=== PATIENT | male | born 1970 | race Caucasian/White ===

== ENCOUNTER 2025-04-09 16:24 | Inpatient (IN) | payer SELFPAY ==
[2025-04-09 16:28] VITALS: BP 149/83; PULSE 63; RESP 18; TEMP 36.7; O2SAT 95; BMI 29.4
[2025-04-09 17:47] VITALS: BP 149/83; PULSE 63; RESP 18; TEMP 36.7; O2SAT 95
[2025-04-09 19:50] VITALS: PULSE 63; RESP 18; O2SAT 95; BMI 29.4
[2025-04-09] MEDS: Jevity 1.5 1,000 ML 25 ML GT (20:19)
[2025-04-09] MEDS: Polyethylene Glycol 3350 17 GM PACKET PO (21:52)
--- NOTE | 2025-04-10 00:34 | NURSING ---
jevity started at 2020 this hs and at 25ml/hr with a 200cc flush Q6 hours . procedure explained to pt and his . scant amt of yellow liquid is noted in his peg tube, abd is soft and nontender with bowel sounds present x's 4 quads. insertion site is noted to have a lg amt of red drainage on the gauze sponges, site was cleansed and new gauze sponges applied. 2200 hs medication given and pt reports some nausea but it was noted that the hob was down lower than 30 degrees, staff educated pt on keeping the hob at the prescribed 30 degrees to prevent reflux and aspiration. hob is currently locked out for pt safety. dressing to peg insertion site was changed again for a moderate of red drainage 0020 staff to check on pt and awoke easily, denied and discomfort, nausea, or bloating. there was a 5cc residual noted at this time, jevity increased to 30cc/hr. rn aware of the above charting
[2025-04-10 05:00] VITALS: BP 145/80; PULSE 61; RESP 17; TEMP 36.5; O2SAT 94
--- NOTE | 2025-04-10 05:07 | NURSING ---
jevity increased to 35cc/hr. pt denied bloating, nausea, and reports that he is passing gas. pt stated that he feels a coolness in his RLQ. there was no residual of the jevity. dressing was changed to the peg insertion site for a moderate amt of red drainage, small clots were noted on the dressing.
[2025-04-10 10:00] VITALS: PULSE 60; RESP 16; O2SAT 96
--- NOTE | 2025-04-10 12:12 | EX.PCM.HP.RE ---
HPI - General General Date of Admission: 04/09/25 Date of Service: 04/10/25 Chief Complaint: Post stroke debility HPI Narrative CHARLES RUSSELL, is a 54 YO M with no significant PMH, on no medications and not following with the PCP who had waxing and waning nausea and dizziness for a few days and then went on to develop trouble swallowing and difficulty walking. He also complained of numbness on the right side of his face. He finally went to [facility] emergency department to be evaluated. At presentation to the ED he had slurred speech, facial droop and drift with the R leg. NC CT brain was unremarkable with no acute abnormalities. A PN states CTA of the H&N were unremarkable......the actual radiology report of the test was not included in the documentation we received. He was admitted to the hospitalist service to be evaluated for CVA. Carotid duplex revealed less than 50% per documentation in the progress note. A transthoracic echocardiogram showed normal left ventricular function but once again we did not receive the report. A noncontrast MRI of the brain showed multiple foci of restricted diffusion throughout the right cerebellum and right medulla concerning for embolic infarcts. RBS was increased in the emergency department at 145 and the lab was otherwise unremarkable in the ED. Subsequent labs showed hemoglobin A1c was 5.7. LDL was 111 with a low HDL of 34. TSH was normal. He was given a loading dose of 300 mg of ASA. He failed a swallowing eval in the ED. He was seen by ST and had a bedside exam but, no MBS or FEES was done. They recommended NPO and PEG tube insertion. A PEG was inserted by surgery on 04/08/25. The surgeon reported he had severe erosive esophagitis. He was seen by PT/OT and ST while at [facility] and acute rehab was recommended. He was transferred to the acute inpatient rehab unit at [facility] on 04/09/25 for 3 hours of therapy daily. A 30 day event monitor was ordered by the previous hospital. We will have family bring the device in for us to apply when it arrives in the mail. The med list was reviewed. He is on only ASA, no Plavix. He is not anticoagulated. No AF was reported in any of the documentation we received. He is on enoxaparin 40 mg subcu daily for DVT prophylaxis. He will take lansoprazole 30 mg daily for treatment of erosive esophagitis. He was placed on Lipitor 40 mg daily at the previous hospital. He was getting continuous TF and most recent residual is 300...........he is to start Bolus feedings today at 6 PM. Why does he have erosive esophagitis? Did not see GI at the previous hospital. Afebrile Blood pressure has ranged from 145/88 to 149/83 since arrival in rehab. Heart rate is ranged from 60-63. His tells me that he Snores very loudly and she also tells me that he stops breathing when sleeping. No RLS. He falls asleep reading all the time and can fall asleep when he is talking with someone. He has had episodic dizziness for some time but, he denies palpitations/racing heart. He sometimes can feel food sitting in his chest when eating and like it 'won't go down. Has heartburn at times. Sometimes food will come up after eating that looks like what it did when he ate it. Has been having this dizziness for months. [facility] Medical History (Updated 04/10/25 @ 18:[address] Sheri De León DO) Loud snoring Tobacco dependence in remission Overweight (BMI 25.0-29.9) Erosive esophagitis CVA (cerebral vascular accident) Hypertension Home Medications ?Medication ?Instructions ?Recorded ?Last Taken ?Type aspirin 81 mg chewable tablet 1 tab feeding tube DAILY heart 04/09/25 04/09/25 History (Aspirin [facility] health atorvastatin 40 mg tablet (Lipitor) 40 mg feeding tube QHS cholesterol 04/09/25 Unknown History enoxaparin 40 mg/0.4 mL 40 mg subcut DAILY DVT prophylaxis 04/09/25 04/09/25 History subcutaneous syringe (Lovenox) Allergy/AdvReac Type Severity Reaction Status Date / Time No Known Allergies Allergy Verified 04/09/25 17:05 Family History unable to obtain Surgical History no surgical history Social History (Updated 04/10/25 @ 15:[address] Sheri De León DO) household members: spouse and family housing: house Smoking Status: Former smoker ROS ROS Narrative Getting a straight answer out of this gentleman is very difficult. Constitutional Constitutional: Reports fatigue, snoring and stops breathing during sleep; Denies anorexia, change in weight, chills, fever(s), night sweats or weakness Eyes Eyes: Denies blurry vision, burning, change in vision or double vision ENT HEENT: Reports dysphagia; Denies abnormal hearing, headache(s), hearing loss, nasal congestion or sore throat Cardiovascular Cardiovascular: Reports dizziness and lightheadedness; Denies chest pain, dyspnea on exertion, edema, flutter in chest, orthopnea, palpitations, paroxysmal nocturnal dyspnea, pounding heartbeat, racing heartbeat or syncope Respiratory/Chest Respiratory/Chest: Denies cough, dyspnea, shortness of breath at rest, shortness of breath with exertion or wheezing Gastrointestinal Gastrointestinal: Reports chewing difficulty and other Details: Feels like his food is not going all the way to the stomach at times and he gets a fullness in his chest. Sometimes vomits food that looks undigested. Sometimes has heartburn. ; Denies abdominal pain, constipation, diarrhea, dyspepsia, hematemesis, hematochezia, nausea or vomiting Genitourinary Genitourinary: Denies dysuria, hematuria, nocturia, urinary frequency, urinary hesitancy, urinary incontinence or urinary urgency Musculoskeletal Musculoskeletal: Denies back pain, joint pain, joint swelling or neck pain Integumentary Integumentary: Denies alopecia or jaundice Neurologic Neurologic: Reports abnormal speech, dizziness and paresthesias; Denies confusion, disequilibrium, focal weakness, headache(s), seizures, tremor(s) or vertigo Psychiatric Psychiatric: Denies anxiety, depression, homicidal ideation or suicidal ideation Endocrine Endocrinology: Denies change in body appearance, polydipsia or polyuria Hematologic/Lymphatic Hematologic/Lymphatic: Denies easy bleeding, easy bruising or lymphadenopathy Allergic/Immunologic Allergic/Immunologic: Denies rhinitis, eczemia or asthma Vital Signs Vital Signs Vital Signs: 04/09/25 16:28 04/09/25 16:48 04/09/25 17:47 Temperature 98.1 F 98.1 F Temperature Source Temporal Temporal Pulse Rate 63 63 Pulse Strength Respiratory Rate 18 18 Respiratory Effort Normal Non-Labored Respiratory Depth Normal Respiratory Pattern Normal Blood Pressure 149/83 H 149/83 H Blood Pressure Mean 105 105 Blood Pressure Source Monitor Monitor Blood Pressure Position Semi-Fowlers Blood Pressure Location Right Arm Pulse Ox 95 95 Oxygen Delivery Method Room Air Room Air Room Air 04/09/25 19:50 04/09/25 19:50 04/10/25 05:00 Temperature 97.7 F L Temperature Source Temporal Pulse Rate 63 61 Pulse Strength Normal (2+) Respiratory Rate 18 17 Respiratory Effort Normal Non-Labored Respiratory Depth Normal Respiratory Pattern Normal Blood Pressure 145/80 H Blood Pressure Mean 101 Blood Pressure Source Monitor Blood Pressure Position Semi-Fowlers Blood Pressure Location Left Arm Pulse Ox 95 94 Oxygen Delivery Method Room Air Room Air 04/10/25 10:00 04/10/25 10:00 Temperature Temperature Source Pulse Rate 60 Pulse Strength Normal (2+) Respiratory Rate 16 Respiratory Effort Normal Non-Labored Respiratory Depth Normal Respiratory Pattern Normal Blood Pressure Blood Pressure Mean Blood Pressure Source Blood Pressure Position Blood Pressure Location Pulse Ox 96 Oxygen Delivery Method Room Air Weight Weight: 205 lb 3.194 oz Body Mass Index (BMI) 29.4 Indicators for Scoring Admitted with or Primary Diagnosis of CVA/Stroke: Yes Hx of CVA/Stroke: Yes Modified Bastrop Score MRS Score at time of Evaluation: 3-Moderate disability NIHSS NIHSS 1a. Level of Consciousness: 0 - Alert; keenly responsive 1b. LOC Questions: 0 - Answers BOTH questions correctly 1c. LOC Commands: 0 - Performs BOTH tasks correctly 2. Best Gaze: 0 - Normal 3. Visual: 0 - No visual loss 4. Facial Palsy: 1 - Minor paralysis (flattened nasolabial fold, asymmetry on smiling) (Flattened nasolabial fold on the right with mild asymmetry of the smile. ) 5a. Left Arm: 0 - No drift; arm holds 90 (or 45) degrees for full 10 seconds 5b. Right Arm: 0 - No drift; arm holds 90 (or 45) degrees for full 10 seconds 6a. Left Le - No drift; leg holds 30-degree position for full 5 seconds 6b. Right Le - No drift; leg holds 30-degree position for full 5 seconds 7. Limb Ataxia: 0 - Absent 8. Sensory: 1 - [id number]-[id number] sensory loss; (R face feels different with pinprick that the left. ) 9. Best Language: 0 - No aphasia; normal 10. Dysarthria: 1 = [id number] dysarthria; 11. Extinction and Inattention: 0 - No abnormality Total: 3 Stroke Questions Stroke Team Activated: No Physical Exam Const alert and no apparent distress General Appearance: cooperative, comfortable and well kempt HEENT normocephalic and head/scalp atraumatic HEENT Narrative: Dry MM, no thrush. + halitosis. He has a pronounced overbite and a narrow mouth. Mouth: dry mucous membranes Teeth and Gingiva: teeth discoloration Eyes PERRL, EOMs intact bilaterally, conjunctivae normal and no scleral icterus Eyes Narrative: No discharge from the eyes. No visual field cuts. Neck supple, No nodes and no carotid bruits General: trachea midline Chest Chest: symmetrical chest wall rise Resp normal respiratory effort, no use of accessory muscles and clear to auscultation bilaterally Resp Narrative: Not coughing with deep breaths. Breath sounds are mildly diminished but I think this is due to decreased effort rather than any significant lung disease Effort and Inspection: able to speak in complete sentences Cardio regular rate, regular rhythm, S1 normal heart sound, S2 normal heart sound, no murmurs, no rub, no gallops and peripheral pulses 2+ throughout Cardio Narrative: No ectopy GI normal to inspection, nondistended, normoactive bowel sounds, soft to palpation and non-tender GI Narrative: No erythema around the PEG site and no discharge noted. He had no pain with palpation around the PEG. Extremity no calf tenderness and no pedal edema Skin no jaundice General Skin Exam: no breakdown Rashes: no rashes Neuro Neuro Narrative: Speech is somewhat slurred. He has a mild R facial droop and decreased sensation in the right face when compared to the left. Pupils are equal round and reactive to light. Smooth pursuit. No nystagmus. Extraocular muscles are intact. No visual field cuts. Tongue protruded on the midline. No drift with any of the extremities. Excellent plantar flexion and dorsiflexion bilaterally. I did not observe him ambulating. No aphasia. No ataxia. No extinction. Psych cooperative, affect normal, denies hallucinations, denies homicidal ideation and denies suicidal ideation Appearance: appropriate and well kempt Attitude: calm Activity / Motor Behavior: appropriate eye contact Assessment & Plan Assessment/Plan (1) Debility: (2) CVA (cerebral vascular accident): QUALIFIERS: CVA mechanism: embolism Precerebral and cerebral artery: unspecified cerebral artery Qualified Code(s): I63.40 - Cerebral infarction due to embolism of unspecified cerebral artery (3) Dysphagia due to recent cerebral infarction: (4) Dysarthria: (5) Erosive esophagitis: (6) Overweight (BMI 25.0-29.9): (7) Dyslipidemia: (8) Tobacco dependence in remission: (9) Loud snoring: PLAN: Plan PLAN PT for gait stability OT for ADL's ST for evaluation Analgesics as needed Bowel protocol Fall precautions Assess for Anxiety/Depression GI prophylaxis -lansoprazole 30 mg daily DVT prophylaxis with Lovenox Follow up with neurology, PCP following DC from [facility]. I suspect he may have an esophageal problem......would like him to see GI at some point. Await the results of the MBS to be done on Monday. If there is esophageal retention with reflux will have GI see him sooner rather than later. AM lab including CMP, CBC, Mag and Phos Overnight trending pulse ox tonight. The strokes are consistent with emboli. Echocardiogram shows normal left ventricular systolic and diastolic function with no wall motion abnormalities. There were no thrombi in the heart and the atria are normal size. No PFO. Carotids have less than 50% stenosis bilaterally. The notes say the CTA was unremarkable but we requested CTA results and they were not sent to us so I question whether 1 was actually done. He snores loudly and stops breathing at night. He falls asleep easily during the day, when reading and even talking to people. He has a marked overbite with a narrow mouth and I suspect he has sleep apnea. Definitely needs an event monitor at discharge. Will do an overnight trending pulse ox and if it is abnormal start him on oxygen supplementation at night. Will try and get a sleep study on the night of DC if the overnight trending pulse ox is abnormal Transition him to bolus feedings. Yen water protocol initiated. MBS planned for Monday. Scored 43/50 on BCAT. Charges/Coding Visit Charges Inpatient E&M: 02875 Init Hosp L3
--- NOTE | 2025-04-10 15:20 | EKG12_ITS ---
Test Reason : EM Blood Pressure : */* mmHG Vent. Rate : 61 BPM Atrial Rate : 61 BPM P-R Int : 130 ms QRS Dur : 92 ms QT Int : 394 ms P-R-T Axes : 21 3 68 degrees QTcB Int : 396 ms Normal sinus rhythm Nonspecific T wave abnormality Abnormal ECG No previous ECGs available Confirmed by DOREEN REIS, DOREEN ([id number]), senior technical editor DILIP ZUÑIGA ([id number]) on 04/14/2025 1:19:55 PM Referred By: Sheri De León Confirmed By: DOREEN LOGAN MD
[2025-04-10 16:03] VITALS: BMI 29.4
[2025-04-10] MEDS: Jevity 1.5. 1,000 ML Bottle 240 ML GT ×2 (17:47→21:47)
[2025-04-10 17:52] VITALS: BP 150/84; PULSE 66; RESP 16; TEMP 36.7; O2SAT 95
[2025-04-10 19:25] VITALS: O2SAT 95
--- NOTE | 2025-04-10 20:04 | CPS ---
Pt brought own IS
[2025-04-10 20:22] VITALS: PULSE 65; RESP 16; O2SAT 97
[2025-04-10] MEDS: Polyethylene Glycol 3350 17 GM PACKET PO (21:46)
[2025-04-10 21:53] VITALS: PULSE 62; O2SAT 96
[2025-04-10 22:32] VITALS: BMI 29.4
[2025-04-11] MEDS: Jevity 1.5. 1,000 ML Bottle 240 ML GT (05:37)
[2025-04-11 05:55] VITALS: BMI 29.4
[2025-04-11 06:00] VITALS: BP 130/70; BP 139/93; BP 156/88; PULSE 66; PULSE 76; PULSE 81
[2025-04-11 06:09] LABS: Hematocrit 45.5 % (40-54); Hemoglobin 16.0 g/dL (13.0-16.5); Immature Granulocytes Count 0.010 X10^3/uL (0.0-0.0); Mean Corp Hgb Conc 35.2 g/dL (32-36); Mean Corpuscular Volume 85.5 fL (80-94); Mean Platelet Vol. 8.3 fl (6.2-12.0); NRBC Flagged by Analyzer 0 % (0-5); Platelet Count 274 K/mm3 (150-450); RBC Distribution Width CV 12.1 % (11.6-14.6); RBC Distribution Width SD 38.1 fl (35.1-43.9); Red Blood Count 5.32 M/mm3 (4.6-6.2); White Blood Count 7.1 K/mm3 (4.4-11.0)
[2025-04-11 06:40] LABS: AST(SGOT) 27 U/L (<=37); Alanine Aminotransfer ALT/SGPT 8 U/L (<=46); Albumin, Serum 4.0 g/dL (3.5-5.0); Alkaline Phosphatase 46 U/L (40-129); Anion Gap 9 (5-15); BUN 15 mg/dL (4-19); BUN/Creat Ratio 19.1 RATIO (10-20); Calcium,Total 9.4 mg/dL (7.6-11.0); Carbon Dioxide 25.9 mmol/L (21.0-32.0); Chloride 104 mmol/L (98-108); Estimated Creatinine Clearance 121.10 ml/min (50-250); Globulin 3.0 g/dL (2.2-4.2); Glucose 133 mg/dL (70-99); Magnesium 2.3 mg/dL (1.5-2.2); Potassium 4.3 mmol/L (3.3-5.1)
--- NOTE | 2025-04-11 08:53 | CT_ITS ---
PROCEDURE: CTA ABD/PELVIS W/WO CONTRAST 04/11/2025 REASON FOR EXAM: ABD PAIN AND VOMITING. TECHNIQUE: CTA ABD/PELVIS W/WO CONTRAST Multiplanar Sagittal and Coronal images were obtained. CONTRAST: 100 mL of Isovue 370 One or more dose reduction techniques were used (e.g., Automated exposure control, adjustment of the mA and/or kV according to patient size, use of iterative reconstruction technique). RADIATION DOSE SUMMARY: DLP: 3441 mGycm FINDINGS: Lung bases: Right lung base scattered densities with calcifications may reflect chronic aspiration. The liver, spleen, pancreas, and both adrenal glands demonstrate no acute findings. Hepatic steatosis. The gallbladder is unremarkable. Small hiatal hernia. Peg tube is noted; otherwise stomach is unremarkable.. The small bowel loops are not dilated. The appendix is not clearly identified, although there are no secondary signs of appendicitis. No colonic obstruction. Extensive colonic diverticulosis without acute diverticulitis. There is no free air or significant free fluid. The kidneys are unremarkable. The urinary bladder is partially distended. The pelvic structures are intact. There is no solid pelvic mass. Enlarged prostate to 5.2 cm in transverse dimension. No significant lymphadenopathy. Visualized osseous structures demonstrate no acute abnormality. Left posterior ribs at T10-T12 healing subacute fractures. Vascular: The aorta and IVC demonstrate no acute findings. Mild atherosclerosis of the abdominal vasculature without high-grade stenosis. Aorta: Minimal atherosclerosis without stenosis. No aneurysm or focal dissection. Iliac Arteries: Minimal atherosclerosis without stenosis. No aneurysm or focal dissection. Celiac: Patent SMA: Patent GABRIELLE : Patent Right Renal: Patent Left Renal: Patent CT/CTA Abd/Pelvis W/WO Contrast IMPRESSION: Right lung base scattered densities with calcifications may reflect chronic asp iration. No acute intra-abdominal process. Peg tube in appropriate position. No intra- abdominal acute aortic pathology. Reading Location: [id number]
--- NOTE | 2025-04-11 09:20 | CT_ITS ---
PROCEDURE: CTA HEAD AND NECK W/ CONTRAST 04/11/2025 REASON FOR EXAM: CVA TECHNIQUE: CTA HEAD AND NECK W/ CONTRAST Multiplanar Sagittal and Coronal images were obtained. CONTRAST: 100 mL of Isovue 370 One or more dose reduction techniques were used (e.g., Automated exposure control, adjustment of the mA and/or kV according to patient size, use of iterative reconstruction technique). RADIATION DOSE SUMMARY: DLP: 3414 mGycm COMPARISON: None FINDINGS: There is no acute infarct, intracranial hemorrhage, or mass effect. There is no hydrocephalus or significant midline shift. No acute, depressed calvarial fractures. No large scalp hematomas. The aortic arch demonstrates a type I configuration. The ostia of the great vessels are patent. There is conventional branching. The right CCA is patent. There is no significant stenosis of the right carotid bifurcation by NASCET criteria. The cervical right ICA is patent. The right MCA and right MARK appear patent. There is no large vessel occlusion. The left CCA is patent. There is no significant stenoses at the left carotid bifurcation by NASCET criteria. The cervical left ICA is patent. The left MCA and left MARK appear patent. There is no large vessel occlusion. The right vertebral artery arises from the right subclavian artery. The left vertebral artery arises from the left subclavian artery. Both vertebral arteries are patent. Both vertebral arteries join to form the patent basilar artery. Both posterior cerebral arteries arise from the tip of the basilar. Both proximal GUIDE CRUISE segments are patent. There is no large vessel occlusion. There is no enhancing intracranial mass. Shotty cervical lymph nodes are identified. The thyroid gland is heterogeneous. The lung apices demonstrate no pneumothorax. No destructive osseous abnormalities identified. CT/CTA Head AND Neck W/ Contrast IMPRESSION: No acute, large territorial infarction. No large vessel occlusion or high-grade stenosis. Reading Location: [id number]
[2025-04-11] MEDS: 0.9% Normal Saline (1000mL) 1,000 ML 100 ML IV ×2 (09:26→19:57)
--- NOTE | 2025-04-11 10:43 | PCM.RU.PYE ---
Admission Information Primary Diagnosis:: Debility due to ischemic CVA/embolic Status Changes from Prescreening?: No changes Identified Actual Problem List:: Skin Intergrity, Pain, ALteration in Cmfrt, Alteration in Nutrition, Mobility Impaired, Self Care Deficit, Fluid Change-Dehydration and Alteration-Leisure Activ. Potential Problem List:: DVT, Bleeding, Infection, UTI, Aspiration, Falls, Skin Integrity and Depression Risk of Complications DVT: LMWH and AJITH Hose Bleeding: Monitor Lab Values, Nursing to Teach Precautions for anti-coagulation therapy., Wound, if applicable, to be assessed every shift. and Stroke patients assessed for lethargy or change in status. Infection: Clinical Staff to Monitor for S/S of infection: and S/S of infection include fever, redness, warmth, etc. Urinary Tract Infection: Monitor for frequency, burning, discomfort, or incontinence. and Nursing will obtain urine sample for urinalysis and C&S when ordered. Aspiration: Clinical staff will monitor for coughing, drooling, congestion., Speech will evaluate swallowing and dsyphasia. and Nursing will monitor patient swallowing during meals. Falls: Patient will be evaluated for Fall Precautions and Patient will be placed on Fall Precautions as indicated per protocol. Skin Breakdown: Nursing will assess skin daily using assessment tool. and Nursing will place on Skin Breakdown Precautions as indicated. Pain: Clinical staff will assess patient's pain level per protocol., Medications will be given, if needed, and the pain level reassessed. and Other methods: Massage, distraction, decrease stimulus, etc. used PRN. Plan of Care Patient requires physician specializing in physical medicine and rehab oversight to provide close medical supervision of rehab issues including: Pain Management, Sleep Problems, Bowel and Bladder, Medical and co-morbidity Management, DVT prophylaxis, Rehabilitation Leadership and Coordination of treatment team Patient needs Physical Therapy: For a minimum of 1 hour and At least 5 out of 7 days Patient needs Physical Therapy to improve:: Mobility, Strengthening, Transfers, Stretching, ROM, Endurance, Stairs, Gait and Balance Patient needs Occupational Therapy: For a minimum of 1 hour and At least 5 out of 7 days Patient needs Occupational Therapy to improve ADL's incl.: Eating, Grooming, Bathing, Dressing, Toileting, Toilet transfers, Community Reintegration, Higher functioning activities, Household tasks, Adaptive Equipment, Splinting and Other activities as determined Patient requires speech therapy: For a minimum of 1 hour and At least 5 out of 7 days Patient requires speech therapy for: Swallowing, Cognition, Language Skills and Compensatory Strategies Patient requires 24/ Rehabilitation Nursing for: Pain Issues, Identifying and preventing risk factors, Monitoring and reporting current medical conditions, Assisting with ambulation, transfer, and all ADL's, Teaching patients about disease process and medications, Family teaching, Providing safe environment, Bowel and Bladder Issues, Skin integrity and Medication Management Patient needs [employer] Instructor/ Case Management for: Discharge Planning, Arranging Home Equipment or Services and Family Interventions Patient needs Dietary and Nutrition Services for: Adequate Nutrition, Nutritional Supplements and Nutritional Education Goals Goals Patient will remain: free from falls Patient will perform eating at: MOD I level of assist. Patient will perform bed mobility at: MOD I level of assist. Patient will complete transfers from bed to chair at: MOD I level of assist. Patient will ambulate: - (500 feet without an assistive device independently on various surfaces) Patient will complete upper body dressing at: MOD I level of assist. Patient will complete lower body dressing at: MOD I level of assist. (Using adaptive equipment as needed for increased independence with self-care) Patient will complete toilet transfer at: MOD I level of assist. Patient will complete toileting at: MOD I level of assist. Patient will perform bathing at: MOD I level of assist. Patient will perform Tub/Shower transfer at: - (Supervision) Patient will complete grooming at: MOD I level of assist. (While standing at the sink) Patient will achieve: - (12 steps with 1 handrail and standby assist) Patient will have pain level of: of 3 or less Patient's skin will: remain intact Patient will receive: adequate nutrition. Discharge Planning Pt Prognosis for Sig. Practical Improv. w/in Reasonable Time: Good Estimated Length of stay (days): 21 Anticipated D/C Destination: Home w/ family or friends Was Preadmission Assessment Accurate?: Yes
--- NOTE | 2025-04-11 10:54 | PN_ITS ---
Subjective Subjective Afebrile The blood pressure has ranged from 130/78 to 150/84 since admission to rehab. Heart rate is within normal limits. Orthostatics were negative yesterday. Maintaining appropriate oxygen saturation on room air. Fluid balance yesterday was -975 cc and overnight he was -400. NOT tolerating tube feed. He is complaining of feeling bloated and nauseated and has only been agreeing to 100 cc bolus at at a time. This morning he had an emesis and then stated he felt better. He denies CP, cough, SOB, dysuria, calf pain, cephalgia. He complains of dizziness turning his head. It passes when he keeps his head still. These episodic dizzy episodes predated the recent CVA. BPPV? All lab drawn this morning was personally reviewed. The white blood cell count is normal with an unremarkable differential. Hemoglobin is 16 and the MCV and MCH are normal. RDW is normal. Platelets are normal. Sodium is 139 and the potassium is 4.3. The BUN is 15 with a creatinine of 0.79 and a BUN/creatinine ratio of 19.1. Fasting blood sugar was 133. Hemoglobin A1c was recently 5.7. Calcium, phosphorus and magnesium are normal and LFTs are normal. I reviewed the overnight trending pulse ox and he does not desaturate. Objective Data Objective Data Vital Signs: Vital Signs Temp Pulse Resp BP Pulse Ox O2 Del Method FiO2 98.1 F 76 16 130/70 H 96 Room Air 21 04/10/25 17:52 04/11/25 06:00 04/10/25 20:22 04/11/25 06:00 04/10/25 21:53 04/10/25 20:22 04/10/25 21:53 Oxygen Delivery Method Room Air Weight: 205 lb 4.006 oz Body Mass Index (BMI) 29.4 Intake & Output: Intake and Output for Last 24 Hours 04/09/25 04/10/25 04/11/25 23:59 23:59 23:59 Intake Total 200 / 200 1242.67 / 1242.67 Output Total 400 / 400 2200 / 2200 400 / 400 Balance -200 / -200 -957.33 / -957.33 -400 / -400 Lab / Micro Data 04/11/25 05:58 04/11/25 05:58 Labs: Laboratory Results - last 24 hr 04/11/25 05:58: WBC 7.1, RBC 5.32, Hgb 16.0, Hct 45.5, MCV 85.5, MCH 30.1, MCHC 35.2, RDW Std Deviation 38.1, RDW Coeff of Merry 12.1, Plt Count 274, MPV 8.3, Immature Gran % (Auto) 0.100, Neut % (Auto) 70.6 H, Lymph % (Auto) 16.4 L, [place] % (Auto) 10.2 H, Eos % (Auto) 2.3, Baso % (Auto) 0.4, Absolute Neuts (auto) 5.0, Absolute Lymphs (auto) 1.16, Nucleated RBC % 0, Sodium 139, Potassium 4.3, Chloride 104, Carbon Dioxide 25.9, Anion Gap 9, BUN 15, Creatinine 0.79, Estim Creat Clear Calc 121.10, Est GFR (MDRD) Non-Af 105, BUN/Creatinine Ratio 19.1, G lucose 133 H, Calcium 9.4, Phosphorus 3.6, Magnesium 2.3 H, Total Bilirubin 0.56, AST 27, ALT 8, Alkaline Phosphatase 46, Total Protein 7.0, Albumin 4.0, Globulin 3.0, Albumin/Globulin Ratio 1.3 Radiography Diagnostic Testing: Radiology Impression Head/Neck CTA 04/11/25 09:20 IMPRESSION: No acute, large territorial infarction. No large vessel occlusion or high-grade stenosis. Reading Location: [facility] Physical Exam Const alert and oriented x3 Constitutional Narrative: NAD after he vomited. General Appearance: cooperative Orientation / Consciousness: Negative for confused HEENT Mouth: dry mucous membranes Resp clear to auscultation bilaterally Cardio regular rate, regular rhythm and no gallops GI GI Narrative: ND, BS's present in all quadrants, no guarding with palpation, no masses appreciated. Denies abd pain/bloating after the emesis. Extremity no calf tenderness Extremity Narrative: Pedal pulses are +2 bilaterally General Extremity: Negative for edema Skin Rashes: no rashes Psych cooperative and affect normal Assessment & Plan Assessment/Plan (1) Debility: (2) CVA (cerebral vascular accident): QUALIFIERS: CVA mechanism: embolism Precerebral and cerebral artery: unspecified cerebral artery Qualified Code(s): I63.40 - Cerebral infarction due to embolism of unspecified cerebral artery (3) Dysphagia due to recent cerebral infarction: (4) Dysarthria: (5) Erosive esophagitis: (6) Overweight (BMI 25.0-29.9): (7) Dyslipidemia: (8) Tobacco dependence in remission: (9) Loud snoring: (10) Nausea & vomiting: PLAN: Plan 1. Continue therapy 2. Discontinue tube feed for now. Okay to continue Yen water 3. Start IV fluids to hydrate. 4. CTA of the abd and pelvis. 5. CTA of the head......we were unable to get results from [facility].......they sent all the other documentation/imaging I requested so I do not think he had a CTA of the head. 6. Check a hypercoagulable panel. Why did he have embolic strokes? Why is he not tolerating the TF? Why does he have erosive gastritis? Charges/Coding Visit Charges Inpatient E&M: 62784 Subs Hosp L2
[2025-04-11 10:57] VITALS: BMI 29.4
[2025-04-11 12:01] LABS: Lipase 69 U/L (13-75)
[2025-04-11] MEDS: 0.9% Normal Saline (500mL Bag) 500 ML 999 ML IV (15:03)
[2025-04-11] MEDS: Senna/Docusate Sodium 1 Tablet 2 TABLET PO (17:35)
[2025-04-11 18:00] VITALS: BP 148/82; PULSE 63; RESP 17; TEMP 36.2; O2SAT 94
[2025-04-11 20:01] VITALS: O2SAT 95
[2025-04-11 20:30] VITALS: O2SAT 97
[2025-04-11] MEDS: Polyethylene Glycol 3350 17 GM PACKET PO (22:32)
[2025-04-12 05:34] VITALS: BP 174/92; PULSE 61; RESP 16; TEMP 36.6; O2SAT 96
[2025-04-12] MEDS: 0.9% Normal Saline (1000mL) 1,000 ML 100 ML IV (06:01)
[2025-04-12] MEDS: 0.9% Saline Lock 10 ML Syringe IV ×2 (07:12→08:51)
[2025-04-12 07:22] VITALS: O2SAT 95
[2025-04-12] MEDS: 0.9% Normal Saline (1000mL) 1,000 ML 75 ML IV ×2 (08:51→20:42)
[2025-04-12] MEDS: Jevity 1.5 1,000 ML 20 ML GT (09:01)
[2025-04-12 10:18] LABS: PSA,Total - Annual Screen 0.70 ng/mL (0.02-4.00)
[2025-04-12 14:53] VITALS: BMI 29.4
[2025-04-12 17:18] VITALS: BP 142/84; PULSE 61; RESP 17; TEMP 36.4; O2SAT 95
[2025-04-12] MEDS: Polyethylene Glycol 3350 17 GM PACKET PO (21:01)
[2025-04-12 22:00] VITALS: RESP 16; O2SAT 96
[2025-04-13 00:47] VITALS: BMI 29.4
[2025-04-13 06:00] VITALS: BP 168/95; PULSE 62; RESP 16; TEMP 36.8; O2SAT 94
[2025-04-13] MEDS: 0.9% Normal Saline (1000mL) 1,000 ML 75 ML IV ×2 (09:39→23:59)
[2025-04-13 09:51] VITALS: O2SAT 96
[2025-04-13] MEDS: 0.9% Saline Lock 10 ML Syringe IV ×2 (12:31→17:36)
[2025-04-13 18:00] VITALS: BP 159/87; PULSE 65; RESP 17; TEMP 37.2; O2SAT 96
[2025-04-13] MEDS: Polyethylene Glycol 3350 17 GM PACKET PO (21:18)
[2025-04-13 21:46] VITALS: BMI 29.4
[2025-04-13 22:00] VITALS: PULSE 68; RESP 16; O2SAT 96
[2025-04-14 06:00] VITALS: BP 166/93; PULSE 65; RESP 17; TEMP 36.9; O2SAT 95
--- NOTE | 2025-04-14 09:26 | PN_ITS ---
Subjective Subjective was seen on team rounds today. His Mary was present in the room. All questions were answered to their satisfaction. Afebrile VSS -blood pressures have been pretty consistently elevated. Over the past 48 hours the blood pressure is ranged from 142/84 to 168/95. Heart rate is within normal limits. Maintaining appropriate oxygen saturation on RA Oral intake - FOOD n.p.o. except Yen water FLUIDS he had 1110 cc of Yen water yesterday. Discussed with nursing - no problems that need addressed Reviewed the THERAPY notes Medication list reviewed. D/W ST the results of the MBS today and he has been approved for a diet with regular textures and thin liquids. Hypercoagulable workup was sent out today. PSA is normal at 0.7. has had no dizziness since he was doing [facility] on Monday with PT. [facility] and had no vertigo at all over the weekend or with therapy today. He denies chest pain, palpitations, shortness of breath, vertigo, lightheadedness, nausea, vomiting, abdominal pain, heartburn, dysuria and calf pain. His only complaints are R facial numbness and some R side weakness........good strength but, not what it used to beand he is still jsing a WW. Objective Data Objective Data Vital Signs: Vital Signs Temp Pulse Resp BP Pulse Ox O2 Del Method FiO2 98.4 F 65 17 166/93 H 95 Room Air 21 04/14/25 06:00 04/14/25 06:00 04/14/25 06:00 04/14/25 06:00 04/14/25 06:00 04/14/25 06:00 04/10/25 21:53 Oxygen Delivery Method Room Air Weight: 205 lb 4.006 oz Body Mass Index (BMI) 29.4 Intake & Output: Intake and Output for Last 24 Hours 04/12/25 04/13/25 04/14/25 23:59 23:59 23:59 Intake Total 2473.75 / 2473.75 3141.25 / 3141.25 675 / 675 Output Total 1999 / 1999 2500 / 2500 320 / 320 Balance 473.75 / 473.75 641.25 / 641.25 355 / 355 Lab / Micro Data 04/11/25 05:58 04/11/25 05:58 Physical Exam Const alert and oriented x3 General Appearance: cooperative Resp clear to auscultation bilaterally Cardio regular rate, regular rhythm and no gallops GI normal to inspection, nondistended, normoactive bowel sounds and soft to palpation GI Narrative: Denies nausea and has been tolerating the continuous TF. Extremity no calf tenderness General Extremity: Negative for edema Skin Rashes: no rashes Psych cooperative and affect normal Psych Narrative: good eye contact with me when we are talking. Appearance: appropriate Assessment & Plan Assessment/Plan (1) Debility: (2) CVA (cerebral vascular accident): QUALIFIERS: CVA mechanism: embolism Precerebral and cerebral artery: unspecified cerebral artery Qualified Code(s): I63.40 - Cerebral infarction due to embolism of unspecified cerebral artery (3) Dysphagia due to recent cerebral infarction: (4) Dysarthria: (5) Erosive esophagitis: (6) Overweight (BMI 25.0-29.9): (7) Dyslipidemia: (8) Nausea & vomiting: QUALIFIERS: Vomiting type: unspecified Qualified Code(s): R11.2 - Nausea with vomiting, unspecified (9) Sleep-disordered breathing: PLAN: STOP BANG score is 7. PLAN: Plan 1. Continue therapy 2. MBS today 3. If he still needs a PEG tube will increase to 50 cc/h continuous tube feed and if he tolerates that will transition to bolus feedings. 4. Hypercoagulable workup is pending. We have no source for the emboli leading to the multiple small strokes. 5. Will need and evaluation by GI for severe erosive esophagitis. He only has a small HH on CT abdomen. 6. Start Lisinopril 5 mg daily per PEG for now. 7. Started on a heart healthy diet with regular textures and thin liquids. Okay to give medications by mouth per speech therapist. 8. Prior to DC repeat a overnight trending pulse ox.......when he is lying flat on his back and sleeping. 9. Gait is still slow and he needs to really concentrate on not losing balance. We recommend another week on rehab and he is agreeable to this. 1. Do you snore loudly? Y 2. Do you often feel tired, fatigued or sleepy during the day? Y 3. Has anyone ever observed you stop breathing during sleep? Y 4. Do you have (or are you being treated for) HTN? Y BMI 29.5 AGE 54 Neck circumference 46.5 cm Gender male Total 7 Given the high STOP BANG score and the fact that his tells me he snores loudly and stops breathing at night I feel strongly that he needs a sleep study. He did not desaturate on the overnight trending pulse ox BUT, the HOB was up because he was getting PEG feedings continuously. At home he sleeps flat on his back. He falls asleep reading and he feels fatigued during the day. He has embolic strokes with no source of clot on W/U. I suspect he may be having PAF. Event monitor was ordered at [facility]. Charges/Coding Visit Charges Inpatient E&M: 22639 Subs Hosp L2
--- NOTE | 2025-04-14 09:43 | ST.MBS ---
Modified Barium Swallow Patient Information Study Date: 04/14/25 Study Time: 09:00 Direct Billable Minutes: 60 Total Minutes procedure & reportin Diagnosis: CVA Referring Physician: Sheri De León Reason for Referral: Objective assessment of swallow function under fluoroscopy recommended following CBSE 04/10/25 and prior to diet advancement Medical History: Amarjit Rico is a previously healthy male with no prior medical history or medications, not followed by PCP, presented with several days of nausea, dizziness, progressing to dysphagia, gait disturbance, right facial numbness, slurred speech, and right-sided weakness. Initial evaluation at [facility] showed unremarkable CT and CTA of the head/neck. MRI revealed multiple acute infarcts in the right cerebellum and medulla, consistent with embolic stroke. Carotid duplex showed <50% stenosis; TTE was reportedly normal (report not received). Hemoglobin A1c was 5.7, LDL 111, HDL 34. TSH normal. No atrial fibrillation was documented. Started on aspirin 300 mg and Lipitor 40 mg. Enoxaparin 40 mg SC daily was initiated for DVT prophylaxis. PEG placed on 04/08/25 after failed bedside swallow evaluation; no instrumental swllow evaluations were completed prior to PEG placement; erosive esophagitis noted on placement. No GI consultation done. Transferred to acute inpatient rehab at [facility] on 04/09/25 for intensive therapy. Dentition: WNL Respiratory Status: Oxygenating on Room Air Penetration-Aspiration Scale Penetration-Aspiration Scale: OBJECTIVE ASSESSMENT OF SWALLOW FUNCTION (QUANTITATIVE ? PER TRIAL): PENETRATION / ASPIRATION SCALE (MONROE): 1 = does not enter airway 2 = enters airway/above vocal folds/ejected 3 = enters airway/above vocal folds/not ejected 4 = enters airway/contacts vocal folds/ejected 5 = enters airway/contacts vocal folds/not ejected 6 = enters airway/below vocal folds/ejected 7 = enters airway/below vocal folds/not ejected despite effort 8 = enters airway/below vocal folds/no effort VIDEOFLOROSCOPIC SCALE SCORE (MONROE): Grade I = aspiration of material that has penetrated into the laryngeal vestibule, intact cough reflex Grade II = aspiration < 10 % of the bolus, intact cough reflex Grade III = aspiration of < 10 % of the bolus, reduced cough reflex or aspiration of > 10 % of the bolus, intact cough reflex Grade IV = aspiration of > 10 % of the bolus, reduced cough reflex Penetration-Aspiration Scale Score Thin Liquid via teaspoon: Result: 1= does not enter airway Thin Liquid via teaspoon Trial 2: Result: 1= does not enter airway Thin Liquid via small single sip: cup: Result: 2= enter airway/above vocal folds/ejected Thin Liquid via small single sip: cup Effortful swallow: Result: 2= enter airway/above vocal folds/ejected Thin Liquid via sequential sips: cup: Result: 2= enter airway/above vocal folds/ejected Pudding: Result: 1= does not enter airway Cookie: Result: 1= does not enter airway Pudding Trial 2: Result: 1= does not enter airway Thin Liquid via sequential sips:straw: Result: 6= enters airway/below vocal folds/ejected Oral Phase Labial Seal: Escape beyond interlabial space; no extension beyond kaelyn border Tongue Control During Bolus Hold: Cohesive bolus between tongue to palatal seal Bolus Preparation/Mastication: Slow prolonged chewing/mashing with complete recollection Bolus Transport/Lingual Motion: Slowed tongue motion Oral Residue: Trace residue lining oral structures Pharyngeal Phase Initiation of Pharyngeal Swallow: Bolus head at posterior laryngeal surgace of epiglottis Soft Palate Elevation: No bolus between soft palate and pharyngeal wall Laryngeal Elevation: Partial superior movement thyroid cart/partial apprx aryt-epig petiole Anterior Hyoid Excursion: Partial anterior movement Epiglottic Movement: Partial inversion Laryngeal Vestibule Closure at Height of Swallow: Complete; no air/contrast in laryngeal vestibule Pharyngeal Stripping Wave: Present - complete Pharyngoesophageal Segment Opening: Complete distension and complete duration; no obstruction of flow Tongue Base Retraction: Narrow column of contrast between tongue base & post. pharyngeal wall Pharyngeal Residue: Trace residue within or on pharyngeal structures Esophageal Phase Esophageal Clearance: Complete clearance Diagnosis/Impression Diagnosis: mild oropharyngeal dysphagia Impression: The oral phase is characterized by... slowed lingual motion for AP bolus transportation trace residue accumulation on tongue base The pharyngeal phase is characterized by... bolus spillage to the posterior laryngeal surface of the epiglottic prior to swallow onset incomplete hyolaryngeal excursion/anterior hyoid movement resulting in incomplete epiglottic inversion w/ transient laryngeal vestibule penetration penetration contacted and dropped below the folds 1x (very trace amount) w/ sequential swallows of thin liquid via straw The esophageal phase was unremarkable. Recommendations Diet: Regular Textures and Thin Liquids Comment: limit straws/avoid sequential swallows via straw Compensatory Strategies: Sitting upright Supervision: Distant Supervision Recommend Repeat Modified Barium Swallow: No Need for Skilled Speech Therapy Services: Yes Comment: Skilled ST intervention is recommended to initiate oropharyngeal strengthening exercises to improve airway closure and reduce penetration/aspiration risk. Education Completed: 1. Described result of evaluation. and 2. Pt understands evaluation & agrees with goals and treatment plan. Status Active ST Patient: Active Contact Information [facility] Speech Therapy:: Josee Dugan M.A. [employer]ECTOR [employer] SPECIALIST Speech-Language Pathologist [facility] [address] [place] [address] [email or web address] [phone]
[2025-04-14 10:00] VITALS: PULSE 68; RESP 16; O2SAT 95
[2025-04-14 10:23] VITALS: BP 153/95; PULSE 68; RESP 16; TEMP 36.3; O2SAT 95
--- NOTE | 2025-04-14 12:55 | CASEMGMT ---
Social Work IDT met with patient and for care plan meeting. Discussed patient's progress in PT/OT/ST/SN/MD. [employer] Liaison present. Pt has paid 7 days, through 04/15, NRD 04/16. Pt is progressing well, though, still requiring some physical assistance and cues for safety. TUBE MOUNTER reported pt passed MBS this date and is now on regular diet. Peg tube will remain until f/uu with GI. to learn how to flush peg for homegoing. SW offered assistance with ongoing therapy, nursing care and DME at [place]. Pt and have access to community DME warehouse but do own cane and FWW at home. Pt's goal is to DC home with assistance. Will ReTeam weekly. Carolin Pierson LDR NURSE ARCHITECTURAL SALES CONSULTANT
[2025-04-14 13:11] VITALS: BMI 29.4
[2025-04-14] MEDS: 0.9% Saline Lock 10 ML Syringe IV ×2 (17:36→22:06)
[2025-04-14 18:00] VITALS: BP 150/82; PULSE 65; RESP 16; TEMP 36.8; O2SAT 96
[2025-04-14] MEDS: Polyethylene Glycol 3350 17 GM PACKET PO (21:56)
[2025-04-14 22:00] VITALS: BP 126/84; PULSE 95; RESP 15; TEMP 36.3; O2SAT 95
[2025-04-14 23:02] VITALS: BMI 29.4
[2025-04-15 06:00] VITALS: BP 136/84; PULSE 59; RESP 16; TEMP 36.4; O2SAT 98
[2025-04-15 09:55] VITALS: BP 127/94; PULSE 64
[2025-04-15 14:00] VITALS: BP 118/69; PULSE 69
[2025-04-15] MEDS: Senna/Docusate Sodium 1 Tablet 2 TABLET PO (15:19)
[2025-04-15] MEDS: 0.9% Saline Lock 10 ML Syringe IV (15:27)
[2025-04-15 15:41] VITALS: BMI 29.4
[2025-04-15 18:00] VITALS: BP 122/81; PULSE 67; RESP 14; TEMP 36.9; O2SAT 95
--- NOTE | 2025-04-15 18:40 | NURSING ---
1400 patient's PEG tube flushed with 50mL of water. Patient tolerated procedure well. Denies additional needs at this time.
[2025-04-15 21:23] VITALS: BP 134/78; PULSE 67; RESP 17; TEMP 36.6; O2SAT 97
[2025-04-15 22:52] VITALS: BMI 29.4
[2025-04-16] VITALS (7 sets, daily range): BP systolic 121–143; BP diastolic 68–81; PULSE 61–68; RESP 13–17; TEMP 35.5–36.7; O2SAT 93–98; BMI 29.4
[2025-04-16] MEDS: 0.9% Saline Lock 10 ML Syringe IV ×2 (00:23→22:02)
--- NOTE | 2025-04-16 09:34 | PCM.PROGNOTE ---
Subjective Subjective Afebrile VSS -blood pressure is well-controlled. Maintaining appropriate oxygen saturation on RA Oral intake - FOOD good FLUIDS Discussed with nursing - no problems that need addressed Reviewed the THERAPY notes Medication list reviewed. Refused the meclizine last night at bedtime. This morning he had recurrent dizziness with movement/turning his head. We agreed to decrease the scheduled meclizine to twice daily rather than 3 times daily. He now realizes that he needs this medication. He is complaining of some soreness in his upper lip. There is a cold sore there. He has had cold sores in the past and he has started using Carmax. We discussed using acyclovir cream and he is agreeable to this. Denies headache, palpitations, chest pain, shortness of breath, nausea/vomiting/epigastric pain/heartburn, constipation, calf pain and dysuria. Feels he is really benefitting from ST. He is more aware of swallowing difficulty now and is taking steps to prevent aspiration. NO coughing with eating/drinking. Objective Data Objective Data Vital Signs: Vital Signs Temp Pulse Resp BP Pulse Ox O2 Del Method FiO2 98 F 64 13 143/72 H 93 Room Air 21 04/16/25 05:09 04/16/25 08:08 04/16/25 05:09 04/16/25 08:08 04/16/25 05:09 04/16/25 08:58 04/10/25 21:53 Oxygen Delivery Method Room Air Weight: 205 lb 4.006 oz Body Mass Index (BMI) 29.4 Intake & Output: Intake and Output for Last 24 Hours 04/14/25 04/15/25 04/16/25 23:59 23:59 23:59 Intake Total 2728.67 / 2728.67 2090 / 2090 590 / 590 Output Total 1270 / 1270 950 / 950 200 / 200 Balance 1458.67 / 1458.67 1140 / 1140 390 / 390 Lab / Micro Data 04/11/25 05:58 04/11/25 05:58 Physical Exam Const alert and oriented x3 General Appearance: cooperative HEENT HEENT Narrative: cold sore on the upper lip which is painful. Resp clear to auscultation bilaterally Cardio regular rate, regular rhythm and no gallops GI normal to inspection, nondistended, normoactive bowel sounds and soft to palpation GI Narrative: Denies nausea and has been tolerating the continuous TF. Extremity no calf tenderness General Extremity: Negative for edema Skin Rashes: no rashes Neuro Neuro Narrative: Still with mild R facial droop. speech is more crisp and not slurred. He is much easier to understand. He is more focused when I am speaking with him and less rambling and flight of ideas. Better able to concentrate. Walking with a FWW with good reciprocal stepping, better pace and no loss of balance. He is ambulating in the halls with his at contact-guard assist. Psych cooperative and affect normal Psych Narrative: good eye contact with me when we are talking. Appearance: appropriate Assessment & Plan Assessment/Plan (1) Debility: (2) CVA (cerebral vascular accident): QUALIFIERS: CVA mechanism: embolism Precerebral and cerebral artery: unspecified cerebral artery Qualified Code(s): I63.40 - Cerebral infarction due to embolism of unspecified cerebral artery (3) Dysphagia due to recent cerebral infarction: (4) Dysarthria: (5) Erosive esophagitis: (6) Overweight (BMI 25.0-29.9): (7) Dyslipidemia: (8) Nausea & vomiting: QUALIFIERS: Vomiting type: unspecified Qualified Code(s): R11.2 - Nausea with vomiting, unspecified (9) Sleep-disordered breathing: PLAN: Schedule sleep study following DC from rehab. PLAN: Plan 1. Continue therapy 2. Change meclizine to 12.5 mg twice daily. 3. Zovirax cream 5 times daily to the cold sore on the upper lip 4. Reinforced with him again today that when he is discharged from rehab he is not to be on a scissor lift and not to climb ladders. He is to use a front wheeled walker to help with balance. Charges/Coding Visit Charges Inpatient E&M: 76746 Subs Hosp L1
[2025-04-16] MEDS: Acyclovir 5% Tube 1 APPLIC TOPICAL (15:19)
[2025-04-17 06:00] VITALS: BP 121/70; PULSE 59; RESP 15; TEMP 36.6; O2SAT 93
[2025-04-17] MEDS: Acyclovir 5% Tube 1 APPLIC TOPICAL ×3 (06:25→21:29)
[2025-04-17 10:00] VITALS: BP 133/88; PULSE 65
--- NOTE | 2025-04-17 10:25 | PCM.PROGNOTE ---
Subjective Subjective was seen on team rounds today. Afebrile VSS -blood pressure over the past 24 hours has ranged from 121/70 to 143/72. Maintaining appropriate oxygen saturation on RA Oral intake - FOOD good FLUIDS good Discussed with nursing - Only had Acyclovir twice since ordered....has been refusing. Reviewed the THERAPY notes Medication list reviewed. No dizziness today now that the Meclizine was restarted. Would like to go home Monday. Wants to have OP therapy. Would like to go to [place] for PCP. Denies heartburn, epigastric pain, nausea, bloating, CP, SOB, cephalgia, lightheadedness. No problem handling his secretions. Objective Data Objective Data Vital Signs: Vital Signs Temp Pulse Resp BP Pulse Ox O2 Del Method FiO2 97.8 F 59 L 15 121/70 H 93 Room Air 21 04/17/25 06:00 04/17/25 06:00 04/17/25 06:00 04/17/25 06:00 04/17/25 06:00 04/17/25 06:00 04/10/25 21:53 Oxygen Delivery Method Room Air Weight: 205 lb 4.006 oz Body Mass Index (BMI) 29.4 Intake & Output: Intake and Output for Last 24 Hours 04/15/25 04/16/25 04/17/25 23:59 23:59 23:59 Intake Total 2090 / 2090 2230 / 2230 640 / 640 Output Total 950 / 950 1050 / 1050 950 / 950 Balance 1140 / 1140 1180 / 1180 -310 / -310 Lab / Micro Data 04/11/25 05:58 04/11/25 05:58 Physical Exam Const alert and oriented x3 General Appearance: cooperative HEENT HEENT Narrative: cold sore on the upper lip which is painful. Resp clear to auscultation bilaterally Cardio regular rate, regular rhythm and no gallops GI normal to inspection, nondistended, normoactive bowel sounds and soft to palpation GI Narrative: Denies nausea and has been tolerating the continuous TF. Extremity no calf tenderness General Extremity: Negative for edema Skin Rashes: no rashes Neuro Neuro Narrative: R facial droop is better today. Smile is much more symmetrical. Head is SB R somewhat. Denies pain. No SCM spasm. Likely due to some weakness of the muscles rather than torticollis. Psych cooperative and affect normal Psych Narrative: good eye contact with me when we are talking. Appearance: appropriate Assessment & Plan Assessment/Plan (1) Debility: (2) CVA (cerebral vascular accident): QUALIFIERS: CVA mechanism: embolism Precerebral and cerebral artery: unspecified cerebral artery Qualified Code(s): I63.40 - Cerebral infarction due to embolism of unspecified cerebral artery (3) Dysphagia due to recent cerebral infarction: (4) Dysarthria: (5) Erosive esophagitis: (6) Overweight (BMI 25.0-29.9): (7) Dyslipidemia: (8) Nausea & vomiting: QUALIFIERS: Vomiting type: unspecified Qualified Code(s): R11.2 - Nausea with vomiting, unspecified (9) Sleep-disordered breathing: PLAN: Schedule sleep study following DC from rehab. PLAN: Plan 1. Continue therapy 2. Is agreeable to staying until Monday and we will do discharge Monday. 3. Outpatient therapy at [facility] 4. Will follow-up with [facility] 5. Agreeable to follow up with Dr. Jiang. 6. also agreeable to following up with Dr. Saleem for erosive esophagitis and to remove the PEG. 7. Sleep lab will get him scheduled for a sleep study following discharge from rehab. Charges/Coding Visit Charges Inpatient E&M: 27320 Subs Hosp L1
[2025-04-17 14:00] VITALS: BP 145/74; PULSE 65
[2025-04-17 17:08] LABS: Anti-Cardiolipin Ab, IgG, Qn < 9 GPL U/mL (0-14); Anti-Cardiolipin Ab, IgM, Qn < 9 MPL U/mL (0-12); Antithrombin 3 Function 117 % (75-135); Protein C, Functional 120 % (73-180)
[2025-04-17 18:00] VITALS: BP 139/79; PULSE 64; RESP 17; TEMP 36.6; O2SAT 97
[2025-04-17 21:20] VITALS: BMI 29.4
[2025-04-17 21:55] VITALS: BP 132/78; PULSE 62; RESP 16; TEMP 36.6; O2SAT 96
[2025-04-17 22:00] VITALS: PULSE 62; RESP 16; O2SAT 96
[2025-04-18] MEDS: Acyclovir 5% Tube 1 APPLIC TOPICAL (05:21)
[2025-04-18 05:33] VITALS: BP 115/78; PULSE 64; RESP 16; TEMP 36.4; O2SAT 96
[2025-04-18 06:00] VITALS: BMI 29.5
[2025-04-18 10:12] VITALS: BP 129/83; PULSE 67; RESP 17; TEMP 36.4; O2SAT 95
--- NOTE | 2025-04-18 10:50 | DCINST_ITS ---
Discharge Instructions Diet Discharge Diet: - (low fat, low salt. Do not lie down for 30-60 minutes after eating. Avoid caffeine and chocolate.......they can cause reflux/heartburn. ) DC O2, CPAP, BIPAP needs Home O2 Discharge instructions: No Dressing / Incision Discharge Activity: May Not Drive, May Shower and Use Walker Weight Bearing Status: Full weight bearing Dressing / Incision Call your doctor if your incision/area has: Continuous Slow Oozing, Sudden Increased Bleeding, Increased Pain/ Swelling, Increased Redness, Foul Smelling Discharge, Swelling at the incision site and - (check around the PEG tube site daily to look for redness and discharge. ) Call your doctor if you observe: Fever of 101 or Higher, Inability to urinate, Inability to have a bowel movement, Shortness of breath, Dizziness, Fainting spells, Swelling in the ankles, Chest pain, Increased palpitations (irregular heartbeat), Calf discomfort, Uncontrolled pain and - (STROKE symptoms: facial droop, slurred speech, inability to get words out, weakness on 1 side of the body and not the other, numbness on 1 side of the body and not the other, inability to maintain your balance sitting or standing, vertigo. ) Cleanse incision/area with: Soap & Water Follow Up Care When: Appointments have been listed later in this document. Test Results: Test results from this visit will be discussed in further detail at your follow- up appointment, if applicable. Pending Tests Upon Discharge: none Discharge Plan Admission Admit Date/Time: 04/09/25 16:24 Primary Reason for Your Visit: POST STROKE DEBILITY Attending Provider: Sheri De León Primary Care Provider: Care Physician,Alicia Primary Instructions Patient Instructions: What Is GERD?, Tips to Control Acid Reflux, What Is Flores Esophagus?, What Are Snoring and Sleep Apnea?, Evaluating Erectile Dysfunction, Discharge Instructions for Stroke, BPPV, AFib, ED Sleep Apnea, Obstructive Additional Instructions / Restrictions: 1. I do not know why you had a stroke. Actually you had multiple little st rokes on the right side of the brain. when there are multiple little strokes this is very suspicious for embolic strokes. This means you may have had multiple small blood clots go to the brain. One of the causes of embolic strokes is atrial fibrillation which is a problem with the rhythm of the heart. I have given you some literature to read on atrial fibrillation(also called AFIB). We are going to put in an order for an event monitor to monitor your heart rate continuously for a month. You will get it in the mail and it will have directions on how to apply it. If you have any problems getting it to work bring it to rehab and we will put it on. 2. I think you have sleep apnea. Sleep apnea can cause AFIB. You are going to have a sleep study to test you for this and then you will follow up with the pulmonary department to be treated IF you have sleep apnea. 3. Risk factors for strokes and heart attacks include, being a man, having high blood pressure, having high cholesterol, being diabetic, smoking. When you have had a stroke or a heart attack there are goals we set so that we can help prevent more strokes or heart attacks. The blood pressure should be less than 130/80. The LDL (bad cholesterol) should be less than or equal to 70. Your LDL was 111 when you had the stroke. The HGBA1C (this is for diabetics ) should be 7 or less. Your HGBA1C was 5.7.........just a tad higher than normal. You are at risk for developing diabetes. Watch you carbohydrate intake and don't gain any weight. You are taking a medication for cholesterol now. the medication is called Atorvastatin. You are taking 40 mg at bedtime. Your PCP will want to check your cholesterol and a lover panel in 4-6 weeks to make sure the LDL is 70 or less. Get a BP cuff and start taking your BP a couple times a day at different times and keep a record. Take the record to your doctor appts. You are taking Lisinopril 5 mg a day for BP. Your BP is looking pretty good right now. 4. We checked your prostate test (called a PSA) and it is normal. 5. I talked with the sleep lab. They have you scheduled for 05/05 for a sleep study but, they may be able to get you in sooner. They will call you. 6. 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 This needs to be further investigated. I have spoken with Dr. Baires (he is the as400 developer at the hospital) and he would like to see you next week. He will also be the one to remove the PEG tube. 7. WE talked some about ED while you were on rehab. there are many medications now that are used to treat this. Before trying these medications you should have some additional lab done......such as a testosterone level. Your PCP can order this. 8. The dizziness if currently under control with Meclizine twice a day. In 2 weeks or so if you have had no dizziness you could try stopping the Meclizine........if the dizziness comes back you should restart the meclizine Twice a day. I think the dizzy episodes you were having off and on prior to the stroke were due to BPPV (benign paroxysmal positional vertigo). This is due to a problem with the inner ear which helps to control balance. 9. We have put in an order for a heart monitor. They should be mailing it to you........IF you do not get it by next please call me and I will look into it. 10. If you or Mary have any questions after you leave rehab please do not hesitate to call me. OFFICE: [phone] CELL: [phone] NURSES STATION ON REHAB: [phone] Discharge Orders/Prescriptions Prescriptions: New atorvastatin 40 mg Tablet 40 mg PO QHS Qty: 30 0RF meclizine 12.5 mg Tablet 12.5 mg PO BID Qty: 60 0RF pantoprazole 40 mg Tablet,Delayed Release (Dr/Ec) 40 mg PO BID Qty: 60 0RF acyclovir 5 % Ointment 1 applic topical 5X/DAY Qty: 1 0RF Protocol: *Topical Application Instructions APPLICATION INSTRUCTIONS: apply to the cold sore on the upper lip aspirin 81 mg Tablet,Chewable 81 mg PO BREAKFAST Qty: 1 0RF lisinopril 5 mg Tablet 5 mg PO DAILY Qty: 30 0RF Discontinued aspirin [Aspirin Childrens] 81 mg tablet,chewable 1 tab feeding tube DAILY atorvastatin [Lipitor] 40 mg tablet 40 mg feeding tube QHS enoxaparin [Lovenox] 40 mg/0.4 mL syringe 40 mg subcut DAILY Other Ambulatory Orders: 30 Day Event Recorder Preventi (Urgent) Timeframe: 3 Days Facility: [facility] - Location: [facility] Ordered By: Dr. Sheri De León Referrals / Follow Up: Sleep study [Other] - 05/05/25 8:00 pm Jim Jiang MD [Non-Staff -Ordering Privileges] - Santana Baires DO [Med Staff - Active Staff] - 05/01/25 9:00 am Lakeshia Joseph HEAD BUCKER, HEAD BUCKER-C [Non-Staff] - 04/24/25 2:30 pm Disposition Disposition (needs filled in before D/C Order can be placed): Home Health Service
--- NOTE | 2025-04-18 11:39 | CASEMGMT ---
Social Work SW received call from stating she spoke with pt and on DC plans and all in agreement to DC 04/19. - SW phoned to discuss DC. confirmed DC home 04/19. SW inquired about DME needs - denied. Inquired about skilled HHC vs OP therapy and educated to the difference. prefers HHC for transportation purposes. SW offered to provide a list of HHC agencies via [employer], but declined and requested this worker send referrals to those agencies that can accept private pay/[facility]. SW agreed and will update with outcome. - SW confirmed with IDT on DC date and pt only needing HHC PT. - SW sent referral to [facility] via [facility]. Plan: DC home with 04/19, [facility] PT Carolin MUÑOZW
[2025-04-18 18:00] VITALS: BP 123/74; PULSE 61; RESP 16; TEMP 36.6; O2SAT 97
--- NOTE | 2025-04-18 18:29 | EX.DISCHREH ---
Providers Date of Admission: 04/09/25 Date of Discharge: 04/19/25 Primary Care Physician: No Primary Care Phys Reason For Visit: CVA Diagnosis Discharge Diagnosis (1) Debility: Status: Acute Code(s): R53.81 - Other malaise (2) CVA (cerebral vascular accident): Status: Acute Code(s): I63.9 - Cerebral infarction, unspecified Qualifiers: CVA mechanism: embolism Precerebral and cerebral artery: unspecified cerebral artery Qualified Code(s): I63.40 - Cerebral infarction due to embolism of unspecified cerebral artery Plan: 04/09/2025. MRI showed multiple foci of restricted diffusion throughout the right cerebellum and the right medulla concerning for embolic infarcts. CTA of the head and neck were unremarkable and showed no large vessel occlusion or high-grade stenosis. Carotid duplex showed less than 50% stenosis bilaterally. Transthoracic echocardiogram showed normal left ventricular systolic and diastolic function with no wall motion abnormalities. There were no thrombi in the heart and the atria were of normal size. Bubble contrast study was negative for PFO. I suspect he has sleep apnea and may be having PAF. (3) Dysphagia due to recent cerebral infarction: Status: Acute Code(s): I69.391 - Dysphagia following cerebral infarction Plan: PEG was inserted at [facility] but, he did not tolerate TF due to retention. He passed a MBS at [facility] so we have not been using the PEG. He is on regular textures and thin liquids at the time of discharge from [facility]. He is going to follow up with Dr. Baires to remove the PEG and address the severe erosive esophagitis mentioned by the general surgeon who inserted the PEG tube. (4) Dysarthria: Status: Acute Code(s): R47.1 - Dysarthria and anarthria Plan: Much improved since admission to rehab. (5) Erosive esophagitis: Status: Acute Code(s): K22.10 - Ulcer of esophagus without bleeding Plan: Has a small hiatal hernia on CT of the abd and diverticulosis. Will follow up with Dr. Baires for removal of the PEG when appropriate and evaluation for etiology of erosive esophagitis. Protonix 40 mg twice daily continued at discharge. (6) Overweight (BMI 25.0-29.9): Status: Chronic Code(s): E66.3 - Overweight Plan: I recommended he try and lose a little weight. Advised against any weight gain because his hemoglobin A1c is just a tad elevated and he is at risk for developing DM. (7) Dyslipidemia: Status: Chronic Code(s): E78.5 - Hyperlipidemia, unspecified Plan: LDL was 111 and he was started on Lipitor 40 mg Q HS. He will need a lipid panel and a liver profile in 4-6 weeks. (8) Nausea & vomiting: Status: Resolved Code(s): R11.2 - Nausea with vomiting, unspecified Qualifiers: Vomiting type: unspecified Qualified Code(s): R11.2 - Nausea with vomiting, unspecified Plan: Associated with PEG feedings. Could not tolerate more than 20 cc/hr via the PEG without feeling bloated and refluxing. (9) Sleep-disordered breathing: Status: Chronic Code(s): G47.30 - Sleep apnea, unspecified Plan: Overnight trending pulse ox had no desaturations and he does not need to go home with oxygen. His STOP BANG score is 7 and his has observed him to stop breathing at night. Sleep lab will call him with the date of the sleep study. (10) Hypertension: Status: Chronic Code(s): I10 - Essential (primary) hypertension Qualifiers: Hypertension type: primary hypertension Qualified Code(s): I10 - Essential (primary) hypertension Plan: Controlled on 5 mg of lisinopril at the time of discharge from acute rehab. Plan 1. Discharge home on 04/19/2025 2. 30-day event monitor at discharge and then follow-up with [facility] 3. Sleep lab has called him and they are able to do his sleep study on the night of 04/24/2025. He will follow-up with pulmonary medicine following the sleep study for treatment if indicated. 4. He will follow-up with Dr. Jiang 5. He has an appointment scheduled for follow-up with Lakeshia Joseph NP for PCP. 6. Will need a lipid panel and a liver profile in 4-6 weeks. 7. Will have [facility] at [place]. 8. He will follow up with Dr. Baires for removal of the PEG and evaluation for etiology of erosive esophagitis. 9. Continue high intensity statin at discharge and aspirin 81 mg daily. 10. BP is controlled with Lisinopril 5 mg daily 11. HGBA1C is 5.7. Advised him to try and lose a little weight and watch his carb intake. 12. Goals were discussed with him......LDL 70 or less, BP < 130/80 Medications at Discharge Home Medications acyclovir 5 % topical ointment 1 applic topical 5X/DAY #1 g 04/18/25 aspirin 81 mg chewable tablet 81 mg PO BREAKFAST #1 TAB 04/18/25 atorvastatin 40 mg tablet 40 mg PO QHS #30 tabs 04/18/25 lisinopril 5 mg tablet 5 mg PO DAILY #30 tabs 04/18/25 meclizine 12.5 mg tablet 12.5 mg PO BID #60 tabs 04/18/25 pantoprazole 40 mg tablet,delayed release 40 mg PO BID #60 tabs 04/18/25 Hospital Course Operations None Procedures Peg tube placement (Placed at [facility] by general surgery) and Transthoracic echo (Done at [facility]. Normal left ventricular function with no wall motion abnormalities. Atria were of normal size. PFO study was negative.) Summary of Care Provided Minutes Spent on Discharge: 48 Hospital Course: CHARLES RUSSELL, is a 54 YO M with no significant PMH, on no medications and not following with a PCP who had waxing and waning nausea and dizziness for a few days and then went on to develop trouble swallowing and difficulty walking. He also complained of numbness on the right side of his face. He finally went to [facility] emergency department to be evaluated. At presentation to the ED he had slurred speech, facial droop and drift with the R leg. NC CT brain was unremarkable with no acute abnormalities. He was admitted to the hospitalist service to be evaluated for CVA. Carotid duplex revealed less than 50% stenosis in the bilateral carotids. A transthoracic echocardiogram showed normal left ventricular systolic and diastolic function with no wall motion abnormalities. Bubble contrast study was negative for PFO and both atria were of normal size. There were no thrombi observed in the heart. A noncontrast MRI of the brain showed multiple foci of restricted diffusion throughout the right cerebellum and right medulla concerning for embolic infarcts. RBS was increased in the emergency department at 145 and the lab was otherwise unremarkable in the ED. Subsequent labs showed hemoglobin A1c was 5.7. LDL was 111 with a low HDL of 34. TSH was normal. He was given a loading dose of 300 mg of ASA. He failed a bedside swallowing eval in the ED. He was seen by ST and had a bedside exam but, no MBS or FEES was done. They recommended NPO and PEG tube insertion. A PEG was inserted by general surgery on 04/08/25. The surgeon reported he had severe erosive esophagitis. He was seen by PT/OT and ST while at [facility] and acute rehab was recommended. He was transferred to the acute inpatient rehab unit at [facility] on 04/09/25 for 3 hours of therapy daily. A 30 day event monitor was supposedly ordered by the previous hospital but, the monitor was never sent and we have ordered a 30 day event monitor at [place] from rehab. Charles did not tolerate TF's and had repeated episodes of bloating, chest fullness, nausea and emesis. An MBS was done on 04/14/2025 and showed only mild oropharyngeal dysphagia. He was started on a diet with regular textures and thin liquids. We discontinued use of the PEG at that time. Charles had episodic dizziness/vertigo precipitated by movement, especially head turning. He had had some episodes of this even prior to the stroke and I suspect he has benign paroxysmal positional vertigo. He was started on meclizine 12.5 mg 3 times daily and the vertigo/dizziness resolved. He requested we make the meclizine as needed and he refused 2 doses and vertigo recurred. At the time of discharge he is taking meclizine 12.5 mg twice daily with good symptom control. An overnight trending pulse ox was done while he was on rehab and he had no significant hypoxemia/desaturations. That being said his says he snores loudly and she has seen him stop breathing. His STOP-BANG score is 7 out of a possible 8 putting him at high risk for obstructive sleep apnea. Etiology of the multiple foci of restricted diffusion throughout the right cerebellum and right medulla is still not known. I suspect he may be having paroxysmal atrial fibrillation with emboli. Charles did very well with therapy. At the time of discharge he was ambulating with a single-point cane up to 110 feet at close standby assist. He has ambulated up to 150 feet with a front wheeled walker and standby assist. He exhibited good technique. He developed some unsteadiness with fatigue. He can ascend/descend three 4 inch steps and two 6 inch steps with 2 handrails at contact-guard assist........ he was able to do this 2 times in a row to complete a total of 10 steps. He is standby assist for grooming and requires only minimal assistance with bathing. He is supervision/set up for upper body dressing and standby assist for lower body dressing. He is contact-guard assist for toilet transfer but is moderate assistance for toileting. He is contact-guard assist for tub/shower transfer. He was discharged home on 04/19/2025. He has a sleep study scheduled. He has follow up appts scheduled with Lakeshia YOUNG, and Dr. Biares. He will also follow up with Dr. Jiang from neurology. Nursing left a VM for Dr. Jiang's office but, we received no response. IF the office does not call the patient or his in a few days I instructed them to call rehab or Dr. Ken office to request an appt to follow up for ischemic strokes. He was discharged on ASA and a high intensity statin. He will need a Lipid panel and a liver profile in 6 weeks. An event monitor was ordered at [place] from rehab. Hisn family had not received a monitor in the mail from [facility]. He has some concerns about ED. PSA was normal at 0.7. W/U and tx deferred to PCP. Physical Exam Const alert, oriented x3 and no apparent distress General Appearance: cooperative, comfortable, well kempt and well developed HEENT normocephalic and head/scalp atraumatic HEENT Narrative: No thrush. He has a pronounced overbite and a narrow mouth. Mucous membranes are moist. Teeth and Gingiva: teeth discoloration Eyes PERRL, EOMs intact bilaterally, conjunctivae normal and no scleral icterus Eyes Narrative: No discharge from the eyes. No visual field cuts. Neck supple, No nodes and no carotid bruits General: trachea midline Chest Chest: symmetrical chest wall rise Resp normal respiratory effort, no use of accessory muscles and clear to auscultation bilaterally Resp Narrative: Not coughing with deep breaths. Breath sounds are mildly diminished but I think this is due to decreased effort rather than any significant lung disease Effort and Inspection: able to speak in complete sentences Cardio regular rate, regular rhythm, S1 normal heart sound, S2 normal heart sound, no murmurs, no rub, no gallops and peripheral pulses 2+ throughout Cardio Narrative: No ectopy GI normal to inspection, nondistended, normoactive bowel sounds, soft to palpation and non-tender GI Narrative: No erythema around the PEG site and no discharge noted. He had no pain with palpation around the PEG. no CVA tenderness Narrative: Not retaining urine and he has no urinary incontinence. Extremity no calf tenderness and no pedal edema Extremity Narrative: No clubbing and no cyanosis. Peripheral Pulses: Yes pulses 2+ throughout Skin no jaundice General Skin Exam: no breakdown Rashes: no rashes Neuro Neuro Narrative: The right facial droop is very mild. Dysarthria has improved significantly and his speech is clearly intelligible now. He has better projection of his voice and he is much easier to understand. No visual field cuts. Ambulating with a SPC now at close CGA/SBA. No ataxia and no extinction. No drift with any of the extremities. Still with some sensory loss in the right face but better than it was at admission. No aphasia. Denies vertigo on meclizine 12.5 mg twice daily Psych cooperative, affect normal, denies hallucinations, denies homicidal ideation and denies suicidal ideation Appearance: appropriate and well kempt Attitude: calm Activity / Motor Behavior: appropriate eye contact Weight / BMI Weight Weight: 206 lb 9.17 oz Body Mass Index (BMI) 29.5 ABG / Lab / Microbiology Data 04/11/25 05:58 04/11/25 05:58 Indicators for Scoring Admitted with or Primary Diagnosis of CVA/Stroke: Yes Hx of CVA/Stroke: Yes Modified [place] Score MRS Score at time of Evaluation: 2-Slight disability (Down from a 3 at admission to acute rehab.) NIHSS NIHSS 1a. Level of Consciousness: 0 - Alert; keenly responsive 1b. LOC Questions: 0 - Answers BOTH questions correctly 1c. LOC Commands: 0 - Performs BOTH tasks correctly 2. Best Gaze: 0 - Normal 3. Visual: 0 - No visual loss 4. Facial Palsy: 1 - Minor paralysis (flattened nasolabial fold, asymmetry on smiling) 5a. Left Arm: 0 - No drift; arm holds 90 (or 45) degrees for full 10 seconds 5b. Right Arm: 0 - No drift; arm holds 90 (or 45) degrees for full 10 seconds 6a. Left Le - No drift; leg holds 30-degree position for full 5 seconds 6b. Right Le - No drift; leg holds 30-degree position for full 5 seconds 7. Limb Ataxia: 0 - Absent 8. Sensory: 1 - [id number] sensory loss; (Only in the right face.) 9. Best Language: 0 - No aphasia; normal 10. Dysarthria: 0 - Normal 11. Extinction and Inattention: 0 - No abnormality Total: 2 Stroke Questions Stroke Team Activated: No D/C Instructions Discharge Diet: - (low fat, low salt. Do not lie down for 30-60 minutes after eating. Avoid caffeine and chocolate.......they can cause reflux/heartburn. ) Weight Bearing Status: Full weight bearing Call your doctor if your incision/area has: Continuous Slow Oozing, Sudden Increased Bleeding, Increased Pain/ Swelling, Increased Redness, Foul Smelling Discharge, Swelling at the incision site and - (check around the PEG tube site daily to look for redness and discharge. ) Call your doctor if you observe: Fever of 101 or Higher, Inability to urinate, Inability to have a bowel movement, Shortness of breath, Dizziness, Fainting spells, Swelling in the ankles, Chest pain, Increased palpitations (irregular heartbeat), Calf discomfort, Uncontrolled pain and - (STROKE symptoms: facial droop, slurred speech, inability to get words out, weakness on 1 side of the body and not the other, numbness on 1 side of the body and not the other, inability to maintain your balance sitting or standing, vertigo. ) Cleanse incision/area with: Soap & Water DC O2, CPAP, BIPAP Needs RN Home O2 qualification: No Data to Display PSN CPAP & BiPAP: BiPAP & CPAP Settings per PSN Fraction of Inspired Oxygen ( 04/10/25 21:53 FIO2) Home O2 Discharge instructions: No Pending Tests Upon Discharge: none When: Appointments have been listed later in this document. Meaningful Use Info Meaningful Use Meaningful Use Diagnoses (Choose all that apply): Ischemic CVA CVA Therapy Assessed for PT,OT and/or ST?: Yes Ischemic Stroke Antithrombotic order at d/c?: Yes Dx of Atrial fib/flutter?: No Anticoagulant at discharge?: No Reason anticoagulant not ordered: Treatment not Indicated (discharged with RX for an event monitor) Statin Dosing Therapy Reference: STATIN DOSE THERAPY REFERENCE: * Patients > 75 years receive moderate or high dose statin therapy. * Patients 75 years or YOUNGER should receive HIGH intensity statin dose unless contraindicated. You will be required to document reason for non-treatment if statin daily dose does not meet guidelines. HIGH DOSE STATIN THERAPY DAILY Atorvastatin > than or = to 40 mg Rosuvastatin > than or = to 20 mg Amlodipine + Atorvastatin > than or = to 2.5/40 mg Ezetimibe + Simvastatin 10/80 mg Simvastatin 80mg Statins at discharge?: Yes If patient is 75 or younger, pt will be discharged on HIGH intensity statin.: Yes Primary Dx Acute Ischemic CVA?: Yes IV thrombolytic ordered during stay?: No Reason IV thrombolytic not ordered: Procedure not Indicated Discharge Plan Admission Admit Date/Time: 04/09/25 16:24 Primary Reason for Your Visit: POST STROKE DEBILITY Attending Provider: Sheri De León Primary Care Provider: Care Physician,No Primary Instructions Patient Instructions: What Is GERD?, Tips to Control Acid Reflux, What Is Flores Esophagus?, What Are Snoring and Sleep Apnea?, Evaluating Erectile Dysfunction, Discharge Instructions for Stroke, BPPV, AFib, ED Sleep Apnea, Obstructive Additional Instructions / Restrictions: 1. I do not know why you had a stroke. Actually you had multiple little strokes on the right side of the brain. when there are multiple little strokes this is very suspicious for embolic strokes. This means you may have had multiple small blood clots go to the brain. One of the causes of embolic strokes is atrial fibrillation which is a problem with the rhythm of the heart. I have given you some literature to read on atrial fibrillation(also called AFIB). We are going to put in an order for an event monitor to monitor your heart rate continuously for a month. You will get it in the mail and it will have directions on how to apply it. If you have any problems getting it to work bring it to rehab and we will put it on. 2. I think you have sleep apnea. Sleep apnea can cause AFIB. You are going to have a sleep study to test you for this and then you will follow up with the pulmonary department to be treated IF you have sleep apnea. 3. Risk factors for strokes and heart attacks include, being a man, having high blood pressure, having high cholesterol, being diabetic, smoking. When you have had a stroke or a heart attack there are goals we set so that we can help prevent more strokes or heart attacks. The blood pressure should be less than 130/80. The LDL (bad cholesterol) should be less than or equal to 70. Your LDL was 111 when you had the stroke. The HGBA1C (this is for diabetics ) should be 7 or less. Your HGBA1C was 5.7.........just a tad higher than normal. You are at risk for developing diabetes. Watch you carbohydrate intake and don't gain any weight. You are taking a medication for cholesterol now. the medication is called Atorvastatin. You are taking 40 mg at bedtime. Your PCP will want to check your cholesterol and a lover panel in 4-6 weeks to make sure the LDL is 70 or less. Get a BP cuff and start taking your BP a couple times a day at different times and keep a record. Take the record to your doctor appts. You are taking Lisinopril 5 mg a day for BP. Your BP is looking pretty good right now. 4. We checked your prostate test (called a PSA) and it is normal. 5. I talked with the sleep lab. They have you scheduled for 05/05 for a sleep study but, they may be able to get you in sooner. They will call you. 6. 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 This needs to be further investigated. I have spoken with Dr. Baires (he is the printed circuit board layout designer at the hospital) and he would like to see you next week. He will also be the one to remove the PEG tube. 7. WE talked some about ED while you were on rehab. there are many medications now that are used to treat this. Before trying these medications you should have some additional lab done......such as a testosterone level. Your PCP can order this. 8. The dizziness if currently under control with Meclizine twice a day. In 2 weeks or so if you have had no dizziness you could try stopping the Meclizine........if the dizziness comes back you should restart the meclizine Twice a day. I think the dizzy episodes you were having off and on prior to the stroke were due to BPPV (benign paroxysmal positional vertigo). This is due to a problem with the inner ear which helps to control balance. 9. We have put in an order for a heart monitor. They should be mailing it to you........IF you do not get it by next please call me and I will look into it. 10. If you or Mary have any questions after you leave rehab please do not hesitate to call me. OFFICE: [phone] CELL: [phone] NURSES STATION ON REHAB: [phone] Discharge Orders/Prescriptions Prescriptions: New atorvastatin 40 mg Tablet 40 mg PO QHS Qty: 30 0RF meclizine 12.5 mg Tablet 12.5 mg PO BID Qty: 60 0RF pantoprazole 40 mg Tablet,Delayed Release (Dr/Ec) 40 mg PO BID Qty: 60 0RF acyclovir 5 % Ointment 1 applic topical 5X/DAY Qty: 1 0RF Protocol: *Topical Application Instructions APPLICATION INSTRUCTIONS: apply to the cold sore on the upper lip aspirin 81 mg Tablet,Chewable 81 mg PO BREAKFAST Qty: 1 0RF lisinopril 5 mg Tablet 5 mg PO DAILY Qty: 30 0RF Discontinued aspirin [Aspirin Childrens] 81 mg tablet,chewable 1 tab feeding tube DAILY atorvastatin [Lipitor] 40 mg tablet 40 mg feeding tube QHS enoxaparin [Lovenox] 40 mg/0.4 mL syringe 40 mg subcut DAILY Other Ambulatory Orders: 30 Day Event Recorder Preventi (Urgent) Timeframe: 3 Days Facility: [facility] - Location: [facility] Ordered By: Dr. Sheri De León Referrals / Follow Up: Sleep study [Other] - 05/05/25 8:00 pm Jim Jiang MD [Non-Staff -Ordering Privileges] - Santana Baires DO [Med Staff - Active Staff] - 05/01/25 9:00 am Lakeshia Joseph NP, [place] ATTENDANT-C [Non-Staff] - 04/24/25 2:30 pm Disposition Disposition (needs filled in before D/C Order can be placed): Home Health Service Charges/Coding Visit Charges Inpatient E&M: 20604 Disch Hosp >30min
[2025-04-19 06:00] VITALS: BP 122/86; PULSE 56; RESP 17; TEMP 36.2; O2SAT 98
== END 2025-04-19 13:13 | disposition home health service (06) | DRG 57 ==
PROVIDERS: Admitting Provider Internal Medicine; Referring Provider Internal Medicine; Visit Provider Internal Medicine
DX: I69.351 Hemiplegia and hemiparesis following cerebral infarction affecting right dominant side (principal); K22.10 Ulcer of esophagus without bleeding; I69.322 Dysarthria following cerebral infarction; I10 Essential (primary) hypertension; I48.0 Paroxysmal atrial fibrillation; I69.398 Other sequelae of cerebral infarction; I69.391 Dysphagia following cerebral infarction; K44.9 Diaphragmatic hernia without obstruction or gangrene; K21.00 Gastro-esophageal reflux disease with esophagitis, without bleeding; G47.30 Sleep apnea, unspecified; H81.10 Benign paroxysmal vertigo, unspecified ear; E78.5 Hyperlipidemia, unspecified; I69.392 Facial weakness following cerebral infarction; K57.90 Diverticulosis of intestine, part unspecified, without perforation or abscess without bleeding; Z87.891 Personal history of nicotine dependence; E66.3 Overweight; Z68.29 Body mass index [BMI] 29.0-29.9, adult; R13.10 Dysphagia, unspecified; Z79.82 Long term (current) use of aspirin; Z79.899 Other long term (current) drug therapy
CPT/HCPCS: 36415; 70496; 70498; 74174; 74230; 80053; 81240; 81241; 83690; 83735; 84100; 84153; 85025; 85300; 85302; 85303; 86147; 92523; 92526; 92610; 92611; 93005; 94668; 94762; 97110; 97112; 97116; 97162; 97166; 97530; 97535; 97802; 97803; Q9967; A4216; G0103

== ENCOUNTER → 2025-04-24 | Outpatient (CLI) | payer SELFPAY | END | disposition home or self-care (01) | LOC: SL 20:21 | PROVIDERS: Referring Provider Internal Medicine; Visit Provider Internal Medicine | DX: G47.30 Sleep apnea, unspecified (principal) | CPT/HCPCS: 95811 ==

== ENCOUNTER 2025-05-19 11:00 | Outpatient (RCR) | payer SELFPAY ==
--- NOTE | 2025-05-05 12:33 | HP.PTEVAL ---
Patient's Visit Information Visit Information Visit Information: CHARLES RUSSELL is a 54 year old M referred to Physical Therapy by Dr. Sheri De León DO with a diagnosis of CVA with R sided weakness. Date of Evaluation: 05/05/25 Physical Therapist: Richard Pinon DPT Visit Plan Frequency: 1x/Week Duration: 4 Weeks Plan: Start with R quad strengthening, SL balance Subjective Subjective: Pt. is here today for his initial evaluation with CVA, cerebral artery on 04/09/25. Pt. was in inpatient rehab for 21 days. Pt. has been home for a about two weeks. He arrives today with use of SPC. Pt. reports no double vision, no LOUIS, no blurred vision. Pt. reports no calf pain. Pt. reports has been trying to walk more and more without much issues. He uses the SPC for a little bit of stability. Pt. reports that he does have some issues with a lot of stimulus. Pt. reports doing well on stairs. Pt. has 1 HR with good tolerance. 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 Pt. is hopeful to get back to all recreational and work activities without limitations. Objective Objective: POSTURE: Normal PALPATION: No issues NEURO: Pt. has normal sensation and normal DTR ROM: WNL no issues. MMT: RLE: ankle: DF 47.7#; knee: ext 21.3#, flex 36.9#; hip: flex 56.1#, abd 56.8# LLE: ankle DF: 50.9#; knee: ext 60.6#, flex 42.8#; hip: flex 66.1#, abd 57.1# GAIT: Pt. ambulates decent without AD, he has a little lean to R side during R stance phase. No foot clearance issue. STAIRS: Pt. is able to complete without issues with HR Balance/Special Test Scores Functional Gait Assessment Score: 24 % Disability: 20.0000 CATSIB Score (Max score 120 seconds): 99 Lower Extremity Functional Score: 59 TUG Test Time Seconds: 11.9 30 Second Chair Rise Test Seconds: 10 Goals Goal 1:: LTG: Pt. to be I with HEP. Goal Time Frame: 4-6 Weeks Goal 2:: LTG: Pt. to have symmetrical B quad strength. Goal Time Frame: 4-6 Weeks Goal 3:: LTG: Pt. to complete TUG with time less than 10seconds. Goal Time Frame: 4-6 Weeks Goal 4:: LTG: Pt. to complete 30sec sit to stand test with 17 reps. Goal Time Frame: 4-6 Weeks Rehabilitation Potential Physical Therapy Diagnosis: Pt. has signs and symptoms consistent with CVA with RLE weakness. Pt. has marked R quad weakness, but rest of his LE strength is pretty symmetrical. Pt. would benefit from PT to address the above weakness. Rehabilitation Potential: Excellent Anticipated Interventions Patient/Client Instruction: Educate patient on: Condition, Plan of Care, Risk Factors and Benefits of Fitness Program For the Purpose of:: To improve decision making, To facilitate caregiver knowledge, To improve self management, To prevent re-injury, To improve ability to perform tasks related to life management and To improve tolerance to ADL's Therapeutic Exercise to Include: Strength training, Power training, Gait and locomotor training and Neuromotor development For the Purpose of:: To improve gait and locomotor functions, To improve health of tissue, To decrease soft tissue restriction, To increase flexibility/ROM and To improve balance Text: Thank you for the opportunity to evaluate your patient. For Medicare and Medicare HMO plans, please review the plan of care and approve it. It will need to be FAXED BACK to us at [phone] for Medicare purposes. For Medicare only, by signing this I certify the plan of care. Please let me know if there are questions or concerns regarding this plan of care. Physician Signature: Date:
--- NOTE | 2025-05-05 12:42 | ST ---
[facility] Speech Pathology [address] [place] [address] Modified Barium Swallow Study MR#: [id number] Acct: [id number] Name: CHARLES RICO Rep #: [id number] : 1970 54 From: Josee Dugan M.A., [employer]ICAL ASSEMBLER Modified Barium Swallow Patient Information Study Date: 04/14/25 Study Time: 09:00 Direct Billable Minutes: 60 Total Minutes procedure & reportin Diagnosis: CVA Referring Physician: Sheri De León Reason for Referral: Objective assessment of swallow function under fluoroscopy recommended following CBSE 04/10/25 and prior to diet advancement Medical History: Amarjit Rico is a previously healthy male with no prior medical history or medications, not followed by PCP, presented with several days of nausea, dizziness, progressing to dysphagia, gait disturbance, right facial numbness, slurred speech, and right-sided weakness. Initial evaluation at [facility] showed unremarkable CT and CTA of the head/neck. MRI revealed multiple acute infarcts in the right cerebellum and medulla, consistent with embolic stroke. Carotid duplex showed <50% stenosis; TTE was reportedly normal (report not received). Hemoglobin A1c was 5.7, LDL 111, HDL 34. TSH normal. No atrial fibrillation was documented. Started on aspirin 300 mg and Lipitor 40 mg. Enoxaparin 40 mg SC daily was initiated for DVT prophylaxis. PEG placed on 04/08/25 after failed bedside swallow evaluation; no instrumental swllow evaluations were completed prior to PEG placement; erosive esophagitis noted on placement. No GI consultation done. Transferred to acute inpatient rehab at [facility] on 04/09/25 for intensive therapy. Dentition: WNL Respiratory Status: Oxygenating on Room Air Penetration-Aspiration Scale Penetration-Aspiration Scale: OBJECTIVE ASSESSMENT OF SWALLOW FUNCTION (QUANTITATIVE ? PER TRIAL): PENETRATION / ASPIRATION SCALE (MONROE): 1 = does not enter airway 2 = enters airway/above vocal folds/ejected 3 = enters airway/above vocal folds/not ejected 4 = enters airway/contacts vocal folds/ejected 5 = enters airway/contacts vocal folds/not ejected 6 = enters airway/below vocal folds/ejected 7 = enters airway/below vocal folds/not ejected despite effort 8 = enters airway/below vocal folds/no effort VIDEOFLOROSCOPIC SCALE SCORE (MONROE): Grade I = aspiration of material that has penetrated into the laryngeal vestibule, intact cough reflex Grade II = aspiration < 10 % of the bolus, intact cough reflex Grade III = aspiration of < 10 % of the bolus, reduced cough reflex or aspiration of > 10 % of the bolus, intact cough reflex Grade IV = aspiration of > 10 % of the bolus, reduced cough reflexPenetration-Aspiration Scale Score Thin Liquid via teaspoon: Result: 1= does not enter airway Thin Liquid via teaspoon Trial 2: Result: 1= does not enter airway Thin Liquid via small single sip: cup: Result: 2= enter airway/above vocal folds/ejected Thin Liquid via small single sip: cup Effortful swallow: Result: 2= enter airway/above vocal folds/ejected Thin Liquid via sequential sips: cup: Result: 2= enter airway/above vocal folds/ejected Pudding: Result: 1= does not enter airway Cookie: Result: 1= does not enter airway Pudding Trial 2: Result: 1= does not enter airway Thin Liquid via sequential sips:straw: Result: 6= enters airway/below vocal folds/ejected Oral Phase Labial Seal: Escape beyond interlabial space; no extension beyond kaelyn border Tongue Control During Bolus Hold: Cohesive bolus between tongue to palatal seal Bolus Preparation/Mastication: Slow prolonged chewing/mashing with complete recollection Bolus Transport/Lingual Motion: Slowed tongue motion Oral Residue: Trace residue lining oral structures Pharyngeal Phase Initiation of Pharyngeal Swallow: Bolus head at posterior laryngeal surgace of epiglottis Soft Palate Elevation: No bolus between soft palate and pharyngeal wall Laryngeal Elevation: Partial superior movement thyroid cart/partial apprx aryt-epig petiole Anterior Hyoid Excursion: Partial anterior movement Epiglottic Movement: Partial inversion Laryngeal Vestibule Closure at Height of Swallow: Complete; no air/contrast in laryngeal vestibule Pharyngeal Stripping Wave: Present - complete Pharyngoesophageal Segment Opening: Complete distension and complete duration; no obstruction of flow Tongue Base Retraction: Narrow column of contrast between tongue base & post. pharyngeal wall Pharyngeal Residue: Trace residue within or on pharyngeal structures Esophageal Phase Esophageal Clearance: Complete clearance Diagnosis/Impression Diagnosis: mild oropharyngeal dysphagia Impression: The oral phase is characterized by... slowed lingual motion for AP bolus transportation trace residue accumulation on tongue baseThe pharyngeal phase is characterized by... bolus spillage to the posterior laryngeal surface of the epiglottic prior to swallow onset incomplete hyolaryngeal excursion/anterior hyoid movement resulting in incomplete epiglottic inversion w/ transient laryngeal vestibule penetration penetration contacted and dropped below the folds 1x (very trace amount) w/ sequential swallows of thin liquid via strawThe esophageal phase was unremarkable. Recommendations Diet: Regular Textures and Thin Liquids Comment: limit straws/avoid sequential swallows via straw Compensatory Strategies: Sitting upright Supervision: Distant Supervision Recommend Repeat Modified Barium Swallow: No Need for Skilled Speech Therapy Services: Yes Comment: Skilled ST intervention is recommended to initiate oropharyngeal strengthening exercises to improve airway closure and reduce penetration/aspiration risk. Education Completed: 1. Described result of evaluation. and 2. Pt understands evaluation & agrees with goals and treatment plan. Status Active ST Patient: Active Contact Information [facility] Speech Therapy:: Josee Dugan M.A. MECHANICAL ASSEMBLER Speech-Language Pathologist [place] [address] [place] [address] [email or web address] [phone] 04/14/25 0959 <Electronically signed by Josee Dugan M.A. CCC-MECHANICAL ASSEMBLER> Date/Time Josee Dugan M.A. CCC-MECHANICAL ASSEMBLER
--- NOTE | 2025-05-05 13:26 | HP.SP.EVAL ---
Visit History Visit Info Date of Eval: 05/05/25 Today is Visit #: 1 [employer] Supervisor: DAVI History Attending Doctor: Referring Doctor: Reason for Referral: CVA. RX HERE Medical Diagnosis: CVA Previous speech therapy: Yes Results: Patient progressed from PEG tube use to all oral diet with regular foods/ thin liquids recommended. Other Relevant Medical History/Diagnoses/Surgery: 04/09/2025. MRI showed multiple foci of restricted diffusion throughout the right cerebellum and the right medulla concerning for embolic infarcts. CTA of the head and neck were unremarkable and showed no large vessel occlusion or high-grade stenosis. Carotid duplex showed less than 50% stenosis bilaterally. Transthoracic echocardiogram showed normal left ventricular systolic and diastolic function with no wall motion abnormalities. There were no thrombi in the heart and the atria were of normal size. CHARLES RICO, is a 54 YO M with no significant PMH, on no medications and not following with a PCP who had waxing and waning nausea and dizziness for a few days and then went on to develop trouble swallowing and difficulty walking. He also complained of numbness on the right side of his face. He finally went to [facility] emergency department to be evaluated. At presentation to the ED he had slurred speech, facial droop and drift with the R leg. NC CT brain was unremarkable with no acute abnormalities. He was admitted to the hospitalist service to be evaluated for CVA. Carotid duplex revealed less than 50% stenosis in the bilateral carotids. A transthoracic echocardiogram showed normal left ventricular systolic and diastolic function with no wall motion abnormalities. Bubble contrast study was negative for PFO and both atria were of normal size. There were no thrombi observed in the heart. A noncontrast MRI of the brain showed multiple foci of restricted diffusion throughout the right cerebellum and right medulla concerning for embolic infarcts. RBS was increased in the emergency department at 145 and the lab was otherwise unremarkable in the ED. Subsequent labs showed hemoglobin A1c was 5.7. LDL was 111 with a low HDL of 34. TSH was normal. He was given a loading dose of 300 mg of ASA. He failed a bedside swallowing eval in the ED. He was seen by ST and had a bedside exam but, no MBS or FEES was done. They recommended NPO and PEG tube insertion. A PEG was inserted by general surgery on 04/08/25. The surgeon reported he had severe erosive esophagitis. He was seen by PT/OT and ST while at [facility] and acute rehab was recommended. He was transferred to the acute inpatient rehab unit at [facility] on 04/09/25 for 3 hours of therapy daily. Medications related to this diagnosis: acyclovir 5 % topical ointment 1 applic topical 5X/DAY #1 g 04/18/25 aspirin 81 mg chewable tablet 81 mg PO BREAKFAST #1 TAB 04/18/25 atorvastatin 40 mg tablet 40 mg PO QHS #30 tabs 04/18/25 lisinopril 5 mg tablet 5 mg PO DAILY #30 tabs 04/18/25 meclizine 12.5 mg tablet 12.5 mg PO BID #60 tabs 04/18/25 pantoprazole 40 mg tablet,delayed release 40 mg PO BID #60 tabs 04/18/25 Smoking Status: Former smoker Diagnosis Diagnosis: Mild Dysphagia Pain Is pain an issue with your current prescribed condition?: No Personal Preferred language: Zambian Patient Allergies Allergies Allergies: Allergies No Known Allergies Allergy (Verified 04/09/25 17:05) Subjective Dysphagia Current Diet Solids Current Diet: Regular Current Diet Liquids Current Liquids: Thin NPO Date Tube Placed: Patient has PEG tube but does not use it. Objective Dysphagia Administered by Administered by: Self Thin Liquids Administred via: Cup Oral Transit: WNL Bolus clearance: fully cleared Gagging: No Cough: throat clear Patient Report: Patient reported that he only clears his throat sometimes while drinking. He is very aware of limit straws and single drinks. During the evaluation he demonstrated one throat clear. Comments: Noted throat clear occasionally on thin liquid. See MBS results. Regular Oral Preparation: WNL Oral Transit: WNL Bolus clearance: fully cleared Gagging: No Cough: none observed/unable to assess Impact Impact on Safety & Functioning: No Limitations Recommendations Modified Barium Swallow/Cookie Swallow Recommended: No Swallowing Treatment: No Diet Texture Recommendations Solids: Regular (Level 7) Liquids: Thin (Level 0) Safety Saftey Precautions/Swallowing Recommendations (Check all that Apply): Small Sips & Bites when Eating and No Straw Results Swallowing Within Normal Limits: No Swallowing Diagnosis: Oropharyngeal Phase Dysphagia (R13.12) Severity: Mild Objective Oral Motor Labial Impairment: WNL Closure: WNL Pucker: WNL Retraction: WNL Alternating Pucker/Retraction: WNL Involuntary Movement noted: No Lingual Impairment: WNL Protrusion: WNL Retraction: WNL Lateralization: WNL Involuntary Movement: No Jaw Impairment: WNL Opening: WNL Closing: WNL Respiratory Status Respiratory Status: Room Air Modified Barium Results Hx If Applicable Enter into a NOTE MBS Report Entered: Yes MBS Results (from prior exam): 05/05/25 12:42 Speech Therapy by Willie Grajeda [facility] Speech Pathology [address] [place] [address] Modified Barium Swallow Study MR#: [id number] Acct: [id number] Name: CHARLES RICO Rep #: [id number] : 1970 54 From: Josee Dugan M.A., CCC-MEDIA BUYER Modified Barium Swallow Patient Information Study Date: 04/14/25 Study Time: 09:00 Direct Billable Minutes: 60 Total Minutes procedure & reportin Diagnosis: CVA Referring Physician: Sheri De León Reason for Referral: Objective assessment of swallow function under fluoroscopy recommended following CBSE 04/10/25 and prior to diet advancement Medical History: Amarjit Rico is a previously healthy male with no prior medical history or medications, not followed by PCP, presented with several days of nausea, dizziness, progressing to dysphagia, gait disturbance, right facial numbness, slurred speech, and right-sided weakness. Initial evaluation at [facility] showed unremarkable CT and CTA of the head/neck. MRI revealed multiple acute infarcts in the right cerebellum and medulla, consistent with embolic stroke. Carotid duplex showed <50% stenosis; TTE was reportedly normal (report not received). Hemoglobin A1c was 5.7, LDL 111, HDL 34. TSH normal. No atrial fibrillation was documented. Started on aspirin 300 mg and Lipitor 40 mg. Enoxaparin 40 mg SC daily was initiated for DVT prophylaxis. PEG placed on 04/08/25 after failed bedside swallow evaluation; no instrumental swllow evaluations were completed prior to PEG placement; erosive esophagitis noted on placement. No GI consultation done. Transferred to acute inpatient rehab at [facility] on 04/09/25 for intensive therapy. Dentition: WNL Respiratory Status: Oxygenating on Room Air Penetration-Aspiration Scale Penetration-Aspiration Scale: OBJECTIVE ASSESSMENT OF SWALLOW FUNCTION (QUANTITATIVE ? PER TRIAL): PENETRATION / ASPIRATION SCALE (MONROE): 1 = does not enter airway 2 = enters airway/above vocal folds/ejected 3 = enters airway/above vocal folds/not ejected 4 = enters airway/contacts vocal folds/ejected 5 = enters airway/contacts vocal folds/not ejected 6 = enters airway/below vocal folds/ejected 7 = enters airway/below vocal folds/not ejected despite effort 8 = enters airway/below vocal folds/no effort VIDEOFLOROSCOPIC SCALE SCORE (MONROE): Grade I = aspiration of material that has penetrated into the laryngeal vestibule, intact cough reflex Grade II = aspiration < 10 % of the bolus, intact cough reflex Grade III = aspiration of < 10 % of the bolus, reduced cough reflex or aspiration of > 10 % of the bolus, intact cough reflex Grade IV = aspiration of > 10 % of the bolus, reduced cough reflexPenetration-Aspiration Scale Score Thin Liquid via teaspoon: Result: 1= does not enter airway Thin Liquid via teaspoon Trial 2: Result: 1= does not enter airway Thin Liquid via small single sip: cup: Result: 2= enter airway/above vocal folds/ejected Thin Liquid via small single sip: cup Effortful swallow: Result: 2= enter airway/above vocal folds/ejected Thin Liquid via sequential sips: cup: Result: 2= enter airway/above vocal folds/ejected Pudding: Result: 1= does not enter airway Cookie: Result: 1= does not enter airway Pudding Trial 2: Result: 1= does not enter airway Thin Liquid via sequential sips:straw: Result: 6= enters airway/below vocal folds/ejected Oral Phase Labial Seal: Escape beyond interlabial space; no extension beyond kaelyn border Tongue Control During Bolus Hold: Cohesive bolus between tongue to palatal seal Bolus Preparation/Mastication: Slow prolonged chewing/mashing with complete recollection Bolus Transport/Lingual Motion: Slowed tongue motion Oral Residue: Trace residue lining oral structures Pharyngeal Phase Initiation of Pharyngeal Swallow: Bolus head at posterior laryngeal surgace of epiglottis Soft Palate Elevation: No bolus between soft palate and pharyngeal wall Laryngeal Elevation: Partial superior movement thyroid cart/partial apprx aryt-epig petiole Anterior Hyoid Excursion: Partial anterior movement Epiglottic Movement: Partial inversion Laryngeal Vestibule Closure at Height of Swallow: Complete; no air/contrast in laryngeal vestibule Pharyngeal Stripping Wave: Present - complete Pharyngoesophageal Segment Opening: Complete distension and complete duration; no obstruction of flow Tongue Base Retraction: Narrow column of contrast between tongue base & post. pharyngeal wall Pharyngeal Residue: Trace residue within or on pharyngeal structures Esophageal Phase Esophageal Clearance: Complete clearance Diagnosis/Impression Diagnosis: mild oropharyngeal dysphagia Impression: The oral phase is characterized by... slowed lingual motion for AP bolus transportation trace residue accumulation on tongue baseThe pharyngeal phase is characterized by... bolus spillage to the posterior laryngeal surface of the epiglottic prior to swallow onset incomplete hyolaryngeal excursion/anterior hyoid movement resulting in incomplete epiglottic inversion w/ transient laryngeal vestibule penetration penetration contacted and dropped below the folds 1x (very trace amount) w/ sequential swallows of thin liquid via strawThe esophageal phase was unremarkable. Recommendations Diet: Regular Textures and Thin Liquids Comment: limit straws/avoid sequential swallows via straw Compensatory Strategies: Sitting upright Supervision: Distant Supervision Recommend Repeat Modified Barium Swallow: No Need for Skilled Speech Therapy Services: Yes Comment: Skilled ST intervention is recommended to initiate oropharyngeal strengthening exercises to improve airway closure and reduce penetration/aspiration risk. Education Completed: 1. Described result of evaluation. and 2. Pt understands evaluation & agrees with goals and treatment plan. Status Active ST Patient: Active Contact Information [facility] Speech Therapy:: Josee Dugan M.A. MEDIA BUYER Speech-Language Pathologist [address] [address] [email or web address] [phone] 04/14/25 0959 <Electronically signed by Josee Dugan M.A. [facility]-MEDIA BUYER> Date/Time Josee Dugan M.A., CCC-MEDIA BUYER Initialized on 05/05/25 12:42 - END OF NOTE Reference: Neuro-QoL instrument Radiation Oncology Patient Plan Plan Plan: Patient and therapist are in agreement with no further treatment necessary. Patient is aware of exercises and can independently complete them. He was able to list strategies needed during oral intake also. Recommendations Treatment Warranted: No Education Patient has Indicated that the Following Identified Educational Needs: None The Patient has indicated that they have no educational or learning abilities that may effect their care.: Yes Patient Instruction Patient Education: Diagnosis, Treatment Plan, Diet Level and Home Exercise Program Person Taught: Patient Response to teaching: Verbalize Understanding and Has Prior Knowledge
--- NOTE | 2025-05-19 11:18 | HP.PTDCSUM ---
Discharge Summary D/C summary: It has been my pleasure to treat DAVID RUSSELL referred by Dr. Sheri De León DO, with the diagnosis of CVA with R sided weakness for a total of 2 visit(s). Discharge Date: 05/19/25 Please see the following information for a summary of their discharge status. Subjective Subjective: Pt. is back to work. He reports no major issues. He is overall pleased. Overall Improvement % Improvement: 90 Objective Objective/Function: MMT: R quad 54.8## L quad 65.7# GAIT: normal no AD no issues. STAIRS: normal without use of HR TUG 8.42 30 sec sit to stand test 17 without use of UEs. SL 30sec no issues on either LE. is doing much better. No major issues. I am DCing him from PT at this point in time.l Goals Goal 1:: LTG: Pt. to be I with HEP. Goal Progress: Goal Met Goal 2:: LTG: Pt. to have symmetrical B quad strength. Goal Progress: Progressing Goal 3:: LTG: Pt. to complete TUG with time less than 10seconds. Goal Progress: Goal Met Goal 4:: LTG: Pt. to complete 30sec sit to stand test with 17 reps. Goal Progress: Goal Met Plan Plan: Pt. to be DC from PT at this point in time. He is doing great and reports being close to baseline at this point in time. He is back to work without issues. D/C Information d/c sentence: If there are questions or concerns regarding this patient's physical therapy, please feel free to call me at [phone]. Thank you for the referral of this patient. Sincerely, Richard Ruiz Sipos, DPT Balance/Gait/Functional tests Balance/Special Test Scores Functional Gait Assessment Score: 24 % Disability: 20.0000 CATSIB Score (Max score 120 seconds): 99 Lower Extremity Functional Score: 69 TUG Test Time Seconds: 8.42 Tug Test: <10 sec.=free mobile 30 Second Chair Rise Test Seconds: 17 Improvement % Improvement: 90
== END 2025-05-19 11:28 | disposition home or self-care (01) ==
LOC: PT 11:00
PROVIDERS: PCP Nurse Practitioner Family; Referring Provider Internal Medicine; Visit Provider Internal Medicine
DX: Z86.73 Personal history of transient ischemic attack (TIA), and cerebral infarction without residual deficits (principal); R13.10 Dysphagia, unspecified
CPT/HCPCS: 92610; 97161; 97530

== ENCOUNTER 2025-06-16 06:23 | Day surgery (SDC) | payer OTHER, SELFPAY ==
--- NOTE | 2025-06-12 15:34 | PAT.ANESEVAL ---
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 When Was Last Pacemaker Check QUESTION #4 FULL TEXT: You/Your Family Experience fever (hyperthermia) with Anesthesia Last Oral Intake Last Oral intake: Last Oral Intake NPO since Meds taken in AM with sips of water? Meds patient instructed to take am of surgery PONV PONV - president and chief commercial officer: PONV - president and chief commercial officer Female No 06/12/25 11:18 HX of Motion Sickness No 06/12/25 11:18 HX of N/V After Surgery No 06/12/25 11:18 Non-Smoker Yes 06/12/25 11:18 Duration of Surgery greater No 06/12/25 11:18 than 60 minutes Number of Risk Factors 1 06/12/25 11:18 PONV Score Low Risk 06/12/25 11:18 Height & Weight Height & Weight: Anesthesia: Height & Weight Height 5 ft 10 in 04/18/25 14:42 Respiratory Assessment Respiratory Assessment - president and chief commercial officer: Respiratory Tract Infection Hx - president and chief commercial officer Hx Respiratory Tract Infection No 06/12/25 11:18 STOP Sleep Apnea STOP Sleep Apnea - president and chief commercial officer: STOP Sleep Apnea - president and chief commercial officer Hx Hypertension Yes: ON MEDS 06/12/25 11:18 Hx Sleep Apnea Yes 06/12/25 11:18 CPAP Yes 06/12/25 11:18 BIPAP No 06/12/25 11:18 Do you snore loudly (louder than talking or can be heard Do you often feel tired/ fatigued/ sleepy during daytime? Has anyone observed you stop breathing during sleep? STOP Results Positive 06/12/25 11:18 QUESTION #5 FULL TEXT : Do you snore loudly (louder than talking or can be heard through closed doors)? 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 Specify any problems Hx of Preganancy in last 3 N/A 06/12/25 11:18 Months Nurse Filling Out Transfusion JZOLLINGE 06/12/25 11:18 & Questions: Date: 06/12/25 06/12/25 11:18 Time: 11:20 06/12/25 11:18 Patient unable to answer at this time (ie. confused, unrespo /Reproduction History /Reproductive History - president and chief commercial officer: /Reproductive Hx- president and chief commercial officer Hx Now No 06/12/25 11:18 Gestational Age (in weeks): EDC: Hx Hx Para Hx Section SAB No 06/12/25 11:18 [facility] Medical History (Updated 06/12/25 @ 11:18 by Helga Encarnacion) CPAP (continuous positive airway pressure) dependence Sleep apnea Non-smoker Loud snoring Dysarthria Tobacco dependence in remission Dysphagia due to recent cerebral infarction Overweight (BMI 25.0-29.9) Dyslipidemia Erosive esophagitis CVA (cerebral vascular accident) Hypertension Home Medications ?Medication ?Instructions ?Recorded ?Last Taken ?Type aspirin 81 mg chewable tablet 81 mg PO BREAKFAST #1 TAB 04/18/25 Unknown Rx atorvastatin 40 mg tablet 40 mg PO QHS #30 tabs 04/18/25 Unknown Rx lisinopril 5 mg tablet 5 mg PO DAILY #30 tabs 04/18/25 Unknown Rx pantoprazole 40 mg tablet,delayed 40 mg PO BID #60 tabs 04/18/25 Unknown Rx release Allergy/AdvReac Type Severity Reaction Status Date / Time No Known Allergies Allergy Verified 06/12/25 11:03 Social History household members: spouse and family housing: house Smoking Status: Former smoker Audit: Pertinent Findings Pertinent Findings EKG Perinent findings: 04/10/2025. Normal sinus rhythm. Nonspecific T wave abnormality. Recommendation Anesthesia Recommendation Anesthesia recommendation: OPTIMIZED for anesthesia
[2025-06-16] VITALS (8 sets, daily range): BP systolic 137–147; BP diastolic 81–92; PULSE 54–73; RESP 16; TEMP 36.2–36.6; O2SAT 95–99; BMI 31.8
--- NOTE | 2025-06-16 06:33 | PCM.HP.STD ---
HPI - General General Date of Admission: 06/16/25 Date of Service: 06/16/25 Chief Complaint: dysphagia and peg removal HPI Narrative CHARLES RUSSELL, is a 54 M who presents with the Chief Complaint: dysphagia [facility] [id number]. for rehabilitation after CVA. PEG placed at outside facility due to dysphagia. Pt passed MBS and has not been using PEG. Discharged on regular textures and thin liquids. Recommend to f/u with GI for PEG removal and for hx of erosive esophagitis. OV 7.24.25 pt doing well since discharge. He is eating only by mouth at this time. He denies any problems with swallowing. He feels speech therapy was very helpful to him. He wants his PEG out. [facility] Medical History CPAP (continuous positive airway pressure) dependence Sleep apnea Non-smoker Loud snoring Dysarthria Tobacco dependence in remission Dysphagia due to recent cerebral infarction Overweight (BMI 25.0-29.9) Dyslipidemia Erosive esophagitis CVA (cerebral vascular accident) Hypertension Home Medications ?Medication ?Instructions ?Recorded ?Last Taken ?Type aspirin 81 mg chewable tablet 81 mg PO BREAKFAST #1 TAB 04/18/25 Unknown Rx atorvastatin 40 mg tablet 40 mg PO QHS #30 tabs 04/18/25 Unknown Rx lisinopril 5 mg tablet 5 mg PO DAILY #30 tabs 04/18/25 Unknown Rx pantoprazole 40 mg tablet,delayed 40 mg PO BID #60 tabs 04/18/25 Unknown Rx release Allergy/AdvReac Type Severity Reaction Status Date / Time No Known Allergies Allergy Verified 06/12/25 11:03 Social History household members: spouse and family housing: house Smoking Status: Former smoker ROS Constitutional Constitutional: Denies fatigue, fever(s), poor appetite, weight gain or weight loss Gastrointestinal Gastrointestinal: Denies belching, bloating, change in bowel habits, change in stool character, chewing difficulty, coffee ground emesis, constipation, cramping, diarrhea, dyspepsia, dysphagia, early satiety, excessive flatus, fecal incontinence, heartburn, hematemesis, hematochezia, hemorrhoids, loose stools, melena, nausea, odynophagia, rectal bleeding, tenesmus, vomiting or weight changes Physical Exam Const alert, oriented x3, no apparent distress and healthy appearing General Appearance: cooperative GI normal to inspection, nondistended, normoactive bowel sounds, soft to palpation, non-tender and non-distended Percussion: normal to percussion Rectal Exam: deferred Assessment & Plan Assessment/Plan (1) PEG (percutaneous endoscopic gastrostomy) adjustment/replacement/removal:
--- OUTSIDE RECORDS SUMMARY | 2025-06-16 06:44 | XMS RPT_ITS | CCD ---
Author Organization [facility] Care Team Providers Care Senior Test Analyst Name Role Phone PHYSICIAN, NONE Primary Care Physician Unavailab le Care Physician, No Primary Primary Care Provider Unavailable Sementi DO, Dr. Sheri Burgos Admit Provider Sementi DO, Dr. Sheri Burgos Attending Provide r Sementi DO, Dr. Sheri Burgos Referring Provide r Sementi DO, Dr. Sheri Burgos Other Provider PHYSICIAN, NONE Primary Care Unavailable ZUNILDA REIS FACP, RUPERTO Rose Consulting Unavail able PLUNK DO, GUSTAVO Attending Unavailable PLUNK DOGUSTAVO Referring Unavailable JOSETTE HERBARIUM WORKER-TAVERN KEEPERPRINCESS Admitting Unavaila ble ASHUTOSH TATE MD Consulting Unavailable Care Physician, No Primary Referring Provider Un available Gwendolyn Thornton Attending Provider Josette MEDICAL OFFICE SECRETARY-C, Lakeshia Hickman Primary Care Provider Jael MEDICAL OFFICE SECRETARY-CCt Attending Provider Care Physician, No Primary Referring Unava ilable Ct Elder Attending Unavailable Josette MEDICAL OFFICE SECRETARY, Lakeshia Marylou Primary Care Unavailabl e Sementi, Sheri Burgos Consulting Unavaila ble Care Physician, No Primary Primary Care Unava ilable Semennigel, Sheri Burgos Admitting Unavaila ble Sementi, Sheri Burgos Referring Unavaila ble Sementi, Sheri Burgos Attending Unavaila ble Santana Baires Attending Unavailable Josette MEDICAL OFFICE SECRETARY, Lakeshia Hickman Referring Unavailabl e Josette MEDICAL OFFICE SECRETARY, Lakeshia Marylou Primary Care Unavailabl e Sementi, Sheri Burgos Referring Unavaila ble Josette MEDICAL OFFICE SECRETARY, Lakeshia Hickman Primary Care Unavailabl e Sementi, Sheri Burgos Attending Unavaila ble Sementi, Sheri Burgos Referring Unavaila ble Care Physician, No Primary Primary Care Unava ilable Sementi, Sheri Burgos Attending Unavaila ble Sementi, Sheri Burgos Admitting Unavaila ble Sementi, Sheri Burgos Referring Unavaila ble Care Physician, No Primary Primary Care Unava ilable Sementi, Sheri Burgos Attending Unavaila ble Care Physician, No Primary Referring Unava ilable Gwendolyn Alvarado Attending Unavailable Josette MEDICAL OFFICE SECRETARY, Lakeshia Hickman Primary Care Unavailabl e Medications Current Medications Medication Drug Class(es) Dates Sig (Normalized) Sig (Original) aspirin 81 mg chewable tablet (11 sources) Platelet Aggregation Inhibitor, Nonsteroidal Anti-inflammatory Drug Start: 04-09-2025 End: 04-18-2025 take 1 tablet by mouth at breakfast Aspirin 81 mg Tablet,Chewable Active 81 mg PO WITH BREAKFAST 1 April 18, 2025 12:00am atorvastatin 40 mg oral tablet (11 sources) HMG-CoA Reductase Inhibitor Start: 04-09-2025 End: 04-18-2025 take 1 tablet by mouth at bedtime Atorvastatin 40 mg Tablet Active 40 mg PO AT BEDTIME 30 April 18, 2025 12:00am esomeprazole 20 mg delayed release oral capsule (6 sources) Proton Pump Inhibitor Start: 04-09-2025 NexIUM 20 mg oral delayed release capsule Dose : 40 mg = 2 cap(s), PEG, qDay, 0 Refill(s) Start Date: 04/09/25 Status: Ordered Repeat number: 1 Start: 04-09-2025 End: 04-09-2025 take 2 capsules by mouth once daily Esomeprazole Magnesium (Nexium) 20 mg capsule,delayed release(DR/EC) Discontinued 40 mg PO DAILY April 09, 2025 12:00am April 09, 2025 4:55pm acid emergency technician lisinopril 5 mg oral tablet (5 sources) Angiotensin Converting Enzyme Inhibitor Start: 04-18-2025 take 1 tablet by mouth once daily Lisinopril 5 mg Tablet Active 5 mg PO DAILY 30 April 18, 2025 12:00am meclizine hydrochloride 12.5 mg oral tablet (5 sources) Antiemetic Start: 04-18-2025 take 1 tablet by mouth twice daily Meclizine 12.5 mg Tablet Active 12.5 mg PO TWICE A DAY 60 April 18, 2025 12:00am pantoprazole 40 mg delayed release oral tablet (5 sources) Proton Pump Inhibitor Start: 04-18-2025 take 1 tablet by mouth twice daily Pantoprazole 40 mg Tablet,Delayed Release (Dr/Ec) Active 40 mg PO TWICE A DAY 60 0 April 18, 2025 12:00am Completed/Discontinued Medications Medication Drug Class(es) Dates Sig (Normalized) Sig (Original) acyclovir 0.05 mg/mg topical ointment (5 sources) Herpesvirus Nucleoside Analog DNA Polymerase Inhibitor, Herpes Simplex Virus Nucleoside Analog DNA Polymerase Inhibitor, Herpes Zoster Virus Nucleoside Analog DNA Polymerase Inhibitor Start: 04-18-2025 End: 05-01-2025 Acyclovir 5 % Ointment Discontinued 1 NMA TOPICAL 5 TIMES DAILY 1 0 April 18, 2025 12:00am May 01, 2025 9:05am Please contact the information source for Protocol details. amoxicillin 875 mg / clavulanate 125 mg oral tablet (5 sources) Penicillin-class Antibacterial Start: 03-09-2023 End: 04-09-2025 Amoxicillin-Pot Clavulanate 875-125 mg tablet Discontinued 1 {tbl} PO Q12H 14 0 March 09, 2023 12:00am April 09, 2025 4:46pm dextromethorphan hydrobromide 2 mg/ml / guaiFENesin 20 mg/ml oral solution (5 sources) Uncompetitive V-rnkoxj-C-aspartat e Receptor Antagonist, Sigma-1 Agonist Start: 03-09-2023 End: 04-09-2025 take 1 mL by mouth every four hours as needed for cough Dextromethorphan- Guaifenesin (Adult Tussin Cough Congest Dm) 10-100 mg/5 mL liquid Discontinued 10 mL PO Q4H as needed for cough 120 0 March 09, 2023 12:00am April 09, 2025 4:46pm Lovenox (6 sources) Low Molecular Weight Heparin Start: 04-09-2025 inject 0.4 mL by subcutaneous injection once daily Lovenox Dose : 40 mg = 0.4 mL, Subcutaneous, qDay, 0 Refill(s) Start Date: 04/09/25 Status: Ordered Repeat number: 1 Start: 04-09-2025 End: 04-18-2025 Enoxaparin (Lovenox) 40 mg/0 .4 mL syringe Discontinued 40 mg SC DAILY April 09, 2025 12:00am April 18, 2025 11:55am DVT prophylaxis Problems Problem Classification Problem Date Documented Da te Episodic/Chronic Acute cerebrovascular disease (16 sources) Cerebral infarction; Translations: [Cerebral infarction, unspecified] Onset: 04-06-2025 Chronic Comment on above: Multiple small foci of infarcts in the R cerebellum and the R Medulla very concerning for embolic infarcts. Acute cerebrovascular disease (1 source) NIHSS score 1; Translations: [NIHSS score 1] Onset: 04-06-2025 Episodic Conditions associated with dizziness or vertigo (3 sources) Dizziness and giddiness; Translations: [Dizziness and giddiness] Onset: 04-06-2025 Episodic Diabetes mellitus without complication (1 source) Hyperglycemia, unspecified; Translations: [Hyperglycemia, unspecified] Onset: 04-06-2025 Episodic Disorders of lipid metabolism (11 sources) Dyslipidemia; Translations: [Hyperlipidemia, unspecified] Onset: 04-21-2025 04-14-2025 Chronic Comment on above: LDL 111, HDL low at 34 and triglycerides are normal. He is on a statin Esophageal disorders (16 sources) Ulcer of esophagus; Translations: [Ulcer of esophagus without bleeding] Onset: 04-06-2025 Chronic Essential hypertension (14 sources) Essential hypertension; Translations: [Essential (primary) hypertension] Onset: 04-06-2025 Chronic Gastritis and duodenitis (1 source) Duodenitis without bleeding; Translations: [Duodenitis without bleeding] Onset: 04-06-2025 Episodic Late effects of cerebrovascular disease (13 sources) Dysphagia; Translations: [Dysphagia following cerebral infarction] Onset: 04-21-2025 04-10-2025 Chronic Malaise and fatigue (11 sources) Asthenia; Translations: [Other malaise] Onset: 04-21-2025 04-10-2025 Episodic Nausea and vomiting (14 sources) Nausea; Translations: [Nausea] Onset: 04-06-2025 Episodic Other gastrointestinal disorders (1 source) Dysphagia, unspecified; Translations: [Dysphagia, unspecified] Onset: 04-06-2025 Episodic Other lower respiratory disease (10 sources) Snoring; Translations: [Snoring] 04-10-2025 Episodic Other lower respiratory disease (1 source) Snoring; Translations: [Snoring] Onset: 04-21-2025 Episodic Other nervous system disorders (10 sources) Dysarthria; Translations: [Dysarthria and anarthria] 04-10-2025 Episodic Other nervous system disorders (1 source) Paresthesia of skin; Translations: [Paresthesia of skin] Onset: 04-06-2025 Episodic Other nervous system disorders (1 source) Dysarthria and anarthria; Translations: [Dysarthria and anarthria] Onset: 04-21-2025 Episodic Other nutritional; endocrine; and metabolic disorders (10 sources) Body mass index 25-29 - overweight; Translations: [Overweight] 04-18-2025 Episodic Other nutritional; endocrine; and metabolic disorders (1 source) Overweight; Translations: [Overweight] Onset: 04-21-2025 Episodic Residual codes; unclassified (10 sources) Finding related to sleep; Translations: [Sleep apnea, unspecified] 04-18-2025 Chronic Residual codes; unclassified (2 sources) Obstructive sleep apnea syndrome; Translations: [Obstructive sleep apnea (adult) (pediatric)] 05-13-2025 Chronic Comment on above: AHI 73.9 Residual codes; unclassified (2 sources) Sleep apnea, unspecified; Translations: [Sleep apnea, unspecified] Onset: 04-21-2025 Chronic Substance-related disorders (11 sources) Tobacco dependence in remission; Translations: [Nicotine dependence, unspecified, in remission] Onset: 04-21-2025 04-10-2025 Chronic Results Test Name Value Interpretation Reference Range Facility /Zev 06-12-2025 /LEONEL LIZAMA [facility] Medical Records Department [address] [place] [address] PAT - Anesthesia 06/12/25 1534 MR#: [id number] Acct: [id number] Name: CHARLES RUSSELL Rep #: [id number] : 1970 54 From: Kirk Crum MD PCP: Lakeshia Finch, MEDICAL OFFICE SECRETARY-C Status:PRE SDC Y Race: C Location: EN Pre-Assessment Diagnosis/Proposed Procedure Planned Operative Procedure(s): EGD, PEG TUB REMOVAL Anesthesia History 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 When Was Last Pacemaker Check QUESTION #4 FULL TEXT: You/Your Family Experience fever (hyperthermia) with Anesthesia Last Oral Intake Last Oral intake: Last Oral Intake NPO since Meds taken in AM with sips of water? Meds patient instructed to take am of surgery PONV PONV - lubrication worker: PONV - lubrication worker Female No 06/12/25 11:18 HX of Motion Sickness No 06/12/25 11:18 HX of N/V After Surgery No 06/12/25 11:18 Non-Smoker Yes 06/12/25 11:18 Duration of Surgery greater No 06/12/25 11:18 than 60 minutes Number of Risk Factors 1 06/12/25 11:18 PONV Score Low Risk 06/12/25 11:18 Height Weight Height Weight: Anesthesia: Height Weight Height 5 ft 10 in 04/18/25 14:42 Respiratory Assessment Respiratory Assessment - lubrication worker: Respiratory Tract Infection Hx - lubrication worker Hx Respiratory Tract Infection No 06/12/25 11:18 STOP Sleep Apnea STOP Sleep Apnea - lubrication worker: STOP Sleep Apnea - lubrication worker Hx Hypertension Yes: ON MEDS 06/12/25 11:18 Hx Sleep Apnea Yes 06/12/25 11:18 CPAP Yes 06/12/25 11:18 BIPAP No 06/12/25 11:18 Do you snore loudly (louder than talking or can be heard Do you often feel tired/ fatigued/ sleepy during daytime? Has anyone observed you stop breathing during sleep? STOP Results Positive 06/12/25 11:18 QUESTION #5 FULL TEXT : Do you snore loudly (louder than talking or can be heard through closed doors)? Tobacco Use History Tobacco Use History - lubrication worker: Tobacco Use History - lubrication worker Tobacco Use Smoking Status Former smoker 06/12/25 11:18 Hx Tobacco Use No 06/12/25 11:18 Years Smoking Packs Smoked per Day Smoking Cessation Date was No - quit smoking greater 06/12/25 11:18 within the last 15 years than 15 years ago Hx Smoking Cessation Date Hx Smoking Cessation No 06/12/25 11:18 Counseling Hematologic Medial History Hematologic Hx - lubrication worker: Hematologic Medical Hx - hand coper Hx of Blood Transfusion No 06/12/25 11:18 Hx of Transfusion in last 3 No 06/12/25 11:18 Months Date of Last Transfusion (if within last 3 months) Ever experience any problems No 06/12/25 11:18 with transfusion(s)? Specify any problems Hx of Preganancy in last 3 N/A 06/12/25 11:18 Months Nurse Filling Out Transfusion JZOLLINGE 06/12/25 11:18 Questions: Date: 06/12/25 06/12/25 11:18 Time: 11:20 06/12/25 11:18 Patient unable to answer at this time (ie. confused, unrespo /Reproduction History /Reproductive History - lubrication worker: /Reproductive Hx- lubrication worker Hx Now No 06/12/25 11:18 Gestational Age (in weeks): EDC: Hx Hx Para Hx Section SAB No 06/12/25 11:18 [facility] Medical History (Updated 06/12/25 @ 11:18 by Helga Encarnacion) CPAP (continuous positive airway pressure) dependence Sleep apnea Non-smoker Loud snoring Dysarthria Tobacco dependence in remission Dysphagia due to recent cerebral infarction Overweight (BMI 25.0-29.9) Dyslipidemia Erosive esophagitis CVA (cerebral vascular accident) Hypertension Home Medications ???Medication ???Instructions ???Recorded ???Last Taken ???Type aspirin 81 mg chewable tablet 81 mg PO BREAKFAST #1 TAB 04/18/25 Unknown Rx atorvastatin 40 mg tablet 40 mg PO QHS #30 tabs 04/18/25 Unk nown Rx lisinopril 5 mg tablet 5 mg PO DAILY #30 tabs 04/18/25 Un known Rx pantoprazole 40 mg tablet,delayed 40 mg PO BID #60 tabs 04/18/25 Un known Rx release Allergy/AdvReac Type Severity Reaction Status Date / Time No Known Allergies Allergy Verified 06/12/25 11:03 Social History (Re (more content not included)... Normal [facility] PT D/C Summary (1)on 025 PT D/C Summary (1) [facility] [address] [place] [address] / REHABILITATION SERVICES DISCHARGE SUMMARY MR#: [id number] Acct: [id number] Name: CHARLES RUSSELL Rep #: [id number] : 1970 54 From: Richard Pinon DPT Referring Dr.: Dr. Sheri De León DO Status: REG RCR Insurance: [facility] PACKAGE PLAN SELF PAY INSURANCE Discharge Summary D/C summary: It has been my pleasure to treat CHARLES RUSSELL referred by Dr. Sheri De León DO, with the diagnosis of CVA with R sided weakness for a total of 2 visit(s). Discharge Date: 05/19/25 Please see the following information for a summary of their discharge status. Subjective Subjective: Pt. is back to work. He reports no major issues. He is overall pleased. Overall Improvement % Improvement: 90 Objective Objective/Function: MMT: R quad 54.8## L quad 65.7# GAIT: normal no AD no issues. STAIRS: normal without use of HR TUG 8.42 30 sec sit to stand test 17 without use of UEs. SL 30sec no issues on either LE. Charles is doing much better. No major issues. I am DCing him from PT at this point in time.l Goals Goal 1:: LTG: Pt. to be I with HEP. Goal Progress: Goal Met Goal 2:: LTG: Pt. to have symmetrical B quad strength. Goal Progress: Progressing Goal 3:: LTG: Pt. to complete TUG with time less than 10seconds. Goal Progress: Goal Met Goal 4:: LTG: Pt. to complete 30sec sit to stand test with 17 reps. Goal Progress: Goal Met Plan Plan: Pt. to be DC from PT at this point in time. He is doing great and reports being close to baseline at this point in time. He is back to work without issues. D/C Information d/c sentence: If there are questions or concerns regarding this patient's physical therapy, please feel free to call me at [phone]. Thank you for the referral of this patient. Sincerely, Richard Pinon, DPT Balance/Gait/Functional tests Balance/Special Test Scores Functional Gait Assessment Score: 24 % Disability: 20.0000 CATSIB Score (Max score 120 seconds): 99 Lower Extremity Functional Score: 69 TUG Test Time Seconds: 8.42 Tug Test: <10 sec.=free mobile 30 Second Chair Rise Test Seconds: 17 Improvement % Improvement: 90 05/19/25 1118 CC: HECTOR Finch; Dr. Sheri De León, CLS Signed Normal [facility] Pulmonary Visit Reporton Pulmonary Visit Report [facility] [address] [place] [address]. [address] [place] [address] OFFICE VISIT Date of Service: 05/13/25 MR#: [id number] Acct: [id number] Name: CHARLES RUSSELL Rep #: [id number] : 1970 Provider: Ct Elder NP Age/Sex: 54/M [place] [facility] [place] Status: Signed Assessment and Plan Assessment and Plan (1) Obstructive sleep apnea: Status: Acute Comment: AHI 73.9 Plan: The sleep study was reviewed at length with patient today. I have also discussed the correlation between sleep apnea and A-fib and stroke. I have discussed the correlation between sleep apnea and hypertension and acid reflux. I have discussed the pathophysiology of sleep disordered breathing. I have recommended that he begin CPAP 7 cm and he plans to use the local vendor, [employer]. He will be set up on his device and a compliance download will be available for follow-up in approximately 8 weeks. I have asked for the patient to begin to utilize pantoprazole 30 minutes before breakfast and 30 to 45 minutes before dinner. He should continue with antibiotic therapy as previously prescribed and will reassess cough on follow-up. Plan Details Follow Up: 8 Weeks (LMR) HPI HPI Comments Details: Patient is a 54-year-old male who presents today to establish for sleep apnea. He is ambulatory currently on room air. He presents today with his spouse. A split PSG was ordered by Sheri De León after he was hospitalized for CVA. The split-night study showed a baseline AHI of 73.9 events per hour. The recommendation is for him to utilize CPAP 7 cm. He was found to have severe erosive esophagitis and a peg tube was placed. The patient has been utilizing pantoprazole 40 mg twice daily but does take this medication with food. He recently was seen by his PCP who prescribed him an antibiotic due to cough and concern for aspiration pneumonia, per patient. The patient reports that he continues to have a cough present. He indicates that he experiences postnasal drainage and allergy symptoms. He denies shortness of breath and wheeze. The patient has a history of loud snoring, witnessed apnea. He has a father who snores but no family history of sleep apnea. Nocturia occurs x 1. He does not nap during the day. He reports a history of high blood pressure for which he utilizes medication. He does not have a history of asthma and is a lifetime non-smoker. He does not operate heavy machinery for work. Intake Vital Signs 04/18/25 14:42 05/13/25 12:26 Height 5 ft 10 in 5 ft 10 in Weight: 210 lb BMI 30.1 BP 118/69 Blood Pressure Location Rt brachial Position Sitting Respiration 18 Pulse 73 Pulse Source Monitor Temp 97.4 F L Temperature Source Temporal Artery Pulse Oximetry (%) 95 Oxygen Delivery Method room air Intake Visit Reasons: Sleep problems Chief Complaint: dysphagia Service Loss Control Consultant Required: No DME Vendor: n/a Accompanied by: Is patient in pain?: No Allergies No Known Allergies Allergy (Verified 05/13/25 13:59) Medications ???Medication ???Instructions ???Recorded ???Confirmed ???Type aspirin 81 mg chewable tablet 81 mg PO BREAKFAST #1 TAB 04/18/25 05/13/25 Rx atorvastatin 40 mg tablet 40 mg PO QHS #30 tabs 04/18/2503/02 Rx lisinopril 5 mg tablet 5 mg PO DAILY #30 tabs 04/18/25 Rx meclizine 12.5 mg tablet 12.5 mg PO BID #60 tabs 04/18/25 0 05/13/25 Rx pantoprazole 40 mg tablet,delayed 40 mg PO BID #60 tabs 04/18/25 Rx release [facility] Medical History Dysphagia due to recent cerebral infarction Dysarthria Dyslipidemia Loud snoring Tobacco dependence in remission Overweight (BMI 25.0-29.9) Erosive esophagitis CVA (cerebral vascular accident) Hypertension Social History household members: spouse and family housing: house Smoking Status: Former smoker Questionnaire Melber Sleepiness Scale Melber Sleepiness Scale Sitting and readin = High chance of dozing (in the evenings not so much in the day ) Watching TV: 0 = Would never doze Sitting inactive in public places such as theater or meeting (only at night): 0 = Would never doze Sitting as a passenger in a car for an hour without a break: 1 = Slight chance of dozing Lying down to rest in the afternoon when circumstances permit: 3 = High chance of dozing Sitting and talking with someone: 0 = Would never doze In a car, while stopped for a few minutes in traffic: 0 = Would never doze Melber Sleepiness Scale Total Score: 7 Review of Systems Resp Respiratory: Yes as per HPI Exam Const Constitutional: Positive conversant, cooperative, in no acute respiratory distress, healthy appearing, well developed and we (more content not included)... Normal [facility] Inital Evaluation (1) - PTon 05-05-2025 Inital Evaluation (1) - PT [facility] [address] [place] [address] / REHABILITATION SERVICES INITIAL EVALUATION MR#: [id number] Acct: [id number] Name: CHARLES RUSSELL Rep #: [id number] : 1970 54 From: Richard Pinon DPT Referring Dr.: Dr. Sheri De León DO Status: REG RCR Insurance: [facility] PACKAGE PLAN SELF PAY INSURANCE Patient's Visit Information Visit Information Visit Information: CHARLES RUSSELL is a 54 year old M referred to Physical Therapy by Dr. Sheri De León DO with a diagnosis of CVA with R sided weakness. Date of Evaluation: 05/05/25 Physical Therapist: Richard Pinon DPT Visit Plan Frequency: 1x/Week Duration: 4 Weeks Plan: Start with R quad strengthening, SL balance Subjective Subjective: Pt. is here today for his initial evaluation with CVA, cerebral artery on 04/09/25. Pt. was in inpatient rehab for 21 days. Pt. has been home for a about two weeks. He arrives today with use of SPC. Pt. reports no double vision, no LOUIS, no blurred vision. Pt. reports no calf pain. Pt. reports has been trying to walk more and more without much issues. He uses the SPC for a little bit of stability. Pt. reports that he does have some issues with a lot of stimulus. Pt. reports doing well on stairs. Pt. has 1 HR with good tolerance. 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 Pt. is hopeful to get back to all recreational and work activities without limitations. Objective Objective: POSTURE: Normal PALPATION: No issues NEURO: Pt. has normal sensation and normal DTR ROM: WNL no issues. MMT: RLE: ankle: DF 47.7#; knee: ext 21.3#, flex 36.9#; hip: flex 56.1#, abd 56.8# LLE: ankle DF: 50.9#; knee: ext 60.6#, flex 42.8#; hip: flex 66.1#, abd 57.1# GAIT: Pt. ambulates decent without AD, he has a little lean to R side during R stance phase. No foot clearance issue. STAIRS: Pt. is able to complete without issues with HR Balance/Special Test Scores Functional Gait Assessment Score: 24 % Disability: 20.0000 CATSIB Score (Max score 120 seconds): 99 Lower Extremity Functional Score: 59 TUG Test Time Seconds: 11.9 30 Second Chair Rise Test Seconds: 10 Goals Goal 1:: LTG: Pt. to be I with HEP. Goal Time Frame: 4-6 Weeks Goal 2:: LTG: Pt. to have symmetrical B quad strength. Goal Time Frame: 4-6 Weeks Goal 3:: LTG: Pt. to complete TUG with time less than 10seconds. Goal Time Frame: 4-6 Weeks Goal 4:: LTG: Pt. to complete 30sec sit to stand test with 17 reps. Goal Time Frame: 4-6 Weeks Rehabilitation Potential Physical Therapy Diagnosis: Pt. has signs and symptoms consistent with CVA with RLE weakness. Pt. has marked R quad weakness, but rest of his LE strength is pretty symmetrical. Pt. would benefit from PT to address the above weakness. Rehabilitation Potential: Excellent Anticipated Interventions Patient/Client Instruction: Educate patient on: Condition, Plan of Care, Risk Factors and Benefits of Fitness Program For the Purpose of:: To improve decision making, To facilitate caregiver knowledge, To improve self management, To prevent re-injury, To improve ability to perform tasks related to life management and To improve tolerance to ADL's Therapeutic Exercise to Include: Strength training, Power training, Gait and locomotor training and Neuromotor development For the Purpose of:: To improve gait and locomotor functions, To improve health of tissue, To decrease soft tissue restriction, To increase flexibility/ROM and To improve balance Text: Thank you for the opportunity to evaluate your patient. For Medicare and Medicare HMO plans, please review the plan of care and approve it. It will need to be FAXED BACK to us at [phone] for Medicare purposes. For Medicare only, by signing this I certify the plan of care. Please let me know if there are questions or concerns regarding this plan of care. Physician Signature: Date: 05/05/25 1233 CC: HECTOR Finch; Dr. Sheri De León, DO CLS Signed Normal [facility] SP/HP.SP.Ignacio 05-05-2025 SP/HP.SP.[facility] spital Speech Pathology [facility] [address] [place] [address] / REHABILITATION SERVICES INITIAL EVALUATION MR#: [id number] Acct: [id number] Name: CHARLES RUSSELL Rep #: [id number] : 1970 54 From: Willie Grajeda M.A., CCC-S LP Referring Dr.: Dr. Sheri De León, DO Status: REG RCR Insurance: [facility] PACKAGE PLAN SELF PAY INSURANCE Visit History Visit Info Date of Eval: 05/05/25 Today is Visit #: 1 Retail Sales Assistant: DAVI History Attending Doctor: Referring Doctor: Reason for Referral: CVA. RX HERE Medical Diagnosis: CVA Previous speech therapy: Yes Results: Patient progressed from PEG tube use to all oral diet with regular foods/ thin liquids recommended. Other Relevant Medical History/Diagnoses/Surgery: 04/09/2025. MRI showed multiple foci of restricted diffusion throughout the right cerebellum and the right medulla concerning for embolic infarcts. CTA of the head and neck were unremarkable and showed no large vessel occlusion or high-grade stenosis. Carotid duplex showed less than 50% stenosis bilaterally. Transthoracic echocardiogram showed normal left ventricular systolic and diastolic function with no wall motion abnormalities. There were no thrombi in the heart and the atria were of normal size. CHARLES RUSSELL, is a 54 YO M with no significant PMH, on no medications and not following with a PCP who had waxing and waning nausea and dizziness for a few days and then went on to develop trouble swallowing and difficulty walking. He also complained of numbness on the right side of his face. He finally went to [facility] emergency department to be evaluated. At presentation to the ED he had slurred speech, facial droop and drift with the R leg. [place] CT brain was unremarkable with no acute abnormalities. He was admitted to the hospitalist service to be evaluated for CVA. Carotid duplex revealed less than 50% stenosis in the bilateral carotids. A transthoracic echocardiogram showed normal left ventricular systolic and diastolic function with no wall motion abnormalities. Bubble contrast study was negative for PFO and both atria were of normal size. There were no thrombi observed in the heart. A noncontrast MRI of the brain showed multiple foci of restricted diffusion throughout the right cerebellum and right medulla concerning for embolic infarcts. RBS was increased in the emergency department at 145 and the lab was otherwise unremarkable in the ED. Subsequent labs showed hemoglobin A1c was 5.7. LDL was 111 with a low HDL of 34. TSH was normal. He was given a loading dose of 300 mg of ASA. He failed a bedside swallowing eval in the ED. He was seen by ST and had a bedside exam but, no MBS or FEES was done. They recommended NPO and PEG tube insertion. A PEG was inserted by general surgery on 04/08/25. The surgeon reported he had severe erosive esophagitis. He was seen by PT/OT and ST while at [facility] [place] and acute rehab was recommended. He was transferred to the acute inpatient rehab unit at [facility] on 04/09/25 for 3 hours of therapy daily. Medications related to this diagnosis: acyclovir 5 % topical ointment 1 applic topical 5X/DAY #1 g 04/18/25 aspirin 81 mg chewable tablet 81 mg PO BREAKFAST #1 TAB 04/18/25 atorvastatin 40 mg tablet 40 mg PO QHS #30 tabs 04/18/25 lisinopril 5 mg tablet 5 mg PO DAILY #30 tabs 04/18/25 meclizine 12.5 mg tablet 12.5 mg PO BID #60 tabs 04/18/25 pantoprazole 40 mg tablet,delayed release 40 mg PO BID #60 tabs 04/18/25 Smoking Status: Former smoker Diagnosis Diagnosis: Mild Dysphagia Pain Is pain an issue with your current prescribed condition?: No Personal Preferred language: Sinhala Patient Allergies Allergies Allergies: Allergies No Known Allergies Allergy (Verified 04/09/25 17:05) Subjective Dysphagia Current Diet Solids Current Diet: Regular Current Diet Liquids Current Liquids: Thin NPO Date Tube Placed: Patient has PEG tube but does not use it. Objective Dysphagia Administered by Administered by: Self Thin Liquids Administred via: Cup Oral Transit: WNL Bolus clearance: fully cleared Gagging: No Cough: throat clear Patient Report: Patient reported that he only clears his throat sometimes while drinking. He is very aware of limit straws and single drinks. During the evaluation he demonstrated one throat clear. Comments: Noted throat clear occasionally on thin liquid. See MBS results. Regular Oral Preparation: WNL Oral Transit: WNL Bolus clearance: fully cleared Gagging: No Cough: none observed/unable to assess Impact Impact on Safety Functioning: No Limitations Recommendations Modified Barium Swallow/Cookie Swallow Recommended: No Swallowing Treatment: No Diet Texture Recommendations Solids: Regular (Level 7) (more content not included)... Normal [facility] Gastroenterology Visit Repor ton 05-01-2025 Gastroenterology Visit Report [facility] Gastroenterology [address] [place] [address] OFFICE VISIT Date of Service: 05/01/25 MR#: [id number] Acct: [id number] Name: CHARLES RUSSELL Rep #: [id number] : 1970 Provider: BURKE Chen Age/Sex: 54/M [place] [facility] [place] [place] Status: Signed Intake Vital Signs 04/14/25 14:52 04/18/25 14:42 Height 5 ft 10 in 5 ft 10 in Intake Visit Reasons: Hospital FU Chief Complaint: dysphagia Accompanied by: Allergies No Known Allergies Allergy (Verified 04/09/25 17:05) Medications ???Medication ???Instructions ???Recorded ???Confirmed ???Type aspirin 81 mg chewable tablet 81 mg PO BREAKFAST #1 TAB 04/18/25 05/01/25 Rx atorvastatin 40 mg tablet 40 mg PO QHS #30 tabs 04/18/25 Rx lisinopril 5 mg tablet 5 mg PO DAILY #30 tabs 04/18/25 Rx meclizine 12.5 mg tablet 12.5 mg PO BID #60 tabs 04/18/25 Rx pantoprazole 40 mg tablet,delayed 40 mg PO BID #60 tabs 04/18/25 Rx release Nurse's Note: OV 05/01/25 Pt here for a hospital f/u and reports he is doing well. He is having some nausea and swallowing difficulty but reports its getting better. Pt continues pantoprazole daily. [facility] Medical History (Updated 05/01/25 @ 09:39 by BURKE Chen) Dysphagia due to recent cerebral infarction Dysarthria Dyslipidemia Loud snoring Tobacco dependence in remission Overweight (BMI 25.0-29.9) Erosive esophagitis CVA (cerebral vascular accident) Hypertension Social History (Updated 04/10/25 @ 15:[address] Sheri De León, DO) household members: spouse and family housing: house Smoking Status: Former smoker HPI HPI Chief Complaint: dysphagia Details: CHARLES RUSSELL, is a 54 M who presents to the office today for establishment with [facility]. [facility] TCU 7.3.25-7.14.25 for rehabilitation after CVA. PEG placed at outside facility due to dysphagia. Pt passed MBS and has not been using PEG. Discharged on regular textures and thin liquids. Recommend to f/u with GI for PEG removal and for hx of erosive esophagitis. OV 7.24.25 pt doing well since discharge. He is eating only by mouth at this time. He denies any problems with swallowing. He feels speech therapy was very helpful to him. He wants his PEG out. ROS Const Constitutional: Positive for headache(s); No fatigue, fever(s) or weight change ENT ENT: Positive for headache(s) and difficulty swallowing Gastro GI: Positive for difficulty swallowing and nausea/dyspepsia; No abdominal pain, belching, bloating, change in bowel habits, change in stool character, coffee ground emesis, constipation, cramping, diarrhea, heartburn, feeling full early, excessive flatus, incontinent of stools, Vomiting blood/hematemesis, Blood in stool, loose stools, Black,tarry stools, pain with swallowing, vomiting or other Musc Musculoskeletal: Positive for abnormal gait, numbness and tingling; No joint pain Skin Skin: No yellowing of the eye or itchy eyes Neuro Neurology: Positive for abnormal gait, dizziness, headache(s), numbness and tingling Psych Psychiatric: No anxiety and No depression Endo Endocrine: No fatigue or weight change Aller/Imm Allergy/Immunologic: No itchy eyes Edwin/Lymp Hematologic/Lymphatic: No easy bleeding or easy bruising Exam Const General: cooperative, healthy appearing and comfortable Nutritional Appearance: average body habitus HENAR Head: normal to inspection Eyes General: appearance normal, both eyes and all related structures Neck Neck: normal visual inspection Chest Chest palpation inspection: normal inspection of the chest Resp Effort Inspection: normal respiratory effort Cardio Rate: regular rate Rhythm: regular rhythm GI Inspection: normal to inspection Auscultation: normal bowel sounds Palpation: soft and nontender Assessment and Plan Assessment and Plan (1) Erosive esophagitis: Status: Acute Plan: Charles is 54 yo male pt here today for f/u after [facility] admission for CVA. [facility]1 [facility]. Work up revealing CVA. PEG was placed after swallowing evaluation. While in the TCU, he had speech therapy and MBS which showed just mild oropharyngeal dysphagia. He was cleared to eat normal textures and think liquids. Since being home he has not used his PEG for nutrition. Pt would like his PEG taken out. He continues with Pantoprazole 40 mg BID. Erosive esophagitis found during EGD at [facility]. He will undergo repeat EGD with PEG removal after it has been in for at least 4 weeks and for monitoring of his esophagitis. -EGD with PEG removal -Continue PPI (2) Dysphagia due to recent cerebral infarction: Status: Acute Coding Level of Care Code Off vis,new,level 3 Diagnoses Erosive esophagitis K22.10 Dysphagia due to r (more content not included)... Normal [facility] Discharge Instructionon 04-08 Discharge Instruction [facility] Medical Records Department [address] [place] [address] Instructions for Home/Discharge Instructions 04/18/25 1050 MR#: [id number] Acct: [id number] Name: CHARLES RUSSELL Rep #: [id number] : 1970 54 From: Sheri De León DO PCP: Care Physician,No Primary Status:ADM IN Discharge Instructions Diet Discharge Diet: - (low fat, low salt. Do not lie down for 30-60 minutes after eating. Avoid caffeine and chocolate.......they can cause reflux/heartburn. ) DC O2, CPAP, BIPAP needs Home O2 Discharge instructions: No Dressing / Incision Discharge Activity: May Not Drive, May Shower and Use Walker Weight Bearing Status: Full weight bearing Dressing / Incision Call your doctor if your incision/area has: Continuous Slow Oozing, Sudden Increased Bleeding, Increased Pain/ Swelling, Increased Redness, Foul Smelling Discharge, Swelling at the incision site and - (check around the PEG tube site daily to look for redness and discharge. ) Call your doctor if you observe: Fever of 101 or Higher, Inability to urinate, Inability to have a bowel movement, Shortness of breath, Dizziness, Fainting spells, Swelling in the ankles, Chest pain, Increased palpitations (irregular heartbeat), Calf discomfort, Uncontrolled pain and - (STROKE symptoms: facial droop, slurred speech, inability to get words out, weakness on 1 side of the body and not the other, numbness on 1 side of the body and not the other, inability to maintain your balance sitting or standing, vertigo. ) Cleanse incision/area with: Soap Water Follow Up Care When: Appointments have been listed later in this document. Test Results: Test results from this visit will be discussed in further detail at your follow-up appointment, if applicable. Pending Tests Upon Discharge: none Discharge Plan Admission Admit Date/Time: 04/09/25 16:24 Primary Reason for Your Visit: POST STROKE DEBILITY Attending Provider: Sheri De León Primary Care Provider: Care Physician,No Primary Instructions Patient Instructions: What Is GERD?, Tips to Control Acid Reflux, What Is Flores Esophagus?, What Are Snoring and Sleep Apnea?, Evaluating Erectile Dysfunction, Discharge Instructions for Stroke, BPPV, AFib, ED Sleep Apnea, Obstructive Additional Instructions / Restrictions: 1. I do not know why you had a stroke. Actually you had multiple little strokes on the right side of the brain. when there are multiple little strokes this is very suspicious for embolic strokes. This means you may have had multiple small blood clots go to the brain. One of the causes of embolic strokes is atrial fibrillation which is a problem with the rhythm of the heart. I have given you some literature to read on atrial fibrillation(also called AFIB). We are going to put in an order for an event monitor to monitor your heart rate continuously for a month. You will get it in the mail and it will have directions on how to apply it. If you have any problems getting it to work bring it to rehab and we will put it on. 2. I think you have sleep apnea. Sleep apnea can cause AFIB. You are going to have a sleep study to test you for this and then you will follow up with the pulmonary department to be treated IF you have sleep apnea. 3. Risk factors for strokes and heart attacks include, being a man, having high blood pressure, having high cholesterol, being diabetic, smoking. When you have had a stroke or a heart attack there are goals we set so that we can help prevent more strokes or heart attacks. The blood pressure should be less than 130/80. The LDL (bad cholesterol) should be less than or equal to 70. Your LDL was 111 when you had the stroke. The HGBA1C (this is for diabetics ) should be 7 or less. Your HGBA1C was 5.7.........just a tad higher than normal. You are at risk for developing diabetes. Watch you carbohydrate intake and don't gain any weight. You are taking a medication for cholesterol now. the medication is called Atorvastatin. You are taking 40 mg at bedtime. Your PCP will want to check your cholesterol and a lover panel in 4-6 weeks to make sure the LDL is 70 or less. Get a BP cuff and start taking your BP a couple times a day at different times and keep a record. Take the record to your doctor appts. You are taking Lisinopril 5 mg a day for BP. Your BP is looking pretty good right now. 4. We checked your prostate test (called a PSA) and it is normal. 5. I talked with the sleep lab. They have you scheduled for 05/05 for a sleep study but, they may be able to get you in sooner. They will call you. 6. 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 This needs to be further investigated. I have spoken with Dr. Baires (he is the buhr mill operator at the hospital) and he would like to see you next week. He will also be the one to remove the PEG tube. (more content not included)... Normal [facility] Anticardiolipin IgG, IgMon 0 04-17-2025 ANTICARDIO IgG < 9 Normal 0-14 [facility] Comment on above: Order Comment: KVNG Xavier SAID WE CAN DRAW ON 04-12-25 Result Comment: Nega tive: <15 Indeterminate: 15 - 20 Low-Med Positive: >20 - 80 High Positive: >80 Performed By: #### L 3100.8410, L3300.0500, L4500.5000, L4500.2000, L3100.7275 #### [facility] [address] [place], [place], [id number] Anticardio.IgM < 9 Normal 0-12 [facility] Comment on above: Order Comment: KVNG Xavier SAID WE CAN DRAW ON 04-12-25 Result Comment: Nega tive: <13 Indeterminate: 13 - 20 Low-Med Positive: >20 - 80 High Positive: >80 Performed By: #### L 3100.8410, L3300.0500, L4500.5000, L4500.2000, L3100.7275 #### [facility] [address] [place], [place], [address] Antithrombin 3 Functionon AT3 FUNCTIONAL 117 Normal 75-135 [facility] Comment on above: Order Comment: KVNG Xavier SAID WE CAN DRAW ON 04-12-25 Result Comment: Dire ct Xa inhibitor anticoagulants such as rivaroxaban, apixaban and edoxaban will lead to spuriously elevated antithrombin activity levels possibly masking a deficiency. Performed at: CB - [facility] [address] [id number] Content Management Specialist: Taras Butt PhD, Phone: [phone] Performed at: - [facility] [address] [id number] Content Management Specialist: Magrarita Ramirez MD, Phone: [phone] Performed at: - [facility] [address], [place] [id number] Content Management Specialist: Doris Soni [facility], Phone: [phone] Performed By: #### L 3100.8410, L3300.0500, L4500.5000, L4500.2000, L3100.7275 #### [facility] [address] [place], [place], [address] Fact V Leiden Mutationon FACTOR V LEIDEN Comment Normal . [facility] Comment on above: Order Comment: KVNG Xavier SAID WE CAN DRAW ON 04-12-25 Result Comment: Resu lt: c.1601G>A (p.[id number]) - Not Detected This result is not associated with an increased risk for venous thromboembolism. See Additional Clinical Information and Comments. Additional Clinical Information: Venous thromboembolism is a multifactorial disease influenced by genetic, environmental, and circumstantial risk factors. The c.1601G>A (p. [id number]) variant in the F5 gene, commonly referred to as Factor V Leiden, is a genetic risk factor for venous thromboembolism. Heterozygous carriers of this variant have a 6- to 8-fold increased risk for venous thromboembolism. Individuals homozygous for this variant (ie, with a copy of the variant on each chromosome) have an approximately 80-fold increased risk for venous thromboembolism. Individuals who carry both a c.*97G>A variant in the F2 gene and Factor V Leiden have an approximately 20-fold increased risk for venous thromboembolism. Risks are likely to be even higher in more complex genotype combinations involving the F2 c.*97G>A variant and Factor V Leiden (PMID: 71628067). Additional risk factors include but are not limited to: deficiency of protein C, protein S, or antithrombin III, age, male sex, personal or family history of deep vein thromboembolism, smoking, surgery, prolonged immobilization, malignant neoplasm, tamoxifen treatment, raloxifene treatment, oral contraceptive use, hormone replacement therapy, and . Management of thrombotic risk and thrombotic events should follow established guidelines and fit the clinical circumstance. This result cannot predict the occurrence or recurrence of a thrombotic event. Comment: Genetic counseling is recommended to discuss the potential clinical implications of positive results, as well as recommendations for testing family members. Genetic Coordinators are available for health care providers to discuss results at [phone] ([phone]). Test Details: Variant Analyzed: c.1601G>A (p. [id number]), referred to as Factor V Leiden Methods/Limitations: DNA analysis of the F5 gene (NM_000130.5) was performed by PCR amplification followed by electrophoresis. The diagnostic sensitivity is >99%. Results must be combined with clinical information for the most accurate interpretation. Molecular-based testing is highly accurate, but as in any laboratory test, diagnostic errors may occur. False positive or false negative results may occur for reasons that include genetic variants, blood transfusions, bone marrow transplantation, somatic or tissue-specific mosaicism, mislabeled samples, or erroneous representation of family relationships. This test was developed and its performance characteristics determined by [facility]. It has not been cleared or approved by the Food and Drug Administration. References: Mirella S, Leela AK, Iván R, Bright WW, Bo JH; [employer] Professional Practice and Guidelines Committee. Addendum: [employer] [employer] consensus statement on factor V Leiden mutation testing. Liss Med. 2020Dec 11. doi: 10.1038/a93515-950-40500-y. PMID: 27780880. Stanton DAVIS. Factor V Leiden Thrombophilia. 1998February 19 (Updated 2017Oct 12). In: Carter MP, Elizabeth HH, Ilsa RA, et al., editors. Osmani(Joesph) (Internet). [place] ([place]): [facility], [place]; 8961-9737. Available from: https://www.ncbi.nlm.nih.gov/books/QKM0782/ Rikki S, Leela AK, Vicente X, Meliton B, Corona EB, Vanessa P, Charan CS; [facility] Laboratory Lens Assistant Committee. Venous thromboembolism laboratory testing (factor V Leiden and factor II c. *97G>A), 2018 update: a technical standard of the [employer] [employer] and [employer] (ACMG). Liss Med. 2018 Sep;20(12): 9768-5542. doi: 10.1038/c05826-883-9017-e. Epub 2017Jul 13. PMID: 80529220. Performed By: #### L 3100.8410, L3300.0500, L4500.5000, L4500.2000, L3100.7275 ####[facility] [id number], [address] Reviewed By Comment Normal . [facility] Comment on above: Order Comment: KVNG Xavier SAID WE CAN DRAW ON 04-12-25 Result Comment: Tech nical Component performed at [facility] RT Professional Component performed by: Mike Jerry, PhD, [facility] [id number], [facility], [address] [facility] [place] [address] Performed By: #### L 3100.8410, L3300.0500, L4500.5000, L4500.2000, L3100.7275 ####[facility] [address] [place], [address] Factor II, DNA Analysison FACTOR II, DNA Comment Normal . [facility] Comment on above: Order Comment: KVNG Xavier SAID WE CAN DRAW ON 04-12-25 Result Comment: Resu lt: c.*97G>A - Not Detected This result is not associated with an increased risk for venous thromboembolism. See Additional Clinical Information and Comments. Additional Clinical Information: Venous thromboembolism is a multifactorial disease influenced by genetic, environmental, and circumstantial risk factors. The c.*97G>A variant in the F2 gene is a genetic risk factor for venous thromboembolism. Heterozygous carriers have a 2- to 4-fold increased risk for venous thromboembolism. Homozygotes for the c.*97G>A variant are rare. The annual risk of VTE in homozygotes has been reported to be 1.1%/year. Individuals who carry both a c.*97G>A variant in the F2 gene and a c.1601G>A (p. Ayw533Iru) variant in the F5 gene (commonly referred to as Factor V Leiden) have an approximately 20- fold increased risk for venous thromboembolism. Risks are likely to be even higher in more complex genotype combinations involving the F2 c.*97G>A variant and Factor V Leiden (PMID: 70741484). Additional risk factors include but are not limited to: deficiency of protein C, protein S, or antithrombin III, age, male sex, personal or family history of deep vein thromboembolism, smoking, surgery, prolonged immobilization, malignant neoplasm, tamoxifen treatment, raloxifene treatment, oral contraceptive use, hormone replacement therapy, and . Management of thrombotic risk and thrombotic events should follow established guidelines and fit the clinical circumstance. This result cannot predict the occurrence or recurrence of a thrombotic event. Comments: Genetic counseling is recommended to discuss the potential clinical implications of positive results, as well as recommendations for testing family members. Genetic Coordinators are available for health care providers to discuss results at [phone] ([phone]). Test Details: Variant analyzed: c.*97G>A, previously referred to as [id number] Methods/Limitations: DNA analysis of the F2 gene (NM_000506.5) was performed by PCR amplification followed by restriction enzyme analysis. The diagnostic sensitivity is >99%. Results must be combined with clinical information for the most accurate interpretation. Molecular-based testing is highly accurate, but as in any laboratory test, diagnostic errors may occur. False positive or false negative results may occur for reasons that include genetic variants, blood transfusions, bone marrow transplantation, somatic or tissue-specific mosaicism, mislabeled samples, or erroneous representation of family relationships. This test was developed and its performance characteristics determined by [facility]. It has not been cleared or approved by the Food and Drug Administration. References: Mirella S, Leela AK, Iván R, Bright WW, Bo STARR; [facility] Professional Practice and Guidelines Committee. Addendum: [employer] consensus statement on factor V Leiden mutation testing. Liss Med. 2020Dec 11. doi: 10.1038/c93687-671-50508-b. PMID: 80028684. Stanton DAVIS. Prothrombin Thrombophilia. 2005May 02 [Updated 2020Nov 12]. In: Carter MP, Elizabeth HH, Ilsa RA, et al., editors. Osmani(R) [Internet]. [place] ([place]): [facility]; 5718-6915. Available from: https://www.ncbi.nlm.nih.gov/books/HGK5826/ Rikki S, Leela AK, Vicente X, Meliton B, Corona EB, Vanessa P, Charan CS; [facility] Laboratory Lens Assistant Committee. Venous thromboembolism laboratory testing (factor V Leiden and factor II c.*97G>A), 2018 update: a technical standard of the [employer] and [employer] ([employer]). Liss Med. 2018 Sep;20(12):9703-4496. doi: 10.1038/e61395-992-6811-j. Epub 2017Jul 13. PMID: 20943476. Performed By: #### L 3100.8410, L3300.0500, L4500.5000, L4500.2000, L3100.7275 ####[facility] [address] [place], [address] Protein C Defic. Profileon 0 04-17-2025 PROTEIN C Ag 118 Normal 60-150 [facility] Comment on above: Order Comment: KVNG Xavier SAID WE CAN DRAW ON 04-12-25 Performed By: #### L 3100.8410, L3300.0500, L4500.5000, L4500.2000, L3100.7275 #### [facility] [address] [place], [address] PROTEIN C,FUNC 120 Normal 73-180 [facility] Comment on above: Order Comment: KVNG Xavier SAID WE CAN DRAW ON 04-12-25 Performed By: #### L 3100.8410, L3300.0500, L4500.5000, L4500.2000, L3100.7275 #### [facility] [address] [place], [address] Electrocardiogram reportOrde red By: Morgan Rock on 04-14-2025 EKG study [facility] Cardiovascular Services [address] [place] [address] 12 Lead EKG 04/10/25 1539 MR#: [id number] Acct: [id number] Name: CHARLES RUSSELL Rep #:[id number] : 1970 54 From: Morgan Rock MD Attending Dr: Dr. Sheri De León DO Status: ADM IN Ordering Dr: Sheri De León DO Date: 04/10/25 Location: Sex: M C Admitted: 04/09/25 Test Reason : EM Blood Pressure : */* mmHG Vent. Rate : 61 BPM Atrial Rate : 61 BPM P-R Int : 130 ms QRS Dur : 92 ms QT Int : 394 ms P-R-T Axes : 21 3 68 degrees QTcB Int : 396 ms Normal sinus rhythm Nonspecific T wave abnormality Abnormal ECG No previous ECGs available Confirmed by MORGAN ROCK MD ([id number]), editor index DILIP ZUÑIGA ([id number]) on 04/14/2025 1:19:55 PM Referred By: Sheri De León Confirmed By: MORGAN ROCK MD 04/14/25 1319 Date _ Morgan Rock MD CC: Dr. Sheri De León, DO; No Primary Care Physician ~ Signed [facility] Other Phone: [phone] 04-14-2025 [facility]. COMMENT Normal . [facility] Comment on above: Order Comment: KVNG Doshi SAID WE CAN DRAW ON [id number] Angel viper venom rita Result Comment: Perf ormed at: CB - [facility] [address] [id number] Content Management Specialist: Taras Butt PhD, Phone: [phone] Performed By: #### L 3410.9992 ####[facility] [address] [place], [address] Modified Barium Swallow Stud yon 04-14-2025 Modified Barium Swallow Study [facility] Speech Pathology [address] [place] [address] Modified Barium Swallow Study MR#: [id number] Acct: [id number] Name: CHARLES RUSSELL Rep #: [id number] : 1970 54 From: Josee Dugan M.A., [facility] [employer] Modified Barium Swallow Patient Information Study Date: 04/14/25 Study Time: 09:00 Direct Billable Minutes: 60 Total Minutes procedure reportin Diagnosis: CVA Referring Physician: Sheri De León Reason for Referral: Objective assessment of swallow function under fluoroscopy recommended following CBSE 04/10/25 and prior to diet advancement Medical History: Amarjit Russell is a previously healthy male with no prior medical history or medications, not followed by PCP, presented with several days of nausea, dizziness, progressing to dysphagia, gait disturbance, right facial numbness, slurred speech, and right-sided weakness. Initial evaluation at [facility] showed unremarkable CT and CTA of the head/neck. MRI revealed multiple acute infarcts in the right cerebellum and medulla, consistent with embolic stroke. Carotid duplex showed <50% stenosis; TTE was reportedly normal (report not received). Hemoglobin A1c was 5.7, LDL 111, HDL 34. TSH normal. No atrial fibrillation was documented. Started on aspirin 300 mg and Lipitor 40 mg. Enoxaparin 40 mg SC daily was initiated for DVT prophylaxis. PEG placed on 04/08/25 after failed bedside swallow evaluation; no instrumental swllow evaluations were completed prior to PEG placement; erosive esophagitis noted on placement. No GI consultation done. Transferred to acute inpatient rehab at [facility] on 04/09/25 for intensive therapy. Dentition: WNL Respiratory Status: Oxygenating on Room Air Penetration-Aspiration Scale Penetration-Aspiration Scale: OBJECTIVE ASSESSMENT OF SWALLOW FUNCTION (QUANTITATIVE ??? PER TRIAL): PENETRATION / ASPIRATION SCALE (MONROE): 1 = does not enter airway 2 = enters airway/above vocal folds/ejected 3 = enters airway/above vocal folds/not ejected 4 = enters airway/contacts vocal folds/ejected 5 = enters airway/contacts vocal folds/not ejected 6 = enters airway/below vocal folds/ejected 7 = enters airway/below vocal folds/not ejected despite effort 8 = enters airway/below vocal folds/no effort VIDEOFLOROSCOPIC SCALE SCORE (MONROE): Grade I = aspiration of material that has penetrated into the laryngeal vestibule, intact cough reflex Grade II = aspiration < 10 % of the bolus, intact cough reflex Grade III = aspiration of < 10 % of the bolus, reduced cough reflex or aspiration of > 10 % of the bolus, intact cough reflex Grade IV = aspiration of > 10 % of the bolus, reduced cough reflex Penetration-Aspiration Scale Score Thin Liquid via teaspoon: Result: 1= does not enter airway Thin Liquid via teaspoon Trial 2: Result: 1= does not enter airway Thin Liquid via small single sip: cup: Result: 2= enter airway/above vocal folds/ejected Thin Liquid via small single sip: cup Effortful swallow: Result: 2= enter airway/above vocal folds/ejected Thin Liquid via sequential sips: cup: Result: 2= enter airway/above vocal folds/ejected Pudding: Result: 1= does not enter airway Cookie: Result: 1= does not enter airway Pudding Trial 2: Result: 1= does not enter airway Thin Liquid via sequential sips:straw: Result: 6= enters airway/below vocal folds/ejected Oral Phase Labial Seal: Escape beyond interlabial space; no extension beyond kaelyn border Tongue Control During Bolus Hold: Cohesive bolus between tongue to palatal seal Bolus Preparation/Mastication: Slow prolonged chewing/mashing with complete recollection Bolus Transport/Lingual Motion: Slowed tongue motion Oral Residue: Trace residue lining oral structures Pharyngeal Phase Initiation of Pharyngeal Swallow: Bolus head at posterior laryngeal surgace of epiglottis Soft Palate Elevation: No bolus between soft palate and pharyngeal wall Laryngeal Elevation: Partial superior movement thyroid cart/partial apprx aryt-epig petiole Anterior Hyoid Excursion: Partial anterior movement Epiglottic Movement: Partial inversion Laryngeal Vestibule Closure at Height of Swallow: Complete; no air/contrast in laryngeal vestibule Pharyngeal Stripping Wave: Present - complete Pharyngoesophageal Segment Opening: Complete distension and complete duration; no obstruction of flow Tongue Base Retraction: Narrow column of contrast between tongue base post. pharyngeal wall Pharyngeal Residue: Trace residue within or on pharyngeal structures Esophageal Phase Esophageal Clearance: Complete clearance Diagnosis/Impression Diagnosis: mild oropharyngeal dysphagia Impression: The oral phase is characterized by... * slowed lingual motion for AP bolus transportation * trace residue accumulation on tongue base The pharyngeal phase is characterized by... * bolus spillag (more content not included)... Normal [facility] Blood or tissue coagulation factor II targeted mutation analysis by molecular geneticOrdered By: Sheri De León on 04-12-2025 F2 gene targeted mutation analysis [facility] (Bld/Tiss) Comment . [facility] Comment on above: Result: c.*97G>A - N ot DetectedThis result is not associated with an increased risk for venousthromboembolism. See Additional Clinical Information andComments.Additional Clinical Information:Venous thromboembolism is a multifactorial disease influenced bygenetic, environmental, and circumstantial risk factors. The c.*97G>Avariant in the F2 gene is a genetic risk factor for venousthromboembolism. Heterozygous carriers have a 2- to 4-fold increasedrisk for venous thromboembolism. Homozygotes for the c.*97G>A variantare rare. The annual risk of VTE in homozygotes has been reported diann 1.1%/year. Individuals who carry both a c.*97G>A variant in theF2 gene and a c.1601G>A (p. Hbj112Nxc) variant in the F5 gene(commonly referred to as Factor V Leiden) have an approximately 20-fold increased risk for venous thromboembolism. Risks are likely diann even higher in more complex genotype combinations involving theF2 c.*97G>A variant and Factor V Leiden (PMID: 71731750). Additionalrisk factors include but are not limited to: deficiency of protein C,protein S, or antithrombin III, age, male sex, personal or familyhistory of deep vein thromboembolism, smoking, surgery, prolongedimmobilization, malignant neoplasm, tamoxifen treatment, raloxifenetreatment, oral contraceptive use, hormone replacement therapy, andpregnancy. Management of thrombotic risk and thrombotic events shouldfollow established guidelines and fit the clinical circumstance. Thisresult cannot predict the occurrence or recurrence of a thromboticevent.Comments:Genetic counseling is recommended to discuss the potential clinicalimplications of positive results, as well as recommendations fortesting family members.Genetic Coordinators are available for health care providers to discussresults at [phone] Details:Variant analyzed: c.*97G>A, previously referred to as [id number]/Limitations:DNA analysis of the F2 gene (NM_000506.5) was performed by PCRamplification followed by restriction enzyme analysis. The diagnosticsensitivity is >99%. Results must be combined with clinicalinformation for the most accurate interpretation. Molecular-basedtesting is highly accurate, but as in any laboratory test, diagnosticerrors may occur. False positive or false negative results may occurfor reasons that include genetic variants, blood transfusions, bonemarrow transplantation, somatic or tissue-specific mosaicism,mislabeled samples, or erroneous representation of familyrelationships.This test was developed and its performance characteristics determinedby [facility]. It has not been cleared or approved by the Food and DrugAdministration.References:Mirella Xavier, Leela DEGROOT, Iván R, Bright WW, Bo JH; [facility] ProfessionalPractice and Guidelines Committee. Addendum: [employer] consensus statement on factor V Leiden mutationtesting. Liss Med. 2020Dec 11. doi: 10.1038/r90240-728-02587-k.PMID: 87950465.Stanton DAVIS. Prothrombin Thrombophilia. 2005May 02[Updated 2020Nov 12]. In: Carter MP, Elizabeth HH, Ilsa RA, et al.,editors. Osmani(R) [Internet]. [place] ([place]): [facility]; 9488-3589. Available from:https://www.ncbi.nlm.nih.gov/books/XTD6360/Rikki Xavier, Leela DEGROOT, Vicente X, Meliton B, Corona EB, Vanessa P, Charan CS;[facility] Laboratory Lens Assistant Committee. Venous thromboembolismlaboratory testing (factor V Leiden and factor II c.*97G>A),2018 update: a technical standard of the [employer] ([employer]). Liss Med. 2018 Sep;20(12):0000-4051.doi: 10.1038/[id number]-x. Epub 2017Jul 13. PMID: 38404540. Functional protein C measure mentOrdered By: Sheri De León on 04-12-2025 Protein C actual/normal Chromogenic method (PPP) [Rel catalytic activity/Vol] 120 % 73-180 [facility] PSA,Total - Annual Screenon 04-12-2025 PSA,TOT SCREEN 0.70 ng/mL Normal 0.02-4.00 [facility] Comment on above: Result Comment: This test was performed using the [employer] tPSA method. Measured values of a patient??sample can vary depending on the testing procedure used. PSA values determined on patient samples by different testing procedures cannot be used interchangeably. If there is a change in PSA assays while monitoring therapy, sequential testing should be performed to confirm baseline values. Performed By: #### L 501.9910 ####[facility] [address] [place], [place], [address] Platelet poor plasma antithr ombin actual/normal ratio by chromogenic method (relativeOrdered By: Sheri De León on 04-12-2025 Antithrombin actual/normal Chromogenic method (PPP) [Rel catalytic activity/Vol] 117 % 75-135 [facility] Comment on above: Direct Xa inhibitor anticoagulants such as rivaroxaban,apixaban and edoxaban will lead to spuriously elevatedantithrombin activity levels possibly masking a deficiency.Performed at: [employer] [address] [place], [place] [id number] Director: Taras Butt PhD, Phone: [phone] at: [facility] [employer] [id number] Director: Margarita Ramirez MD, Phone: [phone] at: [facility] [place] [id number] [place], [place] [id number] Director: Doris Soni [facility], Phone: [phone] Protein C antigen assayOrder ed By: Sheri Gilnigel on 04-12-2025 Protein C Ag actual/normal IA (PPP) [Relative mass conc] 118 % 60-150 [facility] Serum cardiolipin IgG antibo dy assay by immunoassay (units/volume)Ordered By: Sheri Gilnigel on 04-12-2025 Cardiolipin IgG IA Qn (S) < 9 GPL U/mL 0-14 [facility] Comment on above: Negative: <15 Indete rminate: 15 - 20 Low-Med Positive: >20 - 80 High Positive: >80 Absolute lymphocyte countOrd ered By: Sheri Gilnigel on 04-11-2025 Lymphocytes Auto (Unsp spec) [#/Vol] 1.16 10*3/uL 0.83-4.51 [facility] Absolute neutrophil countOrd ered By: Sheri Gilnigel on 04-11-2025 Neutrophils (Bld) [#/Vol] 5.0 10*3/uL 2.0-7.7 [facility] Anion gap in Serum or Plasma Ordered By: Sheri Genet on 04-11-2025 Anion gap [Moles/Vol] 9 mmol/L 5-15 [facility] Automated lymphocyte count a s percentage of total leukocytesOrdered By: Sheri Genet on 04-11-2025 Lymphocytes/100 WBC Auto (Unsp spec) 16.4 % Low 19-41 [facility] BUN/creatinine ratioOrdered By: Sheri Gilnigel on 04-11-2025 Urea nitrogen/Creatinine [Mass ratio] 19.1 mg/mg 10-20 [facility] Basophil percentageOrdered B y: Sheri Genet on 04-11-2025 Basophils/100 WBC (Bld) 0.4 % 0-1 [facility] Bilirubin, totalOrdered By: Sheri Genet on 04-11-2025 Bilirubin [Mass/Vol] 0.56 mg/dL 0.00-1.30 [facility] CBC W/Diff, Automatedon 070 Absolute Lymph 1.16 X10 3/uL Normal 0.83-4.51 [facility] Comment on above: Performed By: #### L 100.0100, L501.2300, L501.5200, L500.4050 ####[facility] [address] [place], [place], [address] Absolute Neut 5.0 X10 3/uL Normal 2.0-7.7 [facility] Comment on above: Performed By: #### L 100.0100, L501.2300, L501.5200, L500.4050 ####[facility] [address] [place], [address] Basophils/100 WBC (Bld) 0.4 % Normal 0-1 [facility] Comment on above: Performed By: #### L 100.0100, L501.2300, L501.5200, L500.4050 ####[facility] [address] [place], [address] Eosinophils/100 WBC (Bld) 2.3 % Normal 0-5 [facility] Comment on above: Performed By: #### L 100.0100, L501.2300, L501.5200, L500.4050 ####[facility] [address] [place], [address] Erythrocyte distribution width (RBC) [Ratio] 12.1 % Normal 11.6-14.6 [facility] Comment on above: Performed By: #### L 100.0100, L501.2300, L501.5200, L500.4050 ####[facility] [address] [place], [address] Hematocrit (Bld) [Volume fraction] 45.5 % Normal 40-54 [facility] Comment on above: Performed By: #### L 100.0100, L501.2300, L501.5200, L500.4050 ####[facility] [address] [place], [address] Hemoglobin (Bld) [Mass/Vol] 16.0 g/dL Normal 13.0-16.5 [facility] Comment on above: Performed By: #### L 100.0100, L501.2300, L501.5200, L500.4050 ####[facility] [address] [place], [address] IG% 0.100 Normal 0.0-0.9 [facility] Comment on above: Result Comment: IG% - Immature Granulocytes (promyelocytes, myelocytes and metamyelocytes) > 1% indicates that a LEFT SHIFT is Present. Performed By: #### L 100.0100, L501.2300, L501.5200, L500.4050 ####[facility] [address] [place], [address] Lymphocytes/100 WBC (Bld) 16.4 % Low 19-41 [facility] Comment on above: Performed By: #### L 100.0100, L501.2300, L501.5200, L500.4050 ####[facility] [address] [place], [address] MCH (RBC) [Entitic mass] 30.1 pg Normal 27.0-32.0 [facility] Comment on above: Performed By: #### L 100.0100, L501.2300, L501.5200, L500.4050 ####[facility] [address] [place], [address] MCHC (RBC) [Mass/Vol] 35.2 g/dL Normal 32-36 [facility] Comment on above: Performed By: #### L 100.0100, L501.2300, L501.5200, L500.4050 ####[facility] [address] [place], [address] MCV (RBC) [Entitic vol] 85.5 fL Normal 80-94 [facility] Comment on above: Performed By: #### L 100.0100, L501.2300, L501.5200, L500.4050 ####[facility] [address] [place], [address] Monocytes/100 WBC (Bld) 10.2 % High 0-10 [facility] Comment on above: Performed By: #### L 100.0100, L501.2300, L501.5200, L500.4050 ####[facility] [address] [place], [address] Neutrophils/100 WBC (Bld) 70.6 % High 47-70 [facility] Comment on above: Performed By: #### L 100.0100, L501.2300, L501.5200, L500.4050 ####[facility] [address] [place], [address] Nucleated RBC (Bld) [#/Vol] 0 10*3/uL Normal 0-5 [facility] Comment on above: Performed By: #### L 100.0100, L501.2300, L501.5200, L500.4050 ####[facility] [address] [place], [address] Platelet mean volume (Bld) [Entitic vol] 8.3 fL Normal 6.2-12.0 [facility] Comment on above: Performed By: #### L 100.0100, L501.2300, L501.5200, L500.4050 ####[facility] [address] [place], [address] Platelets (Bld) [#/Vol] 274 10*3/uL Normal 150-450 [facility] Comment on above: Performed By: #### L 100.0100, L501.2300, L501.5200, L500.4050 ####[facility] [address] [place], [address] RBC (Bld) [#/Vol] 5.32 10*6/uL Normal 4.6-6.2 [facility] Comment on above: Performed By: #### L 100.0100, L501.2300, L501.5200, L500.4050 ####[facility] [address] [place], [address] RDW SD 38.1 fl Normal 35.1-43.9 [facility] Comment on above: Performed By: #### L 100.0100, L501.2300, L501.5200, L500.4050 ####[facility] [address] [place], [address] WBC (Bld) [#/Vol] 7.1 10*3/uL Normal 4.4-11.0 [facility] Comment on above: Performed By: #### L 100.0100, L501.2300, L501.5200, L500.4050 ####[facility] [address] [place], [address] CTA Abd/Pelvis W/WO Contrast on 04-11-2025 CTA Abd/Pelvis W/WO Contrast [facility] Imaging Services [address] [place] [address] CTA Abd/Pelvis W/WO Contrast MR#: [id number] Acct: [id number] Name: CHARLES RUSSELL Va Rep #: [id number] : 1970 M 54 From: Pinky Haynes PCP: Care Physician,No Primary Status: ADM IN Study: CTA Abd/Pelvis W/WO Contrast Date of Exam: 01/31 Exam# [id number] Ordering Dr: Sheri De León DO PROCEDURE: CTA ABD/PELVIS W/WO CONTRAST 04/11/2025 REASON FOR EXAM: ABD PAIN AND VOMITING. TECHNIQUE: CTA ABD/PELVIS W/WO CONTRAST Multiplanar Sagittal and Coronal images were obtained. CONTRAST: 100 mL of Isovue 370 One or more dose reduction techniques were used (e.g., Automated exposure control, adjustment of the mA and/or kV according to patient size, use of iterative reconstruction technique). RADIATION DOSE SUMMARY: DLP: 3441 mGycm FINDINGS: Lung bases: Right lung base scattered densities with calcifications may reflect chronic aspiration. The liver, spleen, pancreas, and both adrenal glands demonstrate no acute findings. Hepatic steatosis. The gallbladder is unremarkable. Small hiatal hernia. Peg tube is noted; otherwise stomach is unremarkable.. The small bowel loops are not dilated. The appendix is not clearly identified, although there are no secondary signs of appendicitis. No colonic obstruction. Extensive colonic diverticulosis without acute diverticulitis. There is no free air or significant free fluid. The kidneys are unremarkable. The urinary bladder is partially distended. The pelvic structures are intact. There is no solid pelvic mass. Enlarged prostate to 5.2 cm in transverse dimension. No significant lymphadenopathy. Visualized osseous structures demonstrate no acute abnormality. Left posterior ribs at T10-T12 healing subacute fractures. Vascular: The aorta and IVC demonstrate no acute findings. Mild atherosclerosis of the abdominal vasculature without high-grade stenosis. Aorta: Minimal atherosclerosis without stenosis. No aneurysm or focal dissection. Iliac Arteries: Minimal atherosclerosis without stenosis. No aneurysm or focal dissection. Celiac: Patent SMA: Patent GABRIELLE : Patent Right Renal: Patent Left Renal: Patent CT/CTA Abd/Pelvis W/WO Contrast IMPRESSION: Right lung base scattered densities with calcifications may reflect chronic aspiration. No acute intra-abdominal process. Peg tube in appropriate position. No intra-abdominal acute aortic pathology. Reading Location: [facility] CC: Dr. Sheri De León DO; No Primary Care Physician Sales Representative [facility]: Signed Normal [facility] CTA Head AND Neck W/ Contras ton 04-11-2025 CTA Head AND Neck W/ Contrast [facility] Imaging Services [address] [place] [address] CTA Head AND Neck W/ Contrast MR#: [id number] Acct: [id number] Name: CAHRLES RUSSELL Rep #: [id number] : 1970 M 54 From: Pinky Haynes PCP: Care Physician,No Primary Status: ADM IN Study: CTA Head AND Neck W/ Contrast Date of Exam: Exam# [id number] Ordering Dr: Sheri De León DO PROCEDURE: CTA HEAD AND NECK W/ CONTRAST 04/11/2025 REASON FOR EXAM: CVA TECHNIQUE: CTA HEAD AND NECK W/ CONTRAST Multiplanar Sagittal and Coronal images were obtained. CONTRAST: 100 mL of Isovue 370 One or more dose reduction techniques were used (e.g., Automated exposure control, adjustment of the mA and/or kV according to patient size, use of iterative reconstruction technique). RADIATION DOSE SUMMARY: DLP: 3414 mGycm COMPARISON: None FINDINGS: There is no acute infarct, intracranial hemorrhage, or mass effect. There is no hydrocephalus or significant midline shift. No acute, depressed calvarial fractures. No large scalp hematomas. The aortic arch demonstrates a type I configuration. The ostia of the great vessels are patent. There is conventional branching. The right CCA is patent. There is no significant stenosis of the right carotid bifurcation by NASCET criteria. The cervical right ICA is patent. The right MCA and right MARK appear patent. There is no large vessel occlusion. The left CCA is patent. There is no significant stenoses at the left carotid bifurcation by NASCET criteria. The cervical left ICA is patent. The left MCA and left MARK appear patent. There is no large vessel occlusion. The right vertebral artery arises from the right subclavian artery. The left vertebral artery arises from the left subclavian artery. Both vertebral arteries are patent. Both vertebral arteries join to form the patent basilar artery. Both posterior cerebral arteries arise from the tip of the basilar. Both proximal [employer] segments are patent. There is no large vessel occlusion. There is no enhancing intracranial mass. Shotty cervical lymph nodes are identified. The thyroid gland is heterogeneous. The lung apices demonstrate no pneumothorax. No destructive osseous abnormalities identified. CT/CTA Head AND Neck W/ Contrast IMPRESSION: No acute, large territorial infarction. No large vessel occlusion or high-grade stenosis. Reading Location: [id number] CC: Dr. Sheri De León, DO; No Primary Care Physician Sales Representative [facility]: Signed Normal [facility] Carbon dioxide, total [Moles /volume] in Central venous bloodOrdered By: Sheri De León on 04-11-2025 CO2 [Moles/Vol] 25.9 mmol/L 21.0-32.0 [facility] Chloride assayOrdered By: Santos De León on 04-11-2025 Chloride [Moles/Vol] 104 mmol/L 98-108 [facility] Comprehensive Metabolic Prof ilon 04-11-2025 Albumin [Mass/Vol] 4.0 g/dL Normal 3.5-5.0 [facility] Comment on above: Performed By: #### L 100.0100, L501.2300, L501.5200, L500.4050 ####[facility] [address] [place], [address] Albumin/Globulin [Mass ratio] 1.3 {ratio} Normal 0.9-2.4 [facility] Comment on above: Performed By: #### L 100.0100, L501.2300, L501.5200, L500.4050 ####[facility] [address] [place], [address] ALK PHOS 46 U/L Normal 40-129 [facility] Comment on above: Performed By: #### L 100.0100, L501.2300, L501.5200, L500.4050 ####[facility] [address] [place], [address] ALT [Catalytic activity/Vol] 8 U/L Normal <=46 [facility] Comment on above: Performed By: #### L 100.0100, L501.2300, L501.5200, L500.4050 ####[facility] [address] [place], [address] AST [Catalytic activity/Vol] 27 U/L Normal <=37 [facility] Comment on above: Performed By: #### L 100.0100, L501.2300, L501.5200, L500.4050 ####[facility] [address] [place], [address] Bilirubin [Mass/Vol] 0.56 mg/dL Normal 0.00-1.30 [facility] Comment on above: Performed By: #### L 100.0100, L501.2300, L501.5200, L500.4050 ####[facility] [address] [place], [address] BUN/CRE 19.1 RATIO Normal 10-20 [facility] Comment on above: Performed By: #### L 100.0100, L501.2300, L501.5200, L500.4050 ####[facility] [address] [place], [address] Calcium [Mass/Vol] 9.4 mg/dL Normal 7.6-11.0 [facility] Comment on above: Performed By: #### L 100.0100, L501.2300, L501.5200, L500.4050 ####[facility] [address] [place], [address] Chloride [Moles/Vol] 104 mmol/L Normal 98-108 [facility] Comment on above: Performed By: #### L 100.0100, L501.2300, L501.5200, L500.4050 ####[facility] [address] [place], [address] CO2 [Moles/Vol] 25.9 mmol/L Normal 21.0-32.0 [facility] Comment on above: Performed By: #### L 100.0100, L501.2300, L501.5200, L500.4050 ####[facility] [address] [place], [address] Creatinine [Mass/Vol] 0.79 mg/dL Normal 0.70-1.20 [facility] Comment on above: Performed By: #### L 100.0100, L501.2300, L501.5200, L500.4050 ####[facility] [address] [place], [address] ECRCL 121.10 ml/min Normal 50-250 [facility] Comment on above: Performed By: #### L 100.0100, L501.2300, L501.5200, L500.4050 ####[facility] [address] [place], [address] GAP 9 Normal 5-15 [facility] Comment on above: Performed By: #### L 100.0100, L501.2300, L501.5200, L500.4050 ####[facility] [address] [place], [address] GFR/1.73 sq M.predicted among non-blacks MDRD (S/P/Bld) [Vol rate/Area] 105 mL/min/{1.73_m2} Normal >60 [facility] Comment on above: Result Comment: mL/m in/1.73m2 CKD-EPI Creatinine Equation (2020) Performed By: #### L 100.0100, L501.2300, L501.5200, L500.4050 ####[facility] [address] [place], [address] Globulin (S) [Mass/Vol] 3.0 g/dL Normal 2.2-4.2 [facility] Comment on above: Performed By: #### L 100.0100, L501.2300, L501.5200, L500.4050 ####[facility] [address] [place], [address] Glucose [Mass/Vol] 133 mg/dL High 70-99 [facility] Comment on above: Performed By: #### L 100.0100, L501.2300, L501.5200, L500.4050 ####[facility] [address] [place], [address] Potassium [Moles/Vol] 4.3 mmol/L Normal 3.3-5.1 [facility] Comment on above: Performed By: #### L 100.0100, L501.2300, L501.5200, L500.4050 ####[facility] [address] [place], [address] Sodium [Moles/Vol] 139 mmol/L Normal 133-145 [facility] Comment on above: Performed By: #### L 100.0100, L501.2300, L501.5200, L500.4050 ####[facility] [address] [place], [address] T PROT 7.0 g/dL Normal 5.9-8.4 [facility] Comment on above: Performed By: #### L 100.0100, L501.2300, L501.5200, L500.4050 ####[facility] [address] [place], [address] Urea nitrogen [Mass/Vol] 15 mg/dL Normal 4-19 [facility] Comment on above: Performed By: #### L 100.0100, L501.2300, L501.5200, L500.4050 ####[facility] [address] [place], [address] Eosinophil percentageOrdered By: Sheri De León on 04-11-2025 Eosinophils/100 WBC (Bld) 2.3 % 0-5 [facility] Erythrocyte distribution wid th ratioOrdered By: Sheri De León on 04-11-2025 Erythrocyte distribution width (RBC) [Ratio] 12.1 % 11.6-14.6 [facility] Erythrocyte distribution wid th standard deviationOrdered By: Sheri De León on 04-11-2025 Erythrocyte distribution width (RBC) [Ratio] 38.1 fl 35.1-43.9 [facility] Glomerular filtration rate ( GFR) estimation/1.73 sq m using serum, plasma, or whole bOrdered By: Sheri De León on 04-11-2025 GFR/1.73 sq M.predicted among non-blacks MDRD (S/P/Bld) [Vol rate/Area] 105 mL/min/{1.73_m2} >60 [facility] Comment on above: mL/min/1.73m2 CKD-EP I Creatinine Equation (2020) Hematocrit Auto (Bld) [Volum e fraction]Ordered By: Sheri De León on 04-11-2025 Hematocrit (Bld) [Volume fraction] 45.5 % 40-54 [facility] Hemoglobin measurementOrdere d By: Sheri Gilnigel on 04-11-2025 Hemoglobin (Bld) [Mass/Vol] 16.0 g/dL 13.0-16.5 [facility] Immature granulocytes/100 WB C Auto (Bld)Ordered By: Sheri Gilnigel on 04-11-2025 Immature granulocytes/100 WBC (Bld) 0.100 % 0.0-0.9 [facility] Comment on above: IG% - Immature Granu locytes (promyelocytes, myelocytes and metamyelocytes) > 1% indicates that a LEFT SHIFT is Present. Laboratory - Chemistry and C hemistry - challengeOrdered By: Sheri Gilnigel on 04-11-2025 AST [Catalytic activity/Vol] 27 U/L <38 [facility] Lipaseon 04-11-2025 Lipase [Catalytic activity/Vol] 69 U/L Normal 13-75 [facility] Comment on above: Result Comment: Daniel flores note: LIPASE revised reference range effective 23. New Lipase methodology. Expected to produce lower values than the previous assay method. NEW Reference Range: 13 - 75 U/L Performed By: #### L 501.2450 ####[facility] [address] [place], [address] Lipase measurementOrdered By : Sheri Gilnigel on 04-11-2025 Lipase [Catalytic activity/Vol] 69 U/L 13-75 [facility] Comment on above: Please note:LIPASE r evised reference range effective 23. New Lipase methodology. Expected to produce lower values than the previous assay method. NEW Reference Range: 13 - 75 U/L MCV (mean corpuscular volume ) determinationOrdered By: Sheri De León on 04-11-2025 MCV (RBC) [Entitic vol] 85.5 fL 80-94 [facility] Magnesiumon 04-11-2025 Magnesium [Mass/Vol] 2.3 mg/dL High 1.5-2.2 [facility] Comment on above: Performed By: #### L 100.0100, L501.2300, L501.5200, L500.4050 ####[facility] [address] [place], [place], [id number] Magnesium measurement (mass/ volume)Ordered By: Sheri Genet on 04-11-2025 Magnesium (Unsp spec) [Mass/Vol] 2.3 mg/dL High 1.5-2.2 [facility] Mean corpuscular hemoglobin (MCH) determinationOrdered By: Sheri De León on 04-11-2025 MCH (RBC) [Entitic mass] 30.1 pg 27.0-32.0 [facility] Mean corpuscular hemoglobin concentration (MCHC) determinationOrdered By: Sheri De León on 04-11-2025 MCHC (RBC) [Mass/Vol] 35.2 g/dL 32-36 [facility] Mean platelet volume determi nationOrdered By: Sheri De León on 04-11-2025 Platelet mean volume (Bld) [Entitic vol] 8.3 fL 6.2-12.0 [facility] Monocyte percentageOrdered B y: Sheri Genet on 04-11-2025 Monocytes/100 WBC (Bld) 10.2 % High 0-10 [facility] Neutrophil percentageOrdered By: Sheri Genet on 04-11-2025 Neutrophils/100 WBC (Bld) 70.6 % High 47-70 [facility] Nucleated red blood cell per centageOrdered By: Sheri Genet on 04-11-2025 Nucleated RBC/100 WBC (Bld) [Ratio] 0 % 0-5 [facility] Phosphoruson 04-11-2025 Phosphate [Mass/Vol] 3.6 mg/dL Normal 2.7-4.5 [facility] Comment on above: Performed By: #### L 100.0100, L501.2300, L501.5200, L500.4050 ####[facility] [address] [facility] [place], [place], [id number] Platelet countOrdered By: Santos De León on 04-11-2025 Platelets (Bld) [#/Vol] 274 10*3/uL 150-450 [facility] Potassium measurement (mass/ volume)Ordered By: Sheri De León on 04-11-2025 Potassium (Unsp spec) [Mass/Vol] 4.3 mmol/L 3.3-5.1 [facility] RBC Auto (Bld) [#/Vol]Ordere d By: Sheri De León on 04-11-2025 RBC (Bld) [#/Vol] 5.32 10*6/uL 4.6-6.2 [facility] Serum creatinine measurement (mass/volume)Ordered By: Sheri De León on 04-11-2025 Creatinine [Mass/Vol] 0.79 mg/dL 0.70-1.20 [facility] Serum globulin measurementOr dered By: Sheri De León on 04-11-2025 Globulin (S) [Mass/Vol] 3.0 g/dL 2.2-4.2 [facility] Serum glucose measurement (m ass/volume)Ordered By: Sheri De León on 04-11-2025 Glucose [Mass/Vol] 133 mg/dL High 70-99 [facility] Serum or plasma alanine loya otransferase (ALT) measurementOrdered By: Sheri De León on 04-11-2025 ALT [Catalytic activity/Vol] 8 U/L <47 [facility] Serum or plasma albumin gael urement (mass/volume)Ordered By: Sheri De León on 04-11-2025 Albumin [Mass/Vol] 4.0 g/dL 3.5-5.0 [facility] Serum or plasma albumin/glob ulin mass ratioOrdered By: Sheri De León on 04-11-2025 Albumin/Globulin [Mass ratio] 1.3 {ratio} 0.9-2.4 [facility] Serum or plasma alkaline qamar sphatase measurementOrdered By: Sheri De León on 04-11-2025 ALP [Catalytic activity/Vol] 46 U/L 40-129 [facility] Serum or plasma calcium gael urement (mass/volume)Ordered By: Sheri De León on 04-11-2025 Calcium [Mass/Vol] 9.4 mg/dL 7.6-11.0 [facility] Serum or plasma urea nitroge n measurement (mass/volume)Ordered By: Sheri De León on 04-11-2025 Urea nitrogen [Mass/Vol] 15 mg/dL 4-19 [facility] Sodium levelOrdered By: Sheri De León on 04-11-2025 Sodium [Moles/Vol] 139 mmol/L 133-145 [facility] Total proteinOrdered By: Dia huerta Genet on 04-11-2025 Protein [Mass/Vol] 7.0 g/dL 5.9-8.4 [facility] White blood cell (WBC) count Ordered By: Sheri De León on 04-11-2025 WBC (Bld) [#/Vol] 7.1 10*3/uL 4.4-11.0 [facility] 12 Lead EKGon 04-10-2025 12 Lead EKG [facility] [address] [place] [address] 12 Lead EKG 04/10/25 1539 MR#: [id number] Acct: [id number] Name: CHARLES RUSSELL Rep #: [id number] : 1970 54 From: Morgan Rock MD Attending Dr: Dr. Sheri De León DO Sta tus: ADM IN Ordering Dr: Sheri De León DO Date: 04/10/25 Location: Sex: M C Admitted: 04/09/25 Test Reason : EM Blood Pressure : */* mmHG Vent. Rate : 61 BPM Atrial Rate : 61 BPM P-R Int : 130 ms QRS Dur : 92 ms QT Int : 394 ms P-R-T Axes : 21 3 68 degrees QTcB Int : 396 ms Normal sinus rhythm Nonspecific T wave abnormality Abnormal ECG No previous ECGs available Confirmed by MORGAN ROCK MD ([id number]), editor index DILIP ZUÑIGA ([id number]) on 04/14/2025 1:19:55 PM Referred By: Sheri De León Confirmed By: MORGAN RCOK MD 04/14/25 1319 Date Morgan Rock MD CC: Dr. Sheri De León DO; No Primary Care Physician Signed Normal [facility] .Auto Diffon 04-09-2025 Basophil, Absolute 0.0 10 3/mcL Normal 0.0-0.3 [facility] Comment on above: Performed By: #### C BC, ANEU, GFR, BMP, MG, ADIFF ####[address] [place], [place] [address] Basophils/100 WBC (Bld) 0.4 % Normal 0.0-2.5 [facility] Comment on above: Performed By: #### C BC, ANEU, GFR, BMP, MG, ADIFF ####[address] [place], [place] [address] Eosinophil, Absolute 0.1 10 3/mcL Normal 0.0-0.7 [facility] Comment on above: Performed By: #### C BC, ANEU, GFR, BMP, MG, ADIFF ####[address] [place], [place] [address] Eosinophils/100 WBC (Bld) 1.7 % Normal 0.0-6.0 [facility] Comment on above: Performed By: #### C BC, ANEU, GFR, BMP, MG, ADIFF ####[address] [place] [address] Lymphocyte, Absolute 1.4 10 3/mcL Normal 0.9-4.3 [facility] Comment on above: Performed By: #### C BC, ANEU, GFR, BMP, MG, ADIFF ####[address] [place] [address] Lymphocytes/100 WBC (Bld) 17.1 % Low 20.0-40.0 [facility] Comment on above: Performed By: #### C BC, ANEU, GFR, BMP, MG, ADIFF ####[address] [place], [place] [address] Monocyte, Absolute 0.7 10 3/mcL Normal 0.1-1.4 [facility] Comment on above: Performed By: #### C BC, ANEU, GFR, BMP, MG, ADIFF ####[address] [place], [place] [address] Monocytes/100 WBC (Bld) 8.2 % Normal 2.0-13.0 [facility] Comment on above: Performed By: #### C BC, ANEU, GFR, BMP, MG, ADIFF ####[facility] [place] [place], [place] [address] Neutrophils/100 WBC (Bld) 72.6 % Normal 50.0-75.0 [facility] Comment on above: Performed By: #### C BC, ANEU, GFR, BMP, MG, ADIFF ####[address] [place], [place] [address] .GFRon 04-09-2025 Estimated Glomerular Filtration Rate 105 ml/min/1.73sqm Normal [facility] Comment on above: Result Comment: Stages of Chronic Kidney Disease (CKD) Stage Description eGFR(ml/min/1.73 sq.m.) CKD 1 Normal kidney function or >=90 normal kindney function with possible kidney damage (ex. Proteinuria) CKD 2 Kidney damage with mild loss 60-89 of kidney function CKD 3a Mild to moderate loss of kidney 45-59 function CKD 3b Moderate to severe loss of 30-44 of kindey function CKD 4 Severe loss of kidney function 15-29 CKD 5 Kidney failure <15 Note: (go live 2024) the eGFR calculation was updated to the 2020 CKD-EPI creatinine equation without a race factor to calculate the eGFR results. Performed By: #### C BC, ANEU, GFR, BMP, MG, ADIFF ####[address] [place], [place] [address] .NEUABSon 04-09-2025 Neutrophil, Absolute 5.8 10 3/mcL Normal 2.3-8.1 [facility] Comment on above: Performed By: #### C BC, ANEU, GFR, BMP, MG, ADIFF ####[facility] [place] [place], [place] [address] BMPon 04-09-2025 BUN/Creatinine Ratio 18 ratio Normal 7-27 [facility] Comment on above: Performed By: #### C BC, ANEU, GFR, BMP, MG, ADIFF ####[facility] [place] [place], [place] [address] Calcium [Mass/Vol] 8.7 mg/dL Normal 8.4-10.2 [facility] Comment on above: Performed By: #### C BC, ANEU, GFR, BMP, MG, ADIFF ####[address] [address] Chloride [Moles/Vol] 104 mmol/L Normal 98-107 [facility] Comment on above: Performed By: #### C BC, ANEU, GFR, BMP, MG, ADIFF ####[address] [address] CO2 [Moles/Vol] 27 mmol/L Normal 22-29 [facility] Comment on above: Performed By: #### C BC, ANEU, GFR, BMP, MG, ADIFF ####[address] [address] Creatinine [Mass/Vol] 0.80 mg/dL Normal 0.67-1.17 [facility] Comment on above: Performed By: #### C BC, ANEU, GFR, BMP, MG, ADIFF ####[address] [address] Electrolyte Balance 9.0 mEq/L Normal 4.0-15.0 [facility] Comment on above: Performed By: #### C BC, ANEU, GFR, BMP, MG, ADIFF ####[address] [address] Glucose [Mass/Vol] 81 mg/dL Normal 70-105 [facility] Comment on above: Performed By: #### C BC, ANEU, GFR, BMP, MG, ADIFF ####[address] [address] Potassium [Moles/Vol] 4.0 mmol/L Normal 3.5-5.1 [facility] Comment on above: Performed By: #### C BC, ANEU, GFR, BMP, MG, ADIFF ####[address] [address] Sodium [Moles/Vol] 140 mmol/L Normal 136-145 [facility] Comment on above: Performed By: #### C BC, ANEU, GFR, BMP, MG, ADIFF ####[address] [place] [address] Urea nitrogen [Mass/Vol] 14 mg/dL Normal 7-18 [facility] Comment on above: Performed By: #### C BC, ANEU, GFR, BMP, MG, ADIFF ####[address] [address] CBCon 04-09-2025 Erythrocyte distribution width (RBC) [Ratio] 13.4 % Normal 11.5-15.5 [facility] Comment on above: Performed By: #### C BC, ANEU, GFR, BMP, MG, ADIFF ####[place] [address] Hematocrit (Bld) [Volume fraction] 44.0 % Normal 40.0-52.0 [facility] Comment on above: Performed By: #### C BC, ANEU, GFR, BMP, MG, ADIFF ####[place] [address] Hgb 15.3 G/dL Normal 13.0-17.5 [facility] Comment on above: Performed By: #### C BC, ANEU, GFR, BMP, MG, ADIFF ####[place] [address] MCH (RBC) [Entitic mass] 30.4 pg Normal 27.0-33.0 [facility] Comment on above: Performed By: #### C BC, ANEU, GFR, BMP, MG, ADIFF ####[address] [address] MCHC 34.8 G/dL Normal 32.0-36.0 [facility] Comment on above: Performed By: #### C BC, ANEU, GFR, BMP, MG, ADIFF ####[place] [address] MCV (RBC) [Entitic vol] 87.3 fL Normal 81.0-100.0 [facility] Comment on above: Performed By: #### C BC, ANEU, GFR, BMP, MG, ADIFF ####[address] [place], [place] [address] Platelet 275 10 3/mcL Normal 150-450 [facility] Comment on above: Performed By: #### C BC, ANEU, GFR, BMP, MG, ADIFF ####[address] [place], [place] [address] Platelet mean volume (Bld) [Entitic vol] 6.7 fL Normal 6.4-10.5 [facility] Comment on above: Performed By: #### C BC, ANEU, GFR, BMP, MG, ADIFF ####[address] [place], [place] [address] RBC 5.03 10 6/mcL Normal 4.50-6.00 [facility] Comment on above: Performed By: #### C BC, ANEU, GFR, BMP, MG, ADIFF ####[address] [place], [place] [address] WBC 8.0 10 3/mcL Normal 4.5-10.8 [facility] Comment on above: Performed By: #### C BC, ANEU, GFR, BMP, MG, ADIFF ####[address] [place], [place] [address] LABORATORYOrdered By: SYSTEM SYSTEM on 04-09-2025 Basophils (Bld) [#/Vol] 0.0 103/mcL Normal 0.0 - 0.3 10^3/mcL AO Workflow SS Basophils/100 WBC (Bld) 0.4 % Normal 0.0 - 2.5 % AO Workflow SS Calcium [Mass/Vol] 8.7 mg/dL Normal 8.4 - 10. 2 mg/dL AO ADM SS Chloride [Moles/Vol] 104 mmol/L Normal 98 - 10 7 mmol/L AO ADM SS CO2 [Moles/Vol] 27 mmol/L Normal 22 - 29 mmol/L AO ADM SS Creatinine [Mass/Vol] 0.80 mg/dL Normal 0.67 - 1.17 mg/dL AO ADM SS Electrolyte Balance 9.0 mEq/L Normal 4.0 - 15 .0 mEq/L AO ADM SS Eosinophil, Absolute 0.1 103/mcL Normal 0.0 - 0 .7 10^3/mcL AO Workflow SS Eosinophils/100 WBC (Bld) 1.7 % Normal 0.0 - 6.0 % AO Workflow SS Erythrocyte distribution width (RBC) [Ratio] 13.4 % Normal 11.5 - 15.5 % AO Workflow SS Estimated Glomerular Filtration Rate 105 ml/min/1.73sqm Invalid Interpretation Code AO Chemistry S Comment on above: Interpretive Data: Stages of Chronic Kidney Disease (CKD) Stage Description eGFR(ml/min/1.73 sq.m.) CKD 1 Normal kidney function or >=90 normal kindney function with possible kidney damage (ex. Proteinuria) CKD 2 Kidney damage with mild loss 60-89 of kidney function CKD 3a Mild to moderate loss of kidney 45-59 function CKD 3b Moderate to severe loss of 30-44 of kindey function CKD 4 Severe loss of kidney function 15-29 CKD 5 Kidney failure <15 Note: (go live 2024) the eGFR calculation was updated to the 2020 CKD-EPI creatinine equation without a race factor to calculate the eGFR results. Glucose [Mass/Vol] 81 mg/dL Normal 70 - 105 mg/dL AO ADM SS Hematocrit (Bld) [Volume fraction] 44.0 % Normal 40.0 - 52.0 % AO Workflow SS Hemoglobin (Bld) [Mass/Vol] 15.3 G/dL Normal 13.0 - 17.5 G/dL AO Workflow SS Lymphocytes (Bld) [#/Vol] 1.4 103/mcL Normal 0.9 - 4.3 10^3/mcL AO Workflow SS Lymphocytes/100 WBC (Bld) 17.1 % Low 20.0 - 40.0 % AO Workflow SS Magnesium [Mass/Vol] 1.7 mg/dL Low 1.8 - 2 .4 mg/dL AO ADM SS MCH (RBC) [Entitic mass] 30.4 pg Normal 27.0 - 33.0 pg AO Workflow SS MCHC 34.8 G/dL Normal 32.0 - 36.0 G/dL AO Workflow SS MCV (RBC) [Entitic vol] 87.3 fL Normal 81.0 - 100.0 fL AO Workflow SS Monocytes (Bld) [#/Vol] 0.7 103/mcL Normal 0.1 - 1.4 10^3/mcL AO Workflow SS Monocytes/100 WBC (Bld) 8.2 % Normal 2.0 - 13.0 % AO Workflow SS Neutrophils (Bld) [#/Vol] 5.8 103/mcL Normal 2.3 - 8.1 10^3/mcL AO Workflow SS Neutrophils/100 WBC (Bld) 72.6 % Normal 50.0 - 75.0 % AO Workflow SS Platelet mean volume (Bld) [Entitic vol] 6.7 fL Normal 6.4 - 10.5 fL AO Workflow SS Platelets (Bld) [#/Vol] 275 103/mcL Normal 150 - 450 10^3/mcL AO Workflow SS Potassium [Moles/Vol] 4.0 mmol/L Normal 3.5 - 5.1 mmol/L AO ADM SS RBC (Bld) [#/Vol] 5.03 106/mcL Normal 4.50 - 6.00 10^6/mcL AO Workflow SS Sodium [Moles/Vol] 140 mmol/L Normal 136 - 145 mmol/L AO ADM SS Urea nitrogen [Mass/Vol] 14 mg/dL Normal 7 - 18 mg/dL AO ADM SS Urea nitrogen/Creatinine [Mass ratio] 18 ratio Normal 7 - 27 ratio AO ADM SS WBC (Bld) [#/Vol] 8.0 103/mcL Normal 4.5 - 10.8 10^3/mcL AO Workflow SS MGon 04-09-2025 Magnesium [Mass/Vol] 1.7 mg/dL Low 1.8-2.4 [facility] Comment on above: Performed By: #### C BC, ANEU, GFR, BMP, MG, ADIFF ####[address] [place], [place] [address] .Auto Diffon 04-08-2025 Basophil, Absolute 0.0 10 3/mcL Normal 0.0-0.3 [facility] Comment on above: Performed By: #### C MP, ANEU, GFR, MG, CBC, ADIFF #### [address] [place], [place] [address] Basophils/100 WBC (Bld) 0.3 % Normal 0.0-2.5 [facility] Comment on above: Performed By: #### C MP, ANEU, GFR, MG, CBC, ADIFF #### [address] [place], [place] [address] Eosinophil, Absolute 0.0 10 3/mcL Normal 0.0-0.7 [facility] Comment on above: Performed By: #### C MP, ANEU, GFR, MG, CBC, ADIFF #### [address] [address] Eosinophils/100 WBC (Bld) 0.1 % Normal 0.0-6.0 [facility] Comment on above: Performed By: #### C MP, ANEU, GFR, MG, CBC, ADIFF #### [address] [address] Lymphocyte, Absolute 1.4 10 3/mcL Normal 0.9-4.3 [facility] Comment on above: Performed By: #### C MP, ANEU, GFR, MG, CBC, ADIFF #### [address] [address] Lymphocytes/100 WBC (Bld) 14.6 % Low 20.0-40.0 [facility] Comment on above: Performed By: #### C MP, ANEU, GFR, MG, CBC, ADIFF #### [address] [address] Monocyte, Absolute 0.6 10 3/mcL Normal 0.1-1.4 [facility] Comment on above: Performed By: #### C MP, ANEU, GFR, MG, CBC, ADIFF #### [address] [address] Monocytes/100 WBC (Bld) 6.2 % Normal 2.0-13.0 [facility] Comment on above: Performed By: #### C MP, ANEU, GFR, MG, CBC, ADIFF #### [address] [address] Neutrophils/100 WBC (Bld) 78.8 % High 50.0-75.0 [facility] Comment on above: Performed By: #### C MP, ANEU, GFR, MG, CBC, ADIFF #### [address] [address] .GFRon 04-08-2025 Estimated Glomerular Filtration Rate 105 ml/min/1.73sqm Normal [facility] Comment on above: Result Comment: Stages of Chronic Kidney Disease (CKD) Stage Description eGFR(ml/min/1.73 sq.m.) CKD 1 Normal kidney function or >=90 normal kindney function with possible kidney damage (ex. Proteinuria) CKD 2 Kidney damage with mild loss 60-89 of kidney function CKD 3a Mild to moderate loss of kidney 45-59 function CKD 3b Moderate to severe loss of 30-44 of kindey function CKD 4 Severe loss of kidney function 15-29 CKD 5 Kidney failure <15 Note: (go live 2024) the eGFR calculation was updated to the 2020 CKD-EPI creatinine equation without a race factor to calculate the eGFR results. Performed By: #### C MP, ANEU, GFR, MG, CBC, ADIFF #### [address] [address] .NEUABSon 04-08-2025 Neutrophil, Absolute 7.6 10 3/mcL Normal 2.3-8.1 [facility] Comment on above: Performed By: #### C MP, ANEU, GFR, MG, CBC, ADIFF #### [address] [address] CBCon 04-08-2025 Erythrocyte distribution width (RBC) [Ratio] 13.3 % Normal 11.5-15.5 [facility] Comment on above: Performed By: #### C MP, ANEU, GFR, MG, CBC, ADIFF #### [place] [address] Hematocrit (Bld) [Volume fraction] 45.0 % Normal 40.0-52.0 [facility] Comment on above: Performed By: #### C MP, ANEU, GFR, MG, CBC, ADIFF #### [place] [address] Hgb 15.3 G/dL Normal 13.0-17.5 [facility] Comment on above: Performed By: #### C MP, ANEU, GFR, MG, CBC, ADIFF #### [place] [id number] MCH (RBC) [Entitic mass] 29.8 pg Normal 27.0-33.0 [facility] Comment on above: Performed By: #### C MP, ANEU, GFR, MG, CBC, ADIFF #### [address] [address] MCHC 34.1 G/dL Normal 32.0-36.0 [facility] Comment on above: Performed By: #### C MP, ANEU, GFR, MG, CBC, ADIFF #### [address] [address] MCV (RBC) [Entitic vol] 87.2 fL Normal 81.0-100.0 [facility] Comment on above: Performed By: #### C MP, ANEU, GFR, MG, CBC, ADIFF #### [address] [address] Platelet 278 10 3/mcL Normal 150-450 [facility] Comment on above: Performed By: #### C MP, ANEU, GFR, MG, CBC, ADIFF #### [address] [address] Platelet mean volume (Bld) [Entitic vol] 6.6 fL Normal 6.4-10.5 [facility] Comment on above: Performed By: #### C MP, ANEU, GFR, MG, CBC, ADIFF #### [address] [address] RBC 5.16 10 6/mcL Normal 4.50-6.00 [facility] Comment on above: Performed By: #### C MP, ANEU, GFR, MG, CBC, ADIFF #### [address] [address] WBC 9.7 10 3/mcL Normal 4.5-10.8 [facility] Comment on above: Performed By: #### C MP, ANEU, GFR, MG, CBC, ADIFF #### [address] [address] CMPon 04-08-2025 Albumin Level 3.4 G/dL Low 3.5-5.0 [facility] Comment on above: Performed By: #### C MP, ANEU, GFR, MG, CBC, ADIFF #### [address] [address] Albumin/Globulin [Mass ratio] 1.0 {ratio} Low 1.1-2.5 [facility] Comment on above: Performed By: #### C MP, ANEU, GFR, MG, CBC, ADIFF #### [address] [address] ALP [Catalytic activity/Vol] 50 U/L Normal 40-135 [facility] Comment on above: Performed By: #### C MP, ANEU, GFR, MG, CBC, ADIFF #### [place] [address] ALT [Catalytic activity/Vol] 22 U/L Normal 16-63 [facility] Comment on above: Performed By: #### C MP, ANEU, GFR, MG, CBC, ADIFF #### [place] [address] AST [Catalytic activity/Vol] 15 U/L Normal 10-40 [facility] Comment on above: Performed By: #### C MP, ANEU, GFR, MG, CBC, ADIFF #### [address] [address] Bili Total 0.8 mg/dL Normal 0.2-1.0 [facility] Comment on above: Result Comment: Use of this assay is not recommended for patients undergoing treatment with eltrombopag due to the potential for falsely elevated results. Performed By: #### C MP, ANEU, GFR, MG, CBC, ADIFF #### [address] [address] BUN/Creatinine Ratio 19 ratio Normal 7-27 [facility] Comment on above: Performed By: #### C MP, ANEU, GFR, MG, CBC, ADIFF #### [address] [address] Calcium [Mass/Vol] 8.7 mg/dL Normal 8.4-10.2 [facility] Comment on above: Performed By: #### C MP, ANEU, GFR, MG, CBC, ADIFF #### [place] [address] Chloride [Moles/Vol] 106 mmol/L Normal 98-107 [facility] Comment on above: Performed By: #### C MP, ANEU, GFR, MG, CBC, ADIFF #### [place] [address] CO2 [Moles/Vol] 27 mmol/L Normal 22-29 [facility] Comment on above: Performed By: #### C MP, ANEU, GFR, MG, CBC, ADIFF #### [place] [address] Creatinine [Mass/Vol] 0.79 mg/dL Normal 0.67-1.17 [facility] Comment on above: Performed By: #### C MP, ANEU, GFR, MG, CBC, ADIFF #### [address] [address] Electrolyte Balance 7.0 mEq/L Normal 4.0-15.0 [facility] Comment on above: Performed By: #### C MP, ANEU, GFR, MG, CBC, ADIFF #### [address] [address] Globulin 3.5 G/dL Normal 2.7-4.4 [facility] Comment on above: Performed By: #### C MP, ANEU, GFR, MG, CBC, ADIFF #### [address] [address] Glucose [Mass/Vol] 102 mg/dL Normal 70-105 [facility] Comment on above: Performed By: #### C MP, ANEU, GFR, MG, CBC, ADIFF #### [place] [address] Potassium [Moles/Vol] 4.3 mmol/L Normal 3.5-5.1 [facility] Comment on above: Performed By: #### C MP, ANEU, GFR, MG, CBC, ADIFF #### [address] [place], [place] [address] Sodium [Moles/Vol] 140 mmol/L Normal 136-145 [facility] Comment on above: Performed By: #### C MP, ANEU, GFR, MG, CBC, ADIFF #### [address] [place], [place] [address] Total Protein 6.9 G/dL Normal 6.4-8.2 [facility] Comment on above: Performed By: #### C MP, ANEU, GFR, MG, CBC, ADIFF #### [address] [place], [place] [address] Urea nitrogen [Mass/Vol] 15 mg/dL Normal 7-18 [facility] Comment on above: Performed By: #### C MP, ANEU, GFR, MG, CBC, ADIFF #### [address] [place], [place] [address] LABORATORYOrdered By: SYSTEM SYSTEM on 04-08-2025 Albumin BCP dye [Mass/Vol] 3.4 G/dL Low 3.5 - 5.0 G/dL AO ADM SS Albumin/Globulin [Mass ratio] 1.0 {ratio} Low 1.1 - 2.5 ratio AO ADM SS ALP [Catalytic activity/Vol] 50 U/L Normal 40 - 135 U/L AO ADM SS ALT With P-5'-P [Catalytic activity/Vol] 22 U/L Normal 16 - 63 U/L AO ADM SS AST With P-5'-P [Catalytic activity/Vol] 15 U/L Normal 10 - 40 U/L AO ADM SS Basophils (Bld) [#/Vol] 0.0 103/mcL Normal 0.0 - 0.3 10^3/mcL AO Workflow SS Basophils/100 WBC (Bld) 0.3 % Normal 0.0 - 2.5 % AO Workflow SS Bilirubin [Mass/Vol] 0.8 mg/dL Normal 0.2 - 1 .0 mg/dL AO ADM SS Comment on above: Interpretive Data: U se of this assay is not recommended for patients undergoing treatment with eltrombopag due to the potential for falsely elevated results. Calcium [Mass/Vol] 8.7 mg/dL Normal 8.4 - 10. 2 mg/dL AO ADM SS Chloride [Moles/Vol] 106 mmol/L Normal 98 - 10 7 mmol/L AO ADM SS CO2 [Moles/Vol] 27 mmol/L Normal 22 - 29 mmol/L AO ADM SS Creatinine [Mass/Vol] 0.79 mg/dL Normal 0.67 - 1.17 mg/dL AO ADM SS Electrolyte Balance 7.0 mEq/L Normal 4.0 - 15 .0 mEq/L AO ADM SS Eosinophil, Absolute 0.0 103/mcL Normal 0.0 - 0 .7 10^3/mcL AO Workflow SS Eosinophils/100 WBC (Bld) 0.1 % Normal 0.0 - 6.0 % AO Workflow SS Erythrocyte distribution width (RBC) [Ratio] 13.3 % Normal 11.5 - 15.5 % AO Workflow SS Estimated Glomerular Filtration Rate 105 ml/min/1.73sqm Invalid Interpretation Code AO Chemistry S Comment on above: Interpretive Data: Stages of Chronic Kidney Disease (CKD) Stage Description eGFR(ml/min/1.73 sq.m.) CKD 1 Normal kidney function or >=90 normal kindney function with possible kidney damage (ex. Proteinuria) CKD 2 Kidney damage with mild loss 60-89 of kidney function CKD 3a Mild to moderate loss of kidney 45-59 function CKD 3b Moderate to severe loss of 30-44 of kindey function CKD 4 Severe loss of kidney function 15-29 CKD 5 Kidney failure <15 Note: (go live 2024) the eGFR calculation was updated to the 2020 CKD-EPI creatinine equation without a race factor to calculate the eGFR results. Globulin 3.5 G/dL Normal 2.7 - 4.4 G/dL AO ADM SS Glucose [Mass/Vol] 102 mg/dL Normal 70 - 105 mg/dL AO ADM SS Hematocrit (Bld) [Volume fraction] 45.0 % Normal 40.0 - 52.0 % AO Workflow SS Hemoglobin (Bld) [Mass/Vol] 15.3 G/dL Normal 13.0 - 17.5 G/dL AO Workflow SS Lymphocytes (Bld) [#/Vol] 1.4 103/mcL Normal 0.9 - 4.3 10^3/mcL AO Workflow SS Lymphocytes/100 WBC (Bld) 14.6 % Low 20.0 - 40.0 % AO Workflow SS Magnesium [Mass/Vol] 1.8 mg/dL Normal 1.8 - 2 .4 mg/dL AO ADM SS MCH (RBC) [Entitic mass] 29.8 pg Normal 27.0 - 33.0 pg AO Workflow SS MCHC 34.1 G/dL Normal 32.0 - 36.0 G/dL AO Workflow SS MCV (RBC) [Entitic vol] 87.2 fL Normal 81.0 - 100.0 fL AO Workflow SS Monocytes (Bld) [#/Vol] 0.6 103/mcL Normal 0.1 - 1.4 10^3/mcL AO Workflow SS Monocytes/100 WBC (Bld) 6.2 % Normal 2.0 - 13.0 % AO Workflow SS Neutrophils (Bld) [#/Vol] 7.6 103/mcL Normal 2.3 - 8.1 10^3/mcL AO Workflow SS Neutrophils/100 WBC (Bld) 78.8 % High 50.0 - 75.0 % AO Workflow SS Platelet mean volume (Bld) [Entitic vol] 6.6 fL Normal 6.4 - 10.5 fL AO Workflow SS Platelets (Bld) [#/Vol] 278 103/mcL Normal 150 - 450 10^3/mcL AO Workflow SS Potassium [Moles/Vol] 4.3 mmol/L Normal 3.5 - 5.1 mmol/L AO ADM SS Protein [Mass/Vol] 6.9 G/dL Normal 6.4 - 8.2 G/dL AO ADM SS RBC (Bld) [#/Vol] 5.16 106/mcL Normal 4.50 - 6.00 10^6/mcL AO Workflow SS Sodium [Moles/Vol] 140 mmol/L Normal 136 - 145 mmol/L AO ADM SS Urea nitrogen [Mass/Vol] 15 mg/dL Normal 7 - 18 mg/dL AO ADM SS Urea nitrogen/Creatinine [Mass ratio] 19 ratio Normal 7 - 27 ratio AO ADM SS WBC (Bld) [#/Vol] 9.7 103/mcL Normal 4.5 - 10.8 10^3/mcL AO Workflow SS MGon 04-08-2025 Magnesium [Mass/Vol] 1.8 mg/dL Normal 1.8-2.4 [facility] Comment on above: Performed By: #### C MP, ANEU, GFR, MG, CBC, ADIFF #### [facility] [place] [address] [place], [place] [address] .Auto Diffon 04-07-2025 Basophil, Absolute 0.1 10 3/mcL Normal 0.0-0.3 [facility] Comment on above: Performed By: #### C BC, TSH, LIPID, ANEU, A1C, MG, ADIFF, FT4 ####[facility] [place] [place], [place] [address] Basophils/100 WBC (Bld) 0.6 % Normal 0.0-2.5 [facility] Comment on above: Performed By: #### C BC, TSH, LIPID, ANEU, A1C, MG, ADIFF, FT4 ####[facility] [place] [place], [place] [address] Eosinophil, Absolute 0.1 10 3/mcL Normal 0.0-0.7 [facility] Comment on above: Performed By: #### C BC, TSH, LIPID, ANEU, A1C, MG, ADIFF, FT4 ####[address] [address] Eosinophils/100 WBC (Bld) 1.2 % Normal 0.0-6.0 [facility] Comment on above: Performed By: #### C BC, TSH, LIPID, ANEU, A1C, MG, ADIFF, FT4 ####[facility] [place] [place], [place] [address] Lymphocyte, Absolute 1.9 10 3/mcL Normal 0.9-4.3 [facility] Comment on above: Performed By: #### C BC, TSH, LIPID, ANEU, A1C, MG, ADIFF, FT4 ####[address] [address] Lymphocytes/100 WBC (Bld) 22.2 % Normal 20.0-40.0 [facility] Comment on above: Performed By: #### C BC, TSH, LIPID, ANEU, A1C, MG, ADIFF, FT4 ####[address] [address] Monocyte, Absolute 0.6 10 3/mcL Normal 0.1-1.4 [facility] Comment on above: Performed By: #### C BC, TSH, LIPID, ANEU, A1C, MG, ADIFF, FT4 ####[place] [address] [place], [place] [address] Monocytes/100 WBC (Bld) 7.4 % Normal 2.0-13.0 [facility] Comment on above: Performed By: #### C BC, TSH, LIPID, ANEU, A1C, MG, ADIFF, FT4 ####[place] [address] [place], [place] [address] Neutrophils/100 WBC (Bld) 68.6 % Normal 50.0-75.0 [facility] Comment on above: Performed By: #### C BC, TSH, LIPID, ANEU, A1C, MG, ADIFF, FT4 ####[place] [address] [place], [place] [address] .NEUABSon 04-07-2025 Neutrophil, Absolute 5.9 10 3/mcL Normal 2.3-8.1 [facility] Comment on above: Performed By: #### C BC, TSH, LIPID, ANEU, A1C, MG, ADIFF, FT4 ####[place] [address] [place], [place] [address] A1Con 04-07-2025 Glucose [Mass/Vol] 117 mg/dL Normal [facility] Comment on above: Result Comment: Shayla mated Average Glucose calculated by equation ((28.7xA1C)-46.7) Estimated average glucose (eAG) is a calculated value from Hemoglobin A1C and is uniforms sales representative of the average blood glucose level in the last 2-3 month period. Normal range: less than 114 mg/dL Performed By: #### L AC #### [address] [address] HbA1c (Bld) [Mass fraction] 5.7 % Normal 4.3-6.4 [facility] Comment on above: Performed By: #### L AC #### [place] [place], [place] [address] CBCon 04-07-2025 Erythrocyte distribution width (RBC) [Ratio] 13.5 % Normal 11.5-15.5 [facility] Comment on above: Performed By: #### C BC, TSH, LIPID, ANEU, A1C, MG, ADIFF, FT4 ####[id number] [place] [id number] Hematocrit (Bld) [Volume fraction] 46.6 % Normal 40.0-52.0 [facility] Comment on above: Performed By: #### C BC, TSH, LIPID, ANEU, A1C, MG, ADIFF, FT4 ####[address] [place], [place] [address] Hgb 15.9 G/dL Normal 13.0-17.5 [facility] Comment on above: Performed By: #### C BC, TSH, LIPID, ANEU, A1C, MG, ADIFF, FT4 ####[address] [place] [id number] MCH (RBC) [Entitic mass] 30.0 pg Normal 27.0-33.0 [facility] Comment on above: Performed By: #### C BC, TSH, LIPID, ANEU, A1C, MG, ADIFF, FT4 ####[id number] [address] MCHC 34.2 G/dL Normal 32.0-36.0 [facility] Comment on above: Performed By: #### C BC, TSH, LIPID, ANEU, A1C, MG, ADIFF, FT4 ####[id number] [place] [id number] MCV (RBC) [Entitic vol] 87.6 fL Normal 81.0-100.0 [facility] Comment on above: Performed By: #### C BC, TSH, LIPID, ANEU, A1C, MG, ADIFF, FT4 ####[id number] [place] [id number] Platelet 290 10 3/mcL Normal 150-450 [facility] Comment on above: Performed By: #### C BC, TSH, LIPID, ANEU, A1C, MG, ADIFF, FT4 ####[address] [place] [phone] Platelet mean volume (Bld) [Entitic vol] 6.7 fL Normal 6.4-10.5 [facility] Comment on above: Performed By: #### C BC, TSH, LIPID, ANEU, A1C, MG, ADIFF, FT4 ####[address] [place], [place] [address] RBC 5.32 10 6/mcL Normal 4.50-6.00 [facility] Comment on above: Performed By: #### C BC, TSH, LIPID, ANEU, A1C, MG, ADIFF, FT4 ####[address] [place], [place] [address] WBC 8.6 10 3/mcL Normal 4.5-10.8 [facility] Comment on above: Performed By: #### C BC, TSH, LIPID, ANEU, A1C, MG, ADIFF, FT4 ####[address] [place], [place] [address] FT4on 04-07-2025 Free T4 [Mass/Vol] 0.84 ng/dL Normal 0.76-1.46 [facility] Comment on above: Performed By: #### L AC #### [place] [address] [place], [place] [address] LABORATORYOrdered By: SYSTEM SYSTEM on 04-07-2025 Basophils (Bld) [#/Vol] 0.1 103/mcL Normal 0.0 - 0.3 10^3/mcL AO Workflow SS Basophils/100 WBC (Bld) 0.6 % Normal 0.0 - 2.5 % AO Workflow SS Eosinophil, Absolute 0.1 103/mcL Normal 0.0 - 0 .7 10^3/mcL AO Workflow SS Eosinophils/100 WBC (Bld) 1.2 % Normal 0.0 - 6.0 % AO Workflow SS Erythrocyte distribution width (RBC) [Ratio] 13.5 % Normal 11.5 - 15.5 % AO Workflow SS Free T4 [Mass/Vol] 0.84 ng/dL Normal 0.76 - 1.46 ng/dL AO ADM SS Glucose [Mass/Vol] 117 mg/dL Invalid Interpretation Code AO Chemistry S Comment on above: Interpretive Data: E stimated average glucose (eAG) is a calculated value from Hemoglobin A1C and is uniforms sales representative of the average blood glucose level in the last 2-3 month period. Normal range: less than 114 mg/dL HbA1c (Bld) [Mass fraction] 5.7 % Normal 4.3 - 6.4 % AO ADM SS Hematocrit (Bld) [Volume fraction] 46.6 % Normal 40.0 - 52.0 % AO Workflow SS Hemoglobin (Bld) [Mass/Vol] 15.9 G/dL Normal 13.0 - 17.5 G/dL AO Workflow SS Lymphocytes (Bld) [#/Vol] 1.9 103/mcL Normal 0.9 - 4.3 10^3/mcL AO Workflow SS Lymphocytes/100 WBC (Bld) 22.2 % Normal 20.0 - 40.0 % AO Workflow SS Magnesium [Mass/Vol] 1.9 mg/dL Normal 1.8 - 2 .4 mg/dL AO ADM SS MCH (RBC) [Entitic mass] 30.0 pg Normal 27.0 - 33.0 pg AO Workflow SS MCHC 34.2 G/dL Normal 32.0 - 36.0 G/dL AO Workflow SS MCV (RBC) [Entitic vol] 87.6 fL Normal 81.0 - 100.0 fL AO Workflow SS Monocytes (Bld) [#/Vol] 0.6 103/mcL Normal 0.1 - 1.4 10^3/mcL AO Workflow SS Monocytes/100 WBC (Bld) 7.4 % Normal 2.0 - 13.0 % AO Workflow SS Neutrophils (Bld) [#/Vol] 5.9 103/mcL Normal 2.3 - 8.1 10^3/mcL AO Workflow SS Neutrophils/100 WBC (Bld) 68.6 % Normal 50.0 - 75.0 % AO Workflow SS Platelet mean volume (Bld) [Entitic vol] 6.7 fL Normal 6.4 - 10.5 fL AO Workflow SS Platelets (Bld) [#/Vol] 290 103/mcL Normal 150 - 450 10^3/mcL AO Workflow SS RBC (Bld) [#/Vol] 5.32 106/mcL Normal 4.50 - 6.00 10^6/mcL AO Workflow SS TSH Qn 3.03 m[IU]/L Normal 0.36 - 3.74 mcIU/mL AO ADM SS WBC (Bld) [#/Vol] 8.6 103/mcL Normal 4.5 - 10.8 10^3/mcL AO Workflow SS LABORATORYOrdered By: Betty Wu on 04-07-2025 Cholesterol [Mass/Vol] 174 mg/dL Normal 0 - 2 00 mg/dL AO ADM SS Comment on above: Interpretive Data: C holesterol Reference Interval: Less than 200 Desirable 200-239 Borderline high risk 240 and above High risk Cholesterol in HDL [Mass/Vol] 34 mg/dL Low 40 - 60 mg/dL AO ADM SS Cholesterol in LDL [Mass/Vol] 111 mg/dL Normal 0 - 130 mg/dL AO ADM SS Triglyceride [Mass/Vol] 143 mg/dL Normal 0 - 150 mg/dL AO ADM SS Comment on above: Interpretive Data: T riglyceride Reference Interval: Less than 150 Normal 150-199 Borderline high risk 200-499 High risk 500 or higher Very high risk LIPIDon 04-07-2025 Cholesterol [Mass/Vol] 174 mg/dL Normal 0-200 [facility] Comment on above: Result Comment: Chol esterol Reference Interval: Less than 200 Desirable 200-239 Borderline high risk 240 and above High risk Performed By: #### L AC #### [address] [address] Cholesterol in HDL [Mass/Vol] 34 mg/dL Low 40-60 [facility] Comment on above: Performed By: #### L AC #### [address] [address] Cholesterol in LDL [Mass/Vol] 111 mg/dL Normal 0-130 [facility] Comment on above: Performed By: #### L AC #### [address] [address] Triglyceride [Mass/Vol] 143 mg/dL Normal 0-150 [facility] Comment on above: Result Comment: Trig lyceride Reference Interval: Less than 150 Normal 150-199 Borderline high risk 200-499 High risk 500 or higher Very high risk Performed By: #### L AC #### [address] [address] MGon 04-07-2025 Magnesium [Mass/Vol] 1.9 mg/dL Normal 1.8-2.4 [facility] Comment on above: Performed By: #### C BC, TSH, LIPID, ANEU, A1C, MG, ADIFF, FT4 ####[id number] [place], [place] [address] MRI BRAIN W/O CONTRASTon MRI BRAIN W/O CONTRAST ORIGINAL EXAMINATION: MRI OF THE BRAIN WITHOUT CONTRAST04/07/2025 9:32 am TECHNIQUE: Multiplanar multisequence MRI of the brain was performed without the administration of intravenous contrast. COMPARISON: CT head 04/06/2025 HISTORY: ORDERING SYSTEM PROVIDED HISTORY: Reason for Exam: Neuro deficit, acute, stroke suspected FINDINGS: Parenchyma: Multiple punctate foci of restricted diffusion throughout the right cerebellum, right medulla, and right cerebellar tonsil. There is no evidence of hemorrhage or significant edema. No space-occupying intra-axial mass or extra-axial fluid collection. Suspect prominent perivascular spaces versus sequela of prior insult in the periventricular regions bilaterally. Ventricles: No ventricular enlargement or ventricular effacement. Orbits: No acute abnormalities. Major intracranial flow voids: Grossly preserved, although not well evaluated on this exam. Paranasal sinuses: Mucosal thickening within the right greater than left ethmoid air cells, left frontal sinus, and right maxillary sinus. The remainder of the included paranasal sinuses are predominantly clear. Mastoids and middle ears: Predominantly clear. Bones: Degenerative changes of the spine. No acute osseous abnormalities. Extracranial soft tissues: Unremarkable. IMPRESSION: Multiple foci of restricted diffusion throughout the right cerebellum and right medulla, concerning for small infarcts, possibly embolic in nature. No acute hemorrhage. Paranasal sinus disease as above. I have personally reviewed the images of this examination and agree with the resident's findings and interpretation. Interpreted by: Dimitri Baxter Preliminary Report By: Virginia Law Electronically signed By Dimitri Baxter Dictated Date: 04/07/2025 9:48:05 AM Prelim Date: 04/07/2025 10:11:23 AM Sign Date: 04/07/2025 10:11:23 AM Ordering Provider: PRINCESS FINCH Interpreted by: Dimitri Baxter Preliminary Report By: Virginia Law Electronically signed By Dimitri Baxter Dictated Date: 04/07/2025 9:48:05 AM Prelim Date: 04/07/2025 10:11:23 AM Sign Date: 04/07/2025 10:11:23 AM Ordering Provider: PRINCESS Adames [facility] TSHon 04-07-2025 TSH Qn 3.03 m[IU]/L Normal 0.36-3.74 [facility] Comment on above: Performed By: #### L AC #### [facility] [place] [address] [place], [place] [address] .Auto Diffon 04-06-2025 Basophil, Absolute 0.0 10 3/mcL Normal 0.0-0.3 [facility] Comment on above: Performed By: #### C BC, CMP, ANEU, CRP, ESR, ADIFF, MG, GFR, MDW, TROPHS ####[facility] [place] [place], [place] [address] Basophils/100 WBC (Bld) 0.3 % Normal 0.0-2.5 [facility] Comment on above: Performed By: #### C BC, CMP, ANEU, CRP, ESR, ADIFF, MG, GFR, MDW, TROPHS ####[facility] [place] [place], [place] [address] Eosinophil, Absolute 0.1 10 3/mcL Normal 0.0-0.7 [facility] Comment on above: Performed By: #### C BC, CMP, ANEU, CRP, ESR, ADIFF, MG, GFR, MDW, TROPHS ####[facility] [place] [place] [id number] Eosinophils/100 WBC (Bld) 0.6 % Normal 0.0-6.0 [facility] Comment on above: Performed By: #### C BC, CMP, ANEU, CRP, ESR, ADIFF, MG, GFR, MDW, TROPHS ####[facility] [facility] [address] [place], [place] [address] Lymphocyte, Absolute 1.2 10 3/mcL Normal 0.9-4.3 [facility] Comment on above: Performed By: #### C BC, CMP, ANEU, CRP, ESR, ADIFF, MG, GFR, MDW, TROPHS ####[place] [address] [place], [place] [address] Lymphocytes/100 WBC (Bld) 14.5 % Low 20.0-40.0 [facility] Comment on above: Performed By: #### C BC, CMP, ANEU, CRP, ESR, ADIFF, MG, GFR, MDW, TROPHS ####[place] [address] [place], [place] [address] Monocyte, Absolute 0.5 10 3/mcL Normal 0.1-1.4 [facility] Comment on above: Performed By: #### C BC, CMP, ANEU, CRP, ESR, ADIFF, MG, GFR, MDW, TROPHS ####[address] [place], [place] [address] Monocytes/100 WBC (Bld) 6.7 % Normal 2.0-13.0 [facility] Comment on above: Performed By: #### C BC, CMP, ANEU, CRP, ESR, ADIFF, MG, GFR, MDW, TROPHS ####[address] [place], [place] [address] Neutrophils/100 WBC (Bld) 77.9 % High 50.0-75.0 [facility] Comment on above: Performed By: #### C BC, CMP, ANEU, CRP, ESR, ADIFF, MG, GFR, MDW, TROPHS ####[place] [address] [place], [place] [address] .GFRon 04-06-2025 Estimated Glomerular Filtration Rate 102 ml/min/1.73sqm Normal [facility] Comment on above: Result Comment: Stages of Chronic Kidney Disease (CKD) Stage Description eGFR(ml/min/1.73 sq.m.) CKD 1 Normal kidney function or >=90 normal kindney function with possible kidney damage (ex. Proteinuria) CKD 2 Kidney damage with mild loss 60-89 of kidney function CKD 3a Mild to moderate loss of kidney 45-59 function CKD 3b Moderate to severe loss of 30-44 of kindey function CKD 4 Severe loss of kidney function 15-29 CKD 5 Kidney failure <15 Note: (go live 2024) the eGFR calculation was updated to the 2020 CKD-EPI creatinine equation without a race factor to calculate the eGFR results. Performed By: #### C BC, CMP, ANEU, CRP, ESR, ADIFF, MG, GFR, MDW, TROPHS ####[place] [address] [place], [place] [address] .MDWon 04-06-2025 Monocyte Distribution Width 18.42 Normal 0.00-20.00 [facility] Comment on above: Result Comment: For ED adult patients suspected of sepsis, MDW<=20.0 does not rule out sepsis or risk of sepsis Performed By: #### C BC, CMP, ANEU, CRP, ESR, ADIFF, MG, GFR, MDW, TROPHS ####[place] [address] [place] [address] .NEUABSon 04-06-2025 Neutrophil, Absolute 6.4 10 3/mcL Normal 2.3-8.1 [facility] Comment on above: Performed By: #### C BC, CMP, ANEU, CRP, ESR, ADIFF, MG, GFR, MDW, TROPHS ####[place] [id number] CBCon 04-06-2025 Erythrocyte distribution width (RBC) [Ratio] 13.5 % Normal 11.5-15.5 [facility] Comment on above: Performed By: #### C BC, CMP, ANEU, CRP, ESR, ADIFF, MG, GFR, MDW, TROPHS ####[place] [address] Hematocrit (Bld) [Volume fraction] 48.4 % Normal 40.0-52.0 [facility] Comment on above: Performed By: #### C BC, CMP, ANEU, CRP, ESR, ADIFF, MG, GFR, MDW, TROPHS ####[place] [address] Hgb 16.7 G/dL Normal 13.0-17.5 [facility] Comment on above: Performed By: #### C BC, CMP, ANEU, CRP, ESR, ADIFF, MG, GFR, MDW, TROPHS ####[place] [address] [place], [place] [address] MCH (RBC) [Entitic mass] 30.1 pg Normal 27.0-33.0 [facility] Comment on above: Performed By: #### C BC, CMP, ANEU, CRP, ESR, ADIFF, MG, GFR, MDW, TROPHS ####[address] [place], [place] [address] MCHC 34.6 G/dL Normal 32.0-36.0 [facility] Comment on above: Performed By: #### C BC, CMP, ANEU, CRP, ESR, ADIFF, MG, GFR, MDW, TROPHS ####[address] [place] [phone] MCV (RBC) [Entitic vol] 87.0 fL Normal 81.0-100.0 [facility] Comment on above: Performed By: #### C BC, CMP, ANEU, CRP, ESR, ADIFF, MG, GFR, MDW, TROPHS ####[address] [place], [place] [address] Platelet 284 10 3/mcL Normal 150-450 [facility] Comment on above: Performed By: #### C BC, CMP, ANEU, CRP, ESR, ADIFF, MG, GFR, MDW, TROPHS ####[address] [place], [place] [address] Platelet mean volume (Bld) [Entitic vol] 6.2 fL Low 6.4-10.5 [facility] Comment on above: Performed By: #### C BC, CMP, ANEU, CRP, ESR, ADIFF, MG, GFR, MDW, TROPHS ####[place] [address] [place], [place] [address] RBC 5.56 10 6/mcL Normal 4.50-6.00 [facility] Comment on above: Performed By: #### C BC, CMP, ANEU, CRP, ESR, ADIFF, MG, GFR, MDW, TROPHS ####[place] [address] [place], [place] [address] WBC 8.2 10 3/mcL Normal 4.5-10.8 [facility] Comment on above: Performed By: #### C BC, CMP, ANEU, CRP, ESR, ADIFF, MG, GFR, MDW, TROPHS ####[facility] [address] [place], [place] [address] CMPon 04-06-2025 Albumin Level 3.7 G/dL Normal 3.5-5.0 [facility] Comment on above: Performed By: #### C BC, CMP, ANEU, CRP, ESR, ADIFF, MG, GFR, MDW, TROPHS ####[address] [place], [place] [address] Albumin/Globulin [Mass ratio] 0.9 {ratio} Low 1.1-2.5 [facility] Comment on above: Performed By: #### C BC, CMP, ANEU, CRP, ESR, ADIFF, MG, GFR, MDW, TROPHS ####[place] [address] [place], [place] [address] ALP [Catalytic activity/Vol] 52 U/L Normal 40-135 [facility] Comment on above: Performed By: #### C BC, CMP, ANEU, CRP, ESR, ADIFF, MG, GFR, MDW, TROPHS ####[address] [address] ALT [Catalytic activity/Vol] 27 U/L Normal 16-63 [facility] Comment on above: Performed By: #### C BC, CMP, ANEU, CRP, ESR, ADIFF, MG, GFR, MDW, TROPHS ####[address] [place], [place] [address] AST [Catalytic activity/Vol] 16 U/L Normal 10-40 [facility] Comment on above: Performed By: #### C BC, CMP, ANEU, CRP, ESR, ADIFF, MG, GFR, MDW, TROPHS ####[facility] [place], [place] [address] Bili Total 0.4 mg/dL Normal 0.2-1.0 [facility] Comment on above: Result Comment: Use of this assay is not recommended for patients undergoing treatment with eltrombopag due to the potential for falsely elevated results. Performed By: #### C BC, CMP, ANEU, CRP, ESR, ADIFF, MG, GFR, MDW, TROPHS ####[address] [address] BUN/Creatinine Ratio 14 ratio Normal 7-27 [facility] Comment on above: Performed By: #### C BC, CMP, ANEU, CRP, ESR, ADIFF, MG, GFR, MDW, TROPHS ####[place] [address] Calcium [Mass/Vol] 9.3 mg/dL Normal 8.4-10.2 [facility] Comment on above: Performed By: #### C BC, CMP, ANEU, CRP, ESR, ADIFF, MG, GFR, MDW, TROPHS ####[place] [address] Chloride [Moles/Vol] 105 mmol/L Normal 98-107 [facility] Comment on above: Performed By: #### C BC, CMP, ANEU, CRP, ESR, ADIFF, MG, GFR, MDW, TROPHS ####[place] [address] CO2 [Moles/Vol] 30 mmol/L High 22-29 [facility] Comment on above: Performed By: #### C BC, CMP, ANEU, CRP, ESR, ADIFF, MG, GFR, MDW, TROPHS ####[place] [address] Creatinine [Mass/Vol] 0.88 mg/dL Normal 0.67-1.17 [facility] Comment on above: Performed By: #### C BC, CMP, ANEU, CRP, ESR, ADIFF, MG, GFR, MDW, TROPHS ####[place] [address] Electrolyte Balance 6.0 mEq/L Normal 4.0-15.0 [facility] Comment on above: Performed By: #### C BC, CMP, ANEU, CRP, ESR, ADIFF, MG, GFR, MDW, TROPHS ####[address] [place], [place] [address] Globulin 3.9 G/dL Normal 2.7-4.4 [facility] Comment on above: Performed By: #### C BC, CMP, ANEU, CRP, ESR, ADIFF, MG, GFR, MDW, TROPHS ####[address] [place], [place] [address] Glucose [Mass/Vol] 145 mg/dL High 70-105 [facility] Comment on above: Performed By: #### C BC, CMP, ANEU, CRP, ESR, ADIFF, MG, GFR, MDW, TROPHS ####[address] [place], [place] [address] Potassium [Moles/Vol] 4.0 mmol/L Normal 3.5-5.1 [facility] Comment on above: Performed By: #### C BC, CMP, ANEU, CRP, ESR, ADIFF, MG, GFR, MDW, TROPHS ####[address] [place], [place] [address] Sodium [Moles/Vol] 141 mmol/L Normal 136-145 [facility] Comment on above: Performed By: #### C BC, CMP, ANEU, CRP, ESR, ADIFF, MG, GFR, MDW, TROPHS ####[address] [place], [place] [address] Total Protein 7.6 G/dL Normal 6.4-8.2 [facility] Comment on above: Performed By: #### C BC, CMP, ANEU, CRP, ESR, ADIFF, MG, GFR, MDW, TROPHS ####[place] [address] [place], [place] [address] Urea nitrogen [Mass/Vol] 12 mg/dL Normal 7-18 [facility] Comment on above: Performed By: #### C BC, CMP, ANEU, CRP, ESR, ADIFF, MG, GFR, MDW, TROPHS ####[address] [place], [place] [address] CRPon 04-06-2025 C-Reactive Protein 0.1 mg/dL Normal 0.0-0.3 [facility] Comment on above: Performed By: #### C BC, CMP, ANEU, CRP, ESR, ADIFF, MG, GFR, MDW, TROPHS ####[address] [place], [place] [address] CT HEAD OR BRAIN W/O CONTRAS Ton 04-06-2025 CT HEAD OR BRAIN W/O CONTRAST ORIGINAL EXAMINATION: CT OF THE HEAD WITHOUT CONTRAST 04/06/2025 5:44 pm TECHNIQUE: CT of the head was performed without the administration of intravenous contrast. Automated exposure control, iterative reconstruction, and/or weight based adjustment of the mA/kV was utilized to reduce the radiation dose to as low as reasonably achievable. COMPARISON: None. HISTORY: ORDERING SYSTEM PROVIDED HISTORY: Reason for Exam: Vertigo, peripheral FINDINGS: BRAIN/VENTRICLES: There is no acute intracranial hemorrhage, mass effect or midline shift. No abnormal extra-axial fluid collection. The mendoza-white differentiation is maintained without evidence of an acute infarct. There is no evidence of hydrocephalus. ORBITS: The visualized portion of the orbits demonstrate no acute abnormality. SINUSES: The visualized paranasal sinuses and mastoid air cells demonstrate no acute abnormality. SOFT TISSUES/SKULL: No acute abnormality of the visualized skull or soft tissues. IMPRESSION: No acute intracranial abnormality. COMMENT: Changes resultant from ischemia (even significant ischemia) may often be inapparent on CT exam, particularly if imaged early. Therefore, if symptoms persist, or clinical suspicion for pathology remains, further evaluation may be obtained with follow-up CT or MRI, as clinically feasible. I have personally reviewed the images of this examination and agree with the resident's findings and interpretations. Interpreted by: Radha Chavez MD Preliminary Report By: Clive Flores Electronically signed By Radha Chavez MD Dictated Date: 04/06/2025 6:09:12 PM Prelim Date: 04/06/2025 6:10:36 PM Sign Date: 04/06/2025 6:32:28 PM Ordering Provider: CHRISTIAN GONZALEZ Interpreted by: Radha Chavez MD Preliminary Report By: Clive Flores Electronically signed By Radha Chavez MD Dictated Date: 04/06/2025 6:09:12 PM Prelim Date: 04/06/2025 6:10:36 PM Sign Date: 04/06/2025 6:32:28 PM Ordering Provider: CHRISTIAN GONZALEZ Normal [facility] ESRon 04-06-2025 Erythrocyte Sed Rate 5 mm/hr Normal 0-20 [facility] Comment on above: Performed By: #### C BC, CMP, ANEU, CRP, ESR, ADIFF, MG, GFR, MDW, TROPHS ####[place] [address] [place], [place] [address] LABORATORYOrdered By: Earlene Gloria on 04-06-2025 Appearance (U) Slightly Cloudy *ABN* (04/06/25 8:20 PM) Invalid Interpretation Code Clear AO Auto Urine SS Bilirubin Ql (U) Negative (04/06/25 8:20 PM) Normal Negative AO Auto Urine SS Color (U) Yellow (04/06/25 8:20 PM) Normal AO Auto Urine SS Crystals.amorphous LM.HPF (Urine sed) [#/Area] 2 /[HPF] Normal AO Auto Urine SS Glucose Test strip (U) [Mass/Vol] Negative Normal Negative AO Auto Urine SS Hemoglobin Auto test strip (U) [Mass/Vol] Negative (04/06/25 8:20 PM) Normal Negative AO Auto Urine SS Ketones Ql (U) Negative Normal Negative AO Auto Urine SS UA Leuk Est Negative (04/06/25 8:20 PM) Normal Negative AO Auto Urine SS UA Nitrite Negative (04/06/25 8:20 PM) Normal Negative AO Auto Urine SS UA pH 7.5 (04/06/25 8:20 PM) Normal 5.0 - 8.0 AO Auto Urine SS UA Protein Negative Normal Negative AO Auto Urine SS UA RBC Negative Normal 0-2 AO Auto Urine SS UA Spec Grav 1.015 (04/06/25 8:20 PM) Normal 1.015-1.02 5 AO Auto Urine SS UA Specimen Type Clean Catch (04/06/25 8:20 PM) Normal AO Auto Urine SS UA Squam Epithelial Negative Normal 0-20 AO Au to Urine SS UA Urobilinogen 0.2 E.U./dL Normal 0.2-1.0 AO Auto Urine SS WBC LM.HPF (Urine sed) [#/Area] 0-2 /HPF Normal 0-5 AO Auto Urine SS LABORATORYOrdered By: SYSTEM SYSTEM on 04-06-2025 Albumin BCP dye [Mass/Vol] 3.7 G/dL Normal 3.5 - 5.0 G/dL AO ADM SS Albumin/Globulin [Mass ratio] 0.9 {ratio} Low 1.1 - 2.5 ratio AO ADM SS ALP [Catalytic activity/Vol] 52 U/L Normal 40 - 135 U/L AO ADM SS ALT With P-5'-P [Catalytic activity/Vol] 27 U/L Normal 16 - 63 U/L AO ADM SS AST With P-5'-P [Catalytic activity/Vol] 16 U/L Normal 10 - 40 U/L AO ADM SS Bilirubin [Mass/Vol] 0.4 mg/dL Normal 0.2 - 1 .0 mg/dL AO ADM SS Comment on above: Interpretive Data: U se of this assay is not recommended for patients undergoing treatment with eltrombopag due to the potential for falsely elevated results. Calcium [Mass/Vol] 9.3 mg/dL Normal 8.4 - 10. 2 mg/dL AO ADM SS Chloride [Moles/Vol] 105 mmol/L Normal 98 - 10 7 mmol/L AO ADM SS CO2 [Moles/Vol] 30 mmol/L High 22 - 29 mmol/L AO ADM SS Creatinine [Mass/Vol] 0.88 mg/dL Normal 0.67 - 1.17 mg/dL AO ADM SS CRP [Mass/Vol] 0.1 mg/dL Normal 0.0 - 0.3 mg/dL AO ADM SS Electrolyte Balance 6.0 mEq/L Normal 4.0 - 15 .0 mEq/L AO ADM SS Estimated Glomerular Filtration Rate 102 ml/min/1.73sqm Invalid Interpretation Code AO Chemistry S Comment on above: Interpretive Data: Stages of Chronic Kidney Disease (CKD) Stage Description eGFR(ml/min/1.73 sq.m.) CKD 1 Normal kidney function or >=90 normal kindney function with possible kidney damage (ex. Proteinuria) CKD 2 Kidney damage with mild loss 60-89 of kidney function CKD 3a Mild to moderate loss of kidney 45-59 function CKD 3b Moderate to severe loss of 30-44 of kindey function CKD 4 Severe loss of kidney function 15-29 CKD 5 Kidney failure <15 Note: (go live 2024) the eGFR calculation was updated to the 2020 CKD-EPI creatinine equation without a race factor to calculate the eGFR results. Globulin 3.9 G/dL Normal 2.7 - 4.4 G/dL AO ADM SS Glucose [Mass/Vol] 145 mg/dL High 70 - 105 mg/dL AO ADM SS Lactate [Moles/Vol] 1.9 mmol/L Normal 0.4 - 2. 0 mmol/L AO ADM SS Monocyte distribution width Auto (Bld) [Entitic vol] 18.42 1 Normal 0.00 - 20.00 AO Workflow SS Comment on above: Result Comment: For ED adult patients suspected of sepsis, MDW<=20.0 does not rule out sepsis or risk of sepsis Potassium [Moles/Vol] 4.0 mmol/L Normal 3.5 - 5.1 mmol/L AO ADM SS Protein [Mass/Vol] 7.6 G/dL Normal 6.4 - 8.2 G/dL AO ADM SS Sodium [Moles/Vol] 141 mmol/L Normal 136 - 145 mmol/L AO ADM SS Troponin I.cardiac DL <= 0.01 ng/mL [Mass/Vol] 6 ng/L Normal 0 - 76 ng/L AO ADM SS Comment on above: Interpretive Data: H igh Sensitive Troponin I Reference Ranges: Female: 0-51 ng/L Male: 0-76 ng/L Testing performed on [employer] using a homogeneous sandwich chemiluminescent immunoassay based on [employer] technology. Urea nitrogen [Mass/Vol] 12 mg/dL Normal 7 - 18 mg/dL AO ADM SS Urea nitrogen/Creatinine [Mass ratio] 14 ratio Normal 7 - 27 ratio AO ADM SS LABORATORYOrdered By: Raymon Mcleod on 04-06-2025 ESR Photometric method (Bld) [Velocity] 5 mm/hr Normal 0 - 20 mm/hr AO Man Heme SS LACon 04-06-2025 Lactic Acid Lvl 1.9 mmol/L Normal 0.4-2.0 [facility] Comment on above: Performed By: #### L AC #### [address] [address] MGon 04-06-2025 Magnesium [Mass/Vol] 2.1 mg/dL Normal 1.8-2.4 [facility] Comment on above: Performed By: #### C BC, CMP, ANEU, CRP, ESR, ADIFF, MG, GFR, MDW, TROPHS ####[address] [place], [place] [address] TROPHSon 04-06-2025 High Sensitivity Troponin I 6 ng/L Normal 0-76 [facility] Comment on above: Result Comment: High Sensitive Troponin I Reference Ranges: Female: 0-51 ng/L Male: 0-76 ng/L Testing performed on [employer] using a homogeneous sandwich chemiluminescent immunoassay based on [employer] technology. Performed By: #### C BC, CMP, ANEU, CRP, ESR, ADIFF, MG, GFR, MDW, TROPHS ####[address] [place], [place] [address] UAon 04-06-2025 Color (U) Yellow Normal [facility] Comment on above: Performed By: #### L AC #### [address] [address] Glucose (U) [Mass/Vol] Negative Normal Negative [facility] Comment on above: Performed By: #### L AC #### [address] [address] Ketones Ql (U) Negative Normal Negative [facility] Comment on above: Performed By: #### L AC #### [address] [address] UA Appear Slightly Cloudy Abnormal Clear [facility] Comment on above: Performed By: #### L AC #### [address] [address] UA Blood Negative Normal Negative [facility] Comment on above: Performed By: #### L AC #### [address] [address] UA Leuk Est Negative Normal Negative [facility] Comment on above: Performed By: #### L AC #### [address] [address] UA Nitrite Negative Normal Negative [facility] Comment on above: Performed By: #### L AC #### [address] [address] UA pH 7.5 Normal 5.0 - 8.0 [facility] Comment on above: Performed By: #### L AC #### [address] [address] UA Protein Negative Normal Negative [facility] Comment on above: Performed By: #### L AC #### [address] [address] UA Spec Grav 1.015 Normal 1.015-1.02 5 [facility] Comment on above: Performed By: #### L AC #### [address] [address] UA Specimen Type Clean Catch Normal [facility] Comment on above: Performed By: #### L AC #### [address] [address] UA Urobilinogen 0.2 E.U./dL Normal 0.2-1.0 [facility] Comment on above: Performed By: #### L AC #### [address] [address] Urobilinogen (U) [Mass/Vol] Negative Normal Negative [facility] Comment on above: Performed By: #### L AC #### [address] [address] UAMICon 04-06-2025 UA Amorphus 2+ /hpf Normal [facility] Comment on above: Performed By: #### L AC #### [address] [address] UA RBC Negative Normal 0-2 [facility] Comment on above: Performed By: #### L AC #### [address] [address] UA Squam Epithelial Negative Normal 0-20 [facility] Comment on above: Performed By: #### L AC #### [address] [address] UA WBC 0-2 Normal 0-5 [facility] Comment on above: Performed By: #### L AC #### [place] [address] [place], [place] [address] XR CHEST 1 VIEWon 04-06-2025 XR CHEST 1 VIEW ORIGINAL EXAMINATION: ONE XRAY VIEW OF THE CHEST 04/06/2025 5:24 pm COMPARISON: None. HISTORY: ORDERING SYSTEM PROVIDED HISTORY: Reason for Exam: chest pain FINDINGS: Cardiomediastinal contour is normal. Low lung volumes with hypoventilatory changes. No focal consolidation or pulmonary edema. No pneumothorax or pleural effusion. No acute osseous abnormality. IMPRESSION: Hypoventilatory changes. No acute radiographic abnormality. I have personally reviewed the images of this examination and agree with the resident's findings and interpretation. Interpreted by: Matthew Adams DO Preliminary Report By: Clive Flores Electronically signed By Matthew Adams DO Dictated Date: 04/06/2025 5:31:53 PM Prelim Date: 04/06/2025 5:32:35 PM Sign Date: 04/06/2025 6:00:14 PM Ordering Provider: CHRISTIAN GONZALEZ Interpreted by: Matthew Adams DO Preliminary Report By: Clive Flores Electronically signed By Matthew Adams DO Dictated Date: 04/06/2025 5:31:53 PM Prelim Date: 04/06/2025 5:32:35 PM Sign Date: 04/06/2025 6:00:14 PM Ordering Provider: CHRISTIAN GONZALEZ Normal [facility] Vital Signs Date Time Vital Sign Value Performing Clinician Facility 05-13-2025 [id number] Body mass index (BMI) [Ratio] 30.1 kg/m2 No Primary Care Physician [facility] 05-13-2025 12:26-040 Body temperature 97.4 [degF] No Primary Care Physician [facility] 05-13-2025 12:26-0400 Body weight 95.25 kg No Primary Care Physician [facility] 05-13-2025 12:26-0400 Diastolic blood pressure 69 mm[Hg] No Primary Care Physician [facility] 05-13-2025 12:26-0400 Heart rate 73 /min No Primary Care Physician [facility] 05-13-2025 12:26-0400 Respiratory rate 18 /min No Primary Care Physician [facility] 05-13-2025 12:26-0400 SaO2% (BldA) [Mass fraction] 95 % No Primary Care Physician [facility] 05-13-2025 12:26-0400 Systolic blood pressure 118 mm[Hg] No Primary Care Physician [facility] 04-19-2025 06:00-0400 Body temperature 97.1 [degF] No Primary Care Physician [facility] 04-19-2025 06:00-0400 Diastolic blood pressure 86 mm[Hg] No Primary Care Physician [facility] 04-19-2025 06:00-0400 Heart rate 56 /min No Primary Care Physician [facility] 04-19-2025 06:00-0400 Respiratory rate 17 /min No Primary Care Physician [facility] 04-19-2025 06:00-0400 SaO2% (BldA) [Mass fraction] 98 % No Primary Care Physician [facility] 04-19-2025 06:00-0400 Systolic blood pressure 122 mm[Hg] No Primary Care Physician [facility] 04-18-2025 14:42-0400 Body height 177.8 cm No Primary Care Physician [facility] 04-18-2025 14:42-0400 Body weight 93.7 kg No Primary Care Physician [facility] 04-18-2025 06:00-0400 Body mass index (BMI) [Ratio] 29.5 kg/m2 No Primary Care Physician [facility] 04-10-2025 21:53-0400 Inhaled oxygen concentration 21 % No Primary Care Physician [facility] Encounters Encounter Date Encounter Type Care Provider Facility Start: 06-16-2025 ambulatory Santana Friend Facility :[facility] Start: 05-19-2025 End: 05-19-2025 ambulatory No Primary Care Physician -Physical Therapy Start: 05-19-2025 End: 05-19-[address] Sheri De León DO -Physical Therapy Work Phone: Start: 05-13-2025 End: 05-13-2025 Patient encounter procedure MEDICAL OFFICE SECRETARY Ct Elder -[facility] Work Phone: Start: 05-13-2025 End: 05-13-2025 ambulatory No Primary Care Physician -[facility] Start: 07-28-[address] Sheri De León DO -Physical Therapy Work Phone: Start: 05-01-2025 End: 05-01-2025 Patient encounter procedure Gwendolyn TURK -[facility] Work Phone: Start: 05-01-2025 End: 05-01-2025 ambulatory No Primary Care Physician -[facility] Start: 04-24-2025 End: 04-24-2025 ambulatory No Primary Care Physician -Sleep Lab Start: 04-24-2025 End: 04-24-[address] Sheri De León DO -Sleep Lab Work Phone: Start: 04-24-2025 End: 04-24-2025 ambulatory Sheri De León Facility:[facility] Start: 04-18-2025 Non-patient / Non-visit Dr. Sheri De León DO -[facility] Work Phone: Start: 04-17-2025 Non-patient / Non-visit Dr. Sheri De León DO -[facility] Work Phone: Start: 04-16-2025 Non-patient / Non-visit Dr. Sheri De León DO -[facility] Work Phone: Start: 04-14-2025 Non-patient / Non-visit Dr. Sheri De León DO -[facility] Work Phone: Start: 04-11-2025 Non-patient / Non-visit Dr. Sheri De León DO [facility] Work Phone: Start: 04-10-2025 Non-patient / Non-visit Dr. Sheri De León DO [facility] Work Phone: Start: 04-09-2025 ambulatory Sheri De León Facility:[facility] Start: 04-09-2025 End: 04-19-2025 Evaluation and management of inpatient Dr. Sheri De León DO -Rehab Unit Work Phone: Start: 04-06-2025 End: 04-09-2025 Evaluation and management of inpatient [facility] [employer] WORKER-TAVERN KEEPER [facility] Procedures Date Procedure Procedure Detail Performing Clinician Start: 04-14-2025 Reginaldowalchris No Primary Care Physician Start: 04-12-2025 Factor V Leiden genotype No Primary Care Physician Comment on above: Result: c.1601G>A (p.Zxl259Hjj) - Not De tectedThis result is not associated with an increased risk for venousthromboembolism. See Additional Clinical Information andComments.Additional Clinical Information: Venous thromboembolism is a multifactorial diseaseinfluenced by genetic, environmental, and circumstantialrisk factors. The c.1601G>A (p. Jni991Opp) variant in theF5 gene, commonly referred to as Factor V Leiden, is agenetic risk factor for venous thromboembolism.Heterozygous carriers of this variant have a 6- to 8-foldincreased risk for venous thromboembolism. Individualshomozygous for this variant (ie, with a copy of the varianton each chromosome) have an approximately 80-fold increasedrisk for venous thromboembolism. Individuals who carry cristina c.*97G>A variant in the F2 gene and Factor V Leiden havean approximately 20-fold increased risk for venousthromboembolism. Risks are likely to be even higher in morecomplex genotype combinations involving the F2 c.*97G>Avariant and Factor V Leiden (PMID: 34071302). Additionalrisk factors include but are not limited to: deficiency ofprotein C, protein S, or antithrombin III, age, male sex,personal or family history of deep vein thromboembolism,smoking, surgery, prolonged immobilization, malignantneoplasm, tamoxifen treatment, raloxifene treatment, oralcontraceptive use, hormone replacement therapy, andpregnancy. Management of thrombotic risk and thromboticevents should follow established guidelines and fit theclinical circumstance. This result cannot predict theoccurrence or recurrence of a thrombotic event.Comment: Genetic counseling is recommended to discuss thepotential clinical implications of positive results, aswell as recommendations for testing family members. Genetic Coordinators are available for health careproviders to discuss results at [phone] ([phone]).Test Details: Variant Analyzed: c.1601G>A (p. Mes896Hfk), referredto as Factor V LeidenMethods/Limitations: DNA analysis of the F5 gene (NM_000130.5) wasperformed by PCR amplification followed by electrophoresis.The diagnostic sensitivity is >99%. Results must becombined with clinical information for the most accurateinterpretation. Molecular-based testing is highly accurate,but as in any laboratory test, diagnostic errors may occur.False positive or false negative results may occur forreasons that include genetic variants, blood transfusions,bone marrow transplantation, somatic or tissue-specificmosaicism, mislabeled samples, or erroneous representationof family relationships. This test was developed and its performancecharacteristics determined by [facility]. It has not beencleared or approved by the Food and Drug Administration.References: Mirella Xavier, Leela DEGROOT, Iván R, Bright WW, Bo JH;[facility] Professional Practice and Guidelines Committee.Addendum: [employer] consensusstatement on factor V Leiden mutation testing. Liss Med.2020Dec 11. doi: 10.1038/d83840-659-18066-z. PMID:36160173. Stanton DAVIS. Factor V Leiden Thrombophilia. 1998February 19(Updated 2017Oct 12). In: Carter MP, Elizabeth HH, Ilsa RA,et al., editors. Osmani(R) (Internet). [place] ([place]):Formerly [facility]; 8343-2524. Availablefrom: https://www.ncbi.nlm.nih.gov/books/CBK9470/ Rikki Xavier, Leela DEGROOT, Vicente X, Meliton B, Corona EB, Vanessa P,Charan CS; [facility] Laboratory Lens Assistant Committee.Venous thromboembolism laboratory testing (factor V Leidenand factor II c. *97G>A), 2018 update: a technical standardof the [employer] and [employer]omics([facility]). Liss Med. 2018 Sep;20(12): 3579-0142. doi:10.1038/d43514-100-0333-r. Epub 2017Jul 13. PMID: 61817005. Start: 04-12-2025 Procedure No Primary Care Physician Comment on above: Performed at[facility] [place], [place] [id number] Director: Taras Butt PhD, Phone: [phone] Start: 04-12-2025 Prostate specific antigen measurement No Primary Care Physician Comment on above: This test was performed using the [employer] tPSA method. Measured values of a patient sample can vary depending on the testing procedure used. PSA values determined on patient samples by different testing procedures cannot be used interchangeably. If there is a change in PSA assays while monitoring therapy, sequential testing should be performed to confirm baseline values. Start: 04-12-2025 Serum IgM anticardiolipin measurement No Primary Care Physician Comment on above: Negative: <13 Indeterminate: 13 - 20 Low -Med Positive: >20 - 80 High Positive: >80 Start: 04-11-2025 CT angiography of head and neck No Prima ry Care Physician Start: 04-11-2025 Computed tomography of abdomen and pelvis with contrast No Primary Care Physician Start: 04-11-2025 Estimated creatinine clearance No Primar y Care Physician Start: 04-11-2025 Serum inorganic phosphate measurement No Primary Care Physician Start: 04-08-2025 Percutaneous endoscopic gastrostomy feeding PRINCESS FINCH APRN-TAVERN KEEPER Comment on above: ESOPHAGOGASTRODUODENOSCOPY WITH PERCUTAN EOUS ENDOSCOPIC GASTROSTOMY INSERTION Plan of Treatment Date Care Activity Detail Author Start: 04-19-2025 Patient discharge [facility] Start: 04-17-2025 [facility] Start: 04-14-2025 [facility] Start: 04-14-2025 [facility] Start: 04-14-2025 Following clinical pathway protocol [facility] Start: 04-12-2025 Following clinical pathway protocol [facility] Start: 04-12-2025 [facility] Start: 04-11-2025 Following clinical pathway protocol [facility] Start: 04-09-2025 End: 04-10-2025 Patient referral to dietitian [facility] Start: 04-09-2025 Admission procedure [facility] Start: 04-09-2025 Measuring intake and output [facility] Start: 04-09-2025 Referral to occupational therapist [facility] Start: 04-09-2025 Referral to service [facility] Start: 04-09-2025 Urinary bladder training [facility] Start: 04-09-2025 Vital signs measurements [facility] Start: 04-09-2025 [facility] Start: 04-09-2025 Speech therapy assessment [facility] Cardiac event recording [facility] Patient Education What Is GERD? Tips to Control Acid Reflux What Is Flores Esophagus? What Are Snoring and Sleep Apnea? Evaluating Erectile Dysfunction Discharge Instructions for Stroke BPPV AFib ED Sleep Apnea, Obstructive [facility] Work Phone: Payers Date Payer Category Payer Self-pay 2025 Unknown [id number] 2025 Private Health Insurance [id number] 1970 Unknown [id number] 2.16. [id number] Unknown [id number] 2.16.8 [id number] Unknown [id number] 2.16.8 [id number] Unknown [id number] 2.16.8 [id number] Unknown [id number] 2.16.8 40.1.479663.3.579.2.462 Unknown [id number] 2.16.8 40.1.928441.3.579.2.462 Unknown [id number] 2.16.8 40.1.939581.3.579.2.462 Unknown [id number] 2.16.8 40.1.919696.3.579.2.462 Unknown [id number] 2.16.8 40.1.054465.3.579.2.462 Unknown [id number] 2.16.8 40.1.678491.3.579.2.462 Unknown [id number] 2.16.8 40.1.375023.3.579.2.462 Unknown [id number] 2.16.8 40.1.792440.3.579.2.462 Unknown [id number] 2.16.8 40.1.672054.3.579.2.462 Social History Date Type Detail Facility Start: 04-06-2025 Tobacco smoking status Never s moked tobacco (finding) [facility] [place] Sexual Orientation [facility] Start: 06-26-2012 Sex Male (finding) [facility] Start: 04-17-2025 End: 05-05-2025 Tobacco smoking status NHIS Ex-smoker (finding) [facility] Start: 1970 Sex Assigned At Male [facility] Goals Date Patient Goal Desired Activity /State Functional Status Date Assessment Result Facility 04-19-2025 Functional status Activity Ability Indepe ndent [facility] Work Phone: 04-18-2025 Functional status Ambulates;Back to bed [facility] Work Phone: Mental Status Date Assessment Result Facility 04-19-2025 Cognitive function Voice/Name [facility] Work Phone: Clinical Notes 04-06-2025 to 05-19-2025 Note Date & Type Note Facility 05-19-2025 Discharge summary [facility] 05-19-2025 Discharge summary Note Date/Time May 19, 2025 11:28am [facility] Physical Therapy [facility] [address] [place] [address] [address] [place] [address] / REHABILITATION SERVICES DISCHARGE SUMMARY MR#: [id number] Acct: [id number] Name: CHARLES RUSSELL Rep #: [id number] : 1970 54 From: Richard Aguirre Referring Dr.: Dr. Sheri De León DO Status: REG RCR Insurance: [facility] PACKAGE PLAN SELF PAY INSURANCE Discharge Summary D/C summary: It has been my pleasure to treat CHARLES RUSSELL referred by Dr. Sheri De León DO, with the diagnosis of CVA with R sided weakness for a total of 2 visit(s). Discharge Date: 05/19/25 Please see the following information for a summary of their discharge status. Subjective Subjective: Pt. is back to work. He reports no major issues. He is overall pleased. Overall Improvement % Improvement: 90 Objective Objective/Function: MMT: R quad 54.8## L quad 65.7# GAIT: normal no AD no issues. STAIRS: normal without use of HR TUG 8.42 30 sec sit to stand test 17 without use of UEs. SL 30sec no issues on either LE. Charles is doing much better. No major issues. I am DCing him from PT at this point in time.l Goals Goal 1:: LTG: Pt. to be I with HEP. Goal Progress: Goal Met Goal 2:: LTG: Pt. to have symmetrical B quad strength. Goal Progress: Progressing Goal 3:: LTG: Pt. to complete TUG with time less than 10seconds. Goal Progress: Goal Met Goal 4:: LTG: Pt. to complete 30sec sit to stand test with 17 reps. Goal Progress: Goal Met Plan Plan: Pt. to be DC from PT at this point in time. He is doing great and reports being close to baseline at this point in time. He is back to work without issues. D/C Information d/c sentence: If there are questions or concerns regarding this patient's physical therapy, please feel free to call me at [phone]. Thank you for the referral of thispatient. Sincerely, Richard Pinon, DPT Balance/Gait/Functional tests Balance/Special Test Scores Functional Gait Assessment Score: 24 % Disability: 20.0000 CATSIB Score (Max score 120 seconds): 99 Lower Extremity Functional Score: 69 TUG Test Time Seconds: 8.42 Tug Test: <10 sec.=free mobile 30 Second Chair Rise Test Seconds: 17 Improvement % Improvement: 90 <Electronically signed by Richard Pinon DPT> 05/19/25 1114 CC: HECTOR Finch; Dr. Sheri De León, DO ~ CLS Signed [facility] Work Phone: 1(666) 721-130407-11-2025 Discharge summary Author Sheri De León [facility] Note Date/Time April 18, 2025 6:28 pm [facility] Medical Records Department [address] [place] [address] Instructions for Home/Discharge Instructions 04/18/25 1050 MR#: [id number] Acct: [id number] Name: CHARLES RUSSELL Rep #:[id number] : 1970 54 From: Sheri De León DO PCP: Care Physician,No Primary Status :ADM IN Discharge Instructions Diet Discharge Diet: - (low fat, low salt. Do not lie down for 30-60 minutes after eating. Avoid caffeine and chocolate.......they can cause reflux/heartburn. ) DC O2, CPAP, BIPAP needs Home O2 Discharge instructions: No Dressing / Incision Discharge Activity: May Not Drive, May Shower and Use Walker Weight Bearing Status: Full weight bearing Dressing / Incision Call your doctor if your incision/area has: Continuous Slow Oozing, Sudden Increased Bleeding, Increased Pain/ Swelling, Increased Redness, Foul Smelling Discharge, Swelling at the incision site and - (check around the PEG tube site daily to look for redness and discharge. ) Call your doctor if you observe: Fever of 101 or Higher, Inability to urinate, Inability to have a bowel movement, Shortness of breath, Dizziness, Fainting spells, Swelling in the ankles, Chest pain, Increased palpitations (irregular heartbeat), Calf discomfort, Uncontrolled pain and - (STROKE symptoms: facial droop, slurred speech, inability to get words out, weakness on 1 side of the body and not the other, numbness on 1 side of the body and not the other, inability to maintain your balance sitting or standing, vertigo. ) Cleanse incision/area with: Soap & Water Follow Up Care When: Appointments have been listed later in this document. Test Results: Test results from this visit will be discussed in further detail at your follow- up appointment, if applicable. Pending Tests Upon Discharge: none Discharge Plan Admission Admit Date/Time: 04/09/25 16:24 Primary Reason for Your Visit: POST STROKE DEBILITY Attending Provider: Sheri De León Primary Care Provider: Care Physician,No Primary Instructions Patient Instructions: What Is GERD?, Tips to Control Acid Reflux, What Is Flores Esophagus?, What Are Snoring and Sleep Apnea?, Evaluating Erectile Dysfunction, Discharge Instructions for Stroke, BPPV, AFib, ED Sleep Apnea, Obstructive Additional Instructions / Restrictions: 1. I do not know why you had a stroke. Actually you had multiple little strokes on the right side of the brain. when there are multiple little strokes this is very suspicious for embolic strokes. This means you may have had multiple small blood clots go to the brain. One of the causes of embolic strokes is atrial fibrillation which is a problem with the rhythm of the heart. I have given you some literature to read on atrial fibrillation(also called AFIB). We are going to put in an order for an event monitor to monitor your heart rate continuously for a month. You will get it in the mail and it will have directions on how to apply it. If you have any problems getting it to workbring it to rehab and we will put it on. 2. I think you have sleep apnea. Sleep apnea can cause AFIB. You are going tohave a sleep study to test you for this and then you will follow up with the pulmonary department to be treated IF you have sleep apnea. 3. Risk factors for strokes and heart attacks include, being a man, having highblood pressure, having high cholesterol, being diabetic, smoking. When you havehad a stroke or a heart attack there are goals we set so that we can help prevent more strokes or heart attacks. The blood pressure should be less than 130/80. The LDL (bad cholesterol) should be less than or equal to 70. Your LDLwas 111 when you had the stroke. The HGBA1C (this is for diabetics ) should be 7 or less. Your HGBA1C was 5.7.........just a tad higher than normal. You are at risk for developing diabetes. Watch you carbohydrate intake and don't gain any weight. You are taking a medication for cholesterol now. the medication iscalled Atorvastatin. You are taking 40 mg at bedtime. Your PCP will want to check your cholesterol and a lover panel in 4-6 weeks to make sure the LDL is 70or less. Get a BP cuff and start taking your BP a couple times a day at different times and keep a record. Take the record to your doctor appts. You are taking Lisinopril 5 mg a day for BP. Your BP is looking pretty good right now. 4. We checked your prostate test (called a PSA) and it is normal. 5. I talked with the sleep lab. They have you scheduled for 05/05 for a sleep study but, they may be able to get you in sooner. They will call you. 6. When the PEG tube was inserted you have severe erosions in the lining of theesophagus. This needs to be further investigated. I have spoken with Dr. Baires (he is the buhr mill operator at the hospital) and he would like to see you next week. He will also be the one to remove the PEG tube. 7. WE talked some about ED while you were on rehab. there are many medicationsnow that are used to treat this. Before trying these medications you should have some additional lab done......such as a testosterone level. Your PCP can order this. 8. The dizziness if currently under control with Meclizine twice a day. In 2 weeks or so if you have had no dizziness you could try stopping the Meclizine........if the dizziness comes back you should restart the meclizine Twice a day. I think the dizzy episodes you were having off and on prior to thestroke were due to BPPV (benign paroxysmal positional vertigo). This is due to a problem with the inner ear which helps to control balance. 9. We have put in an order for a heart monitor. They should be mailing it to you........IF you do not get it by next please call me and I will look into it. 10. If you or Mary have any questions after you leave rehab please do not hesitate to call me. OFFICE: [phone] CELL: [phone] NURSES STATION ON REHAB: [phone] Discharge Orders/Prescriptions Prescriptions: New atorvastatin 40 mg Tablet 40 mg PO QHS Qty: 30 0RF meclizine 12.5 mg Tablet 12.5 mg PO BID Qty: 60 0RF pantoprazole 40 mg Tablet,Delayed Release (Dr/Ec) 40 mg PO BID Qty: 60 0RF acyclovir 5 % Ointment 1 applic topical 5X/DAY Qty: 1 0RF Protocol: *Topical Application Instructions APPLICATION INSTRUCTIONS: apply to the cold soreon the upper lip aspirin 81 mg Tablet,Chewable 81 mg PO BREAKFAST Qty: 1 0RF lisinopril 5 mg Tablet 5 mg PO DAILY Qty: 30 0RF Discontinued aspirin [Aspirin Childrens] 81 mg tablet,chewable 1 tab feeding tube DAILY atorvastatin [Lipitor] 40 mg tablet 40 mg feeding tube QHS enoxaparin [Lovenox] 40 mg/0.4 mL syringe 40 mg subcut DAILY Other Ambulatory Orders: 30 Day Event Recorder Preventi (Urgent) Timeframe: 3 Days Facility: [facility] - Location: [facility] Ordered By: Dr. Sheri De León Referrals / Follow Up: Sleep study [Other] - 05/05/25 8:00 pm Jim Jiang MD [Non-Staff -Ordering Privileges] - Santana Baries DO [Med Staff - Active Staff] - 05/01/25 9:00 am Lakeshia Finch NP, MEDICAL OFFICE SECRETARY-C [Non-Staff] - 04/24/25 2:30 pm Disposition Disposition (needs filled in before D/C Order can be placed): Home Health Service 04/18/251827<Electronically signed by Sheri De León DO>Sheri De León DO CC: MEDICAL OFFICE SECRETARY-C Lakeshia Finch; Dr. Jim Jiang MD; No Primary Care Physician; Santana Baires DO ~ Signed [facility] Work Phone: 1(680) 965-423307-11-2025 [facility] Medical Records Department [address] [place] [address] Discharge Summary 04/18/251828 MR#: [id number] Acct: [id number] Name: CHARLES RUSSELL Rep #: [id number] : 1970 54 From: Sheri De León DO PCP: Care Physician,No Primary Status:DIS IN Location: [place] [address] Providers Date of Admission: 04/09/25 Date of Discharge: 04/19/25 Primary Care Physician: No Primary Care Phys Reason For Visit: CVA Diagnosis Discharge Diagnosis (1) Debility: Status: Acute Code(s): R53.81 - Other malaise (2) CVA (cerebral vascular accident): Status: Acute Code(s): I63.9 - Cerebral infarction, unspecified Qualifiers: CVA mechanism: embolism Precerebral and cerebral artery: unspecified cerebral artery Q ualified Code(s): I63.40 - Cerebral infarction due to embolism of unspecified cerebral artery Plan: 04/09/2025. MRI showed multiple foci of restricted diffusion throughout the right cerebellum and the right medulla concerning for embolic infarcts. CTA of the head and neck were unremarkable and showed no large vessel occlusion or high-grade stenosis. Carotid duplex showed less than 50% stenosis bilaterally. Transthoracic echocardiogram showed normal left ventricular systolic and diastolic function with no wall motion abnormalities. There were no thrombi in the heart and the atria were of normal size. Bubble contrast study was negative for PFO. I suspect he has sleep apnea and may be having PAF. (3) Dysphagia due to recent cerebral infarction: Status: Acute Code(s): I69.391 - Dysphagia following cerebral infarction Plan: PEG was inserted at [facility] but, he did not tolerate TF due to retention. He passed a MBS at [facility] so we have not been using the PEG. He is on regular textures and thin liquids at the time of discharge from [facility]. He is going to follow up with Dr. Baires to remove the PEG and address the severe erosive esophagitis mentioned by the general surgeon who inserted the PEG tube. (4) Dysarthria: Status: Acute Code(s): R47.1 - Dysarthria and anarthria Plan: Much improved since admission to rehab. (5) Erosive esophagitis: Status: Acute Code(s): K22.10 - Ulcer of esophagus without bleeding Plan: Has a small hiatal hernia on CT of the abd and diverticulosis. Will follow up with Dr. Baires for removal of the PEG when appropriate and evaluation for etiology of erosive esophagitis. Protonix 40 mg twice daily continued at discharge. (6) Overweight (BMI 25.0-29.9): Status: Chronic Code(s): E66.3 - Overweight Plan: I recommended he try and lose a little weight. Advised against any weight gain because his hemoglobin A1c is just a tad elevated and he is at risk for developing DM. (7) Dyslipidemia: Status: Chronic Code(s): E78.5 - Hyperlipidemia, unspecified Plan: LDL was 111 and he was started on Lipitor 40 mg Q HS. He will need a lipid panel and a liver profile in 4-6 weeks. (8) Nausea vomiting: Status: Resolved Code(s): R11.2 - Nausea with vomiting, unspecified Qualifiers: Vomiting type: unspecified Qualified Code(s): R11.2 - Nausea with vomiting, unspecified Plan: Associated with PEG feedings. Could not tolerate more than 20 cc/hr via the PEG without feeling bloated and refluxing. (9) Sleep-disordered breathing: Status: Chronic Code(s): G47.30 - Sleep apnea, unspecified Plan: Overnight trending pulse ox had no desaturations and he does not need to go home with oxygen. His STOP BANG score is 7 and his has observed him to stop breathing at night. Sleep lab will call him with the date of the sleep study. (10) Hypertension: Status: Chronic Code(s): I10 - Essential (primary) hypertension Qualifiers: Hypertension type: primary hypertension Qualified Code(s): I10 - Essential (primary) hypertension Plan: Controlled on 5 mg of lisinopril at the time of discharge from acute rehab. Plan 1. Discharge home on 04/19/2025 2. 30-day event monitor at discharge and then follow-up with [facility] 3. Sleep lab has called him and they are able to do his sleep study on the night of 04/24/2025. He will follow-up with pulmonary medicine following the sleep study for treatment if indicated. 4. He will follow-up with Dr. Jiang 5. He has an appointment scheduled for follow-up with Lakeshia Finch MEDICAL OFFICE SECRETARY for PCP. 6. Will need a lipid panel and a liver profile in 4-6 weeks. 7. Will have [facility] at [place]. 8. He will follow up with Dr. Baires for removal of the PEG and evaluation for etiology of erosive esophagitis. 9. Continue high intensity statin at discharge and aspirin 81 mg daily. 10. BP is controlled with Lisinopril 5 mg daily 11. HGBA1C is 5.7. Advised him to try and lose a little weight and watch his carb intake. 12. Goals were discussed with him......LDL 70 or less, BP < 130/80 Medications at Discharge Home Medicati (more content not included)...[facility]07-11-2025 Discharge summary [facility] Medical Records Department [address] [place] [address] Instructions for Home/Discharge Instructions 04/18/25 1050 MR#: [id number] Acct: [id number] Name: CHARLES RUSSELL Rep #:[id number] : 1970 54 From: Sheri De León DO PCP: Care Physician,No Primary Status :ADM IN Discharge Instructions Diet Discharge Diet: - (low fat, low salt. Do not lie down for 30-60 minutes after eating. Avoid caffeine and chocolate.......they can cause reflux/heartburn. ) DC O2, CPAP, BIPAP needs Home O2 Discharge instructions: No Dressing / Incision Discharge Activity: May Not Drive, May Shower and Use Walker Weight Bearing Status: Full weight bearing Dressing / Incision Call your doctor if your incision/area has: Continuous Slow Oozing, Sudden Increased Bleeding, Increased Pain/ Swelling, Increased Redness, Foul Smelling Discharge, Swelling at the incision site and - (check around the PEG tube site daily to look for redness and discharge. ) Call your doctor if you observe: Fever of 101 or Higher, Inability to urinate, Inability to have a bowel movement, Shortness of breath, Dizziness, Fainting spells, Swelling in the ankles, Chest pain,Increased palpitations (irregular heartbeat), Calf discomfort, Uncontrolled pain and - (STROKE symptoms: facial droop, slurred speech, inability to get words out, weakness on 1 side of the body and not the other, numbness on 1 side of the body and not the other, inability to maintain your balance sitting or standing, vertigo. ) Cleanse incision/area with: Soap & Water Follow Up Care When: Appointments have been listed later in this document. Test Results: Test results from this visit will be discussed in further detail at your follow- up appointment, if applicable. Pending Tests Upon Discharge: none Discharge Plan Admission Admit Date/Time: 04/09/25 16:24 Primary Reason for Your Visit: POST STROKE DEBILITY Attending Provider: Sheri De León Primary Care Provider: Care Physician,No Primary Instructions Patient Instructions: What Is GERD?, Tips to Control Acid Reflux, What Is Flores Esophagus?, What Are Snoring and Sleep Apnea?, Evaluating Erectile Dysfunction, Discharge Instructions for Stroke, BPPV, AFib, ED Sleep Apnea, Obstructive Additional Instructions / Restrictions: 1. I do not know why you had a stroke. Actually you had multiple little strokes on the right side of the brain. when there are multiple little strokes this is very suspicious for embolic strokes. This means you may have had multiple small blood clots go to the brain. One of the causes of embolic strokes is atrial fibrillation which is a problem with the rhythm of the heart. I have given you some literature to read on atrial fibrillation(also called AFIB). We are going to put in an order for an event monitor to monitor your heart rate continuously for a month. You will get it in the mail and it will have directions on how to apply it. If you have any problems getting it to workbring it to rehab and we will put it on. 2. I think you have sleep apnea. Sleep apnea can cause AFIB. You are going tohave a sleep study to test you for this and then you will follow up with the pulmonary department to be treated IF you have sleep apnea. 3. Risk factors for strokes and heart attacks include, being a man, having highblood pressure, having high cholesterol, being diabetic, smoking. When you havehad a stroke or a heart attack there are goals we set so that we can help prevent more strokes or heart attacks. The blood pressure should beless than 130/80. The LDL (bad cholesterol) should be less than or equal to 70. Your LDLwas 111 when you had the stroke. The HGBA1C (this is for diabetics ) should be 7 or less. Your HGBA1C was 5.7.........just a tad higher than normal. You are at risk for developing diabetes. Watch you carbohydrate intake and don't gain any weight. You are taking a medication for cholesterol now. the medication i scalled Atorvastatin. You are taking 40 mg at bedtime. Your PCP will want to check your cholesteroland a lover panel in 4-6 weeks to make sure the LDL is 70or less. Get a BP cuff and start taking your BP a couple times a day at different times and keep a record. Take the record to your doctor appts. You are taking Lisinopril 5 mg a day for BP. Your BP is looking pretty good right now. 4. We checked your prostate test (called a PSA) and it is normal. 5. I talked with the sleep lab. They have you scheduled for 7/28 for a sleep study but, they may beable to get you in sooner. They will call you. 6. When the PEG tube was inserted you have severe erosions in the lining of theesophagus. This needs to be further investigated. I have spoken with Dr. Baires (he is the buhr mill operator at the hospital) and he would like to see you next week. He will also be the one to remove the PEG tube. 7. WE talked some about ED while you were on rehab. there are many medicationsnow that are used to treat this. Before trying these medications you should have some additional lab done......such as a testosterone level. Your PCP can order this. 8. The dizziness if currently under control with Meclizine twice a day. In 2 weeks or so if you have had no dizziness you could try stopping the Meclizine........if the dizziness comes back you should restart the meclizine Twice a day. I think the dizzy episodes you were having off and on prior to t hestroke were due to BPPV (benign paroxysmal positional vertigo). This is due to a problem with theinner ear which helps to control balance. 9. We have put in an order for a heart monitor. They should be mailing it to you........IF you do not get it by next please call me and I will look into it. 10. If you or Mary have any questions after you leave rehab please do not hesitate to call me. OFFICE: [phone] CELL: [phone] NURSES STATION ON REHAB: [phone] Discharge Orders/Prescriptions Prescriptions: New atorvastatin 40 mg Tablet 40 mg PO QHS Qty: 30 0RF meclizine 12.5 mg Tablet 12.5 mg PO BID Qty: 60 0RF pantoprazole 40 mg Tablet,Delayed Release (Dr/Ec) 40 mg PO BID Qty: 60 0RF acyclovir 5 % Ointment 1 applic topical 5X/DAY Qty: 1 0RF Protocol: *Topical Application Instructions APPLICATION INSTRUCTIONS: apply to the cold soreon the upper lip aspirin 81 mg Tablet,Chewable 81 mg PO BREAKFAST Qty: 1 0RF lisinopril 5 mg Tablet 5 mg PO DAILY Qty: 30 0RF Discontinued aspirin [Aspirin Childrens] 81 mg tablet,chewable 1 tab feeding tube DAILY atorvastatin [Lipitor] 40 mg tablet 40 mg feeding tube QHS enoxaparin [Lovenox] 40 mg/0.4 mL syringe 40 mg subcut DAILY Other Ambulatory Orders: 30 Day Event Recorder Preventi (Urgent) Timeframe: 3 Days Facility: [facility] - Location: [facility] Ordered By: Dr. Sheri De León Referrals / Follow Up: Sleep study [Other] - 05/05/25 8:00 pm Jim Jiang MD [Non-Staff -Ordering Privileges] - Santana Baires DO [Med Staff - Active Staff] - 05/01/25 9:00 am Lakeshia Finch NP MEDICAL OFFICE SECRETARY-C [Non-Staff] - 04/24/25 2:30 pm Disposition Disposition (needs filled in before D/C Order can be placed): Home Health Service 04/18/25 1828Sheri De León DO CC: MEDICAL OFFICE SECRETARY-C Lakeshia Finch; Dr. Jim Jiang MD; No Primary Care Physician; Santana Baires DO ~ Signed [facility]07-10-2025 Progress note Author Sheri De León [facility] Note Date/Time April 17, 2025 5:48 pm [facility] Medical Records Department [address] [place] [address] Progress Note 04/17/25 1025 MR#: [id number] Acct: [id number] Name: YVONNECHARLES Rep #:[id number] : 1970 54 From: Sheri De León DO PCP: Care Physician,No Primary Status :ADM IN Location: [place] [address] Subjective Subjective Charles was seen on team rounds today. Afebrile VSS -blood pressure over the past 24 hours has ranged from 121/70 to 143/72. Maintaining appropriate oxygen saturation on RA Oral intake - FOOD good FLUIDS good Discussed with nursing - Only had Acyclovir twice since ordered....has been refusing. Reviewed the THERAPY notes Medication list reviewed. No dizziness today now that the Meclizine was restarted. Would like to go home Monday. Wants to have OP therapy. Would like to go to [facility] for PCP. Denies heartburn, epigastric pain, nausea, bloating, CP, SOB, cephalgia, lightheadedness. No problem handling his secretions. Objective Data Objective Data Vital Signs: Vital Signs Temp Pulse Resp BP Pulse Ox O2 Del Method FiO2 97.8 F 59 L 15 121/70 H 93 Room Air 21 04/17/25 06:00 04/17/25 06:00 04/17/25 06:00 04/17/25 06:00 04/17/25 06:00 04/17/25 06:00 04/10/25 21:53 Oxygen Delivery Method Room Air Weight: 205 lb 4.006 oz Body Mass Index (BMI) 29.4 Intake & Output: Intake and Output for Last 24 Hours 04/15/25 04/16/25 04/17/25 23:59 23:59 23:59 Intake Total 2090 / 2090 2230 / 2230 640 / 640 Output Total 950 / 950 1050 / 1050 950 / 950 Balance 1140 / 1140 1180 / 1180 -310 / -310 Lab / Micro Data 04/11/25 05:58 04/11/25 05:58 Physical Exam Const alert and oriented x3 General Appearance: cooperative HEENT HEENT Narrative: cold sore on the upper lip which is painful. Resp clear to auscultation bilaterally Cardio regular rate, regular rhythm and no gallops GI normal to inspection, nondistended, normoactive bowel sounds and soft to palpation GI Narrative: Denies nausea and has been tolerating the continuous TF. Extremity no calf tenderness General Extremity: Negative for edema Skin Rashes: no rashes Neuro Neuro Narrative: R facial droop is better today. Smile is much more symmetrical. Head is SB R somewhat. Denies pain. No SCM spasm. Likely due to some weakness of the muscles rather than torticollis. Psych cooperative and affect normal Psych Narrative: good eye contact with me when we are talking. Appearance: appropriate Assessment & Plan Assessment/Plan (1) Debility: (2) CVA (cerebral vascular accident): QUALIFIERS: CVA mechanism: embolism Precerebral and cerebral artery: unspecified cerebral artery Qualified Code(s): I63.40 - Cerebral infarction due to embolism of unspecified cerebral artery (3) Dysphagia due to recent cerebral infarction: (4) Dysarthria: (5) Erosive esophagitis: (6) Overweight (BMI 25.0-29.9): (7) Dyslipidemia: (8) Nausea & vomiting: QUALIFIERS: Vomiting type: unspecified Qualified Code(s): R11.2 -Nausea with vomiting, unspecified (9) Sleep-disordered breathing: PLAN: Schedule sleep study following DC from rehab. PLAN: Plan 1. Continue therapy 2. Is agreeable to staying until Monday and we will do discharge Monday. 3. Outpatient therapy at [facility] 4. Will follow-up with [facility]. 5. Agreeable to follow up with Dr. Jiang. 6. also agreeable to following up with Dr. Saelem for erosive esophagitis and to remove the PEG. 7. Sleep lab will get him scheduled for a sleep study following discharge from rehab. Charges/Coding Visit Charges Inpatient E&M: 59270 Subs Hosp L1 04/17/25 0365 <Electronically signed by Sheri De León DO> Sheri De León DO Cosigner Signature (if applicable): CC: ~ Signed [facility] Work Phone: 1(227) 429-371407-10-2025 Progress note [facility] Medical Records Department [address] [place] [address] Progress Note 04/17/25 1025 MR#: [id number] Acct: [id number] Name: CHARLES RUSSELL Rep #:[id number] : 1970 54 From: Sheri De León DO PCP: Care Physician,No Primary Status :ADM IN Location: [place] [address] Subjective Subjective Charles was seen on team rounds today. Afebrile VSS -blood pressure over the past 24 hours has ranged from 121/70 to 143/72. Maintaining appropriate oxygen saturation on RA Oral intake - FOOD good FLUIDS good Discussed with nursing - Only had Acyclovir twice since ordered....has been refusing. Reviewed the THERAPY notes Medication list reviewed. No dizziness today now that the Meclizine was restarted. Would like to go home Monday. Wants to have OP therapy. Would like to go to [facility] for PCP. Denies heartburn, epigastric pain, nausea, bloating, CP, SOB, cephalgia, lightheadedness. No problem handling his secretions. Objective Data Objective Data Vital Signs: Vital Signs Temp Pulse Resp BP Pulse Ox O2 Del Method FiO2 97.8 F 59 L 15 121/70 H 93 Room Air 21 04/17/25 06:00 04/17/25 06:00 04/17/25 06:00 04/17/25 06:00 04/17/25 06:00 04/17/25 06:00 04/10/25 21:53 Oxygen Delivery Method Room Air Weight: 205 lb 4.006 oz Body Mass Index (BMI) 29.4 Intake & Output: Intake and Output for Last 24 Hours 04/15/25 04/16/25 04/17/25 23:59 23:59 23:59 Intake Total 2090 / 2090 2230 / 2230 640 / 640 Output Total 950 / 950 1050 / 1050 950 / 950 Balance 1140 / 1140 1180 / 1180 -310 / -310 Lab / Micro Data 04/11/25 05:58 04/11/25 05:58 Physical Exam Const alert and oriented x3 General Appearance: cooperative HEENT HEENT Narrative: cold sore on the upper lip which is painful. Resp clear to auscultation bilaterally Cardio regular rate, regular rhythm and no gallops GI normal to inspection, nondistended, normoactive bowel sounds and soft to palpation GI Narrative: Denies nausea and has been tolerating the continuous TF. Extremity no calf tenderness General Extremity: Negative for edema Skin Rashes: no rashes Neuro Neuro Narrative: R facial droop is better today. Smile is much more symmetrical. Head is SB R somewhat. Denies pain.No SCM spasm. Likely due to some weakness of the muscles rather than torticollis. Psych cooperative and affect normal Psych Narrative: good eye contact with me when we are talking. Appearance: appropriate Assessment & Plan Assessment/Plan (1) Debility: (2) CVA (cerebral vascular accident): QUALIFIERS: CVA mechanism: embolism Precerebral and cerebral artery: unspecified cerebral artery Qualified Code(s): I63.40 - Cerebral infarction due to embolism of unspecified cerebral artery (3) Dysphagia due to recent cerebral infarction: (4) Dysarthria: (5) Erosive esophagitis: (6) Overweight (BMI 25.0-29.9): (7) Dyslipidemia: (8) Nausea & vomiting: QUALIFIERS: Vomiting type: unspecified Qualified Code(s): R11.2 -Nausea with vomiting, unspecified (9) Sleep-disordered breathing: PLAN: Schedule sleep study following DC from rehab. PLAN: Plan 1. Continue therapy 2. Is agreeable to staying until Monday and we will do discharge Monday. 3. Outpatient therapy at [facility] 4. Will follow-up with [facility]. 5. Agreeable to follow up with Dr. Jiang. 6. also agreeable to following up with Dr. Saleem for erosive esophagitis and to remove the PEG. 7. Sleep lab will get him scheduled for a sleep study following discharge from rehab. Charges/Coding Visit Charges Inpatient E&M: 65807 [facility] Hosp L1 04/17/25 1748 Sheri De León DO Cosigner Signature (if applicable): CC: ~ Signed [facility]07-09-2025 Progress note Author Sheri [facility] Note Date/Time April 16, 2025 11:56 am [facility] Medical Records Department [address] [place] [address] Progress Note 04/16/25 0934 MR#: [id number] Acct: [id number] Name: CHARLES RUSSELL Rep #:[id number] : 1970 54 From: Sheri De León DO PCP: Care Physician,No Primary Status :ADM IN Location: [place] [address] Subjective Subjective Afebrile VSS -blood pressure is well-controlled. Maintaining appropriate oxygen saturation on RA Oral intake - FOOD good FLUIDS Discussed with nursing - no problems that need addressed Reviewed the THERAPY notes Medication list reviewed. Refused the meclizine last night at bedtime. This morning he had recurrent dizziness with movement/turning his head. We agreed to decrease the scheduled meclizine to twice daily rather than 3 times daily. He now realizes that he needs this medication. He is complaining of some soreness in his upper lip. There is a cold sore there. He has had cold sores in the past and he has started using Carmax. We discussed using acyclovir cream and he is agreeable tothis. Denies headache, palpitations, chest pain, shortness of breath, nausea/vomiting/epigastric pain/heartburn, constipation, calf pain and dysuria. Feels he is really benefitting from ST. He is more aware of swallowing difficulty now and is taking steps to prevent aspiration. NO coughing with eating/drinking. Objective Data Objective Data Vital Signs: Vital Signs Temp Pulse Resp BP Pulse Ox O2 Del Method FiO2 98 F 64 13 143/72 H 93 Room Air 21 04/16/25 05:09 04/16/25 08:08 04/16/25 05:09 04/16/25 08:08 04/16/25 05:09 04/16/25 08:58 04/10/25 21:53 Oxygen Delivery Method Room Air Weight: 205 lb 4.006 oz Body Mass Index (BMI) 29.4 Intake & Output: Intake and Output for Last 24 Hours 04/14/25 04/15/25 04/16/25 23:59 23:59 23:59 Intake Total 2728.67 / 2728.67 2090 / 2090 590 / 590 Output Total 1270 / 1270 950 / 950 200 / 200 Balance 1458.67 / 1458.67 1140 / 1140 390 / 390 Lab / Micro Data 04/11/25 05:58 04/11/25 05:58 Physical Exam Const alert and oriented x3 General Appearance: cooperative HEENT HEENT Narrative: cold sore on the upper lip which is painful. Resp clear to auscultation bilaterally Cardio regular rate, regular rhythm and no gallops GI normal to inspection, nondistended, normoactive bowel sounds and soft to palpation GI Narrative: Denies nausea and has been tolerating the continuous TF. Extremity no calf tenderness General Extremity: Negative for edema Skin Rashes: no rashes Neuro Neuro Narrative: Still with mild R facial droop. speech is more crisp and not slurred. He is much easier to understand. He is more focused when I am speaking with him and less rambling and flight of ideas. Better able to concentrate. Walking with a FWW with good reciprocal stepping, better pace and no loss of balance. He is ambulating in the halls with his at contact-guard assist. Psych cooperative and affect normal Psych Narrative: good eye contact with me when we are talking. Appearance: appropriate Assessment & Plan Assessment/Plan (1) Debility: (2) CVA (cerebral vascular accident): QUALIFIERS: CVA mechanism: embolism Precerebral and cerebral artery: unspecified cerebral artery Qualified Code(s): I63.40 - Cerebral infarction due to embolism of unspecified cerebral artery (3) Dysphagia due to recent cerebral infarction: (4) Dysarthria: (5) Erosive esophagitis: (6) Overweight (BMI 25.0-29.9): (7) Dyslipidemia: (8) Nausea & vomiting: QUALIFIERS: Vomiting type: unspecified Qualified Code(s): R11.2 -Nausea with vomiting, unspecified (9) Sleep-disordered breathing: PLAN: Schedule sleep study following DC from rehab. PLAN: Plan 1. Continue therapy 2. Change meclizine to 12.5 mg twice daily. 3. Zovirax cream 5 times daily to the cold sore on the upper lip 4. Reinforced with him again today that when he is discharged from rehab he is not to be on a scissor lift and not to climb ladders. He is to use a front wheeled walker to help with balance. Charges/Coding Visit Charges Inpatient E&M: 72849 Subs Hosp L1 04/16/25 1156 <Electronically signed by Sheri De León DO> Sheri De León DO Cosigner Signature (if applicable): CC: ~ Signed [facility] Work Phone: 1(297) 981-767807-09-2025 Progress note [facility] Medical Records Department [address] [place] [address] Progress Note 04/16/25 0934 MR#: [id number] Acct: [id number] Name: YVONNECHARLES Rep #:[id number] : 1970 54 From: Sheri De León DO PCP: Care Physician,No Primary Status :ADM IN Location: [place] [address] Subjective Subjective Afebrile VSS -blood pressure is well-controlled. Maintaining appropriate oxygen saturation on RA Oral intake - FOOD good FLUIDS Discussed with nursing - no problems that need addressed Reviewed the THERAPY notes Medication list reviewed. Refused the meclizine last night at bedtime. This morning he had recurrent dizziness with movement/turning his head. We agreed to decrease the scheduled meclizine to twice daily rather than 3 times daily. He now realizes that he needs this medication. He is complaining of some soreness in his upperlip. There is a cold sore there. He has had cold sores in the past and he has started using Carmax.We discussed using acyclovir cream and he is agreeable tothis. Denies headache, palpitations, chest pain, shortness of breath, nausea/vomiting/epigastric pain/heartburn, constipation, calf pain and dysuria. Feels he is really benefitting from ST. He is more aware of swallowing difficulty now and is taking steps to prevent aspiration. NO coughing with eating/drinking. Objective Data Objective Data Vital Signs: Vital Signs Temp Pulse Resp BP Pulse Ox O2 Del Method FiO2 98 F 64 13 143/72 H 93 Room Air 21 04/16/25 05:09 04/16/25 08:08 04/16/25 05:09 04/16/25 08:08 04/16/25 05:09 04/16/25 08:58 04/10/25 21:53 Oxygen Delivery Method Room Air Weight: 205 lb 4.006 oz Body Mass Index (BMI) 29.4 Intake & Output: Intake and Output for Last 24 Hours 04/14/25 04/15/25 04/16/25 23:59 23:59 23:59 Intake Total 2728.67 / 2728.67 2090 / 2090 590 / 590 Output Total 1270 / 1270 950 / 950 200 / 200 Balance 1458.67 / 1458.67 1140 / 1140 390 / 390 Lab / Micro Data 04/11/25 05:58 04/11/25 05:58 Physical Exam Const alert and oriented x3 General Appearance: cooperative HEENT HEENT Narrative: cold sore on the upper lip which is painful. Resp clear to auscultation bilaterally Cardio regular rate, regular rhythm and no gallops GI normal to inspection, nondistended, normoactive bowel sounds and soft to palpation GI Narrative: Denies nausea and has been tolerating the continuous TF. Extremity no calf tenderness General Extremity: Negative for edema Skin Rashes: no rashes Neuro Neuro Narrative: Still with mild R facial droop. speech is more crisp and not slurred. He is much easier to understand. He is more focused when I am speaking with him and less rambling and flight of ideas. Better able to concentrate. Walking with a FWW with good reciprocal stepping, better pace and no loss of balance. He is ambulating in the halls with his at contact-guard assist. Psych cooperative and affect normal Psych Narrative: good eye contact with me when we are talking. Appearance: appropriate Assessment & Plan Assessment/Plan (1) Debility: (2) CVA (cerebral vascular accident): QUALIFIERS: CVA mechanism: embolism Precerebral and cerebral artery: unspecified cerebral artery Qualified Code(s): I63.40 - Cerebral infarction due to embolism of unspecified cerebral artery (3) Dysphagia due to recent cerebral infarction: (4) Dysarthria: (5) Erosive esophagitis: (6) Overweight (BMI 25.0-29.9): (7) Dyslipidemia: (8) Nausea & vomiting: QUALIFIERS: Vomiting type: unspecified Qualified Code(s): R11.2 -Nausea with vomiting, unspecified (9) Sleep-disordered breathing: PLAN: Schedule sleep study following DC from rehab. PLAN: Plan 1. Continue therapy 2. Change meclizine to 12.5 mg twice daily. 3. Zovirax cream 5 times daily to the cold sore on the upper lip 4. Reinforced with him again today that when he is discharged from rehab he is not to be on a scissor lift and not to climb ladders. He is to use a front wheeled walker to help with balance. Charges/Coding Visit Charges Inpatient E&M: 69845 [facility] Hosp L1 04/16/25 1156 Sheri De León DO Cosigner Signature (if applicable): CC: ~ Signed [facility]07-07-2025 Progress note Author Sheri De León [facility] Note Date/Time April 14, 2025 4:00p [facility] Medical Records Department [address] [place] [address] Progress Note 04/14/25 0926 MR#: [id number] Acct: [id number] Name: CHARLES RUSSELL Rep #:[id number] : 1970 54 From: Sheri De León DO PCP: Care Physician,No Primary Status :ADM IN Location: [id number] Subjective Subjective Charles was seen on team rounds today. His Mary was present in the room. All questions were answered to their satisfaction. Afebrile VSS -blood pressures have been pretty consistently elevated. Over the past 48 hours the blood pressure is ranged from 142/84 to 168/95. Heart rate is within normal limits. Maintaining appropriate oxygen saturation on RA Oral intake - FOOD n.p.o. except Yen water FLUIDS he had 1110 cc of Yen water yesterday. Discussed with nursing - no problems that need addressed Reviewed the THERAPY notes Medication list reviewed. D/W ST the results of the MBS today and he has been approved for a diet with regular textures and thin liquids. Hypercoagulable workup was sent out today. PSA is normal at 0.7. Charles has had no dizziness since he was doing [facility] on Monday with PT. [facility] and had no vertigo at all over the weekend or withtherapy today. He denies chest pain, palpitations, shortness of breath, vertigo, lightheadedness, nausea, vomiting, abdominal pain, heartburn, dysuria and calf pain. His only complaints are R facial numbness and some R side weakness........good strength but, not what it used to beand he is still jsing aWW. Objective Data Objective Data Vital Signs: Vital Signs Temp Pulse Resp BP Pulse Ox O2 Del Method FiO2 98.4 F 65 17 166/93 H 95 Room Air 21 04/14/25 06:00 04/14/25 06:00 04/14/25 06:00 04/14/25 06:00 04/14/25 06:00 04/14/25 06:00 04/10/25 21:53 Oxygen Delivery Method Room Air Weight: 205 lb 4.006 oz Body Mass Index (BMI) 29.4 Intake & Output: Intake and Output for Last 24 Hours 04/12/25 04/13/25 04/14/25 23:59 23:59 23:59 Intake Total 2473.75 / 2473.75 3141.25 / 3141.25 675 / 675 Output Total 1999 / 1999 2500 / 2500 320 / 320 Balance 473.75 / 473.75 641.25 / 641.25 355 / 355 Lab / Micro Data 04/11/25 05:58 04/11/25 05:58 Physical Exam Const alert and oriented x3 General Appearance: cooperative Resp clear to auscultation bilaterally Cardio regular rate, regular rhythm and no gallops GI normal to inspection, nondistended, normoactive bowel sounds and soft to palpation GI Narrative: Denies nausea and has been tolerating the continuous TF. Extremity no calf tenderness General Extremity: Negative for edema Skin Rashes: no rashes Psych cooperative and affect normal Psych Narrative: good eye contact with me when we are talking. Appearance: appropriate Assessment & Plan Assessment/Plan (1) Debility: (2) CVA (cerebral vascular accident): QUALIFIERS: CVA mechanism: embolism Precerebral and cerebral artery: unspecified cerebral artery Qualified Code(s): I63.40 - Cerebral infarction due to embolism of unspecified cerebral artery (3) Dysphagia due to recent cerebral infarction: (4) Dysarthria: (5) Erosive esophagitis: (6) Overweight (BMI 25.0-29.9): (7) Dyslipidemia: (8) Nausea & vomiting: QUALIFIERS: Vomiting type: unspecified Qualified Code(s): R11.2 -Nausea with vomiting, unspecified (9) Sleep-disordered breathing: PLAN: STOP BANG score is 7. PLAN: Plan 1. Continue therapy 2. MBS today 3. If he still needs a PEG tube will increase to 50 cc/h continuous tube feed and if he tolerates that will transition to bolus feedings. 4. Hypercoagulable workup is pending. We have no source for the emboli leading to the multiple small strokes. 5. Will need and evaluation by GI for severe erosive esophagitis. He only has a small HH on CT abdomen. 6. Start Lisinopril 5 mg daily per PEG for now. 7. Started on a heart healthy diet with regular textures and thin liquids. Okay to give medications by mouth per speech therapist. 8. Prior to DC repeat a overnight trending pulse ox.......when he is lying flaton his back and sleeping. 9. Gait is still slow and he needs to really concentrate on not losing balance. We recommend another week on rehab and he is agreeable to this. 1. Do you snore loudly? Y 2. Do you often feel tired, fatigued or sleepy during the day? Y 3. Has anyone ever observed you stop breathing during sleep? Y 4. Do you have (or are you being treated for) HTN? Y BMI 29.5 AGE 54 Neck circumference 46.5cm Gender male Total 7 Given the high STOP BANG score and the fact that his tells me he snores loudly and stops breathing at night I feel strongly that he needs a sleep study. He did not desaturate on the overnight trending pulse ox BUT, the HOB was up because he was getting PEG feedings continuously. At home he sleeps flat on hisback. He falls asleep reading and he feels fatigued during the day. He has embolic strokes with no source of clot on W/U. I suspect he may be having PAF. Event monitor was ordered at [facility] [place]. Charges/Coding Visit Charges Inpatient E&M: 72447 Subs Hosp L2 04/14/25 1600 <Electronically signed by Sheri De León DO> Sheri De León DO Cosigner Signature (if applicable): CC: ~ Signed [facility] Work Phone: 1(167) 489-498007-07-2025 Progress note [facility] Medical Records Department [address] [place] [address] Progress Note 04/14/25 0926 MR#: [id number] Acct: [id number] Name: CHARLES RUSSELL Rep #:[id number] : 1970 54 From: Sheri De León DO PCP: Care Physician,No Primary Status :ADM IN Location: [place] [address] Subjective Subjective Charles was seen on team rounds today. His Mary was present in the room. All questions were answered to their satisfaction. Afebrile VSS -blood pressures have been pretty consistently elevated. Over the past 48 hours the blood pressure is ranged from 142/84 to 168/95. Heart rate is within normal limits. Maintaining appropriate oxygen saturation on RA Oral intake - FOOD n.p.o. except Yen water FLUIDS he had 1110 cc of Yen water yesterday. Discussed with nursing - no problems that need addressed Reviewed the THERAPY notes Medication list reviewed. D/W ST the results of the MBS today and he has been approved for a diet with regular textures and thin liquids. Hypercoagulable workup was sent out today. PSA is normal at 0.7. Charles has had no dizziness since he was doing Clint's on Monday with PT. He was place on Meclizine Monday and had no vertigo at all over the weekend or withtherapy today. He denies chest pain, palpitations, shortness of breath, vertigo, lightheadedness, nausea, vomiting, abdominal pain, heartburn, dysuria and calf pain. His only complaints are R facial numbness and some R side weakness........good strength but, not what it used to beand he is still jsing aWW. Objective Data Objective Data Vital Signs: Vital Signs Temp Pulse Resp BP Pulse Ox O2 Del Method FiO2 98.4 F 65 17 166/93 H 95 Room Air 21 04/14/25 06:00 04/14/25 06:00 04/14/25 06:00 04/14/25 06:00 04/14/25 06:00 04/14/25 06:00 04/10/25 21:53 Oxygen Delivery Method Room Air Weight: 205 lb 4.006 oz Body Mass Index (BMI) 29.4 Intake & Output: Intake and Output for Last 24 Hours 04/12/25 04/13/25 04/14/25 23:59 23:59 23:59 Intake Total 2473.75 / 2473.75 3141.25 / 3141.25 675 / 675 Output Total 1999 / 1999 2500 / 2500 320 / 320 Balance 473.75 / 473.75 641.25 / 641.25 355 / 355 Lab / Micro Data 04/11/25 05:58 04/11/25 05:58 Physical Exam Const alert and oriented x3 General Appearance: cooperative Resp clear to auscultation bilaterally Cardio regular rate, regular rhythm and no gallops GI normal to inspection, nondistended, normoactive bowel sounds and soft to palpation GI Narrative: Denies nausea and has been tolerating the continuous TF. Extremity no calf tenderness General Extremity: Negative for edema Skin Rashes: no rashes Psych cooperative and affect normal Psych Narrative: good eye contact with me when we are talking. Appearance: appropriate Assessment & Plan Assessment/Plan (1) Debility: (2) CVA (cerebral vascular accident): QUALIFIERS: CVA mechanism: embolism Precerebral and cerebral artery: unspecified cerebral artery Qualified Code(s): I63.40 - Cerebral infarction due to embolism of unspecified cerebral artery (3) Dysphagia due to recent cerebral infarction: (4) Dysarthria: (5) Erosive esophagitis: (6) Overweight (BMI 25.0-29.9): (7) Dyslipidemia: (8) Nausea & vomiting: QUALIFIERS: Vomiting type: unspecified Qualified Code(s): R11.2 -Nausea with vomiting, unspecified (9) Sleep-disordered breathing: PLAN: STOP BANG score is 7. PLAN: Plan 1. Continue therapy 2. MBS today 3. If he still needs a PEG tube will increase to 50 cc/h continuous tube feed and if he tolerates that will transition to bolus feedings. 4. Hypercoagulable workup is pending. We have no source for the emboli leading to the multiple small strokes. 5. Will need and evaluation by GI for severe erosive esophagitis. He only has a small HH on CT abdomen. 6. Start Lisinopril 5 mg daily per PEG for now. 7. Started on a heart healthy diet with regular textures and thin liquids. Okay to give medicationsby mouth per speech therapist. 8. Prior to DC repeat a overnight trending pulse ox.......when he is lying flaton his back and sleeping. 9. Gait is still slow and he needs to really concentrate on not losing balance. We recommend another week on rehab and he is agreeable to this. 1. Do you snore loudly? Y 2. Do you often feel tired, fatigued or sleepy during the day? Y 3. Has anyone ever observed you stop breathing during sleep? Y 4. Do you have (or are you being treated for) HTN? Y BMI 29.5 AGE 54 Neck circumference 46.5cm Gender male Total 7 Given the high STOP BANG score and the fact that his tells me he snores loudly and stops breathing at night I feel strongly that he needs a sleep study. He did not desaturate on the overnight trending pulse ox BUT, the HOB was up because he was getting PEG feedings continuously. At home he sleeps flat on hisback. He falls asleep reading and he feels fatigued during the day. He has embolic strokes with no source of clot on W/U. I suspect he may be having PAF. Event monitor was ordered at [facility] [place]. Charges/Coding Visit Charges Inpatient E&M: 94069 Subs Hosp L2 04/14/25 1600 Sheri De León DO Cosigner Signature (if applicable): CC: ~ Signed [facility]07-07-2025 Procedure note [facility] Speech Pathology [address] [place] [address] Modified Barium Swallow Study MR#: [id number] Acct: [id number] Name: CHARLES RUSSELL Rep #:[id number] : 1970 54 From: Josee bajwa M.A., [facility]-[employer] Modified Barium Swallow Patient Information Study Date: 04/14/25 Study Time: 09:00 Direct Billable Minutes: 60 Total Minutes procedure & reportin Diagnosis: CVA Referring Physician: Sheri De León Reason for Referral: Objective assessment of swallow function under fluoroscopy recommended followingCBSE 04/10/25 and prior to diet advancement Medical History: Amarjit Russell is a previously healthy male with no prior medical history or medications, not followed by PCP, presented with several days of nausea, dizziness, progressing to dysphagia, gait disturbance, right facial numbness, slurred speech, and right-sided weakness. Initial evaluation at [facility] showed unremarkable CT and CTA of the head/neck. MRI revealed multiple acute infarcts in the right cerebellum and medulla, consistent with embolic stroke. Carotid duplex showed <50% stenosis; TTE was reportedly normal (report not received). [id number] was 5.7, LDL 111, HDL 34. TSH normal. No atrial fibrillation was documented. Started on [id number] mg and Lipitor 40 mg. Enoxaparin 40 mg SC daily was initiated for DVT prophylaxis. PEG placed on 04/08/25 after failed bedside swallow evaluation; no instrumental swllow evaluations were completed prior to PEG placement; erosive esophagitis noted on placement. No GI consultation done. Transferred to acute inpatient rehab at [facility] on 04/09/25 forintensive therapy. Dentition: WNL Respiratory Status: Oxygenating on Room Air Penetration-Aspiration Scale Penetration-Aspiration Scale: OBJECTIVE ASSESSMENT OF SWALLOW FUNCTION (QUANTITATIVE ? PER TRIAL): PENETRATION / ASPIRATION SCALE (MONROE): 1 = does not enter airway 2 = enters airway/above vocal folds/ejected 3 = enters airway/above vocal folds/not ejected 4 = enters airway/contacts vocal folds/ejected 5 = enters airway/contacts vocal folds/not ejected 6 = enters airway/below vocal folds/ejected 7 = enters airway/below vocal folds/not ejected despite effort 8 = enters airway/below vocal folds/no effort VIDEOFLOROSCOPIC SCALE SCORE (MONROE): Grade I = aspiration of material that has penetrated into the laryngeal vestibule, intact cough reflex Grade II = aspiration < 10 % of the bolus, intact cough reflex Grade III = aspiration of < 10 % of the bolus, reduced cough reflex or aspiration of > 10 % of the bolus, intact cough reflex Grade IV = aspiration of > 10 % of the bolus, reduced cough reflex Penetration-Aspiration Scale Score Thin Liquid via teaspoon: Result: 1= does not enter airway Thin Liquid via teaspoon Trial 2: Result: 1= does not enter airway Thin Liquid via small single sip: cup: Result: 2= enter airway/above vocal folds/ejected Thin Liquid via small single sip: cup Effortful swallow: Result: 2= enter airway/above vocal folds/ejected Thin Liquid via sequential sips: cup: Result: 2= enter airway/above vocal folds/ejected Pudding: Result: 1= does not enter airway Cookie: Result: 1= does not enter airway Pudding Trial 2: Result: 1= does not enter airway Thin Liquid via sequential sips:straw: Result: 6= enters airway/below vocal folds/ejected Oral Phase Labial Seal: Escape beyond interlabial space; no extension beyond kaelyn border Tongue Control During Bolus Hold: Cohesive bolus between tongue to palatal seal Bolus Preparation/Mastication: Slow prolonged chewing/mashing with complete recollection Bolus Transport/Lingual Motion: Slowed tongue motion Oral Residue: Trace residue lining oral structures Pharyngeal Phase Initiation of Pharyngeal Swallow: Bolus head at posterior laryngeal surgace of epiglottis Soft Palate Elevation: No bolus between soft palate and pharyngeal wall Laryngeal Elevation: Partial superior movement thyroid cart/partial apprx aryt- epig petiole Anterior Hyoid Excursion: Partial anterior movement Epiglottic Movement: Partial inversion Laryngeal Vestibule Closure at Height of Swallow: Complete; no air/contrast in laryngeal vestibule Pharyngeal Stripping Wave: Present - complete Pharyngoesophageal Segment Opening: Complete distension and complete duration; no obstruction of flow Tongue Base Retraction: Narrow column of contrast between tongue base & post. pharyngeal wall Pharyngeal Residue: Trace residue within or on pharyngeal structures Esophageal Phase Esophageal Clearance: Complete clearance Diagnosis/Impression Diagnosis: mild oropharyngeal dysphagia Impression: The oral phase is characterized by... * slowed lingual motion for AP bolus transportation * trace residue accumulation on tongue base The pharyngeal phase is characterized by... * bolus spillage to the posterior laryngeal surface of the epiglottic prior to swallow onset * incomplete hyolaryngeal excursion/anterior hyoid movement resulting in incomplete epiglottic inversion w/ transient laryngeal vestibule penetration * penetration contacted and dropped below the folds 1x (very trace amount) w/ sequential swallows of thin liquid via straw The esophageal phase was unremarkable. Recommendations Diet: Regular Textures and Thin Liquids Comment: limit straws/avoid sequential swallows via straw Compensatory Strategies: Sitting upright Supervision: Distant Supervision Recommend Repeat Modified Barium Swallow: No Need for Skilled Speech Therapy Services: Yes Comment: Skilled ST intervention is recommended to initiate oropharyngeal strengthening exercises to improveairway closure and reduce penetration/aspiration risk. Education Completed: 1. Described result of evaluation. and 2. Pt understands evaluation & agrees with goals and treatment plan. Status Active ST Patient: Active Contact Information [facility] Speech Therapy:: Josee Dugan M.A. [employer] Speech-Language Pathologist [facility] [address] [address] [email or web address] [phone] 04/14/25 0959 grazyna Bahena CCC-[employer]> Date/Time Josee Dugan M.A., CCC-[employer] Co-Signature Required for all Medicare patients Date/Time Co-Signature CC: ~ [facility]07-04-2025 Progress note Author Sheri De León [facility] Note Date/Time April 11, 2025 11:30 am [facility] Medical Records Department [address] [place] [address] Progress Note 04/11/25 1054 MR#: [id number] Acct: [id number] Name: CHARLES RUSSELL Va Rep #:[id number] : 1970 54 From: Sheri De León DO PCP: Care Physician,No Primary Status :ADM IN Location: [place] [address] Subjective Subjective Afebrile The blood pressure has ranged from 130/78 to 150/84 since admission to rehab. Heart rate is within normal limits. Orthostatics were negative yesterday. Maintaining appropriate oxygen saturation on room air. Fluid balance yesterday was -975 cc and overnight he was -400. NOT tolerating tube feed. He is complaining of feeling bloated and nauseated and has only been agreeing to100 cc bolus at at a time. This morning he had an emesis and then stated he felt better. He denies CP, cough, SOB, dysuria, calf pain, cephalgia. He complains of dizziness turning his head. It passes when he keeps his head still. These episodic dizzy episodes predated the recent CVA. BPPV? All lab drawn this morning was personally reviewed. The white blood cell count is normal with an unremarkable differential. Hemoglobin is 16 and the MCV and MCH are normal. RDW is normal. Platelets are normal. Sodium is 139 and the potassium is 4.3. The BUN is 15 with a creatinine of 0.79 and a BUN/creatinine ratio of 19.1. Fasting blood sugar was 133. Hemoglobin A1c was recently 5.7. Calcium, phosphorus and magnesium are normal and LFTs are normal. I reviewed the overnight trending pulse ox and he does not desaturate. Objective Data Objective Data Vital Signs: Vital Signs Temp Pulse Resp BP Pulse Ox O2 Del Method FiO2 98.1 F 76 16 130/70 H 96 Room Air 21 04/10/25 17:52 04/11/25 06:00 04/10/25 20:22 04/11/25 06:00 04/10/25 21:53 04/10/25 20:22 04/10/25 21:53 Oxygen Delivery Method Room Air Weight: 205 lb 4.006 oz Body Mass Index (BMI) 29.4 Intake & Output: Intake and Output for Last 24 Hours 04/09/25 04/10/25 04/11/25 23:59 23:59 23:59 Intake Total 200 / 200 1242.67 / 1242.67 Output Total 400 / 400 2200 / 2200 400 / 400 Balance -200 / -200 -957.33 / -957.33 -400 / -400 Lab / Micro Data 04/11/25 05:58 04/11/25 05:58 Labs: Laboratory Results - last 24 hr 04/11/25 05:58: WBC 7.1, RBC 5.32, Hgb 16.0, Hct 45.5, MCV 85.5, MCH 30.1, MCHC 35.2, RDW Std Deviation 38.1, RDW Coeff of Merry 12.1, Plt Count 274, MPV 8.3, Immature Gran % (Auto) 0.100, Neut % (Auto) 70.6 H, Lymph % (Auto) 16.4 L, Heard % (Auto) 10.2 H, Eos % (Auto) 2.3, Baso % (Auto) 0.4, Absolute Neuts (auto) 5.0,Absolute Lymphs (auto) 1.16, Nucleated RBC % 0, Sodium 139, Potassium 4.3, Chloride 104, Carbon Dioxide 25.9, Anion Gap 9, BUN 15, Creatinine 0.79, Estim Creat Clear Calc 121.10, Est GFR (MDRD) Non-Af 105, BUN/Creatinine Ratio 19.1, Glucose 133 H, Calcium 9.4, Phosphorus 3.6, Magnesium 2.3 H, Total Bilirubin 0.56, AST 27, ALT 8, Alkaline Phosphatase 46, Total Protein 7.0, Albumin 4.0, Globulin 3.0, Albumin/Globulin Ratio 1.3 Radiography Diagnostic Testing: Radiology Impression Head/Neck CTA 04/11/25 09:20 IMPRESSION: No acute, large territorial infarction. No large vessel occlusion or high-grade stenosis. Reading Location: [facility] Physical Exam Const alert and oriented x3 Constitutional Narrative: NAD after he vomited. General Appearance: cooperative Orientation / Consciousness: Negative for confused HEENT Mouth: dry mucous membranes Resp clear to auscultation bilaterally Cardio regular rate, regular rhythm and no gallops GI GI Narrative: ND, BS's present in all quadrants, no guarding with palpation, no masses appreciated. Denies abd pain/bloating after the emesis. Extremity no calf tenderness Extremity Narrative: Pedal pulses are +2 bilaterally General Extremity: Negative for edema Skin Rashes: no rashes Psych cooperative and affect normal Assessment & Plan Assessment/Plan (1) Debility: (2) CVA (cerebral vascular accident): QUALIFIERS: CVA mechanism: embolism Precerebral and cerebral artery: unspecified cerebral artery Qualified Code(s): I63.40 - Cerebral infarction due to embolism of unspecified cerebral artery (3) Dysphagia due to recent cerebral infarction: (4) Dysarthria: (5) Erosive esophagitis: (6) Overweight (BMI 25.0-29.9): (7) Dyslipidemia: (8) Tobacco dependence in remission: (9) Loud snoring: (10) Nausea & vomiting: PLAN: Plan 1. Continue therapy 2. Discontinue tube feed for now. Okay to continue Yen water 3. Start IV fluids to hydrate. 4. CTA of the abd and pelvis. 5. CTA of the head......we were unable to get results from [facility].......they sent all the other documentation/imaging I requested so I donot think he had a CTA of the head. 6. Check a hypercoagulable panel. Why did he have embolic strokes? Why is he not tolerating the TF? Why does he have erosive gastritis? Charges/Coding Visit Charges Inpatient E&M: 93978 Subs Hosp L2 04/11/25 1122 <Electronically signed by Sheri De León DO> Sheri De León DO Cosigner Signature (if applicable): CC: ~ Signed ADDENDUM by Dr. Sheri De León DO on 04/11/25 at 1130 Addendum CTA of the head showed no acute large territorial infarction and no large vesselocclusion or high-grade stenosis. Both vertebral arteries and the basilar artery are patent as are the bilateral posterior cerebral arteries. CTA abdomen showed the right lung base which had scattered densities with calcifications which could represent chronic aspiration. There were no acute intra-abdominal processes, the PEG tube was in good position and he had no intra-abdominal acute aortic pathology. He has a small HH and extensive diverticulosis with no evidence of diverticulitis. The prostate was enlarged. Will hold TF's for today. Continue IV fluids. Start Reglan 5 mg IV Q6H. Restart TF tomorrow at 25 cc/hr. If he continues to retain will consult GI. 04/11/25 1130 <Electronically signed by Sheri manning DO> Date _ Sheri De eLón DO Cosigner Signature (if applicable): Date cc: ~* Signed [facility] Work Phone: 1(523) 619-442807-04-2025 History and physical note Author Sheri De León [facility] Note Date/Time April 11, 2025 10:54 am [facility] Medical Records Department [address] [place] [address] Post Admission Physician Claribel 04/11/25 1043 MR#: [id number] Acct: [id number] Name: CHARLES RUSSELL Rep #:[id number] : 1970 54 From: Sheri De León DO PCP: Care Physician,No Primary Status :ADM IN Location: [place] [address] Admission Information Primary Diagnosis:: Debility due to ischemic CVA/embolic Status Changes from Prescreening?: No changes Identified Actual Problem List:: Skin Intergrity, Pain, ALteration in Cmfrt, Alteration in Nutrition, Mobility Impaired, Self Care Deficit, Fluid Change-Dehydration and Alteration-Leisure Activ. Potential Problem List:: DVT, Bleeding, Infection, UTI, Aspiration, Falls, Skin Integrity and Depression Risk of Complications DVT: LMWH and AJITH Hose Bleeding: Monitor Lab Values, Nursing to Teach Precautions for anti-coagulation therapy., Wound, if applicable, to be assessed every shift. and Stroke patients assessed for lethargy or change in status. Infection: Clinical Staff to Monitor for S/S of infection: and S/S of infection include fever, redness, warmth, etc. Urinary Tract Infection: Monitor for frequency, burning, discomfort, or incontinence. and Nursing will obtain urine sample for urinalysis and C&S when ordered. Aspiration: Clinical staff will monitor for coughing, drooling, congestion., Speech will evaluate swallowing and dsyphasia. and Nursing will monitor patient swallowing during meals. Falls: Patient will be evaluated for Fall Precautions and Patient will be placedon Fall Precautions as indicated per protocol. Skin Breakdown: Nursing will assess skin daily using assessment tool. and Nursing will place on Skin Breakdown Precautions as indicated. Pain: Clinical staff will assess patient's pain level per protocol., Medicationswill be given, if needed, and the pain level reassessed. and Other methods: Massage, distraction, decrease stimulus, etc. used PRN. Plan of Care Patient requires physician specializing in physical medicine and rehab oversightto provide close medical supervision of rehab issues including: Pain Management,Sleep Problems, Bowel and Bladder, Medical and co-morbidity Management, DVT prophylaxis, Rehabilitation Leadership and Coordination of treatment team Patient needs Physical Therapy: For a minimum of 1 hour and At least 5 out of 7 days Patient needs Physical Therapy to improve:: Mobility, Strengthening, Transfers, Stretching, ROM, Endurance, Stairs, Gait and Balance Patient needs Occupational Therapy: For a minimum of 1 hour and At least 5 out of 7 days Patient needs Occupational Therapy to improve ADL's incl.: Eating, Grooming, Bathing, Dressing, Toileting, Toilet transfers, Community Reintegration, Higher functioning activities, Household tasks, Adaptive Equipment, Splinting and Otheractivities as determined Patient requires speech therapy: For a minimum of 1 hour and At least 5 out of 7days Patient requires speech therapy for: Swallowing, Cognition, Language Skills and Compensatory Strategies Patient requires 24/ Rehabilitation Nursing for: Pain Issues, Identifying and preventing risk factors, Monitoring and reporting current medical conditions, Assisting with ambulation, transfer, and all ADL's, Teaching patients about disease process and medications, Family teaching, Providing safe environment, Bowel and Bladder Issues, Skin integrity and Medication Management Patient needs Collar Padder Blindstitch/ Case Management for: Discharge Planning, Arranging Home Equipment or Services and Family Interventions Patient needs Dietary and Nutrition Services for: Adequate Nutrition, Nutritional Supplements and Nutritional Education Goals Goals Patient will remain: free from falls Patient will perform eating at: MOD I level of assist. Patient will perform bed mobility at: MOD I level of assist. Patient will complete transfers from bed to chair at: MOD I level of assist. Patient will ambulate: - (500 feet without an assistive device independently on various surfaces) Patient will complete upper body dressing at: MOD I level of assist. Patient will complete lower body dressing at: MOD I level of assist. (Using adaptive equipment as needed for increased independence with self-care) Patient will complete toilet transfer at: MOD I level of assist. Patient will complete toileting at: MOD I level of assist. Patient will perform bathing at: MOD I level of assist. Patient will perform Tub/Shower transfer at: - (Supervision) Patient will complete grooming at: MOD I level of assist. (While standing at thesink) Patient will achieve: - (12 steps with 1 handrail and standby assist) Patient will have pain level of: of 3 or less Patient's skin will: remain intact Patient will receive: adequate nutrition. Discharge Planning Pt Prognosis for Sig. Practical Improv. w/in Reasonable Time: Good Estimated Length of stay (days): 21 Anticipated D/C Destination: Home w/ family or friends Was Preadmission Assessment Accurate?: Yes 04/11/25 1054 <Electronically signed by Sheri De León DO> Cosigner Signature (if applicable): CC: ~ Signed [facility] Work Phone: [phone]) 292-508907-04-2025 Progress note [facility] Medical Records Department [address] [place] [address] Progress Note 04/11/25 105 MR#: [id number] Acct: [id number] Name: CHARLES RUSSELL Rep #:[id number] : 1970 54 From: Sheri De León DO PCP: Care Physician,No Primary Status :ADM IN Location: [place] [address] Subjective Subjective Afebrile The blood pressure has ranged from 130/78 to 150/84 since admission to rehab. Heart rate is within normal limits. Orthostatics were negative yesterday. Maintaining appropriate oxygen saturation on room air. Fluid balance yesterday was -975 cc and overnight he was -400. NOT tolerating tube feed. He is complaining of feeling bloated and nauseated and has only been agreeing to100 cc bolus at at a time. This morning he had an emesis and then stated he felt better. He denies CP, cough, SOB, dysuria, calf pain, cephalgia. He complains of dizziness turning his head. It passes when he keeps his head still. These episodic dizzy episodes predated the recent CVA. BPPV? All lab drawn this morning was personally reviewed. The white blood cell count is normal with an unremarkable differential. Hemoglobin is 16 and the MCV and MCH are normal. RDW is normal. Platelets are normal. Sodium is 139 and the potassium is 4.3. The BUN is 15 with a creatinine of 0.79 and a BUN/creatinine ratio of 19.1. Fasting blood sugar was 133. Hemoglobin A1c was recently 5.7. Calcium, phosphorus and magnesium are normal and LFTs are normal. I reviewed the overnight trending pulse ox and he does not desaturate. Objective Data Objective Data Vital Signs: Vital Signs Temp Pulse Resp BP Pulse Ox O2 Del Method FiO2 98.1 F 76 16 130/70 H 96 Room Air 21 04/10/25 17:52 04/11/25 06:00 04/10/25 20:22 04/11/25 06:00 04/10/25 21:53 04/10/25 20:22 04/10/25 21:53 Oxygen Delivery Method Room Air Weight: 205 lb 4.006 oz Body Mass Index (BMI) 29.4 Intake & Output: Intake and Output for Last 24 Hours 04/09/25 04/10/25 04/11/25 23:59 23:59 23:59 Intake Total 200 / 200 1242.67 / 1242.67 Output Total 400 / 400 2200 / 2200 400 / 400 Balance -200 / -200 -957.33 / -957.33 -400 / -400 Lab / Micro Data 04/11/25 05:58 04/11/25 05:58 Labs: Laboratory Results - last 24 hr 04/11/25 05:58: WBC 7.1, RBC 5.32, Hgb 16.0, Hct 45.5, MCV 85.5, MCH 30.1, MCHC 35.2, RDW Std Deviation 38.1, RDW Coeff of Merry 12.1, Plt Count 274, MPV 8.3, Immature Gran % (Auto) 0.100, Neut % (Auto) 70.6 H, Lymph % (Auto) 16.4 L, Heard % (Auto) 10.2 H, Eos % (Auto) 2.3, Baso % (Auto) 0.4, AbsoluteNeuts (auto) 5.0,Absolute Lymphs (auto) 1.16, Nucleated RBC % 0, Sodium 139, Potassium 4.3, Chloride 104, Carbon Dioxide 25.9, Anion Gap 9, BUN 15, Creatinine 0.79, Estim Creat Clear Calc 121.10, EstGFR (MDRD) Non-Af 105, BUN/Creatinine Ratio 19.1, Glucose 133 H, Calcium 9.4, Phosphorus 3.6, Magnesium 2.3 H, Total Bilirubin 0.56, AST 27, ALT 8, Alkaline Phosphatase 46, Total Protein 7.0, Albumin4.0, Globulin 3.0, Albumin/Globulin Ratio 1.3 Radiography Diagnostic Testing: Radiology Impression Head/Neck CTA 04/11/25 09:20 IMPRESSION: No acute, large territorial infarction. No large vessel occlusion or high-grade stenosis. Reading Location: [facility] Physical Exam Const alert and oriented x3 Constitutional Narrative: NAD after he vomited. General Appearance: cooperative Orientation / Consciousness: Negative for confused HEENT Mouth: dry mucous membranes Resp clear to auscultation bilaterally Cardio regular rate, regular rhythm and no gallops GI GI Narrative: ND, BS's present in all quadrants, no guarding with palpation, no masses appreciated. Denies abd pain/bloating after the emesis. Extremity no calf tenderness Extremity Narrative: Pedal pulses are +2 bilaterally General Extremity: Negative for edema Skin Rashes: no rashes Psych cooperative and affect normal Assessment & Plan Assessment/Plan (1) Debility: (2) CVA (cerebral vascular accident): QUALIFIERS: CVA mechanism: embolism Precerebral and cerebral artery: unspecified cerebral artery Qualified Code(s): I63.40 - Cerebral infarction due to embolism of unspecified cerebral artery (3) Dysphagia due to recent cerebral infarction: (4) Dysarthria: (5) Erosive esophagitis: (6) Overweight (BMI 25.0-29.9): (7) Dyslipidemia: (8) Tobacco dependence in remission: (9) Loud snoring: (10) Nausea & vomiting: PLAN: Plan 1. Continue therapy 2. Discontinue tube feed for now. Okay to continue Yen water 3. Start IV fluids to hydrate. 4. CTA of the abd and pelvis. 5. CTA of the head......we were unable to get results from [facility].......they sent all the other documentation/imaging I requested so I donot think he had a CTA of the head. 6. Check a hypercoagulable panel. Why did he have embolic strokes? Why is he not tolerating the TF? Why does he have erosive gastritis? Charges/Coding Visit Charges Inpatient E&M: 34844 Subs Hosp L2 04/11/25 1122 Sheri De León DO Cosigner Signature (if applicable): CC: ~ Signed ADDENDUM by Dr. Sheri De León DO on 04/11/25 at 1130 Addendum CTA of the head showed no acute large territorial infarction and no large vesselocclusion or high-grade stenosis. Both vertebral arteries and the basilar artery are patent as are the bilateral posterior cerebral arteries. CTA abdomen showed the right lung base which had scattered densities with calcifications which could represent chronic aspiration. There were no acute intra-abdominal processes, the PEG tube was in good position and he had no intra-abdominal acute aortic pathology. He has a small HH and extensive di verticulosis with no evidence of diverticulitis. The prostate was enlarged. Will hold TF's for today. Continue IV fluids. Start Reglan 5 mg IV Q6H. Restart TF tomorrow at 25 cc/hr. If he continues to retain will consult GI. 04/11/25 1130 ti DO> Date _ Sheri De León DO Cosigner Signature (if applicable): Date cc: ~* Signed [facility]07-04-2025 Radiology Diagnostic study note [facility] Imaging Services [address], [place] [address] CTA Abd/Pelvis W/WO Contrast MR#: [id number] Acct: [id number] Name: CHARLES RUSSELL Rep #: [id number] : 1970 M 54 From: Zina Sim MD PCP: Care Physician,No Primary Status: ADM IN Study:CTA Abd/Pelvis W/WO Contrast Date of Ex am: 04/11/25 Exam# [id number] Ordering Dr: Sheri De León DO PROCEDURE: CTA ABD/PELVIS W/WO CONTRAST 04/11/2025 REASON FOR EXAM: ABD PAIN AND VOMITING. TECHNIQUE: CTA ABD/PELVIS W/WO CONTRAST Multiplanar Sagittal and Coronal images were obtained. CONTRAST: 100 mL of Isovue 370 One or more dose reduction techniques were used (e.g., Automated exposure control, adjustment of the mA and/or kV according to patient size, use of iterative reconstruction technique). RADIATION DOSE SUMMARY: DLP: 3441 mGycm FINDINGS: Lung bases: Right lung base scattered densities with calcifications may reflect chronic aspiration. The liver, spleen, pancreas, and both adrenal glands demonstrate no acute findings. Hepatic steatosis. The gallbladder is unremarkable. Small hiatal hernia. Peg tube is noted; otherwise stomach is unremarkable.. The small bowel loops are not dilated. The appendix is not clearly identified, although there are no secondary signs ofappendicitis. No colonic obstruction. Extensive colonic diverticulosis without acute diverticulitis. There is no free air or significant free fluid. The kidneys are unremarkable. The urinary bladder is partially distended. The pelvic structures are intact. There is no solid pelvic mass. Enlarged prostate to 5.2 cm in transverse dimension. No significant lymphadenopathy. Visualized osseous structures demonstrate no acute abnormality. Left posterior ribs at T10-T12 healing subacute fractures. Vascular: The aorta and IVC demonstrate no acute findings. Mild atherosclerosis of the abdominal vasculature without high-grade stenosis. Aorta: Minimal atherosclerosis without stenosis. No aneurysm or focal dissection. Iliac Arteries: Minimal atherosclerosis without stenosis. No aneurysm or focal dissection. Celiac: Patent SMA: Patent GABRIELLE : Patent Right Renal: Patent Left Renal: Patent CT/CTA Abd/Pelvis W/WO Contrast IMPRESSION: Right lung base scattered densities with calcifications may reflect chronic aspiration. No acute intra-abdominal process. Peg tube in appropriate position. No intra- abdominal acute aorticpathology. Reading Location: [id number] CC: Dr. 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[employer] Health: Signed [facility]07-04-2025 History and physical note [facility] Medical Records Department [address] [place] [address] Post Admission Physician Claribel 04/11/25 1043 MR#: [id number] Acct: [id number] Name: CHARLES RUSSELL Rep #:[id number] : 1970 54 From: Sheri De León DO PCP: Care Physician,No Primary Status :ADM IN Location: [place] [address] Admission Information Primary Diagnosis:: Debility due to ischemic CVA/embolic Status Changes from Prescreening?: No changes Identified Actual Problem List:: Skin Intergrity, Pain, ALteration in Cmfrt, Alteration in Nutrition, MobilityImpaired, Self Care Deficit, Fluid Change-Dehydration and Alteration-Leisure Activ. Potential Problem List:: DVT, Bleeding, Infection, UTI, Aspiration, Falls, Skin Integrity and Depression Risk of Complications DVT: LMWH and AJITH Hose Bleeding: Monitor Lab Values, Nursing to Teach Precautions for anti-coagulation therapy., Wound, ifapplicable, to be assessed every shift. and Stroke patients assessed for lethargy or change in status. Infection: Clinical Staff to Monitor for S/S of infection: and S/S of infection include fever, redness, warmth, etc. Urinary Tract Infection: Monitor for frequency, burning, discomfort, or incontinence. and Nursing will obtain urine sample for urinalysis and C&S when ordered. Aspiration: Clinical staff will monitor for coughing, drooling, congestion., Speech will evaluate swallowing and dsyphasia. and Nursing will monitor patient swallowing during meals. Falls: Patient will be evaluated for Fall Precautions and Patient will be placedon Fall Precautionsas indicated per protocol. Skin Breakdown: Nursing will assess skin daily using assessment tool. and Nursing will place on Skin Breakdown Precautions as indicated. Pain: Clinical staff will assess patient's pain level per protocol., Medicationswill be given, if needed, and the pain level reassessed. and Other methods: Massage, distraction, decrease stimulus, etc. used PRN. Plan of Care Patient requires physician specializing in physical medicine and rehab oversightto provide close medical supervision of rehab issues including: Pain Management,Sleep Problems, Bowel and Bladder, Medical and co-morbidity Management, DVT prophylaxis, Rehabilitation Leadership and Coordination of treat ment team Patient needs Physical Therapy: For a minimum of 1 hour and At least 5 out of 7 days Patient needs Physical Therapy to improve:: Mobility, Strengthening, Transfers, Stretching, ROM, Endurance, Stairs, Gait and Balance Patient needs Occupational Therapy: For a minimum of 1 hour and At least 5 out of 7 days Patient needs Occupational Therapy to improve ADL's incl.: Eating, Grooming, Bathing, Dressing, Toileting, Toilet transfers, Community Reintegration, Higher functioning activities, Household tasks, Adaptive Equipment, Splinting and Otheractivities as determined Patient requires speech therapy: For a minimum of 1 hour and At least 5 out of 7days Patient requires speech therapy for: Swallowing, Cognition, Language Skills and Compensatory Strategies Patient requires 24/ Rehabilitation Nursing for: Pain Issues, Identifying and preventing risk factors, Monitoring and reporting current medical conditions, Assisting with ambulation, transfer, and all ADL's, Teaching patients about disease process and medications, Family teaching, Providing safe environment, Bowel and Bladder Issues, Skin integrity and Medication Management Patient needs Collar Padder Blindstitch/ Case Management for: Discharge Planning, Arranging Home Equipment orServices and Family Interventions Patient needs Dietary and Nutrition Services for: Adequate Nutrition, Nutritional Supplements and Nutritional Education Goals Goals Patient will remain: free from falls Patient will perform eating at: MOD I level of assist. Patient will perform bed mobility at: MOD I level of assist. Patient will complete transfers from bed to chair at: MOD I level of assist. Patient will ambulate: - (500 feet without an assistive device independently on various surfaces) Patient will complete upper body dressing at: MOD I level of assist. Patient will complete lower body dressing at: MOD I level of assist. (Using adaptive equipment as needed for increased independence with self-care) Patient will complete toilet transfer at: MOD I level of assist. Patient will complete toileting at: MOD I level of assist. Patient will perform bathing at: MOD I level of assist. Patient will perform Tub/Shower transfer at: - (Supervision) Patient will complete grooming at: MOD I level of assist. (While standing at thesink) Patient will achieve: - (12 steps with 1 handrail and standby assist) Patient will have pain level of: of 3 or less Patient's skin will: remain intact Patient will receive: adequate nutrition. Discharge Planning Pt Prognosis for Sig. Practical Improv. w/in Reasonable Time: Good Estimated Length of stay (days): 21 Anticipated D/C Destination: Home w/ family or friends Was Preadmission Assessment Accurate?: Yes 04/11/25 9809 Cosigner Signature (if applicable): CC: ~ Signed [facility]07-04-2025 Radiology Diagnostic study note [facility] Imaging Services [address] [place] [address] CTA Head AND Neck W/ Contrast MR#: [id number] Acct: [id number] Name: CHARLES RUSSELL Rep #: [id number] : 1970 M 54 From: Zina Sim MD PCP: Care Physician,No Primary Status: ADM IN Study:CTA Head AND Neck W/ Contrast Date of E xam: 04/11/25 Exam# [id number] Ordering Dr: Sheri De León DO PROCEDURE: CTA HEAD AND NECK W/ CONTRAST 04/11/2025 REASON FOR EXAM: CVA TECHNIQUE: CTA HEAD AND NECK W/ CONTRAST Multiplanar Sagittal and Coronal images were obtained. CONTRAST: 100 mL of Isovue 370 One or more dose reduction techniques were used (e.g., Automated exposure control, adjustment of the mA and/or kV according to patient size, use of iterative reconstruction technique). RADIATION DOSE SUMMARY: DLP: 3414 mGycm COMPARISON: None FINDINGS: There is no acute infarct, intracranial hemorrhage, or mass effect. There is no hydrocephalus or significant midline shift. No acute, depressed calvarial fractures. No large scalp hematomas. The aortic arch demonstrates a type I configuration. The ostia of the great vessels are patent. There is conventional branching. The right CCA is patent. There is no significant stenosis of the right carotid bifurcation by NASCET criteria. The cervical right ICA is patent. The right MCA and right MARK appear patent. There is no large vessel occlusion. The left CCA is patent. There is no significant stenoses at the left carotid bifurcation by NASCET criteria. The cervical left ICA is patent. The left MCA and left MARK appear patent. There is no large vessel occlusion. The right vertebral artery arises from the right subclavian artery. The left vertebral artery arises from the left subclavian artery. Both vertebral arteries are patent. Both vertebral arteries join to form the patent basilarartery. Both posterior cerebral arteries arise from the tip of the basilar. Both proximal STOPPERER ASSEMBLER segmentsare patent. There isno large vessel occlusion. There is no enhancing intracranial mass. Shotty cervical lymph nodes are identified. The thyroid gland is heterogeneous. The lung apices demonstrate no pneumothorax. No destructive osseous abnormalities identified. CT/CTA Head AND Neck W/ Contrast IMPRESSION: No acute, large territorial infarction. No large vessel occlusion or high-grade stenosis. Reading Location: [id number] CC: Dr. 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[employer] Health: Signed [facility]07-03-2025 History and physical note Author Sheri De León [facility] Note Date/Time April 10, 2025 6:58p m [facility] Medical Records Department [address] [place] [address] History & Physical Exam 04/10/25 1212 MR#: [id number] Acct: [id number] Name: CHARLES RUSSELL Rep #:[id number] : 1970 54 From: Sheri De León DO PCP: Care Physician,No Primary Status :ADM IN Location: [place] [address] HPI - General General Date of Admission: 04/09/25 Date of Service: 04/10/25 Chief Complaint: Post stroke debility HPI Narrative CHARLES RUSSELL, is a 54 YO M with no significant PMH, on no medications and not following with the PCP who had waxing and waning nausea and dizziness for a fewdays and then went on to develop trouble swallowing and difficulty walking. He also complained of numbness on the right side of his face. He finally went to [facility] emergency department to be evaluated. At presentationto the ED he had slurred speech, facial droop and drift with the R leg. NC CT brain was unremarkable with no acute abnormalities. A PN states CTA of the H&Nwere unremarkable......the actual radiology report of the test was not included in the documentation we received. He was admitted to the hospitalist service diann evaluated for CVA. Carotid duplex revealed less than 50% per documentation in the progress note. A transthoracic echocardiogram showed normal left ventricular function but once again we did not receive the report. A noncontrast MRI of the brain showed multiple foci of restricted diffusion throughout the right cerebellum and right medulla concerning for embolic infarcts. RBS was increased in the emergency department at 145 and the lab was otherwise unremarkable in the ED. Subsequent labs showed hemoglobin A1c was 5.7. LDL was 111 with a low HDL of 34. TSH was normal. He was given a loading dose of 300 mg of ASA. He failed a swallowing eval in the ED. He was seen by ST zhang a bedside exam but, no MBS or FEES was done. They recommended NPO and PEG tube insertion. A PEG was inserted by surgery on 04/08/25. The surgeon reported he had severe erosive esophagitis. He was seen by PT/OT and while at [facility] [place] and acute rehab was recommended. He was transferred to the acute inpatient rehab unit at [facility] on 04/09/25 for 3 hours of therapy daily. A 30 day event monitor was ordered by the previous hospital. We will have family bring the device in for us to apply when it arrives in the mail. The med list was reviewed. He is on only ASA, no Plavix. He is not anticoagulated. No AF was reported in any of the documentation we received. Heis on enoxaparin 40 mg subcu daily for DVT prophylaxis. He will take lansoprazole 30 mg daily for treatment of erosive esophagitis. He was placed onLipitor 40 mg daily at the previous hospital. He was getting continuous TF and most recent residual is 300...........he is to start Bolus feedings today at 6 PM. Why does he have erosive esophagitis? Did not see GI at the previous hospital. Afebrile Blood pressure has ranged from 145/88 to 149/83 since arrival in rehab. Heart rate is ranged from 60-63. His tells me that he Snores very loudly and she also tells me that he stopsbreathing when sleeping. No RLS. He falls asleep reading all the time and can fall asleep when he is talking with someone. He has had episodic dizziness for some time but, he denies palpitations/racing heart. He sometimes can feel food sitting in his chest when eating and like it 'won't go down. Has heartburn at times. Sometimes food will come up after eating that looks like what it did when he ate it. Has been having this dizziness for months. [facility] Medical History (Updated 04/10/25 @ 18:[address] Sheri De León DO) Loud snoring Tobacco dependence in remission Overweight (BMI 25.0-29.9) Erosive esophagitis CVA (cerebral vascular accident) Hypertension Home Medications ?Medication ?Instructions ?Recorded ?Last Taken ?Type aspirin 81 mg chewable tablet 1 tab feeding tube DAILY heart 04/09/25 04/09/25 History (Aspirin [facility]) health atorvastatin 40 mg tablet (Lipitor) 40 mg feeding tube QHS cholesterol 04/09/25 Unknown History enoxaparin 40 mg/0.4 mL 40 mg subcut DAILY DVT proph ylaxis 04/09/25 04/09/25 History subcutaneous syringe (Lovenox) Allergy/AdvReac Type Severity Reaction Status Date / Time No Known Allergies Allergy Verified 04/09/25 17:05 Family History unable to obtain Surgical History no surgical history Social History (Updated 04/10/25 @ 15:[address] Sheri De León, ) household members: spouse and family housing: house Smoking Status: Former smoker ROS ROS Narrative Getting a straight answer out of this gentleman is very difficult. Constitutional Constitutional: Reports fatigue, snoring and stops breathing during sleep; Denies anorexia, change in weight, chills, fever(s), night sweats or weakness Eyes Eyes: Denies blurry vision, burning, change in vision or double vision ENT HEENT: Reports dysphagia; Denies abnormal hearing, headache(s), hearing loss, nasal congestion or sore throat Cardiovascular Cardiovascular: Reports dizziness and lightheadedness; Denies chest pain, dyspnea on exertion, edema, flutter in chest, orthopnea, palpitations, paroxysmal nocturnal dyspnea, pounding heartbeat, racing heartbeat or syncope Respiratory/Chest Respiratory/Chest: Denies cough, dyspnea, shortness of breath at rest, shortnessof breath with exertion or wheezing Gastrointestinal Gastrointestinal: Reports chewing difficulty and other Details: Feels like his food is not going all the way to the stomach at times and he gets a fullness in his chest. Sometimes vomits food that looks undigested. Sometimes has heartburn. ; Denies abdominal pain, constipation, diarrhea, dyspepsia, hematemesis, hematochezia, nausea or vomiting Genitourinary Genitourinary: Denies dysuria, hematuria, nocturia, urinary frequency, urinary hesitancy, urinary incontinence or urinary urgency Musculoskeletal Musculoskeletal: Denies back pain, joint pain, joint swelling or neck pain Integumentary Integumentary: Denies alopecia or jaundice Neurologic Neurologic: Reports abnormal speech, dizziness and paresthesias; Denies confusion, disequilibrium, focal weakness, headache(s), seizures, tremor(s) or vertigo Psychiatric Psychiatric: Denies anxiety, depression, homicidal ideation or suicidal ideation Endocrine Endocrinology: Denies change in body appearance, polydipsia or polyuria Hematologic/Lymphatic Hematologic/Lymphatic: Denies easy bleeding, easy bruising or lymphadenopathy Allergic/Immunologic Allergic/Immunologic: Denies rhinitis, eczemia or asthma Vital Signs Vital Signs Vital Signs: 04/09/25 16:28 04/09/25 16:48 04/09/25 17:47 Temperature 98.1 F 98.1 F Temperature Source Temporal Temporal Pulse Rate 63 63 Pulse Strength Respiratory Rate 18 18 Respiratory Effort Normal Non-Labored Respiratory Depth Normal Respiratory Pattern Normal Blood Pressure 149/83 H 149/83 H Blood Pressure Mean 105 105 Blood Pressure Source Monitor Monitor Blood Pressure Position Semi-Fowlers Blood Pressure Location Right Arm Pulse Ox 95 95 Oxygen Delivery Method Room Air Room Air Room Air 04/09/25 19:50 04/09/25 19:50 04/10/25 05:00 Temperature 97.7 F L Temperature Source Temporal Pulse Rate 63 61 Pulse Strength Normal (2+) Respiratory Rate 18 17 Respiratory Effort Normal Non-Labored Respiratory Depth Normal Respiratory Pattern Normal Blood Pressure 145/80 H Blood Pressure Mean 101 Blood Pressure Source Monitor Blood Pressure Position Semi-Fowlers Blood Pressure Location Left Arm Pulse Ox 95 94 Oxygen Delivery Method Room Air Room Air 04/10/25 10:00 04/10/25 10:00 Temperature Temperature Source Pulse Rate 60 Pulse Strength Normal (2+) Respiratory Rate 16 Respiratory Effort Normal Non-Labored Respiratory Depth Normal Respiratory Pattern Normal Blood Pressure Blood Pressure Mean Blood Pressure Source Blood Pressure Position Blood Pressure Location Pulse Ox 96 Oxygen Delivery Method Room Air Weight Weight: 205 lb 3.194 oz Body Mass Index (BMI) 29.4 Indicators for Scoring Admitted with or Primary Diagnosis of CVA/Stroke: Yes Hx of CVA/Stroke: Yes Modified [place] Score MRS Score at time of Evaluation: 3-Moderate disability NIHSS NIHSS 1a. Level of Consciousness: 0 - Alert; keenly responsive 1b. LOC Questions: 0 - Answers BOTH questions correctly 1c. LOC Commands: 0 - Performs BOTH tasks correctly 2. Best Gaze: 0 - Normal 3. Visual: 0 - No visual loss 4. Facial Palsy: 1 - Minor paralysis (flattened nasolabial fold, asymmetry on smiling) (Flattened nasolabial fold on the right with mild asymmetry of the smile. ) 5a. Left Arm: 0 - No drift; arm holds 90 (or 45) degrees for full 10 seconds 5b. Right Arm: 0 - No drift; arm holds 90 (or 45) degrees for full 10 seconds 6a. Left Le - No drift; leg holds 30-degree position for full 5 seconds 6b. Right Le - No drift; leg holds 30-degree position for full 5 seconds 7. Limb Ataxia: 0 - Absent 8. Sensory: 1 - [id number] sensory loss; (R face feels different with pinprick that the left. ) 9. Best Language: 0 - No aphasia; normal 10. Dysarthria: 1 = Aaog-bs-goocjurd dysarthria; 11. Extinction and Inattention: 0 - No abnormality Total: 3 Stroke Questions Stroke Team Activated: No Physical Exam Const alert and no apparent distress General Appearance: cooperative, comfortable and well kempt HEENT normocephalic and head/scalp atraumatic HEENT Narrative: Dry MM, no thrush. + halitosis. He has a pronounced overbite and a narrow mouth. Mouth: dry mucous membranes Teeth and Gingiva: teeth discoloration Eyes PERRL, EOMs intact bilaterally, conjunctivae normal and no scleral icterus Eyes Narrative: No discharge from the eyes. No visual field cuts. Neck supple, No nodes and no carotid bruits General: trachea midline Chest Chest: symmetrical chest wall rise Resp normal respiratory effort, no use of accessory muscles and clear to auscultationbilaterally Resp Narrative: Not coughing with deep breaths. Breath sounds are mildly diminished but I thinkthis is due to decreased effort rather than any significant lung disease Effort and Inspection: able to speak in complete sentences Cardio regular rate, regular rhythm, S1 normal heart sound, S2 normal heart sound, no murmurs, no rub, no gallops and peripheral pulses 2+ throughout Cardio Narrative: No ectopy GI normal to inspection, nondistended, normoactive bowel sounds, soft to palpation and non-tender GI Narrative: No erythema around the PEG site and no discharge noted. He had no pain with palpation around the PEG. Extremity no calf tenderness and no pedal edema Skin no jaundice General Skin Exam: no breakdown Rashes: no rashes Neuro Neuro Narrative: Speech is somewhat slurred. He has a mild R facial droop and decreased sensation in the right face when compared to the left. Pupils are equal round and reactive to light. Smooth pursuit. No nystagmus. Extraocular muscles are intact. No visual field cuts. Tongue protruded on the midline. No drift with any of the extremities. Excellent plantar flexion and dorsiflexion bilaterally. I did not observe him ambulating. No aphasia. No ataxia. No extinction. Psych cooperative, affect normal, denies hallucinations, denies homicidal ideation anddenies suicidal ideation Appearance: appropriate and well kempt Attitude: calm Activity / Motor Behavior: appropriate eye contact Assessment & Plan Assessment/Plan (1) Debility: (2) CVA (cerebral vascular accident): QUALIFIERS: CVA mechanism: embolism Precerebral and cerebral artery: unspecified cerebral artery Qualified Code(s): I63.40 - Cerebral infarction due to embolism of unspecified cerebral artery (3) Dysphagia due to recent cerebral infarction: (4) Dysarthria: (5) Erosive esophagitis: (6) Overweight (BMI 25.0-29.9): (7) Dyslipidemia: (8) Tobacco dependence in remission: (9) Loud snoring: PLAN: Plan PLAN PT for gait stability OT for ADL's ST for evaluation Analgesics as needed Bowel protocol Fall precautions Assess for Anxiety/Depression GI prophylaxis -lansoprazole 30 mg daily DVT prophylaxis with Lovenox Follow up with neurology, PCP following DC from [facility]. I suspect he may have an esophageal problem......would like him to see GI at some point. Await the results of the MBS to be done on Monday. If there is esophageal retention with reflux will have GI see him sooner rather than later. AM lab including CMP, CBC, Mag and Phos Overnight trending pulse ox tonight. The strokes are consistent with emboli. Echocardiogram shows normal left ventricular systolic and diastolic function with no wall motion abnormalities. There were no thrombi in the heart and the atria are normal size. No PFO. Carotids have less than 50% stenosis bilaterally. The notes say the CTA was unremarkable but we requested CTA results and they were not sent to us so I question whether 1 was actually done. He snores loudly and stops breathing at night. He falls asleep easily during the day, when reading and even talking to people. He has a marked overbite with a narrow mouth and I suspect he has sleepapnea. Definitely needs an event monitor at discharge. Will do an overnight trending pulse ox and if it is abnormal start him on oxygen supplementation at night. Will try and get a sleep study on the night of DC if the overnight trending pulse ox is abnormal Transition him to bolus feedings. Yen water protocol initiated. MBS planned for Monday. Scored 43/50 on BCAT. Charges/Coding Visit Charges Inpatient E&M: 60901 Init Hosp L3 04/10/25 4491 <Electronically signed by Sheri De León DO> Cosigner Signature (if applicable): CC: Dr. Sheri De León DO; No Primary Care Physician~ Signed [facility] Work Phone: [phone]) 166-397907-03-2025 History and physical note [facility] Medical Records Department [address] [place] [address] History & Physical Exam 04/10/25 1212 MR#: [id number] Acct: [id number] Name: CHARLES RUSSELL Rep #:[id number] : 1970 54 From: Sheri De León DO PCP: Care Physician,No Primary Status :ADM IN Location: [address] HPI - General General Date of Admission: 04/09/25 Date of Service: 04/10/25 Chief Complaint: Post stroke debility HPI Narrative CHARLES RUSSELL, is a 54 YO M with no significant PMH, on no medications and not following with the PCP who had waxing and waning nausea and dizziness for a fewdays and then went on to develop trouble swallowing and difficulty walking. He also complained of numbness on the right side of his face. He finally went to [facility] emergency department to be evaluated. At presentationto theED he had slurred speech, facial droop and drift with the R leg. NC CT brain was unremarkable with no acute abnormalities. A PN states CTA of the H&Nwere unremarkable......the actual radiology report of the test was not included in the documentation we received. He was admitted to the hospitalist service diann evaluated for CVA. Carotid duplex revealed less than 50% per documentation in the progress note. A transthoracic echocardiogram showed normal left ventricular function but once again we did not receive the report. A noncontrast MRI of the brain showed multiple foci of restricted diffusion throughout the right cerebellum and right medulla concerning for embolic infarcts. RBS was increased in the emergency department at 145 and the lab was otherwise unremarkable in the ED. Subsequent labs showed hemoglobin A1c was 5.7. LDL was 111 with a low HDL of 34. TSH was normal. He was given a loading dose of 300 mg of ASA. He failed a swallowing eval in the ED. He was seen by ST zhang a bedside exam but, no MBS or FEES was done. They recommended NPO and PEG tube insertion. A PEG was inserted by surgery on 04/08/25. The surgeon reported he had severe erosive esophagitis. He was seen byPT/OT and while at [facility] [place] and acute rehab was recommended. He was transferred to the acute inpatient rehab unit at [facility] on 04/09/25 for 3 hours of therapy daily. A 30 day event monitor was ordered by the previous hospital. We will have family bring the device in forus to apply when it arrives in the mail. The med list was reviewed. He is on only ASA, no Plavix. He is not anticoagulated. No AF was reported in any of the documentation we received. Heis on enoxaparin 40 mg subcu daily for DVT prophylaxis. He will take lansoprazole 30 mg daily for treatment of erosive esophagitis. He was placed onLipitor 40 mg daily at the previous hospital. He was getting continuous TF and most recent residual is 300...........he is to start Bolus feedings today at 6 PM. Why does he have erosive esophagitis? Did not see GI at the previous hospital. Afebrile Blood pressure has ranged from 145/88 to 149/83 since arrival in rehab. Heart rate is ranged from 60-63. His tells me that he Snores very loudly and she also tells me that he stopsbreathing when sleeping. No RLS. He falls asleep reading all the time and can fall asleep when he is talking with someone. He has had episodic dizziness for some time but, he denies palpitations/racing heart. He sometimes can feel food sitting in his chest when eating and like it 'won't go down. Has heartburn at times. Sometimes food will come up after eating that looks like what it did when he ate it. Has been having this dizziness for months. [facility] Medical History (Updated 04/10/25 @ 18:[address] Sheri De León DO) Loud snoring Tobacco dependence in remission Overweight (BMI 25.0-29.9) Erosive esophagitis CVA (cerebral vascular accident) Hypertension Home Medications ?Medication ?Instructions ?Recorded ?Last Taken ?Type aspirin 81 mg chewable tablet 1 tab feeding tube DAILY heart 04/09/25 04/09/25 History (Aspirin [facility] atorvastatin 40 mg tablet (Lipitor) 40 mg feeding tube QHS cholesterol 04/09/25 Unknown History enoxaparin 40 mg/0.4 mL 40 mg subcut DAILY DVT proph ylaxis 04/09/25 04/09/25 History subcutaneous syringe (Lovenox) Allergy/AdvReac Type Severity Reaction Status Date / Time No Known Allergies Allergy Verified 04/09/25 17:05 Family History unable to obtain Surgical History no surgical history Social History (Updated 04/10/25 @ 15:[address] Sheri De León DO) household members: spouse and family housing: house Smoking Status: Former smoker ROS ROS Narrative Getting a straight answer out of this gentleman is very difficult. Constitutional Constitutional: Reports fatigue, snoring and stops breathing during sleep; Denies anorexia, change in weight, chills, fever(s), night sweats or weakness Eyes Eyes: Denies blurry vision, burning, change in vision or double vision ENT HEENT: Reports dysphagia; Denies abnormal hearing, headache(s), hearing loss, nasal congestion or sore throat Cardiovascular Cardiovascular: Reports dizziness and lightheadedness; Denies chest pain, dyspnea on exertion, edema, flutter in chest, orthopnea, palpitations, paroxysmal nocturnal dyspnea, pounding heartbeat, racing heartbeat or syncope Respiratory/Chest Respiratory/Chest: Denies cough, dyspnea, shortness of breath at rest, shortnessof breath with exertion or wheezing Gastrointestinal Gastrointestinal: Reports chewing difficulty and other Details: Feels like his food is not going all the way to the stomach at times and he gets a fullness in his chest. Sometimes vomits food that looks undigested. Sometimes has heartburn. ; Denies abdominal pain, constipation, diarrhea, dyspepsia, hematemesis, hematochezia, nausea or vomiting Genitourinary Genitourinary: Denies dysuria, hematuria, nocturia, urinary frequency, urinary hesitancy, urinary incontinence or urinary urgency Musculoskeletal Musculoskeletal: Denies back pain, joint pain, joint swelling or neck pain Integumentary Integumentary: Denies alopecia or jaundice Neurologic Neurologic: Reports abnormal speech, dizziness and paresthesias; Denies confusion, disequilibrium, focal weakness, headache(s), seizures, tremor(s) or vertigo Psychiatric Psychiatric: Denies anxiety, depression, homicidal ideation or suicidal ideation Endocrine Endocrinology: Denies change in body appearance, polydipsia or polyuria Hematologic/Lymphatic Hematologic/Lymphatic: Denies easy bleeding, easy bruising or lymphadenopathy Allergic/Immunologic Allergic/Immunologic: Denies rhinitis, eczemia or asthma Vital Signs Vital Signs Vital Signs: 04/09/25 16:28 04/09/25 16:48 04/09/25 17:47 Temperature 98.1 F 98.1 F Temperature Source Temporal Temporal Pulse Rate 63 63 Pulse Strength Respiratory Rate 18 18 Respiratory Effort Normal Non-Labored Respiratory Depth Normal Respiratory Pattern Normal Blood Pressure 149/83 H 149/83 H Blood Pressure Mean 105 105 Blood Pressure Source Monitor Monitor Blood Pressure Position Semi-Fowlers Blood Pressure Location Right Arm Pulse Ox 95 95 Oxygen Delivery Method Room Air Room Air Room Air 04/09/25 19:50 04/09/25 19:50 04/10/25 05:00 Temperature 97.7 F L Temperature Source Temporal Pulse Rate 63 61 Pulse Strength Normal (2+) Respiratory Rate 18 17 Respiratory Effort Normal Non-Labored Respiratory Depth Normal Respiratory Pattern Normal Blood Pressure 145/80 H Blood Pressure Mean 101 Blood Pressure Source Monitor Blood Pressure Position Semi-Fowlers Blood Pressure Location Left Arm Pulse Ox 95 94 Oxygen Delivery Method Room Air Room Air 04/10/25 10:00 04/10/25 10:00 Temperature Temperature Source Pulse Rate 60 Pulse Strength Normal (2+) Respiratory Rate 16 Respiratory Effort Normal Non-Labored Respiratory Depth Normal Respiratory Pattern Normal Blood Pressure Blood Pressure Mean Blood Pressure Source Blood Pressure Position Blood Pressure Location Pulse Ox 96 Oxygen Delivery Method Room Air Weight Weight: 205 lb 3.194 oz Body Mass Index (BMI) 29.4 Indicators for Scoring Admitted with or Primary Diagnosis of CVA/Stroke: Yes Hx of CVA/Stroke: Yes Modified Chrissie Score MRS Score at time of Evaluation: 3-Moderate disability NIHSS NIHSS 1a. Level of Consciousness: 0 - Alert; keenly responsive 1b. LOC Questions: 0 - Answers BOTH questions correctly 1c. LOC Commands: 0 - Performs BOTH tasks correctly 2. Best Gaze: 0 - Normal 3. Visual: 0 - No visual loss 4. Facial Palsy: 1 - Minor paralysis (flattened nasolabial fold, asymmetry on smiling) (Flattened nasolabial fold on the right with mild asymmetry of the smile. ) 5a. Left Arm: 0 - No drift; arm holds 90 (or 45) degrees for full 10 seconds 5b. Right Arm: 0 - No drift; arm holds 90 (or 45) degrees for full 10 seconds 6a. Left Le - No drift; leg holds 30-degree position for full 5 seconds 6b. Right Le - No drift; leg holds 30-degree position for full 5 seconds 7. Limb Ataxia: 0 - Absent 8. Sensory: 1 - Msmi-ee-xluozpsn sensory loss; (R face feels different with pinprick that the left.) 9. Best Language: 0 - No aphasia; normal 10. Dysarthria: 1 = [id number] dysarthria; 11. Extinction and Inattention: 0 - No abnormality Total: 3 Stroke Questions Stroke Team Activated: No Physical Exam Const alert and no apparent distress General Appearance: cooperative, comfortable and well kempt HEENT normocephalic and head/scalp atraumatic HEENT Narrative: Dry MM, no thrush. + halitosis. He has a pronounced overbite and a narrow mouth. Mouth: dry mucous membranes Teeth and Gingiva: teeth discoloration Eyes PERRL, EOMs intact bilaterally, conjunctivae normal and no scleral icterus Eyes Narrative: No discharge from the eyes. No visual field cuts. Neck supple, No nodes and no carotid bruits General: trachea midline Chest Chest: symmetrical chest wall rise Resp normal respiratory effort, no use of accessory muscles and clear to auscultationbilaterally Resp Narrative: Not coughing with deep breaths. Breath sounds are mildly diminished but I thinkthis is due to decreased effort rather than any significant lung disease Effort and Inspection: able to speak in complete sentences Cardio regular rate, regular rhythm, S1 normal heart sound, S2 normal heart sound, no murmurs, no rub, no gallops and peripheral pulses 2+ throughout Cardio Narrative: No ectopy GI normal to inspection, nondistended, normoactive bowel sounds, soft to palpation and non-tender GI Narrative: No erythema around the PEG site and no discharge noted. He had no pain with palpation around the PEG. Extremity no calf tenderness and no pedal edema Skin no jaundice General Skin Exam: no breakdown Rashes: no rashes Neuro Neuro Narrative: Speech is somewhat slurred. He has a mild R facial droop and decreased sensation in the right face when compared to the left. Pupils are equal round and reactive to light. Smooth pursuit. No nystagmus. Extraocular muscles are intact. No visual field cuts. Tongue protruded on the midline. No drift with any of the extremities. Excellent plantar flexion and dorsiflexion bilaterally. I did not observe him ambulating. No aphasia. No ataxia. No extinction. Psych cooperative, affect normal, denies hallucinations, denies homicidal ideation anddenies suicidal ideation Appearance: appropriate and well kempt Attitude: calm Activity / Motor Behavior: appropriate eye contact Assessment & Plan Assessment/Plan (1) Debility: (2) CVA (cerebral vascular accident): QUALIFIERS: CVA mechanism: embolism Precerebral and cerebral artery: unspecified cerebral artery Qualified Code(s): I63.40 - Cerebral infarction due to embolism of unspecified cerebral artery (3) Dysphagia due to recent cerebral infarction: (4) Dysarthria: (5) Erosive esophagitis: (6) Overweight (BMI 25.0-29.9): (7) Dyslipidemia: (8) Tobacco dependence in remission: (9) Loud snoring: PLAN: Plan PLAN PT for gait stability OT for ADL's ST for evaluation Analgesics as needed Bowel protocol Fall precautions Assess for Anxiety/Depression GI prophylaxis -lansoprazole 30 mg daily DVT prophylaxis with Lovenox Follow up with neurology, PCP following DC from [facility]. I suspect he may have an esophageal problem......would like him to see GI at some point. Await the results of the MBS to be done on Monday. If there is esophageal retention with reflux will have GI see him sooner rather than later. AM lab including CMP, CBC, Mag and Phos Overnight trending pulse ox tonight. The strokes are consistent with emboli. Echocardiogram shows normal left ventricular systolic and diastolic function with no wall motion abnormalities. There were no thrombi in the heart and the atria are normal size. No PFO. Carotids have less than 50% stenosis bilaterally. The notes say the CTA was unremarkable but we requested CTA results and they were not sent to us so I question whether 1 was actually done. He snores loudly and stops breathing at night. He falls asleep easily during the day, when reading and even talking to people. He has a marked overbite with a narrow mouth and I suspect he has sleepapnea. Definitely needs an event monitor at discharge. Will do an overnight trending pulse ox and if it is abnormal start him on oxygen supplementation at night. Will try and get a sleep study on the night of DC if the overnight trending pulse ox is abnormal Transition him to bolus feedings. Yen water protocol initiated. MBS planned for Monday. Scored 43/50 on BCAT. Charges/Coding Visit Charges Inpatient E&M: 47778 Init Hosp L3 04/10/25 7820 Cosigner Signature (if applicable): CC: Dr. Sheri De León, DO; No Primary Care Physician~ Signed [facility]07-03-2025 [facility] Medical Records Department [address] [place] [address] History Physical Exam 04/10/25 1212 MR#: [id number] Acct: [id number] Name: CHARLES RUSSELL Rep #: [id number] : 1970 54 From: Sheri De León DO PCP: Care Physician,No Primary Status:ADM IN Location: [address] HPI - General General Date of Admission: 04/09/25 Date of Service: 04/10/25 Chief Complaint: Post stroke debility HPI Narrative CHARLES RUSSELL, is a 54 YO M with no significant PMH, on no medications and not following with the PCP who had waxing and waning nausea and dizziness for a few days and then went on to develop trouble swallowing and difficulty walking. He also complained of numbness on the right side of his face. He finally went to [facility] emergency department to be evaluated. At presentation to the ED he had slurred speech, facial droop and drift with the R leg. NC CT brain was unremarkable with no acute abnormalities. A PN states CTA of the H N were unremarkable......the actual radiology report of the test was not included in the documentation we received. He was admitted to the hospitalist service to be evaluated for CVA. Carotid duplex revealed less than 50% per documentation in the progress note. A transthoracic echocardiogram showed normal left ventricular function but once again we did not receive the report. A noncontrast MRI of the brain showed multiple foci of restricted diffusion throughout the right cerebellum and right medulla concerning for embolic infarcts. RBS was increased in the emergency department at 145 and the lab was otherwise unremarkable in the ED. Subsequent labs showed hemoglobin A1c was 5.7. LDL was 111 with a low HDL of 34. TSH was normal. He was given a loading dose of 300 mg of ASA. He failed a swallowing eval in the ED. He was seen by ST and had a bedside exam but, no MBS or FEES was done. They recommended NPO and PEG tube insertion. A PEG was inserted by surgery on 04/08/25. The surgeon reported he had severe erosive esophagitis. He was seen by PT/OT and ST while at [facility] [place] and acute rehab was recommended. He was transferred to the acute inpatient rehab unit at [facility] on 04/09/25 for 3 hours of therapy daily. A 30 day event monitor was ordered by the previous hospital. We will have family bring the device in for us to apply when it arrives in the mail. The med list was reviewed. He is on only ASA, no Plavix. He is not anticoagulated. No AF was reported in any of the documentation we received. He is on enoxaparin 40 mg subcu daily for DVT prophylaxis. He will take lansoprazole 30 mg daily for treatment of erosive esophagitis. He was placed on Lipitor 40 mg daily at the previous hospital. He was getting continuous TF and most recent residual is 300...........he is to start Bolus feedings today at 6 PM. Why does he have erosive esophagitis? Did not see GI at the previous hospital. Afebrile Blood pressure has ranged from 145/88 to 149/83 since arrival in rehab. Heart rate is ranged from 60-63. His tells me that he Snores very loudly and she also tells me that he stops breathing when sleeping. No RLS. He falls asleep reading all the time and can fall asleep when he is talking with someone. He has had episodic dizziness for some time but, he denies palpitations/racing heart. He sometimes can feel food sitting in his chest when eating and like it 'won't go down. Has heartburn at times. Sometimes food will come up after eating that looks like what it did when he ate it. Has been having this dizziness for months. [facility] Medical History (Updated 04/10/25 @ 18:[address] Sheri De León, ) Loud snoring Tobacco dependence in remission Overweight (BMI 25.0-29.9) Erosive esophagitis CVA (cerebral vascular accident) Hypertension Home Medications ???Medication ???Instructions ???Recorded ???Last Taken ???Type aspirin 81 mg chewable tablet 1 tab feeding tube DAILY heart 12/0304/09/25 History ([facility]in [facility] health atorvastatin 40 mg tablet (Lipitor) 40 mg feeding tube QHS choleste rol 04/09/25 Unknown History enoxaparin 40 mg/0.4 mL 40 mg subcut DAILY DVT prophylaxis 04/09/25 04/09/25 History subcutaneous syringe (Lovenox) Allergy/AdvReac Type Severity Reaction Status Date / Time No Known Allergies Allergy Verified 04/09/25 17:05 Family History unable to obtain Surgical History no surgical history Social History (Updated 04/10/25 @ 15:[address] Sheri De León DO) household members: spouse and family housing: house Smoking Status: Former smoker ROS ROS Narrative Getting a straight answer out of this gentleman is very difficult. Constitutional Constitutional: Reports fatigue, snoring and stops breathing during sleep; Denies anorexia, change in nidia (more content not included)...[facility]07-02-2025 Evaluation note* Diagnosis Onset Date Resolution Status Admit Date CVA (cerebral vascular accident) acu te April 09, 2025 4:24pm Debility acute April 09, 2025 4:24pm Dysarthria acute April 09, 2025 4:24pm Dysphagia due to recent cere bral infarction acute April 09, 2025 4 :24pm Erosive esophagitis acute April 09, 2025 4:24pm Loud snoring acute April 09 4:24pm Tobacco dependence in remission acut e April 09, 2025 4:24pm Dyslipidemia chronic April 09 4:24pm Hypertension chronic April 09 4:24pm Overweight (BMI 25.0-29.9) chronic April 09, 2025 4:24pm Sleep-disordered breathing chronic April 09, 2025 4:24pm Nausea & vomiting resolved April 4:24pm [facility] Work Phone: 1(505) 532-471207-02-2025 Evaluation note* Diagnosis Onset Date Resolution Status Admit Date Debility acute April 09, 2025 4:24pm Erosive esophagitis acute April 09, 2025 4:24pm Loud snoring acute April 09 4:24pm Hypertension chronic April 09 4:24pm Sleep-disordered breathing chronic April 09, 2025 4:24pm Nausea & vomiting resolved April 4:24pm CVA (cerebral vascular accident) mary ctive April 09, 2025 4:24pm Dysarthria inactive April 09, 2025 4:24pm Dyslipidemia inactive April 09 4:24pm Dysphagia due to recent cere bral infarction inactive April 09, 2025 4 :24pm Overweight (BMI 25.0-29.9) inactive April 09, 2025 4:24pm Tobacco dependence in remission inac tiApril 09, 2025 4:24pm [facility] Work Phone: 1(891) 653-256007-02-2025 Evaluation note* Diagnosis Onset Date Resolution Status Admit Date Debility acute April 09, 2025 4:24pm Dysphagia due to recent cere bral infarction acute April 09, 2025 4 :24pm Erosive esophagitis acute April 09, 2025 4:24pm Loud snoring acute April 09 4:24pm Hypertension chronic April 09 4:24pm Sleep-disordered breathing chronic April 09, 2025 4:24pm Nausea & vomiting resolved April d2024 4:24pm CVA (cerebral vascular accident) mary ctive April 09, 2025 4:24pm Dysarthria inactive April 09, 2025 4:24pm Dyslipidemia inactive April 09 4:24pm Overweight (BMI 25.0-29.9) inactive April 09, 2025 4:24pm Tobacco dependence in remission inac tive April 09, 2025 4:24pm [facility] Work Phone: 1(526) 835-474807-02-2025 Evaluation note* Diagnosis Onset Date Resolution Status Admit Date Debility acute April 09, 2025 4:24pm Dysphagia due to recent cerebral infarction acute April 09 4:24pm Erosive esophagitis acute April 09, 2025 4:24pm Loud snoring acute April 09 4:24pm Hypertension chronic April 09 4:24pm Sleep-disordered breathing chronic April 09, 2025 4:24pm Nausea & vomiting resolved April 4:24pm CVA (cerebral vascular accident) inactive April 09, 2025 4 :24pm Dysarthria inactive April 09, 2025 4:24pm Dyslipidemia inactive April 09 4:24pm Overweight (BMI 25.0-29.9) inactive April 09, 2025 4:24pm Tobacco dependence in remission inac tive April 09, 2025 4:24pm Dysphagia due to recent cerebral infarction acute May 01, 2 025 8:56am Erosive esophagitis acute May 01, 2025 8:56am [facility] Work Phone: 1(908) 604-396607-02-2025 Evaluation note* Diagnosis Onset Date Resolution Status Admit Date Debility acute April 09, 2025 4:24pm Dysphagia due to recent cerebral infarction acute April 09 4:24pm Erosive esophagitis acute April 09, 2025 4:24pm Loud snoring acute April 09 4:24pm Hypertension chronic April 09 4:24pm Sleep-disordered breathing chronic April 09, 2025 4:24pm Nausea & vomiting resolved April 4:24pm CVA (cerebral vascular accident) inactive April 09, 2025 4 :24pm Dysarthria inactive April 09, 2025 4:24pm Dyslipidemia inactive April 09 4:24pm Overweight (BMI 25.0-29.9) inactive April 09, 2025 4:24pm Tobacco dependence in remission inactive April 09, 2025 4 :24pm Dysphagia due to recent cerebral infarction acute May 01, 2 025 8:56am Erosive esophagitis acute May 01, 2025 8:56am Obstructive sleep apnea acute A ugust 2024 1:49pm [facility] Work Phone: 1(866) 417-145507-02-2025 Note Discharge Instructions Thank you for allowing [facility] to assist you with your healthcare needs. The following is importantdischarge information regarding your hospital visit. Your Care Team [facility] Your Diagnosis CVA (cerebrovascular accident) Dizziness Erosive esophagitis Hypertension Nausea What to do next Instructions From Your Doctor Patient was admitted due to ongoing dizziness, headache, nausea and vomiting as well as right facial numbness x [address] of the head and CTA head/neck were unremarkable. MRI of the brain confirmed small acute infarcts in the right cerebellum and right medulla, concerning to be embolic in nature. Carotid duplex ultrasound revealed less than 50% stenosis bilaterally. Echocardiogram shows normal function and no evidence of shunting. Patient has worked with PT and OT and progressed with his motorfunction. He was seen by speech therapy who stated that he is strict NPO for the foreseeable future. Due to the medullary stroke, it could be months before he regains swallow function. Patient had a PEG tube placed yesterday and we gave a bolus tube feed this morning of 240cc Osmolite 1.2. Our nitrocellulose operator recommended a goal of Jevity 70cc/hr with a 200cc flush every 6 hours. He could also be a bolus feed if he prefers. The PEG tube was placed by Dr. Ashutosh Tate, general surgery. He saw patient his morning who cleared him to use the PEG tube. Dr. Tate stated that he does not need to see patient in the office unless he has issues with the PEG tube. Dr. Tate noted during PEG tube placement that patient has pretty significant erosive esophagitis. We started Protonix 40 mg PEG BID. Patient will need an outpatient RUPINDER at some point but we are unable to perform those at [facility]. We sent in an order for a 30-day event monitor due to the suspicion that this stroke could have been embolic. Patient is medically optimized for discharge to [facility] today. Follow Up Appointments Follow Up with PHYSICIAN, NONE When:Within 5 to 7 days Additional Information: post-hospitalization follow-up Follow Up with ASHUTOSH TATE MD, Surgery Where:[address] [facility] [place] [address]- [phone] Additional Information: Feel free to call the surgeon if you have any issues with your G-tube. The Following Activity and Diet Have Been Ordered for You Transfer of Care Activity - Ordered -- As instructed by therapy, 04/09/25 11:54:00 EDT Transfer of Care Diet - Ordered -- 04/09/25 11:54:00 EDT The Following Equipment Has Been Ordered for You Discharge Home Equipment Discharge Tube Feeding (Tube Feeding on Discharge) - Ordered -- route: G-tube, Jevity 1.2 Sergio, Patient can be 70cc/hr continuously at goal. Recommend starting at 25cc/hr and gradually increase. 200cc water flush q6 hours. Transfer of Care Wound Care - Ordered -- 04/09/25 11:54:00 EDT The Following Treatments Have Been Ordered for You Discharge Labs No qualifying data available. Discharge Radiology No qualifying data available. Other Therapies Discharge Event Monitor Instructions - Ordered -- 04/09/25 9:05:03 EDT, You have been ordered mobile outpatient telemetry. You should receive a device in the mail with further instructions. If you have not received a device within 14 days after discharge, please call [facility] at [phone]. Transfer of Care OT - Ordered -- Reason for therapy: weakness, 04/09/25 11:54:00 EDT Transfer of Care PT - Ordered -- Reason for therapy: Weakness, 04/09/25 11:54:00 EDT Transfer of Care Speech Therapy - Ordered -- Reason for therapy: dyphagia, Patient is strict NPO, 04/09/25 11:54:00 EDT Post Acute Orders Transfer of Care Admission Level of Care - Ordered -- Level of Care SNF, 04/09/25 11:54:53 EDT Transfer of Care Code Status - Ordered -- Full Code, Constant Order Transfer of Care Orders Electronically Signed By - Ordered -- 04/09/25 11:54:00 EDT, PRINCESS FINCH APRN-ANJALI Transfer of Care Prognosis - Ordered -- Fair, Patient Aware: Yes Transfer of Care Rehab Potential - Ordered -- Rehab potential fair, 04/09/25 11:54:53 EDT Allergies NKA Medications Please ask your primary doctor or pharmacist before taking any other medication not listed, including over the counter drugs, herbal medications, vitamins and or supplements as they may interact withyour home medications. What How Much When Instructions Last Dose New aspirin (aspirin 81 mg oral tablet, chewable) 1 tab(s) PEG tube Once a day with a meal 04/09/25 9:21a.m. New atorvastatin (atorvastatin 40 mg oral tablet) 1 tab(s) PEG tube Once a day N/A New enoxaparin (Lovenox) 40 Milligram Subcutaneous Once a day 04/09/25 11:47a.m. New esomeprazole (NexIUM 20 mg oral delayed release capsule) 2 cap PEG tube Once a day N/A Please take this list to your next doctor s visit. Bring all medications you take, including over the counter medications, herbals and other supplements with you to your doctor s visit. Patients and families are reminded to discard old lists and to update any records with all medication providers or retail pharmacies. Education Materials Ischemic Stroke An ischemic stroke is the sudden of brain tissue. Blood carries oxygen to all areas of the body. This type of stroke happens when your blood does not flow to your brain like normal. Your brain cannot get the oxygen it needs. This is an emergency. It must be treated right away. Symptoms of a stroke usually happen all of a sudden. You may notice them when you wake up. They caninclude: Weakness or loss of feeling in your face, arm, or leg. This often happens on one side of the body. Trouble walking. Trouble moving your arms or legs. Loss of balance or coordination. Feeling confused. Trouble talking or understanding what people are saying. Slurred speech. Trouble seeing. Seeing two of one object (double vision). Feeling dizzy. Feeling sick to your stomach (nauseous) and throwing up (vomiting). A very bad headache for no reason. Get help as soon as any of these problems start. This is important. Some treatments work better if they are given right away. These include: Aspirin. Medicines to control blood pressure. A shot (injection) of medicine to break up the blood clot. Treatments given in the blood vessel (artery) to take out the clot or break it up. Other treatments may include: Oxygen. Fluids given through an IV tube. Medicines to thin out your blood. Procedures to help your blood flow better. What increases the risk? Certain things may make you more likely to have a stroke. Some of these are things that you can change, such as: Being very overweight (obesity). Smoking. Taking control pills. Not being active. Drinking too much alcohol. Using drugs. Other risk factors include: High blood pressure. High cholesterol. Diabetes. Heart disease. Being , , , or . Being over age 60. Family history of stroke. Having had blood clots, stroke, or warning stroke (transient ischemic attack, TIA) in the past. Sickle cell disease. Being a woman with a history of high blood pressure in (preeclampsia). Migraine headache. Sleep apnea. Having an irregular heartbeat (atrial fibrillation). Long-term (chronic) diseases that cause soreness and swelling (inflammation). Disorders that affect how your blood clots. Follow these instructions at home: Medicines Take asib-uxh-bgyshxu and prescription medicines only as told by your doctor. If you were told to take aspirin or another medicine to thin your blood, take it exactly as told byyour doctor. ? Taking too much of the medicine can cause bleeding. ? If you do not take enough, it may not work as well. Know the side effects of your medicines. If you are taking a blood thinner, make sure you: ? Hold pressure over any cuts for longer than usual. ? Tell your dentist and other doctors that you take this medicine. ? Avoid activities that may cause damage or injury to your body. Eating and drinking Follow instructions from your doctor about what you cannot eat or drink. Eat healthy foods. If you have trouble with swallowing, do these things to avoid choking: ? Take small bites when eating. ? Eat foods that are soft or pureed. Safety Follow instructions from your health care team about physical activity. Use a walker or cane as told by your doctor. Keep your home safe so you do not fall. This may include: ? Having experts look at your home to make sure it is safe. ? Putting grab bars in the bedroom and bathroom. ? Using raised toilets. ? Putting a seat in the shower. General instructions Do not use any tobacco products. ? Examples of these are cigarettes, chewing tobacco, and e-cigarettes. ? If you need help quitting, ask your doctor. Limit how much alcohol you drink. This means no more than 1 drink a day for non women and 2drinks a day for men. One drink equals 12 oz of beer, 5 oz of wine, or 1 oz of hard liquor. If you need help to stop using drugs or alcohol, ask your doctor to refer you to a program or specialist. Stay active. Exercise as told by your doctor. Keep all follow-up visits as told by your doctor. This is important. Get help right away if: You have any signs of a stroke. BE FAST is an easy way to remember the main warning signs: ? B - Balance. Signs are dizziness, sudden trouble walking, or loss of balance. ? E - Eyes. Signs are trouble seeing or a change in how you see. ? F - Face. Signs are sudden weakness or loss of feeling of the face, or the face or eyelid drooping on one side. ? A - Arms. Signs are weakness or loss of feeling in an arm. This happens suddenly and usually on oneside of the body. ? S - Speech. Signs are sudden trouble speaking, slurred speech, or trouble understanding what peoplesay. ? T - Time. Time to call emergency services. Write down what time symptoms started. You have other signs of a stroke, such as: ? A sudden, very bad headache with no known cause. ? Feeling sick to your stomach (nausea). ? Throwing up (vomiting). ? Jerky movements you cannot control (seizure). These symptoms may be an emergency. Do not wait to see if the symptoms will go away. Get medical help right away. Call your local emergency services (911 in the [place] Do not drive yourself to the hospital. Summary An ischemic stroke is the sudden of brain tissue. Symptoms of a stroke usually happen all of a sudden. You may notice them when you wake up. Get help if you have any warning signs of a stroke. This is important. Some treatments work better if they are given right away. This information is not intended to replace advice given to you by your health care provider. Make sure you discuss any questions you have with your health care provider. Document Released: 09/13/2012 Document Revised: 03/06/2019 Document Reviewed: 12/21/2016 [employer] Patient Education 2020 [employer] Stroke Prevention Some medical conditions and lifestyle choices can lead to a higher risk for a stroke. You can help to prevent a stroke by making nutrition, lifestyle, and other changes. What nutrition changes can be made? Eat healthy foods. ? Choose foods that are high in fiber. These include: ? Fresh fruits. ? Fresh vegetables. ? Whole grains. ? Eat at least 5 or more servings of fruits and vegetables each day. Try to fill half of your plate at each meal with fruits and vegetables. ? Choose lean protein foods. These include: ? Lowfat (lean) cuts of meat. ? Chicken without skin. ? Fish. ? Tofu. ? Beans. ? Nuts. ? Eat low-fat dairy products. ? Avoid foods that: ? Are high in salt (sodium). ? Have saturated fat. ? Have trans fat. ? Have cholesterol. ? Are processed. ? Are premade. Follow eating guidelines as told by your doctor. These may include: ? Reducing how many calories you eat and drink each day. ? Limiting how much salt you eat or drink each day to 1,500 milligrams (mg). ? Using only healthy fats for cooking. These include: ? [place] oil. ? Canola oil. ? [place] oil. ? Counting how many carbohydrates you eat and drink each day. What lifestyle changes can be made? Try to stay at a healthy weight. Talk to your doctor about what a good weight is for you. Get at least 30 minutes of moderate physical activity at least 5 days a week. This can include: ? Fast walking. ? Biking. ? Swimming. Do not use any products that have nicotine or tobacco. This includes cigarettes and e-cigarettes. If you need help quitting, ask your doctor. Avoid being around tobacco smoke in general. Limit how much alcohol you drink to no more than 1 drink a day for non women and 2 drinks aday for men. One drink equals 12 oz of beer, 5 oz of wine, or 1 oz of hard liquor. Do not use drugs. Avoid taking control pills. Talk to your doctor about the risks of taking control pillsif: ? You are over 35 years old. ? You smoke. ? You get migraines. ? You have had a blood clot. What other changes can be made? Manage your cholesterol. ? It is important to eat a healthy diet. ? If your cholesterol cannot be managed through your diet, you may also need to take medicines. Take medicines as told by your doctor. Manage your diabetes. ? It is important to eat a healthy diet and to exercise regularly. ? If your blood sugar cannot be managed through diet and exercise, you may need to take medicines. Take medicines as told by your doctor. Control your high blood pressure (hypertension). ? Try to keep your blood pressure below 130/80. This can help lower your risk of stroke. ? It is important to eat a healthy diet and to exercise regularly. ? If your blood pressure cannot be managed through diet and exercise, you may need to take medicines.Take medicines as told by your doctor. ? Ask your doctor if you should check your blood pressure at home. ? Have your blood pressure checked every year. Do this even if your blood pressure is normal. Talk to your doctor about getting checked for a sleep disorder. Signs of this can include: ? Snoring a lot. ? Feeling very tired. Take pegy-jof-qeveyjl and prescription medicines only as told by your doctor. These may include aspirin or blood thinners (antiplatelets or anticoagulants). Make sure that any other medical conditions you have are managed. Where to find more information [place] Stroke Association: www.strokeassociation.org National Stroke Association: www.stroke.org Get help right away if: You have any symptoms of stroke. BE FAST is an easy way to remember the main warning signs: ? B - Balance. Signs are dizziness, sudden trouble walking, or loss of balance. ? E - Eyes. Signs are trouble seeing or a sudden change in how you see. ? F - Face. Signs are sudden weakness or loss of feeling of the face, or the face or eyelid drooping on one side. ? A - Arms. Signs are weakness or loss of feeling in an arm. This happens suddenly and usually on oneside of the body. ? S - Speech. Signs are sudden trouble speaking, slurred speech, or trouble understanding what peoplesay. ? T - Time. Time to call emergency services. Write down what time symptoms started. You have other signs of stroke, such as: ? A sudden, very bad headache with no known cause. ? Feeling sick to your stomach (nausea). ? Throwing up (vomiting). ? Jerky movements you cannot control (seizure). These symptoms may represent a serious problem that is an emergency. Do not wait to see if the symptoms will go away. Get medical help right away. Call your local emergency services (911 in the [place] Do not drive yourself to the hospital. Summary You can prevent a stroke by eating healthy, exercising, not smoking, drinking less alcohol, and treating other health problems, such as diabetes, high blood pressure, or high cholesterol. Do not use any products that contain nicotine or tobacco, such as cigarettes and e-cigarettes. Get help right away if you have any signs or symptoms of a stroke. This information is not intended to replace advice given to you by your health care provider. Make sure you discuss any questions you have with your health care provider. Document Released: 03/26/2013 Document Revised: 11/21/2019 Document Reviewed: 12/27/2017 Else[employer] Patient Education 2020 [employer] Additional Information VACCINATE! IT SAVES LIVES! Members of the community who have not yet received the COVID-19 vaccine and would like to receive it can visit one of [facility] vaccine clinics. There are many vaccine clinic locations within the [facility]. For locations and available times, please visit https://gettheshot.coronavirus.[place].gov/. It is important to note that some COVID mobile vaccine clinics are held outdoors and may be canceled in rainy or stormy conditions. To learn more about pediatric vaccinations (ages 5-11), we invite you to visit the [facility] webpage. https://www.[email or web address]/pages/[email or web address] stions.htmlTo learn more about the COVID-19 vaccine, we invite you to visit the CDC website for a list of frequently asked questions.https://www.cdc.gov/coronavirus/2019-ncov/vaccines/faq.html [email or web address] Patient Portal Access Instructions: Stay connected with your healthcare team and access your personal medical information anytime with the [email or web address] Patient Portal. Please follow the directions below to create your [facility] account: 1.Access the email account you provided upon registration to the hospital/physician office.2.Look for an invitation email from [facility].3.Open the email and access the invitation link: AcceptInvitation to [facility].4.Fill in the required sears to create your account. To access your account, visit [facility]. Click the blue button labeled Access Patient Portal and then log in with the username and password that you created in the steps above. You will be able to view your test results, lab results, a summary of your visits, upcoming appointments and more. There is also a convenient messaging option where you can send secure messages to your p rovider. In addition, you will have the ability to download any documents or summaries to your computer and/or send the information securely to a physician. Remember that your healthcare information is confidential, so carefully consider who you will allowto register on the [facility] Patient Portal for access to your information. You can also access the [facility] Patient Portal on the [facility]. Simply click on Patient Portal and then log into your account. If you would like to receive a full copy of your medical records, please contact the [facility] Medical Records Department by calling [phone], Monday through Monday between 8 a.m. and 4:30 p.m. HOW TO SAFELY DISPOSE OF PRESCRIPTION MEDICATIONS Please use one of the following methods to safely dispose of your unused medications. 1.Use a drug disposal kit: the drug disposal pouch allows you to safely discard your old and unuseddrugs. Ask your nurse to give you one when you are discharged.2.Visit a local take-back location: Many local pharmacies and police departments have programs that collect old and unwanted prescriptiondrugs. Call your local pharmacy or go to http://Atlas Guides.Passworks/0T2Jn2m to find one close to you.3.Make use of household items: Use cat litter or old coffee grounds to dispose medications if other options arenot available. Mix your drugs with these household products, seal them in an airtight container andthrow it into the garbage. Call [facility]: [phone] to be sure your drugs can be disposed of in this way. Some medicines may require a different approach.4.Never flush your medications down the toilet. IF YOU HAVE BEEN PRESCRIBED AN OPIOID FOR PAIN If you have been prescribed an opioid (such as hydrocodone, oxycodone or morphine), it is critical to understand the possible side effects and risks of opioid pain medications. Even when taken as directed, opioids can have several side effects including: Tolerance, meaning you might need to take more of a medication for the same pain relief. Nausea, vomiting and/or constipation. Sleepiness, dizziness, dry mouth, confusion, depression or itching. Physical dependence, meaning you have withdrawal symptoms when a medication is stopped, can develop within a few days. KNOW YOUR RESPONSIBILITIES It is important to know exactly how much and how often to take the opioid pain medications you are prescribed. Never take opioids in higher amounts or more often than prescribed. Do not combine opioids with alcohol or other drugs that cause drowsiness, such as benzodiazepines, also known as benzos, including diazepam and alprazolam, muscle relaxants or sleep aids. Never sell or share prescription opioids. This is illegal. Store opioids in a secure place and out of reach of others (including children, family, friends and visitors). The last page of this document has been signed and retained as a CHART COPY. Signatures Patient Education Materials Ischemic Stroke, Ftxd-lc-Gcrr Stroke Prevention, Dicp-fa-Czek Medication Leaflets My discharge plan and instructions have been reviewed and explained to me and I,CHRALES RUSSELL understand my current condition and have read and understand these discharge instructions. I have received a written copy of the plan/instructions. If I have questions, I am aware that I should contact my doctor. Patient/Vp Human Resources Signature: Date/Time: Relationship to Patient: Witness Name/Signature: Date/Time: [facility]07-02-2025 Hospital Discharge instructions Patient Education 04/09/2025 09:05:28 Ischemic Stroke, Qyuc-vu-Pfgq Ischemic Stroke An ischemic stroke is the sudden of brain tissue. Blood carries oxygen to all areas of the body. This type of stroke happens when your blood does not flow to your brain like normal. Your brain cannot get the oxygen it needs. This is an emergency. It must be treated right away. Symptoms of a stroke usually happen all of a sudden. You may notice them when you wake up. They caninclude: Weakness or loss of feeling in your face, arm, or leg. This often happens on one side of the body. Trouble walking. Trouble moving your arms or legs. Loss of balance or coordination. Feeling confused. Trouble talking or understanding what people are saying. Slurred speech. Trouble seeing. Seeing two of one object (double vision). Feeling dizzy. Feeling sick to your stomach (nauseous) and throwing up (vomiting). A very bad headache for no reason. Get help as soon as any of these problems start. This is important. Some treatments work better if they are given right away. These include: Aspirin. Medicines to control blood pressure. A shot (injection) of medicine to break up the blood clot. Treatments given in the blood vessel (artery) to take out the clot or break it up. Other treatments may include: Oxygen. Fluids given through an IV tube. Medicines to thin out your blood. Procedures to help your blood flow better. What increases the risk? Certain things may make you more likely to have a stroke. Some of these are things that you can change, such as: Being very overweight (obesity). Smoking. Taking control pills. Not being active. Drinking too much alcohol. Using drugs. Other risk factors include: High blood pressure. High cholesterol. Diabetes. Heart disease. Being , , , or . Being over age 60. Family history of stroke. Having had blood clots, stroke, or warning stroke (transient ischemic attack, TIA) in the past. Sickle cell disease. Being a woman with a history of high blood pressure in (preeclampsia). Migraine headache. Sleep apnea. Having an irregular heartbeat (atrial fibrillation). Long-term (chronic) diseases that cause soreness and swelling (inflammation). Disorders that affect how your blood clots. Follow these instructions at home: Medicines Take pugz-xfc-gbwjfrq and prescription medicines only as told by your doctor. If you were told to take aspirin or another medicine to thin your blood, take it exactly as told byyour doctor. ?Taking too much of the medicine can cause bleeding. ?If you do not take enough, it may not work as well. Know the side effects of your medicines. If you are taking a blood thinner, make sure you: ?Hold pressure over any cuts for longer than usual. ?Tell your dentist and other doctors that you take this medicine. ?Avoid activities that may cause damage or injury to your body. Eating and drinking Follow instructions from your doctor about what you cannot eat or drink. Eat healthy foods. If you have trouble with swallowing, do these things to avoid choking: ?Take small bites when eating. ?Eat foods that are soft or pureed. Safety Follow instructions from your health care team about physical activity. Use a walker or cane as told by your doctor. Keep your home safe so you do not fall. This may include: ?Having experts look at your home to make sure it is safe. ?Putting grab bars in the bedroom and bathroom. ?Using raised toilets. ?Putting a seat in the shower. General instructions Do not use any tobacco products. ?Examples of these are cigarettes, chewing tobacco, and e-cigarettes. ?If you need help quitting, ask your doctor. Limit how much alcohol you drink. This means no more than 1 drink a day for non women and 2drinks a day for men. One drink equals 12 oz of beer, 5 oz of wine, or 1 oz of hard liquor. If you need help to stop using drugs or alcohol, ask your doctor to refer you to a program or specialist. Stay active. Exercise as told by your doctor. Keep all follow-up visits as told by your doctor. This is important. Get help right away if: You have any signs of a stroke. BE FAST is an easy way to remember the main warning signs: ?B - Balance. Signs are dizziness, sudden trouble walking, or loss of balance. ?E - Eyes. Signs are trouble seeing or a change in how you see. ?F - Face. Signs are sudden weakness or loss of feeling of the face, or the face or eyelid droopingon one side. ?A - Arms. Signs are weakness or loss of feeling in an arm. This happens suddenly and usually on one side of the body. ?S - Speech. Signs are sudden trouble speaking, slurred speech, or trouble understanding what people say. ?T - Time. Time to call emergency services. Write down what time symptoms started. You have other signs of a stroke, such as: ?A sudden, very bad headache with no known cause. ?Feeling sick to your stomach (nausea). ?Throwing up (vomiting). ?Jerky movements you cannot control (seizure). These symptoms may be an emergency. Do not wait to see if the symptoms will go away. Get medical help right away. Call your local emergency services (911 in the [place] Do not drive yourself to the hospital. Summary An ischemic stroke is the sudden of brain tissue. Symptoms of a stroke usually happen all of a sudden. You may notice them when you wake up. Get help if you have any warning signs of a stroke. This is important. Some treatments work better if they are given right away. This information is not intended to replace advice given to you by your health care provider. Make sure you discuss any questions you have with your health care provider. Document Released: 09/13/2012 Document Revised: 03/06/2019 Document Reviewed: 12/21/2016 [employer] Patient Education 2020 [employer]. 04/09/2025 09:05:25 Stroke Prevention, Jhfu-cj-Cvwk Stroke Prevention Some medical conditions and lifestyle choices can lead to a higher risk for a stroke. You can help to prevent a stroke by making nutrition, lifestyle, and other changes. What nutrition changes can be made? Eat healthy foods. ?Choose foods that are high in fiber. These include: ?Fresh fruits. ?Fresh vegetables. ?Whole grains. ?Eat at least 5 or more servings of fruits and vegetables each day. Try to fill half of your plate at each meal with fruits and vegetables. ?Choose lean protein foods. These include: ?Lowfat (lean) cuts of meat. ?Chicken without skin. ?Fish. ?Tofu. ?Beans. ?Nuts. ?Eat low-fat dairy products. ?Avoid foods that: ?Are high in salt (sodium). ?Have saturated fat. ?Have trans fat. ?Have cholesterol. ?Are processed. ?Are premade. Follow eating guidelines as told by your doctor. These may include: ?Reducing how many calories you eat and drink each day. ?Limiting how much salt you eat or drink each day to 1,500 milligrams (mg). ?Using only healthy fats for cooking. These include: ?[place] oil. ?Canola oil. ?[place] oil. ?Counting how many carbohydrates you eat and drink each day. What lifestyle changes can be made? Try to stay at a healthy weight. Talk to your doctor about what a good weight is for you. Get at least 30 minutes of moderate physical activity at least 5 days a week. This can include: ?Fast walking. ?Biking. ?Swimming. Do not use any products that have nicotine or tobacco. This includes cigarettes and e-cigarettes. If you need help quitting, ask your doctor. Avoid being around tobacco smoke in general. Limit how much alcohol you drink to no more than 1 drink a day for non women and 2 drinks aday for men. One drink equals 12 oz of beer, 5 oz of wine, or 1 oz of hard liquor. Do not use drugs. Avoid taking control pills. Talk to your doctor about the risks of taking control pillsif: ?You are over 35 years old. ?You smoke. ?You get migraines. ?You have had a blood clot. What other changes can be made? Manage your cholesterol. ?It is important to eat a healthy diet. ?If your cholesterol cannot be managed through your diet, you may also need to take medicines. Takemedicines as told by your doctor. Manage your diabetes. ?It is important to eat a healthy diet and to exercise regularly. ?If your blood sugar cannot be managed through diet and exercise, you may need to take medicines. Take medicines as told by your doctor. Control your high blood pressure (hypertension). ?Try to keep your blood pressure below 130/80. This can help lower your risk of stroke. ?It is important to eat a healthy diet and to exercise regularly. ?If your blood pressure cannot be managed through diet and exercise, you may need to take medicines. Take medicines as told by your doctor. ?Ask your doctor if you should check your blood pressure at home. ?Have your blood pressure checked every year. Do this even if your blood pressure is normal. Talk to your doctor about getting checked for a sleep disorder. Signs of this can include: ?Snoring a lot. ?Feeling very tired. Take qxdv-ema-wnjvhfw and prescription medicines only as told by your doctor. These may include aspirin or blood thinners (antiplatelets or anticoagulants). Make sure that any other medical conditions you have are managed. Where to find more information [place] Stroke Association: www.strokeassociation.org National Stroke Association: www.stroke.org Get help right away if: You have any symptoms of stroke. BE FAST is an easy way to remember the main warning signs: ?B - Balance. Signs are dizziness, sudden trouble walking, or loss of balance. ?E - Eyes. Signs are trouble seeing or a sudden change in how you see. ?F - Face. Signs are sudden weakness or loss of feeling of the face, or the face or eyelid droopingon one side. ?A - Arms. Signs are weakness or loss of feeling in an arm. This happens suddenly and usually on one side of the body. ?S - Speech. Signs are sudden trouble speaking, slurred speech, or trouble understanding what people say. ?T - Time. Time to call emergency services. Write down what time symptoms started. You have other signs of stroke, such as: ?A sudden, very bad headache with no known cause. ?Feeling sick to your stomach (nausea). ?Throwing up (vomiting). ?Jerky movements you cannot control (seizure). These symptoms may represent a serious problem that is an emergency. Do not wait to see if the symptoms will go away. Get medical help right away. Call your local emergency services (911 in the [place] Do not drive yourself to the hospital. Summary You can prevent a stroke by eating healthy, exercising, not smoking, drinking less alcohol, and treating other health problems, such as diabetes, high blood pressure, or high cholesterol. Do not use any products that contain nicotine or tobacco, such as cigarettes and e-cigarettes. Get help right away if you have any signs or symptoms of a stroke. This information is not intended to replace advice given to you by your health care provider. Make sure you discuss any questions you have with your health care provider. Document Released: 03/26/2013 Document Revised: 11/21/2019 Document Reviewed: 12/27/2017 [employer] Patient Education 2019 [employer]. Follow Up Care 04/06/2025 15:50:57 With:PHYSICIAN, NONE Address: When:5 to 7 days Comments:post-hospitalization follow-up With:ASHUTOSH TATE MD, Surgery Address: [address] [facility] [place] [address]- [phone] When: Unknown Comments:Feel free to call the surgeon if you have any issues with your G-tube. [facility] 07-02-2025 Surgery Hospital Progress note Date of Service 04/09/25 Surgery progress note: Postop day 1 status post EGD and PEG tube placement. Patient has been afebrile. Vital signs stable. He is awake alert coherent cooperative in no distress. No complaints of abdominal pain. Just slightly sore right around the PEG tube site. Abdomen is softand benign nondistended nontender. Normal bowel sounds. PEG tube site appears to be clean and dry. Tube is draining yellowish-greenish gastric fluid. 130 cc output since placement yesterday. White blood count normal. Hemoglobin stable. Electrolytes unremarkable. Satisfactory postop check following placement of PEG tube. At this point the tube can be used for feeding at the discretion of the primary service. Patient is on twice daily Protonix due to the extensive ulcerative esophagitis and evidence of GERDseen on EGD as well as some erosive duodenitis. The IV Protonix could be switched to oral when he starts meds through the G-tube. Patient can go to rehab at any time from a surgical standpoint. Give patient my office number to contact as needed if there are problems with the PEG tube. Digitally Signed by ASHUTOSH TATE MD on 04/09/2025 08:11 AM [facility]07-01-2025 Note Date of Service 04/08/2025 Chief Complaint hiccups and difficulty managing secretions Subjective Patient seen and evaluated this morning while resting in bed, at bedside. Patient states that he is doing better this morning. He apparently had hiccups for quite some time overnight that were keeping him awake. He also had burning in his epigastric region that would not go away. The golf sales manager MEDICAL OFFICE SECRETARY gave him Ativan and Protonix IV and he was finally able to get some sleep. Dr. Ashutosh Tate, general surgery, is planning to take patient to OR this morning to place a PEG tube. Patient and encouraged that he is walking better already. is wondering if he still needs to go to rehab. advised that he can get more intensive therapy in inpatient rehab than he will be able to do with home health therapy. Patient encouraged to go to inpatient rehab. They will not keep him longer than he needs to be there and he will be able to have intensive speech therapy while there to help regain his swallowing abilities. Patient is agreeable to go. Patient is ready from a medical perspective to go today but Dr. Tate will advise us on when to start using the PEG tube so it could be garth orrow before he can go. Echo was read and shows normal cardiac function and no evidence of shunting. Explained to patient/ shunting. Labs are all stable. We will switch medications over to PEG tube as soon as Dr. Tate clears it to be used - most likely tomorrow. Patient denies any new problems or concerns this morning. All questions answered. Update: Dr. Tate called after PEG tube placement. He states that patient has erosive esophagitis. He recommends starting Protonix for patient. This was added overnight due to patient's complaint of heartburn but will increase to BID now. Dr. Tate will see patient in the morning and let us know if we can start using the PEG tube. Objective Vitals and Measurements T: 36.4 C (Oral) TMIN: 36.0 C (Temporal Artery) TMAX: 37 C (Oral) HR: 64 (Monitored) RR: 14 BP: 133/82 SpO2: 96% HT: 152.4 cm WT: 95.45 kg Intake and Output 7AM Yesterday to 7AM Today Intake and Output (Last 24 hours) Intake Administration Information 260.83 Output Urine Voided 300.00 Urine Count 1.00 Total Summary Total Intake 260.83 Total Output 300.00 Fluid Balance -39.17 Physical Exam General: No acute distress. Patient is alert and appropriate. Skin: No rash. Skin is warm, dry and intact. HEENT: Head is normocephalic, atraumatic. Pupils are equal, round and reactive. Neck: Supple. No lymphadenopathy, thyromegaly. Lungs: Bilaterally clear but diminished without crepitation or wheeze. Unlabored. Heart: Heart is regular rhythm, S1, S2. No murmurs, gallops or rubs. Abdomen: Abdomen is soft, nontender. Bowels sounds present in all quadrants. Extremities: No clubbing, cyanosis, or edema. Peripheral pulses palpable. No calf tenderness. Neurological: Patient is awake and alert to person, place and time. Following simple commands, moving all extremities. Weight Dosing Weight: 95.45 kg (04/08/25) Dosing Weight: 94.6 kg (04/06/25) Medications Medications (13) Active Scheduled: (4) acetaminophen PMX 1,000 mg 100 mL, IV Piggyback, q6hr aspirin 300 mg Suppository 300 mg 1 supp, Rectal, qDay enoxaparin 40 mg/ 0.4mL syringe 40 mg 0.4 mL, Subcutaneous, qDay pantoprazole 40 mg VIAL 40 mg, IV Push, BID Continuous: (1) Lactated Ringers 1,000 mL 1,000 mL, Intravenous, 100 mL/hr PRN: (8) acetaminophen 325 mg Tablet 650 mg 2 tab(s), Oral, q4h acetaminophen 325 mg Tablet 650 mg 2 tab(s), Oral, q4h albuterol - ipratropium 2.5 mg-0.5 mg/3 mL Inhal Rupal UD 3 mL, Inhalation, q4hRT hydralazine 20 mg/mL (1mL) vial 10 mg 0.5 mL, IV Push, q4h melatonin 3 mg tablet 6 mg 2 tab(s), Oral, qHS morphine 2 mg/mL 1 mL syringe 2 mg 1 mL, IV Push, q3h ondansetron 2 mg/ 1 mL 2 mL INJ 4 mg 2 mL, IV Push, q4h ondansetron 2 mg/ 1 mL 2 mL INJ 4 mg 2 mL, IV Push, q4h Lab Results 04/08 05:26 WBC: 9.7 Hgb: 15.3 Hct: 45.0 Platelet: 278 Neutrophil %: 78.8 H Glucose Level: 102 Sodium Level: 140 Potassium Level: 4.3 BUN: 15 Creatinine Lvl (s): 0.79 04/07 05:22 WBC: 8.6 Hgb: 15.9 Hct: 46.6 Platelet: 290 Neutrophil %: 68.6 Imaging Results and Diagnostics MRI Brain w/o Contrast Result Date: April 07, 2025 Verified By: DIMITRI BAXTER MD CLINICAL STATEMENT: IMPRESSION: Multiple foci of restricted diffusion throughout the right cerebellum and right medulla, concerning for small infarcts, possibly embolic in nature. No acute hemorrhage. Paranasal sinus disease as above. I have personally reviewed the images of this examination and agree with the resident's findings and interpretation. CT Head or Brain w/o Contrast Result Date: April 06, 2025 Verified By: RADHA CHAVEZ MD CLINICAL STATEMENT: IMPRESSION: No acute intracranial abnormality. COMMENT: Changes resultant from ischemia (even significant ischemia) may often be inapparent on CT exam, particularly if imaged early. Therefore, if symptoms persist, or clinical suspicion for pathology remains, further evaluation may be obtained with follow- up CT or MRI, as clinically feasible. I have personally reviewed the images of this examination and agree with the resident's findings and interpretations. XR Chest 1 View Result Date: April 06, 2025 Verified By: MATTHEW ADAMS DO CLINICAL STATEMENT: IMPRESSION: Hypoventilatory changes. No acute radiographic abnormality. I have personally reviewed the images of this examination and agree with the resident's findings and interpretation. EKG No qualifying data available. Assessment/Plan 1. CVA (cerebrovascular accident) Acute, new onset, symptoms started on with dizziness and nausea and continued through Monday. Monday patient had right facial numbness and difficulty swallowing. Failed swallow eval. Keep patient NPO. Was seen by speech therapy who felt that patient would require a PEG tube until his swallow ability returned. Consult placed to PT and OT who recommended IPR. MRI of the brain confirmed multiple small embolic infarcts. Carotid duplex ultrasound shows less than 50% stenosis. Echo shows normal cardiac function and no shunting. Continue aspirin 300 mg rectally daily. Continue LR @ 75cc/hr.Hydralazine 10 mg IV q4 hours PRN for sbp > 160 mmHg. Patient has been accepted to [facility]. Will likely d/c there tomorrow. 2. Erosive esophagitis Acute new finding during PEG tube placement today. Increase Protonix to 40 mg IV BID. 3. Hypertension Improving today. Continue hydralazine 10 mg IV q 4 hours PRN for SBP > 160 mmHg. 4. Nausea Resolved. 5. Dizziness Resolved. DVT prophylaxis with SCDs today, start Lovenox tomorrow. Code status: Full Code. Labs, diagnostic test and progress notes reviewed as noted in HPI. Plan of care discussed with patient. All questions answered. Patient verbalizes understanding and is agreeable with plan of care. This case was discussed with collaborating physician, Dr. Gustavo Hendricks. Anticipated Date of Discharge next 24 hours Time Spent 38 minutes spent reviewing past diagnostic tests, reviewing lab results, vital sign trends, medicalhistory, reviewing medications and ordering home medications, examining patient, discussed plan of care with care team, collaborating with physician, and documenting in chart. Digitally Signed by PRINCESS FINCH on 04/08/2025 01:45 PM [facility]07-01-2025 Anesthesiology Consult note Patient: CHARLES RUSSELL Age: 54 years Sex: Male : 1970 Associated Diagnoses: None Author: MIKE FIGUEROA HERBARIUM WORKER-CAROUSEL ATTENDANT Assessment Postanesthesia assessment Vitals: Vital signs from flowsheet : Vital Signs 04/08/2025 11:30 EDT Heart Rate Monitored 79 bpm bpm Respiratory Rate - Anes 9 br/min br/min Systolic Blood Pressure Non-Invasive 125 mmHg mmHg Diastolic Blood Pressure Non-Invasive 77 mmHg mmHg 04/08/2025 11:25 EDT Heart Rate Monitored 76 bpm bpm Respiratory Rate - Anes 11 br/min br/min Systolic Blood Pressure Non-Invasive 107 mmHg mmHg Diastolic Blood Pressure Non-Invasive 74 mmHg mmHg 04/08/2025 11:20 EDT Heart Rate Monitored 72 bpm bpm Respiratory Rate - Anes 9 br/min br/min Systolic Blood Pressure Non-Invasive 130 mmHg mmHg Diastolic Blood Pressure Non-Invasive 78 mmHg mmHg 04/08/2025 11:15 EDT Heart Rate Monitored 68 bpm bpm Respiratory Rate - Anes 14 br/min br/min Systolic Blood Pressure Non-Invasive 142 mmHg mmHg Diastolic Blood Pressure Non-Invasive 88 mmHg mmHg 04/08/2025 10:22 EDT Temperature Oral 36.5 DegC Heart Rate Monitored 63 bpm Respiratory Rate 14 br/min Systolic Blood Pressure Non-Invasive 157 mmHg HI Diastolic Blood Pressure Non-Invasive 94 mmHg HI 04/08/2025 8:00 EDT Temperature Oral 36.6 DegC Heart Rate Monitored 72 bpm Respiratory Rate 16 br/min Systolic Blood Pressure Non-Invasive 169 mmHg HI Diastolic Blood Pressure Non-Invasive 94 mmHg HI Reason For Taking VItal Signs Routine 04/08/2025 4:02 EDT Systolic Blood Pressure Non-Invasive 163 mmHg HI Diastolic Blood Pressure Non-Invasive 88 mmHg 04/08/2025 3:05 EDT Temperature Oral 36.7 DegC Heart Rate Monitored 76 bpm Respiratory Rate 16 br/min Systolic Blood Pressure Non-Invasive 171 mmHg HI Diastolic Blood Pressure Non-Invasive 86 mmHg Reason For Taking VItal Signs Routine 04/07/2025 23:23 EDT Temperature Oral 37 DegC Heart Rate Monitored 60 bpm Respiratory Rate 16 br/min Systolic Blood Pressure Non-Invasive 162 mmHg HI Diastolic Blood Pressure Non-Invasive 80 mmHg Reason For Taking VItal Signs Routine 04/07/2025 19:15 EDT Temperature Oral 36.9 DegC Heart Rate Monitored 70 bpm Respiratory Rate 16 br/min Systolic Blood Pressure Non-Invasive 167 mmHg HI Diastolic Blood Pressure Non-Invasive 92 mmHg HI Reason For Taking VItal Signs Routine 04/07/2025 18:09 EDT Systolic Blood Pressure Non-Invasive 168 mmHg HI Diastolic Blood Pressure Non-Invasive 77 mmHg 04/07/2025 15:35 EDT Temperature Oral 36.5 DegC Heart Rate Monitored 53 bpm LOW Respiratory Rate 16 br/min Systolic Blood Pressure Non-Invasive 180 mmHg HI Diastolic Blood Pressure Non-Invasive 89 mmHg Reason For Taking VItal Signs Routine 04/07/2025 13:53 EDT Systolic Blood Pressure Non-Invasive 165 mmHg HI Diastolic Blood Pressure Non-Invasive 79 mmHg 04/07/2025 13:42 EDT Temperature Oral 36.5 DegC Heart Rate Monitored 64 bpm Respiratory Rate 16 br/min Systolic Blood Pressure Non-Invasive 195 mmHg HI Diastolic Blood Pressure Non-Invasive 84 mmHg Reason For Taking VItal Signs Routine 04/07/2025 6:25 EDT Temperature Oral 36.4 DegC Heart Rate Monitored 46 bpm LOW Respiratory Rate 16 br/min Systolic Blood Pressure Non-Invasive 187 mmHg HI Diastolic Blood Pressure Non-Invasive 88 mmHg Reason For Taking VItal Signs Routine 04/07/2025 2:49 EDT Temperature Oral 36.8 DegC Heart Rate Monitored 49 bpm LOW Respiratory Rate 16 br/min Systolic Blood Pressure Non-Invasive 162 mmHg HI Diastolic Blood Pressure Non-Invasive 90 mmHg HI Reason For Taking VItal Signs Routine 04/07/2025 0:31 EDT Temperature Oral 36.5 DegC Peripheral Pulse Rate 42 bpm Respiratory Rate 16 br/min Systolic Blood Pressure Non-Invasive 149 mmHg HI Diastolic Blood Pressure Non-Invasive 74 mmHg Reason For Taking VItal Signs Routine 04/07/2025 0:21 EDT Temperature Oral 36.8 DegC Heart Rate Monitored 48 bpm LOW Respiratory Rate 16 br/min Systolic Blood Pressure Non-Invasive 138 mmHg Diastolic Blood Pressure Non-Invasive 92 mmHg HI Reason For Taking VItal Signs Routine , Measurements from flowsheet . Mental status: alert & oriented x 4. Respiratory function: respirations are non-labored. Respiratory support: none. CV function: Normal rate. Cardiovascular support: none. Pain. Nausea status: see nursing documentation of medications. Postoperative hydration status: within normal limits. Digitally Signed by MIKE FIGUEROA on 04/08/2025 11:40 AM [facility]07-01-2025 Anesthesiology Consult note Patient: CHARLES RUSSELL Age: 54 years Sex: Male : 1970 Associated Diagnoses: None Author: MIKE FIGUEROA Preoperative Information Time of last food or liquid consumption: 04/08/2025 00:00:00 Anesthesia history Patient's history: negative. Family's history: negative. Health Status Allergies: Allergic Reactions (Selected) NKA, Allergies (1) ActiveSeverityReaction NKANone Documented Current medications: (Selected) Inpatient Medications Ordered DuoNeb: 3 mL, Inhalation, q4hRT, PRN: Shortness of breath or wheezing NS 1,000 mL: 75 mL/hr, Intravenous Protonix: 40 mg, IV Push, qDay Tylenol: 650 mg, 2 tab(s), Oral, q4h, PRN: Pain, scale 1-3 Tylenol: 650 mg, 2 tab(s), Oral, q4h, PRN: TEMP greater than 38.6 degrees Celsius Zofran: 4 mg, 2 mL, IV Push, q4h, PRN: Nausea/Vomiting aspirin: 300 mg, 1 supp, Rectal, qDay hydrALAZINE: 10 mg, 0.5 mL, IV Push, q4h, PRN: Systolic BP: See order comments melatonin: 6 mg, 2 tab(s), Oral, qHS, PRN: Sleep Suspended heparin 5000 units/mL injection: 5,000 unit(s), 1 mL, Subcutaneous, q12h, Medications (9) Active Scheduled: (2) aspirin 300 mg Suppository 300 mg 1 supp, Rectal, qDay pantoprazole 40 mg VIAL 40 mg, IV Push, qDay Continuous: (1) NS (0.9% nacl) 1,000 mL 1,000 mL, Intravenous, 75 mL/hr PRN: (6) acetaminophen 325 mg Tablet 650 mg 2 tab(s), Oral, q4h acetaminophen 325 mg Tablet 650 mg 2 tab(s), Oral, q4h albuterol - ipratropium 2.5 mg-0.5 mg/3 mL Inhal Rupal UD 3 mL, Inhalation, q4hRT hydralazine 20 mg/mL (1mL) vial 10 mg 0.5 mL, IV Push, q4h melatonin 3 mg tablet 6 mg 2 tab(s), Oral, qHS ondansetron 2 mg/ 1 mL 2 mL INJ 4 mg 2 mL, IV Push, q4h Problem list: No qualifying data available Histories Past Medical History: No active or resolved past medical history items have been selected or recorded. Family History: No family history items have been selected or recorded. Procedure history: No active procedure history items have been selected or recorded. Social History: Social & Psychosocial Habits Alcohol 04/06/2025 Use: Never Substance Abuse 04/06/2025 Use: Never Tobacco 04/06/2025 Tobacco Use: Never (less than 100 in l Physical Examination Vital Signs 04/08/2025 10:22 EDT Temperature Oral 36.5 DegC Heart Rate Monitored 63 bpm Respiratory Rate 14 br/min Systolic Blood Pressure Non-Invasive 157 mmHg HI Diastolic Blood Pressure Non-Invasive 94 mmHg HI 04/08/2025 8:00 EDT Temperature Oral 36.6 DegC Heart Rate Monitored 72 bpm Respiratory Rate 16 br/min Systolic Blood Pressure Non-Invasive 169 mmHg HI Diastolic Blood Pressure Non-Invasive 94 mmHg HI Reason For Taking VItal Signs Routine 04/08/2025 4:02 EDT Systolic Blood Pressure Non-Invasive 163 mmHg HI Diastolic Blood Pressure Non-Invasive 88 mmHg 04/08/2025 3:05 EDT Temperature Oral 36.7 DegC Heart Rate Monitored 76 bpm Respiratory Rate 16 br/min Systolic Blood Pressure Non-Invasive 171 mmHg HI Diastolic Blood Pressure Non-Invasive 86 mmHg Reason For Taking VItal Signs Routine 04/07/2025 23:23 EDT Temperature Oral 37 DegC Heart Rate Monitored 60 bpm Respiratory Rate 16 br/min Systolic Blood Pressure Non-Invasive 162 mmHg HI Diastolic Blood Pressure Non-Invasive 80 mmHg Reason For Taking VItal Signs Routine 04/07/2025 19:15 EDT Temperature Oral 36.9 DegC Heart Rate Monitored 70 bpm Respiratory Rate 16 br/min Systolic Blood Pressure Non-Invasive 167 mmHg HI Diastolic Blood Pressure Non-Invasive 92 mmHg HI Reason For Taking VItal Signs Routine 04/07/2025 18:09 EDT Systolic Blood Pressure Non-Invasive 168 mmHg HI Diastolic Blood Pressure Non-Invasive 77 mmHg 04/07/2025 15:35 EDT Temperature Oral 36.5 DegC Heart Rate Monitored 53 bpm LOW Respiratory Rate 16 br/min Systolic Blood Pressure Non-Invasive 180 mmHg HI Diastolic Blood Pressure Non-Invasive 89 mmHg Reason For Taking VItal Signs Routine 04/07/2025 13:53 EDT Systolic Blood Pressure Non-Invasive 165 mmHg HI Diastolic Blood Pressure Non-Invasive 79 mmHg 04/07/2025 13:42 EDT Temperature Oral 36.5 DegC Heart Rate Monitored 64 bpm Respiratory Rate 16 br/min Systolic Blood Pressure Non-Invasive 195 mmHg HI Diastolic Blood Pressure Non-Invasive 84 mmHg Reason For Taking VItal Signs Routine 04/07/2025 6:25 EDT Temperature Oral 36.4 DegC Heart Rate Monitored 46 bpm LOW Respiratory Rate 16 br/min Systolic Blood Pressure Non-Invasive 187 mmHg HI Diastolic Blood Pressure Non-Invasive 88 mmHg Reason For Taking VItal Signs Routine 04/07/2025 2:49 EDT Temperature Oral 36.8 DegC Heart Rate Monitored 49 bpm LOW Respiratory Rate 16 br/min Systolic Blood Pressure Non-Invasive 162 mmHg HI Diastolic Blood Pressure Non-Invasive 90 mmHg HI Reason For Taking VItal Signs Routine 04/07/2025 0:31 EDT Temperature Oral 36.5 DegC Peripheral Pulse Rate 42 bpm Respiratory Rate 16 br/min Systolic Blood Pressure Non-Invasive 149 mmHg HI Diastolic Blood Pressure Non-Invasive 74 mmHg Reason For Taking VItal Signs Routine 04/07/2025 0:21 EDT Temperature Oral 36.8 DegC Heart Rate Monitored 48 bpm LOW Respiratory Rate 16 br/min Systolic Blood Pressure Non-Invasive 138 mmHg Diastolic Blood Pressure Non-Invasive 92 mmHg HI Reason For Taking VItal Signs Routine Vital Signs (last 24 hrs) Last Charted Temp Oral36.5 DegC (APR 08:) Heart Rate [id number] bpm (APR 08:) SBPH 157 mmHg (APR 08:) DBPH 94 mmHg (APR 08:) Measurements from flowsheet : Measurements 04/08/2025 10:22 EDT Height 152.4 cm Height in inches 60 inch(es) Admission Weight 95.45 kg Weight Lbs 210 lb [place] Body Weight 50.00 kg Admission Body Mass Index 41.1 m2 04/07/2025 17:48 EDT [place] Body Weight 75 kg Pain assessment: Pain Assessment 04/08/2025 10:22 EDT Primary Pain Intensity 0 Pain Scale Type 0-10 Pain scale 04/08/2025 8:00 EDT Primary Pain Intensity 0 Pain Scale Type 0-10 Pain scale 04/07/2025 20:15 EDT Primary Pain Intensity 0 Pain Scale Type 0-10 Pain scale 04/07/2025 8:20 EDT Primary Pain Intensity 0 Pain Scale Type 0-10 Pain scale 04/07/2025 3:45 EDT Primary Pain Intensity 0 Pain Scale Type 0-10 Pain scale 04/07/2025 0:31 EDT Primary Pain Intensity 0 Pain Scale Type 0-10 Pain scale . General: Alert and oriented. Airway: Normal temporomandibular joint mobility, Normal mouth, Normal neck range of motion. Mallampati classification: III (soft palate, base of uvula visible). Dentition Evaluation: Denies loose/chipped teeth. Respiratory: Respirations are non-labored. Cardiovascular: Normal rate. Neurologic: Alert, Oriented. Review / Management Results review: Labs (Last four charted values) WBC 9.7(APR 08)8.6(APR 07)8.2(APR 06) Hgb 15.3(APR 08)15.9(APR 07)16.7(APR 06) Hct 45.0(APR 08)46.6(APR 07)48.4(APR 06) Plt 278(APR 08)290(APR 07)284(APR 06) Na 140(APR 08)141(APR 06) K 4.3(APR 08)4.0(APR 06) CO2 27(APR 08)H 30(APR 06) Cl 106(APR 08)105(APR 06) Cr 0.79(APR 08)0.88(APR 06) BUN 15(APR 08)12(APR 06) Glucose 102(APR 08)H 145(APR 06) Mg 1.8(APR 08)1.9(APR 07)2.1(APR 06) Ca 8.7(APR 08)9.3(APR 06) , Lab results 04/08/2025 11:19 EDT SN - CTm - Surgery Start 04/08/2025 11:19 04/08/2025 11:19 EDT SN - Proc - Anesthesia Type MAC SN - Proc - Actual Procedure PERCUTANEOUS ENDOSCOPIC GASTROSTOMY INSERTION 04/08/2025 11:19 EDT SN - SP - Prep Agents Chloraprep SN - SP - HR - Method Clipped in OR 04/08/2025 11:18 EDT SN - PP - Body Position Supine Standard Intra-op 04/08/2025 11:17 EDT SN - Assess - LOC Alert, Awake SN - Assess - Orientation Oriented X 3 SN - Assess - Post-op Skin Integrity Intact/Dry 04/08/2025 11:17 EDT SN - GCD - ASA Class 3 SN - GCD - Post-operative Diagnosis CEREBRAL VASCULAR ACCIDENT SN - GCD - Case Level Flat-Fee 04/08/2025 11:16 EDT SN - CAt - Case Attendee SN - CAt - Case Attendee SN - CAt - Case Attendee SN - CAt - Case Attendee SN - CAt - Case Attendee SN - CAt - Case Attendee SN - CAt - Case Attendee SN - CAt - Case Attendee SN - CAt - Role Performed CAROUSEL ATTENDANT SN - CAt - Role Performed Auditor Appraiser 1 SN - CAt - Role Performed Scrub 1 SN - CAt - Role Performed Advisor Consultant 04/08/2025 11:15 EDT SN - CAt - Case Attendee SN - CAt - Case Attendee SN - CAt - Role Performed Primary Surgeon 04/08/2025 11:01 EDT SN - Preop - CTm Pt in SDS Room 04/08/2025 10:22 SN - Preop - CTm Pt Ready for OR/Proced 04/08/2025 10:25 04/08/2025 10:59 EDT glycopyrrolate 0.2 mg mg 04/08/2025 10:48 EDT dexmedeTOMIDine 8 mcg mcg 04/08/2025 10:24 EDT Antecubital Right 18 gauge Peripheral IV Activity: Assessed Peripheral IV Site Condition: No complications 04/08/2025 10:22 EDT Height 152.4 cm Height in inches 60 inch(es) Admission Weight 95.45 kg Weight Lbs 210 lb [place] Body Weight 50.00 kg Admission Body Mass Index 41.1 m2 Temperature Oral 36.5 DegC Heart Rate Monitored 63 bpm Respiratory Rate 14 br/min Systolic Blood Pressure Non-Invasive 157 mmHg HI Diastolic Blood Pressure Non-Invasive 94 mmHg HI Primary Pain Intensity 0 Pain Scale Type 0-10 Pain scale Respirations Unlabored Respiratory Pattern Regular Breath Sounds Auscultated Anterior only All Lobes Breath Sounds Diminished Oxygen Therapy Room air Oxygen Saturation 93 % Abdomen Description Non-distended, Symmetric, Soft Skin Description Normal for ethnicity Skin Temperature Warm Skin Integrity Intact Mucous Membrane Color [place] Mucous Membrane Description Moist Neurological Language Able to speak clearly Neurological Symptoms Numbness Characteristics of Communication Appropriate Characteristics of Speech Clear Level of Consciousness Alert NIMISHA Yes Affect/Behavior Appropriate, Calm, Cooperative Orientation Oriented x 4 E[place]ira Motor (2) Moves 4 extremities voluntarily or on command Erendira Respirations (2) Spontaneous respiration without support, RR > 10 E[place]ira Blood Pressure (2) BP 20% above or below preanesthetic level E[place] Pulse (2) Pulse 20% above or below preanesthetic level Erendira Oxygen Saturation (2) 94% or more Erendira Level of Consciousness (2) Fully awake Erendira III Score 12 Activity Status ADL Awake Standard Safety Precautions maintained Demonstrates Correct Call Light Use Yes 04/08/2025 10:20 EDT Accompanied By Staff Nurse Out of Room Went to Current Location Surgery Transport via Bed 04/08/2025 9:52 EDT Mechanical VTE Prophylaxis Education Not done this session Sequential Compression Device bilateral knee high removed/off Sequential Compression Device Form Sequential Compression Device Form 04/08/2025 9:43 EDT Sodium Chloride 0.9% Begin Bag 1,000 mL mL 04/08/2025 9:00 EDT aspirin Not Done: Physician Order (Not Done) 04/08/2025 8:30 EDT Urinary Elimination Voiding, no difficulties IV Present Present Allergies No Consent Form Signed Yes Patient Dressed In Hospital gown Pre-op Preparation Preop linens changed CHG Preoperative Wash/Wipe Day of procedure, Site specific wipe History & Physical Update On Chart Yes History & Physical On Chart Yes NPO Status Maintained Patient ID Band on and Verified Yes 04/08/2025 8:13 EDT Level of Consciousness NIH Stroke Scale Alert Response Month/Age NIH Stroke Scale Answers both correctly Open/Close Eyes NIH Stroke Scale Obeys both correctly Best Gaze NIH Stroke Scale Normal Visual Field Testing NIH Stroke Scale No visual field loss Facial Paresis NIH Stroke Scale Minor paralysis Motor Function Left Arm NIH Stroke Scale Normal Motor Function Rt Arm NIH Stroke Scale Normal Motor Function Left Leg NIH Stroke Scale Normal Motor Function Rt Leg NIH Stroke Scale Normal Limb Ataxia NIH Stroke Scale No ataxia Sensory NIH Stroke Scale Mild to moderate decrease in sensation Best Language NIH Stroke Scale No aphasia Dysarthria NIH Stroke Scale Mild to moderate slurring of words Extinction/Inattention NIH Stroke Scale Normal NIH Stroke Score 3 NIH Stroke Scale Form NIH Stroke Scale Form 04/08/2025 8:00 EDT Temperature Oral 36.6 DegC Heart Rate Monitored 72 bpm Respiratory Rate 16 br/min Systolic Blood Pressure Non-Invasive 169 mmHg HI Diastolic Blood Pressure Non-Invasive 94 mmHg HI Reason For Taking VItal Signs Routine Primary Pain Intensity 0 Pain Scale Type 0-10 Pain scale Nail Bed Color [place] Capillary Refill < 2 seconds Radial Pulse, Left 2+ Normal Radial Pulse, Right 2+ Normal Respirations Unlabored Respiratory Pattern Regular Breath Sounds Auscultated Anterior only All Lobes Breath Sounds Diminished Suction Method Oral Cough Occasional Suction Device Y[place]auer Oxygen Therapy Room air Oxygen Saturation 94 % Abdomen Description Non-distended, Soft Abdomen Palpation Non-Tender, Soft Bowel Sounds All Quadrants Present Urinary Elimination Voiding, no difficulties Skin Description Normal for ethnicity, Dry Skin Temperature Warm All Extremity Description Normal for ethnicity Temperature All Extremities Warm Mucous Membrane Color [place] Mucous Membrane Description Moist Sensory Perception Felipe Slightly limited Moisture Felipe Rarely moist Activity Felipe Walks occasionally Mobility Felipe Slightly limited Nutrition Felipe Probably inadequate Friction and Shear Felipe No apparent problem Felipe Score 18 Hospital Acquired Pressure Injury Risk Low risk (score 15-18) Antecubital Right 18 gauge Peripheral IV Activity: Assessed Peripheral IV Dressing Condition: Clean, Dry, Intact Peripheral IV Dressing Activity: Transparent dressing Peripheral IV Line Status/Patency: Continuous infusion Peripheral IV Line Care: Secured with tape Peripheral IV Site Condition: No complications Peripheral IV Equipment: IV Pump Neurological Language Able to speak clearly Neurological Symptoms Numbness, Tingling, Weakness Gait Unable to assess Extremity Movement Unequal Swallowing Difficulty Liquids, thin, Saliva Characteristics of Communication Appropriate Characteristics of Speech Clear Level of Consciousness Alert Strength All Extremities Moderate Tone All Extremities Normal Sensation All Extremities Intact Left Upper Extremity Sensation Intact Right Upper Extremity Sensation Intact Left Lower Extremity Sensation Intact Right Lower Extremity Sensation Intact Baptiste Screen Daily History of Fall in Last 3 Months Baptiste Yes Presence of Secondary Diagnosis Baptiste Yes Use of Ambulatory Aid Baptiste Crutches, cane, walker IV/PRN Adapter Fall Risk Baptiste Yes Gait Weak or Impaired Fall Risk Baptiste Weak Mental Status Fall Risk Baptiste Oriented to own ability Baptiste Fall Risk Score 85 HI Violence Risk Confused No Violence Risk Irritable No Violence Risk Boisterous No Violence Risk Verbal Threats No Violence Risk Physical Threats No Violence Risk Attacking Objects No Violence Risk Predictor Score 0 Violence Risk Intervention None Violence Risk Current Interventions None Affect/Behavior Appropriate, Calm, Cooperative Orientation Oriented x 4 Orientation Assessment Oriented x 4 Activity Status ADL Awake Standard Safety ID band on, Call device within reach, Bed in low position, Wheels locked, Upper/Half-Length side-rails up, Phone within reach, personal items within reach, Assistive devices within reach, Visitor at bedside, Non-Slip footwear High Risk Safety Identified as high risk, Fall ID band on, Bed alert on, Door open, Non-Slip footwear, Room check performed Appetite Poor Eating Difficulties Swallowing 04/08/2025 7:00 EDT Cardiac Rhythm Sinus rhythm Monitoring Lead II GA Interval 0.17 second(s) QRS Duration 0.10 second(s) QT Interval 0.41 second(s) QTc Interval 0.45 second(s) Alarms On and Functional Yes Heart Rate Alarm Set At - Low 50 Heart Rate Alarm Set At - High 120 04/08/2025 6:10 EDT Oxygen Therapy Room air Oxygen Activity Room air Oxygen Flow Rate 0 L/min 04/08/2025 5:59 EDT Positioning Repositions self Activity Status ADL Sleeps intermittently Nurse Safety Checks q2hrs Performed 7pm-7am Standard Safety Safety level maintained High Risk Safety Room check performed 04/08/2025 5:26 EDT WBC 9.7 10^3/mcL RBC 5.16 10^6/mcL Hgb 15.3 G/dL Hct 45.0 % MCV 87.2 fL MCH 29.8 pg MCHC 34.1 G/dL RDW 13.3 % Platelet 278 10^3/mcL MPV 6.6 fL Neutrophil % 78.8 % HI Lymphocyte % 14.6 % LOW Monocyte % 6.2 % Eosinophil % 0.1 % Basophil % 0.3 % Neutrophil, Absolute 7.6 10^3/mcL Lymphocyte, Absolute 1.4 10^3/mcL Monocyte, Absolute 0.6 10^3/mcL Eosinophil, Absolute 0.0 10^3/mcL Basophil, Absolute 0.0 10^3/mcL Glucose Level 102 mg/dL Sodium Level 140 mmol/L Potassium Level 4.3 mmol/L Chloride 106 mmol/L CO2 27 mmol/L Electrolyte Balance 7.0 mEq/L BUN 15 mg/dL Creatinine Lvl (s) 0.79 mg/dL Estimated Glomerular Filtration Rate 105 ml/min/1.73sqm NA BUN/Creatinine Ratio 19 ratio Calcium Lvl 8.7 mg/dL Magnesium Lvl 1.8 mg/dL Total Protein 6.9 G/dL Albumin Level 3.4 G/dL LOW Globulin 3.5 G/dL A/G Ratio 1.0 ratio LOW Bili Total 0.8 mg/dL Alk Phos 50 U/L AST/SGOT 15 U/L ALT/SGPT 22 U/L Creatinine Clearance Calc 112.08 mL/min 04/08/2025 5:07 EDT Mechanical VTE Prophylaxis Education Not Done: Task Duplication (Not Done) Mechanical VTE Prophylaxis Education Not Done: Task Duplication (Not Done) Sequential Compression Device Not Done: Task Duplication (Not Done) Sequential Compression Device Not Done: Task Duplication (Not Done) Sequential Compression Device Form Not Done (Not Done) Sequential Compression Device Form Not Done (Not Done) 04/08/2025 4:02 EDT Systolic Blood Pressure Non-Invasive 163 mmHg HI Diastolic Blood Pressure Non-Invasive 88 mmHg 04/08/2025 3:30 EDT Cardiac Rhythm Sinus rhythm Monitoring Lead II GA Interval 0.15 second(s) QRS Duration 0.10 second(s) QT Interval 0.42 second(s) QTc Interval 0.42 second(s) Alarms On and Functional Yes Heart Rate Alarm Set At - Low 50 Heart Rate Alarm Set At - High 120 04/08/2025 3:05 EDT Temperature Oral 36.7 DegC Heart Rate Monitored 76 bpm Respiratory Rate 16 br/min Systolic Blood Pressure Non-Invasive 171 mmHg HI Diastolic Blood Pressure Non-Invasive 86 mmHg Reason For Taking VItal Signs Routine Oxygen Therapy Room air Oxygen Saturation 92 % LOW 04/08/2025 1:54 EDT Reason for PRN medication Nausea and/or vomiting PRN Med for Nausea/Vomiting Effective Yes PRN Medication Effectiveness Evaluation PRN Medication Effectiveness Evaluation 04/08/2025 1:25 EDT pantoprazole 40 mg mg 04/08/2025 1:24 EDT LORazepam 0.5 mg mg ondansetron 4 mg mg 04/07/2025 23:23 EDT Temperature Oral 37 DegC Heart Rate Monitored 60 bpm Respiratory Rate 16 br/min Systolic Blood Pressure Non-Invasive 162 mmHg HI Diastolic Blood Pressure Non-Invasive 80 mmHg Reason For Taking VItal Signs Routine Oxygen Therapy Room air Oxygen Saturation 95 % 04/07/2025 23:00 EDT Cardiac Rhythm Sinus rhythm Monitoring Lead II GA Interval 0.16 second(s) QRS Duration 0.10 second(s) QT Interval 0.40 second(s) QTc Interval 0.41 second(s) Alarms On and Functional Yes Heart Rate Alarm Set At - Low 50 Heart Rate Alarm Set At - High 120 Urine Count 1 EA Urine Voided 300 mL 04/07/2025 22:11 EDT Sodium Chloride 0.9% Begin Bag 1,000 mL mL 04/07/2025 22:03 EDT Mechanical VTE Prophylaxis Education Not Done: Task Duplication (Not Done) Sequential Compression Device Not Done: Task Duplication (Not Done) NIH Stroke Scale Form Not Done (Not Done) Sequential Compression Device Form Not Done (Not Done) 04/07/2025 20:39 EDT Ed-Disease Process Done Ed-Unit Activities and Visiting Hours Done 04/07/2025 20:38 EDT O-Remains Free From Injury Progressing towards goal 04/07/2025 20:36 EDT Individuals Taught Patient Learning Readiness Willing to learn Barriers to Learning None evident Teaching Method Explanation Preferred Spoken Language Sinhala Disease Process General Education Signs/Symptoms to report Patient Care Education Activity limitations/expectations, Plan of care Teaching Evaluation Verbalizes/Nonverbally indicates understanding 04/07/2025 20:15 EDT Primary Pain Intensity 0 Pain Scale Type 0-10 Pain scale Nail Bed Color [place] Capillary Refill < 2 seconds Dorsalis Pedis Pulse, Left 2+ Normal Dorsalis Pedis Pulse, Right 2+ Normal Level of Consciousness NIH Stroke Scale Alert Response Month/Age NIH Stroke Scale Answers both correctly Open/Close Eyes NIH Stroke Scale Obeys both correctly Best Gaze NIH Stroke Scale Normal Visual Field Testing NIH Stroke Scale No visual field loss Facial Paresis NIH Stroke Scale Minor paralysis Motor Function Left Arm NIH Stroke Scale Normal Motor Function Rt Arm NIH Stroke Scale Normal Motor Function Left Leg NIH Stroke Scale Normal Motor Function Rt Leg NIH Stroke Scale Normal Limb Ataxia NIH Stroke Scale No ataxia Sensory NIH Stroke Scale Mild to moderate decrease in sensation Best Language NIH Stroke Scale No aphasia Dysarthria NIH Stroke Scale Mild to moderate slurring of words (Modified) Extinction/Inattention NIH Stroke Scale Normal NIH Stroke Score 3 (Modified) Respirations Unlabored Respiratory Pattern Regular Breath Sounds Auscultated Anterior and posterior All Lobes Breath Sounds Coarse crackles Suction Method Oral Cough Productive Suction Device Yankauer Sputum Color Clear Oxygen Therapy Room air Abdomen Description Non-distended Abdomen Palpation Non-Tender Bowel Sounds All Quadrants Present Urinary Elimination Voiding, no difficulties Skin Description Normal for ethnicity Skin Temperature Warm Skin Integrity Intact Skin Turgor Elastic All Extremity Description Normal for ethnicity Temperature All Extremities Warm Mucous Membrane Color [place] Mucous Membrane Description Moist Antecubital Right 18 gauge Peripheral IV Activity: Assessed Peripheral IV Dressing Condition: Clean, Dry, Intact Peripheral IV Dressing Activity: Transparent dressing Peripheral IV Line Status/Patency: Continuous infusion Peripheral IV Line Care: Secured with tape Peripheral IV Site Condition: No complications Peripheral IV Equipment: IV Pump Neurological Language Able to speak clearly Neurological Symptoms Numbness, Weakness Gait Unable to assess Extremity Movement Equal Swallowing Difficulty Liquids, thick, Liquids, thin, Pills, Saliva, Solids Characteristics of Communication Appropriate Characteristics of Speech Clear Level of Consciousness Alert Strength All Extremities Moderate Tone All Extremities Normal Sensation All Extremities Intact Affect/Behavior Appropriate Orientation Oriented x 4 04/07/2025 19:15 EDT Temperature Oral 36.9 DegC Heart Rate Monitored 70 bpm Respiratory Rate 16 br/min Systolic Blood Pressure Non-Invasive 167 mmHg HI Diastolic Blood Pressure Non-Invasive 92 mmHg HI Reason For Taking VItal Signs Routine Oxygen Therapy Room air Oxygen Saturation 94 % 04/07/2025 19:00 EDT Cardiac Rhythm Sinus rhythm Monitoring Lead II GA Interval 0.14 second(s) QRS Duration 0.08 second(s) QT Interval 0.41 second(s) QTc Interval 0.41 second(s) Alarms On and Functional Yes Heart Rate Alarm Set At - Low 50 Heart Rate Alarm Set At - High 120 04/07/2025 18:13 EDT Activity Status ADL Awake Nurse Safety Checks q2hrs Performed 7am-7pm Standard Safety Safety level maintained High Risk Safety Room check performed 04/07/2025 18:11 EDT Individuals Taught Patient Learning Readiness Willing to learn Barriers to Learning None evident Teaching Method Demonstration, Explanation Mechanical VTE Prophylaxis Education Purpose of Mechanical VTE Prophylaxis, Wear device at all times when in bed/chair, Always call for assistance to get out of bed, Explain the higher risk for falling, Call for assistance to re-apply device Teaching Evaluation Verbalizes/Nonverbally indicates understanding Sequential Compression Device bilateral knee high applied/on Sequential Compression Device Form Sequential Compression Device Form 04/07/2025 18:09 EDT Systolic Blood Pressure Non-Invasive 168 mmHg HI Diastolic Blood Pressure Non-Invasive 77 mmHg 04/07/2025 17:48 EDT [place] Body Weight 75 kg Nausea 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, 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, 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 Appetite Unable to obtain Percentage [place] Weight 125 Enteral Feeding Comments Enteral Feeding Comments Nutrition Plan of Care Dietitian follow up/monitor, Participate in team conference Maintenance Service Supervisor Recommendations Tube feeding, Other: recommend Jevity 1.2 TF 7 cans/day bolus via PEG (70mL/hr goal rate if continuous rate desired) Nutrition Follow-Up Needed Yes Days until Maintenance Service Supervisor Follow Up Two days Adult Nutrition Initial Asmt/Plan Form Adult Nutrition Initial Asmt/Plan Form Adult Nutrition Initial Assessment/Plan Adult Nutrition Assessment/Plan 04/07/2025 16:57 EDT Surgical Consultation Consult Note 04/07/2025 16:54 EDT Sodium Chloride 0.9% Begin Bag 1,000 mL mL (Modified) 04/07/2025 16:38 EDT Notify date/time 04/07/2025 16:38 Provider Notified ASHUTOSH TATE MD Notification Method Face to face conversation Information Communicated Consult 04/07/2025 16:17 EDT OT Visual Perception OT Visual Perception Muscle Tone Intact Coordination Impaired Proprioception Intact Sensation Within Normal Limits Impaired OT Toilet Transfers Min A Current History Current History Past Medical History Past Medical History Worker's Comp Patient No OT Education Grid OT Education Grid OT Supine to Sit IND OT Sit to Supine IND OT Sit to Stand Mod I OT Stand to Sit Mod I OT Bed to/from Chair Min A Put On Take Off Upper Body Clothing None (4) Put On Take Off Lower Body Clothing A Little (3) Bathing? A Little (3) Toileting? A Little (3) Take Care Of Personal Grooming None (4) Eating Meals Total (1) Current OT Discharge Recommendation Inpatient Rehabilitation Facility OT Therapy Recommended after Discharge Yes (see Discharge Recommendation) OT Frequency Daily OT Duration Two weeks OT Intensity BID OT Initiate/Continue Treatment Yes OT Tx Plan/Goals Established w Patient Yes Static Sitting Independent Dynamic Sitting Supervised Static Standing Mod I Dynamic Standing Min A OT Evaluation Charge Moderate complexity Occupational Therapy Initial Eval Form Occupational Therapy Initial Eval Form Occupational Therapy Progress Note OT Initial Evaluation 04/07/2025 15:59 EDT Sensory Perception Felipe Slightly limited Moisture Felipe Rarely moist Activity Felipe Walks occasionally Mobility Felipe Slightly limited Nutrition Felipe Probably inadequate Friction and Shear Felipe No apparent problem Felipe Score 18 Hospital Acquired Pressure Injury Risk Low risk (score 15-18) Baptiste Screen Daily History of Fall in Last 3 Months Baptiste Yes Presence of Secondary Diagnosis Baptiste Yes Use of Ambulatory Aid Baptiste Crutches, cane, walker IV/PRN Adapter Fall Risk Baptiste Yes Gait Weak or Impaired Fall Risk Baptiste Weak Mental Status Fall Risk Baptiste Oriented to own ability Baptiste Fall Risk Score 85 HI 04/07/2025 15:35 EDT Temperature Oral 36.5 DegC Heart Rate Monitored 53 bpm LOW Respiratory Rate 16 br/min Systolic Blood Pressure Non-Invasive 180 mmHg HI Diastolic Blood Pressure Non-Invasive 89 mmHg Reason For Taking VItal Signs Routine Oxygen Therapy Room air Oxygen Saturation 94 % 04/07/2025 15:00 EDT Cardiac Rhythm Sinus bradycardia Monitoring Lead II GA Interval 0.15 second(s) QRS Duration 0.11 second(s) QT Interval 0.46 second(s) QTc Interval 0.41 second(s) Alarms On and Functional Yes Heart Rate Alarm Set At - Low 50 Heart Rate Alarm Set At - High 120 04/07/2025 14:52 EDT Antecubital Right 18 gauge Peripheral IV Activity: Assessed Peripheral IV Dressing Condition: Clean, Dry, Intact Peripheral IV Dressing Activity: Transparent dressing Peripheral IV Line Status/Patency: Continuous infusion Peripheral IV Line Care: Secured with tape Peripheral IV Site Condition: No complications Peripheral IV Equipment: IV Pump 04/07/2025 14:45 EDT Bed Mobility Supine to Sit Supervised Bed Mobility Sit to Supine Supervised Transfer Sit to Stand Min A Transfer Stand to Sit Min A Ambulation Distance 2 20 ft Ambulation Distance 3 52 ft Ambulation Level Min A Ambulation Distance 32 ft Ambulation Quality Ambulation Quality Precautions to Rehabilitation Treatment Precautions to Rehabilitation Treatment PT Education Grid PT Education Grid Current PT Discharge Recommendation Inpatient Rehabilitation Facility PT Initiate/Continue Treatment Yes Physical Therapy Daily Notes Form Physical Therapy Daily Notes Form Physical Therapy Progress Note Physical Therapy Daily Notes 04/07/2025 14:35 EDT [place] History and Physical History and Physical 04/07/2025 13:53 EDT Systolic Blood Pressure Non-Invasive 165 mmHg HI Diastolic Blood Pressure Non-Invasive 79 mmHg 04/07/2025 13:42 EDT Temperature Oral 36.5 DegC Heart Rate Monitored 64 bpm Respiratory Rate 16 br/min Systolic Blood Pressure Non-Invasive 195 mmHg HI Diastolic Blood Pressure Non-Invasive 84 mmHg Reason For Taking VItal Signs Routine Oxygen Therapy Room air Oxygen Saturation 95 % 04/07/2025 13:15 EDT Level of Consciousness Alert Affect/Behavior Calm, Cooperative Past Medical History unremarkable Consult to Dietitian Yes Reason for Nutrition Consult Other: NPO. pt appears needs group home means of nutrition basesd on MRIresults involving the [place] Dentition Own teeth Labial Function Within functional limits Labial Structure Within normal limits Lingual Function Within functional limits Lingual Structure Within normal limits Mandible Function Within functional limits Mandible Structure Within normal limits Sitting Head Control Upright centered position Sitting Trunk Control Upright centered position Swallow Patient Position Upright 90 degrees Dysphagia Evaluation Charge Yes Speech Swallow Goals Grid Speech Swallow Goals Grid Speech Swallow Evaluation Form Speech Swallow Evaluation Form Speech Therapy Progress Note Speech Swallow Evaluation 04/07/2025 13:09 EDT Stroke Phase Hospital phase Stroke Disease Process Education Understanding Stroke book given, NIH Stroke Scale Stroke Teaching Evaluation Verbalizes/Nonverbally indicates understanding 04/07/2025 13:03 EDT Mechanical VTE Prophylaxis Education Not Done: Not Appropriate at this Time (Not Done) Sequential Compression Device Not Done: Not Appropriate at this Time (Not Done) Sequential Compression Device Form Not Done (Not Done) 04/07/2025 12:34 EDT Lives In Multilevel home Living Situation Home independently, Lives with spouse 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, 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, 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, Housework, Laundry, Mealpreparation, Personal ADL, Shopping, Work Advanced Directives Unable to obtain Discharge To, Anticipated Home independently Anticipated Discharge Date 04/08/2025 Transition Planning Note Transition Planning Initial Assessment 04/07/2025 12:33 EDT [facility] Current Living Situation I have a steady place to live [facility] Current Issues Living Environment None [facility] Worried Food Running Out P12M Never true [facility] Food Gone, No Money To Buy P12M Never true [facility] No Transport Med/Appt/Work P12M No C Utilities Threaten Shut Off P12M No [facility] Anyone Physically Hurt You Never (1) [facility] Anyone Insult Or Talk Down To You Never (1) [facility] Anyone Threaten You With Harm Never (1) [facility] Anyone Scream Or Curse At You Never (1) [facility] Safety Total Score 4 04/07/2025 10:47 EDT VL Carotid US/Doppler Complete - CV Signed 04/07/2025 10:41 EDT NIH Stroke Scale Form Not Done (Not Done) 04/07/2025 10:25 EDT Antecubital Right 18 gauge Peripheral IV Activity: Assessed Peripheral IV Dressing Condition: Clean, Dry, Intact Peripheral IV Dressing Activity: Transparent dressing Peripheral IV Line Status/Patency: Continuous infusion Peripheral IV Line Care: Secured with tape Peripheral IV Site Condition: No complications Peripheral IV Equipment: IV Pump Individuals Taught Patient Learning Readiness Willing to learn Barriers to Learning None evident Teaching Method Demonstration, Explanation Preferred Spoken Language Sinhala Preferred Written Language Sinhala Anticoag. Med Educated Heparin Reason/Purpose of Anticoagulant DVT prophylaxis Anticoagulation Medication Generic/Brand name, purpose, action, Dose / Route / Schedule, Side effects Demonstrates Self Injection N/A Anticoag Med(s) Teaching Evaluation Verbalizes/Nonverbally indicates understanding aspirin 300 mg mg heparin 5,000 unit(s) unit(s) Sodium Chloride 0.9% Begin Bag 1,000 mL mL 04/07/2025 10:12 EDT Echocardiogram, Adult with Bubble Study-CV Signed 04/07/2025 9:30 EDT Basic Command Following Intact Coordination Impaired Strength-LLE Within functional limits Strength-RLE Within functional limits Left Hip Flexion Strength 5 Left Knee Flexion Strength 5 Left Knee Extension Strength 5 Left Ankle Dorsiflexion Strength 5 Left Ankle Plantarflexion Strength 5 Right Hip Flexion Strength 5 Right Knee Flexion Strength 5 Right Knee Extension Strength 5 Right Ankle Dorsiflexion Strength 5 Right Ankle Plantarflexion Strength 5 Left Lower Extremity Range of Motion Within functional limits Right Lower Extremity Range of Motion Within functional limits PT Other Neurological Information PT Other Neurological Information Number of Stairs-Outside Stairs ramp Location Bed 1st floor Location Main Bathroom 1st floor Bed Mobility Supine to Sit Supervised Bed Mobility Sit to Supine Supervised Transfer Sit to Stand Min A Transfer Stand to Sit Min A Ambulation Level Min A Ambulation Distance 5 ft Ambulation Quality Ambulation Quality Information Obtained From Patient Precautions to Rehabilitation Treatment Precautions to Rehabilitation Treatment Current History Current History Past Medical History Past Medical History Falls In Last 6 Months 1 fall Vestibular Assessment Yes PT Education Grid PT Education Grid PT Problem List Ambulation deficits, Balance deficits, Bed mobility deficits, Coordination/Proprioception deficits, Decreased activity tolerance, Dizziness/Vertigo, Stair negotiation deficits, Transfer deficits PT Sensation Impaired Turning Over In Bed None (4) Sit Down/Stand Up From Chair with Arms A Little (3) Move From Back To Sit On Bedside A Little (3) Moving To And From Bed To Chair A Little (3) Need To Walk In Hospital Room A Lot (2) Climbing 3-5 Steps With A Railing Total (1) Current PT Discharge Recommendation Inpatient Rehabilitation Facility PT Therapy Recommended after Discharge Yes (see Discharge Recommendation) PT Duration One week PT Anticipated Treatments Balance training, Bed mobility training, Caregiver training, Gait training, Neuromuscular reeducation, Safety education, Therapeutic exercises, Transfer training PT Initiate/Continue Treatment Yes PT Plan/Goals Established w Pt/Caregiver Yes PT Patient/Caregiver Goal Pt goal is to return to PLOF. PT Bed Mobility Goal Independent PT Bed Mobility Goal Time Frame 7 day(s) PT Transfer Goal Mod I PT Transfer Device Goal Front wheeled walker PT Transfer Goal Time Frame 7 day(s) PT Ambulation Goal Mod I PT Ambulation Device Goal Front wheeled walker Gait 1 Distance for Goal 200 PT Ambulation Goal Time Frame 7 day(s) Therapy Pain Intensity 0 Static Sitting Independent Static Standing Min A Dynamic Standing Min A Basic Mobility Raw Score 16 PT Evaluation Charge Moderate complexity Physical Therapy Progress Note Physical Therapy Inpatient Initial Examination 04/07/2025 9:29 EDT MRI Brain w/o Contrast MRI BRAIN W/O CONTRAST 04/07/2025 9:16 EDT [facility] Length of Stay 2 days [facility] Acute Admission Inpatient [facility] ED Visits 1 [facility] CoMorbidity Score 0 LACE Score 6 Readmission Risk Screening Note Readmission Risk Screening 04/07/2025 9:10 EDT Mechanical VTE Prophylaxis Education Not done this session Sequential Compression Device bilateral knee high removed/off Reason SCD Removed/Off Pt not in room Sequential Compression Device Form Sequential Compression Device Form 04/07/2025 8:20 EDT Primary Pain Intensity 0 Pain Scale Type 0-10 Pain scale Nail Bed Color [place] Capillary Refill < 2 seconds Dorsalis Pedis Pulse, Left 1+ Thready Dorsalis Pedis Pulse, Right 1+ Thready Radial Pulse, Left 2+ Normal Radial Pulse, Right 2+ Normal Level of Consciousness NIH Stroke Scale Alert Response Month/Age NIH Stroke Scale Answers both correctly Open/Close Eyes NIH Stroke Scale Obeys both correctly Best Gaze NIH Stroke Scale Normal Visual Field Testing NIH Stroke Scale No visual field loss Facial Paresis NIH Stroke Scale Minor paralysis Motor Function Left Arm NIH Stroke Scale Normal Motor Function Rt Arm NIH Stroke Scale Normal Motor Function Left Leg NIH Stroke Scale Normal Motor Function Rt Leg NIH Stroke Scale Drift (Modified) Limb Ataxia NIH Stroke Scale No ataxia Sensory NIH Stroke Scale Mild to moderate decrease in sensation Best Language NIH Stroke Scale No aphasia Dysarthria NIH Stroke Scale Mild to moderate slurring of words Extinction/Inattention NIH Stroke Scale Normal NIH Stroke Score 4 (Modified) Respirations Unlabored Respiratory Pattern Regular Breath Sounds Auscultated Anterior only All Lobes Breath Sounds Clear, Diminished Cough Occasional Oxygen Therapy Room air Abdomen Description Non-distended, Soft Abdomen Palpation Non-Tender, Soft Passing Flatus No Bowel Movement Last Date 04/05/2025 Swallowing Disorder Complaints of difficulty or pain with swallowing, Coughs or chokes during mealsor when swallowing medications Bowel Sounds All Quadrants Present Urinary Elimination Voiding, no difficulties Skin Description Normal for ethnicity, Dry Skin Temperature Warm All Extremity Description Normal for ethnicity Temperature All Extremities Warm Mucous Membrane Color [place] Mucous Membrane Description Moist Sensory Perception Felipe Slightly limited Moisture Felipe Rarely moist Activity Felipe Bedfast Mobility Felipe Slightly limited Nutrition Felipe Adequate Friction and Shear Felipe No apparent problem Felipe Score 17 Hospital Acquired Pressure Injury Risk Low risk (score 15-18) Antecubital Right 18 gauge Peripheral IV Activity: Assessed Peripheral IV Dressing Condition: Clean, Dry, Intact Peripheral IV Dressing Activity: Transparent dressing Peripheral IV Line Status/Patency: Continuous infusion Peripheral IV Line Care: Secured with tape Peripheral IV Site Condition: No complications Peripheral IV Equipment: IV Pump Neurological Language Able to speak clearly, Mild to moderate slurring of words Neurological Symptoms Numbness, Tingling, Weakness Gait Unable to assess Extremity Movement Unequal Swallowing Difficulty Liquids, thin Characteristics of Communication Appropriate Characteristics of Speech Clear Level of Consciousness Alert Strength All Extremities Moderate Left Upper Extremity Sensation Intact Right Upper Extremity Sensation Intact Left Lower Extremity Sensation Intact Right Lower Extremity Sensation Intact Baptiste Screen Daily History of Fall in Last 3 Months Baptiste Yes Presence of Secondary Diagnosis Baptiste Yes Use of Ambulatory Aid Baptiste None, bedrest, wheelchair, nurse IV/PRN Adapter Fall Risk Baptiste Yes Gait Weak or Impaired Fall Risk Baptiste Weak Mental Status Fall Risk Baptiste Oriented to own ability Baptiste Fall Risk Score 70 HI Violence Risk Confused No Violence Risk Irritable No Violence Risk Boisterous No Violence Risk Verbal Threats No Violence Risk Physical Threats No Violence Risk Attacking Objects No Violence Risk Predictor Score 0 Violence Risk Intervention None Violence Risk Current Interventions None Affect/Behavior Appropriate, Calm, Cooperative Orientation Oriented x 4 Orientation Assessment Oriented x 4 Activity Status ADL Awake Standard Safety ID band on, Call device within reach, Bed in low position, Wheels locked, Upper/Half-Length side-rails up, Phone within reach, personal items within reach, Visitor at bedside, Non-Slip footwear High Risk Safety Identified as high risk, Fall ID band on, Bed alert on, Door open, Non-Slip footwear, Room check performed Appetite Poor Eating Difficulties Swallowing 04/07/2025 7:49 EDT Mechanical VTE Prophylaxis Education Not Done: Not Appropriate at this Time (NotDone) Sequential Compression Device Not Done: Not Appropriate at this Time (Not Done) Sequential Compression Device Form Not Done (Not Done) 04/07/2025 7:10 EDT Cardiac Rhythm Sinus bradycardia Monitoring Lead II GA Interval 0.18 second(s) QRS Duration 0.07 second(s) QT Interval 0.43 second(s) QTc Interval 0.41 second(s) Alarms On and Functional Yes Heart Rate Alarm Set At - Low 50 Heart Rate Alarm Set At - High 120 04/07/2025 7:00 EDT Urine Count 1 EA Urine Voided 300 mL 04/07/2025 6:59 EDT Sodium Chloride 0.9% 75 mL mL 04/07/2025 6:25 EDT Temperature Oral 36.4 DegC Heart Rate Monitored 46 bpm LOW Respiratory Rate 16 br/min Systolic Blood Pressure Non-Invasive 187 mmHg HI Diastolic Blood Pressure Non-Invasive 88 mmHg Reason For Taking VItal Signs Routine Oxygen Therapy Room air Oxygen Saturation 96 % 04/07/2025 6:11 EDT Oxygen Therapy Room air Oxygen Activity Room air Oxygen Flow Rate 0 L/min 04/07/2025 5:59 EDT Sodium Chloride 0.9% 75 mL mL 04/07/2025 5:22 EDT WBC 8.6 10^3/mcL RBC 5.32 10^6/mcL Hgb 15.9 G/dL Hct 46.6 % MCV 87.6 fL MCH 30.0 pg MCHC 34.2 G/dL RDW 13.5 % Platelet 290 10^3/mcL MPV 6.7 fL Neutrophil % 68.6 % Lymphocyte % 22.2 % Monocyte % 7.4 % Eosinophil % 1.2 % Basophil % 0.6 % Neutrophil, Absolute 5.9 10^3/mcL Lymphocyte, Absolute 1.9 10^3/mcL Monocyte, Absolute 0.6 10^3/mcL Eosinophil, Absolute 0.1 10^3/mcL Basophil, Absolute 0.1 10^3/mcL Magnesium Lvl 1.9 mg/dL Hgb A1c 5.7 % Est Avg Glucose 117 mg/dL NA Cholesterol 174 mg/dL Triglycerides 143 mg/dL HDL Cholesterol 34 mg/dL LOW LDL Cholesterol 111 mg/dL TSH 3.03 mcIU/mL Free T4 0.84 ng/dL 04/07/2025 4:59 EDT Sodium Chloride 0.9% 75 mL mL 04/07/2025 4:33 EDT Antecubital Right 18 gauge Peripheral IV Activity: Assessed Peripheral IV Dressing Condition: Clean, Dry, Intact Peripheral IV Dressing Activity: Transparent dressing Peripheral IV Site Condition: No complications Peripheral IV Equipment: IV Pump 04/07/2025 3:59 EDT Sodium Chloride 0.9% 75 mL mL 04/07/2025 3:45 EDT Primary Pain Intensity 0 Pain Scale Type 0-10 Pain scale Cardiac Rhythm Sinus bradycardia Monitoring Lead II, V1/MCL1 GA Interval 0.18 second(s) QRS Du (more content not included)... [facility]06-30-2025 Surgery Consult note Date of Service 04/07/2025 Reason for Consultation CVA with dysphagia; request PEG tube placement Referring Physician Princess Finch APRN History of Present Illness 54-year-old male otherwise in good health who for the last several days has been noticing some generalized weakness and then began noticing some paresthesias of the right side of his face. Yesterday he then noticed that he was unable to swallow properly when he tried to eat and began choking and coughing. He apparently also noticed some slight right leg weakness although was still able to ambulate. He came to the hospital yesterday with the symptoms and was admitted. Head CT was negative but a subsequent MRI of the brain was performed which shows multiple areas of poor perfusion consistent with possible multiple small embolic infarcts in the cerebellum and medulla. The patient was subsequently evaluated by speech therapy and underwent swallow evaluation x 2 whichshe failed and is unable to control his own secretions. It is felt that his dysphagia problem may be prolonged or uncertain duration and a PEG tube is requested for an enteral route for hydration andfeeding. No prior abdominal surgery. Only prior surgeries would be repair of the leg fracture twice in the past many years ago. Review of Systems Pertinent review of systems is included in the history of present illness. Review of systems otherwise noncontributory except as noted above. Physical Exam Vitals and Measurements T: 36.5 C (Oral) TMIN: 36.4 C (Oral) TMAX: 36.8 C (Oral) HR: 53 (Monitored) RR: 16 BP: 165/79 SpO2:94% HT: 177.8 cm WT: 94.6 kg BMI: 29.92 Weight Dosing Weight: 94.6 kg (04/06/25) Dosing Weight: 94.6 kg (04/06/25) Mildly overweight middle-aged male otherwise healthy appearing awake alert cooperative coherent oriented in no acute distress. Patient visibly unable to swallow his secretions and is using a bedside suction catheter to suction his oral saliva. He vocalizes with grossly normal speech. HEENT exam shows some very subtle right lower facial weakness otherwise intact. Pupils equal round reactive extraocular movements intact. Mouth and oral mucous membranes negative. Neck shows trachea midline no masses no adenopathy Lungs clear and equal to auscultation bilaterally. Heart sounds are regular S1-S2 no obvious murmurs or gallops. Abdomen is soft benign nondistended nontender with no visible scars no masses no guarding. Neuroexam alert oriented x 3 cranial nerves grossly intact except for some very mild questionable lower facial weakness on the right side. Moves all 4 extremities grossly equally. Lab Results 04/07 05:22 WBC: 8.6 Hgb: 15.9 Hct: 46.6 Platelet: 290 Neutrophil %: 68.6 04/06 17:02 WBC: 8.2 Hgb: 16.7 Hct: 48.4 Platelet: 284 Neutrophil %: 77.9 H Glucose Level: 145 H Sodium Level: 141 Potassium Level: 4.0 BUN: 12 Creatinine Lvl (s): 0.88 Assessment/Plan CVA (cerebrovascular accident) CVA causing significant dysfunction of the patient's oropharyngeal swallowing mechanism causing patient's significant dysphagia and choking with attempts at eating and unable to swallow his own secretions. At this point duration of symptoms is unclear but the patient has no route for alimentation or hydration at this point. Appropriate candidate for PEG tube placement. I described the indications details and risks of the procedure to the patient and his who understand the nature and purpose of the procedure and agreed to proceed. Will hold the patient's subcu heparin for now and schedule the procedure for sometime tomorrow morning. Orders: Sodium Chloride 0.9% intravenous solution 1,000 mL(NS 1,000 mL), 1000 mL, Intravenous Procedure/Surgical History No qualifying data available. Medications Inpatient aspirin, 300 mg= 1 supp, Rectal, qDay DuoNeb, 3 mL, Inhalation, q4hRT, PRN melatonin, 6 mg= 2 tab(s), Oral, qHS, PRN NS 1,000 mL, 1000 mL, Intravenous Tylenol, 650 mg= 2 tab(s), Oral, q4h, PRN Tylenol, 650 mg= 2 tab(s), Oral, q4h, PRN Zofran, 4 mg= 2 mL, IV Push, q4h, PRN Home No active home medications Allergies NKA Social History Smoking Status - 06/26/2012 Patient is non-smoker Alcohol Use: Never., 04/06/2025 Substance Abuse Use: Never., 04/06/2025 Tobacco Nicotine Use: Never (less than 100 in lifetime)., 04/06/2025 Immunizations No qualifying data available. Digitally Signed by ASHUTOSH TATE MD on 04/07/2025 05:08 PM [facility]06-30-2025 Note Date of Service 04/07/2025 Chief Complaint ssick since . trouble swallowing, dizzy, vomited 3 times and weakn ess History of Present Illness Patient is a 54-year-old male, who has no primary care provider and no significant past medical history, presented to [facility] emergency department with multiple complaints. He states that on he was in [place] uncovering his pontoon. He started to feel off which he elaborates to mean dizzy and nauseated. He states he rested a while and felt [place]. After working for a while, these symptoms again returned. He ended up resting the rest of the day. Monday, he again felt well upon getting up but the symptoms returned and seemed to be worse. His felt that he was not swallowing well at that point and his gait was different. On Monday, he had numbness/tingling in the right side of his face and was concerned because he was having more difficulty swallowing. He decided to come in to be evaluated. He denies any fever, chills, cough, shortness of breath, chest pain, abdominal pain, or dysuria. In the emergency department, chest x-ray showed hypoventilatory changes but no acute process. CT ofthe head revealed no acute intracranial abnormality. CBC unremarkable. BMP significant for glucose 145. Lactic acid and troponin negative. Patient failed swallow evaluation in the ED. He was administered 300 mg aspirin rectally. Patient was felt to be out of the window for intervention given his symptoms started on . The case was discussed with the ED physician who recommended admission for further evaluation for possible CVA. Patient was transferred to telemetry. We will continue NIH assessment per protocol. Continue aspirin 300 mg rectally daily. Send patient for MRI of the brain, carotid doppler ultrasound bilaterally, and echo with bubble study. Consult placed to PT, OT and speech to evaluate and treat. Repeat CBC and BMP in the am. Patient seen and evaluated this morning while resting in bed, at the bedside. Physical exam unremarkable except for facial droop, slurred speech and mild drift of right leg. Discussed plan of care with patient and and they are agreeable with the same. All questions answered. Review of Systems Review of Systems: Reviewed in detail, including general health, HEENT, cardiovascular, respiratory, gastrointestinal, genitourinary, endocrine, musculoskeletal, neurologic, vascular, skin, and psychiatric. All are negative except for those listed in the History of Present Illness Physical Exam Vitals and Measurements T: 36.5 C (Oral) TMIN: 36.4 C (Oral) TMAX: 36.8 C (Oral) HR: 64 (Monitored) RR: 16 BP: 165/79 SpO2:95% HT: 177.8 cm WT: 94.6 kg BMI: 29.92 Weight Dosing Weight: 94.6 kg (04/06/25) Dosing Weight: 94.6 kg (04/06/25) General: No acute distress. Patient is alert and appropriate. Skin: No rash. Skin is warm, dry and intact. HEENT: Head is normocephalic, atraumatic. Pupils are equal, round and reactive. Neck: Supple. No lymphadenopathy, thyromegaly. Lungs: Bilaterally clear but diminished without crepitation or wheeze. Unlabored. Heart: Heart is regular rhythm, S1, S2. No murmurs, gallops or rubs. Abdomen: Abdomen is soft, nontender. Bowels sounds present in all quadrants. Extremities: No clubbing, cyanosis, or edema. Peripheral pulses palpable. No calf tenderness. Neurological: Patient is awake and alert to person, place and time. Right facial droop, slurred speech, mild drift in right leg, numbness to right face and right arm. Following simple commands, moving all extremities. Lab Results 04/07 05:22 WBC: 8.6 Hgb: 15.9 Hct: 46.6 Platelet: 290 Neutrophil %: 68.6 04/06 17:02 WBC: 8.2 Hgb: 16.7 Hct: 48.4 Platelet: 284 Neutrophil %: 77.9 H Glucose Level: 145 H Sodium Level: 141 Potassium Level: 4.0 BUN: 12 Creatinine Lvl (s): 0.88 Imaging Results and Diagnostics MRI Brain w/o Contrast Result Date: April 07, 2025 Verified By: DIMITRI BAXTER MD CLINICAL STATEMENT: IMPRESSION: Multiple foci of restricted diffusion throughout the right cerebellum and right medulla, concerning for small infarcts, possibly embolic in nature. No acute hemorrhage. Paranasal sinus disease as above. I have personally reviewed the images of this examination and agree with the resident's findings and interpretation. CT Head or Brain w/o Contrast Result Date: April 06, 2025 Verified By: RADHA CHAVEZ MD CLINICAL STATEMENT: IMPRESSION: No acute intracranial abnormality. COMMENT: Changes resultant from ischemia (even significant ischemia) may often be inapparent on CT exam, particularly if imaged early. Therefore, if symptoms persist, or clinical suspicion for pathology remains, further evaluation may be obtained with follow- up CT or MRI, as clinically feasible. I have personally reviewed the images of this examination and agree with the resident's findings and interpretations. XR Chest 1 View Result Date: April 06, 2025 Verified By: MATTHEW ADAMS DO CLINICAL STATEMENT: IMPRESSION: Hypoventilatory changes. No acute radiographic abnormality. I have personally reviewed the images of this examination and agree with the resident's findings and interpretation. Assessment/Plan 1. CVA (cerebrovascular accident) Acute, new onset, symptoms started on with dizziness and nausea and continued through yesterday. Yesterday patient had right facial numbness and difficulty swallowing. Failed swallow eval. Keep patient NPO. Was seen by speech therapy who felt that patient would require a PEG tube until hisswallow ability returned. Consult placed to PT and OT who recommended IPR. MRI of the brain confirmed multiple small embolic infarcts. Echo done but pending. Carotid duplex ultrasound shows less than50% stenosis. Continue aspirin 300 mg rectally daily. Continue NS @ 75cc/hr. Repeat CBC and BMP in the am. 2. Nausea Continue Zofran 4 mg IV PRN. 3. Dizziness Secondary to CVA. Continue PT and OT. DVT prophylaxis with heparin sc. Code status: Full Code. Labs, diagnostic test and progress notes reviewed as noted in HPI. Plan of care discussed with patient. All questions answered. Patient verbalizes understanding and is agreeable with plan of care. This case was discussed with collaborating physician, Dr. Ruperto Mauro. 77 minutes spent reviewing past diagnostic tests, reviewing lab results, vital sign trends, medicalhistory, reviewing medications and ordering home medications, examining patient, discussed plan of care with care team, collaborating with physician, and documenting in chart. Procedure/Surgical History No qualifying data available. Medications No qualifying data available Allergies NKA Social History Smoking Status - 06/26/2012 Patient is non-smoker Alcohol Use: Never., 04/06/2025 Substance Abuse Use: Never., 04/06/2025 Tobacco Nicotine Use: Never (less than 100 in lifetime)., 04/06/2025 Immunizations No qualifying data available. Code Status Code Status - Ordered -- 04/06/25 18:30:00 EDT, Full Code, Constant Order Digitally Signed by PRINCESS FINCH on 04/07/2025 02:58 PM Digitally Signed by RUPERTO MAURO MD [facility] on 04/08/2025 11:02 AM [facility]06-30-2025 Evaluation + Plan noteExtracted from: Title:History and Physical Author:PRINCESS FINCH APRN-TAVERN KEEPER Date:04/07/25 1. CVA (cerebrovascular acci dent) Acute, new onset, symptoms started on with dizziness and nausea and continued through yesterday. Yesterday patient had right facial numbness and difficulty swallowing. Failed swallow eval. Keep patient NPO. Was seen by speech therapy who felt that patient would require a PEG tube until his swallow ability returned. Consult placed to PT and OT who recommended IPR. MRI of the brain confirmed multiple small embolic infarcts. Echo done but pending. Carotid duplex ultrasound shows less than 50% stenosis. Continue aspirin 300 mg rectally daily. Continue NS @ 75cc/hr. Repeat CBC and BMP in the am. 2. Nausea Continue Zofran 4 mg IV PRN. 3. Dizziness Secondary to CVA. Continue PT and OT. DVT prophylaxis with heparin sc. Code status: Full Code. Labs, diagnostic test and progress notes reviewed as noted in HPI. Plan of care discussed with patient. All questions answered. Patient verbalizes understanding and is agreeable with plan of care. This case was discussed with collaborating physician, Dr. Ruperto Mauro. 77 minutes spent reviewing past diagnostic tests, reviewing lab results, vital sign trends, medical history, reviewing medications and ordering home medications, examining patient, discussed plan of care with care team, collaborating with physician, and documenting in chart. [facility] 06-30-2025 Note* Exam Date Time Procedure Performing Provider Status 04/07/25 10:47 AM VL Carotid US/Dopple r Complete - CV RADHA CHAVEZ MD; Auth (Verified) [facility]06-30-2025 Note* Exam Date Time Procedure Performing Provider Status 04/07/25 10:12 AM Echocardiogram, Adul t with Bubble Study- CYNDY CORTES MD; Auth (Verified) [facility]06-30-2025 Note* Exam Date Time Procedure Performing Provider Status 04/07/25 9:29 AM MRI Brain w/o Contrast DIMITRI BAXTER; Auth (Verified) [id number] ORIGINAL EXAMINATION: MRI OF THE BRAIN WITHOUT CONTRAST04/07/2025 9:32 am TECHNIQUE: Multiplanar multisequence MRI of the brain was performed without the administration of intravenous contrast. COMPARISON: CT head 04/06/2025 HISTORY: ORDERING SYSTEM PROVIDED HISTORY: Reason for Exam: Neuro deficit, acute, stroke suspected FINDINGS: Parenchyma: Multiple punctate foci of restricted diffusion throughout the right cerebellum, right medulla, and right cerebellar tonsil. There is no evidence of hemorrhage or significant edema. No space-occupying intra-axial mass or extra-axial fluid collection. Suspect prominent perivascular spaces versus sequela of prior insult in the periventricular regions bilaterally. Ventricles: No ventricular enlargement or ventricular effacement. Orbits: No acute abnormalities. Major intracranial flow voids: Grossly preserved, although not well evaluated on this exam. Paranasal sinuses: Mucosal thickening within the right greater than left ethmoid air cells, left frontal sinus, and right maxillary sinus. The remainder of the included paranasal sinuses are predominantly clear. Mastoids and middle ears: Predominantly clear. Bones: Degenerative changes of the spine. No acute osseous abnormalities. Extracranial soft tissues: Unremarkable. IMPRESSION: Multiple foci of restricted diffusion throughout the right cerebellum and right medulla, concerning for small infarcts, possibly embolic in nature. No acute hemorrhage. Paranasal sinus disease as above. I have personally reviewed the images of this examination and agree with the resident's findings and interpretation. Interpreted by: Dimitri Baxter Preliminary Report By: Virginia Law Electronically signed By Dimitri Baxter Dictated Date: 04/07/2025 9:48:05 AM Prelim Date: 04/07/2025 10:11:23 AM Sign Date: 04/07/2025 10:11:23 AM Ordering Provider: PRINCESS FINCH Interpreted by: Dimitri Baxter Preliminary Report By: Virginia Law Electronically signed By Dimitri Baxter Dictated Date: 04/07/2025 9:48:05 AM Prelim Date: 04/07/2025 10:11:23 AM Sign Date: 04/07/2025 10:11:23 AM Ordering Provider: PRINCESS FINCH [facility]06-29-2025 Note* Exam Date Time Procedure Performing Provider Status 04/06/25 5:[address] Head or Brain w/o Contrast Guicho CHAVEZ MD; Auth (Verified) [id number] ORIGINAL EXAMINATION: CT OF THE HEAD WITHOUT CONTRAST 04/06/2025 5:44 pm TECHNIQUE: CT of the head was performed without the administration of intravenous contrast. Automated exposure control, iterative reconstruction, and/or weight based adjustment of the mA/kV was utilized to reduce the radiation dose to as low as reasonably achievable. COMPARISON: None. HISTORY: ORDERING SYSTEM PROVIDED HISTORY: Reason for Exam: Vertigo, peripheral FINDINGS: BRAIN/VENTRICLES: There is no acute intracranial hemorrhage, mass effect or midline shift. No abnormal extra-axial fluid collection. The mendoza-white differentiation is maintained without evidence of an acute infarct. There is no evidence of hydrocephalus. ORBITS: The visualized portion of the orbits demonstrate no acute abnormality. SINUSES: The visualized paranasal sinuses and mastoid air cells demonstrate no acute abnormality. SOFT TISSUES/SKULL: No acute abnormality of the visualized skull or soft tissues. IMPRESSION: No acute intracranial abnormality. COMMENT: Changes resultant from ischemia (even significant ischemia) may often be inapparent on CT exam, particularly if imaged early. Therefore, if symptoms persist, or clinical suspicion for pathology remains, further evaluation may be obtained with follow-up CT or MRI, as clinically feasible. I have personally reviewed the images of this examination and agree with the resident's findings and interpretations. Interpreted by: Radha Chavez MD Preliminary Report By: Clive Flores Electronically signed By Radha Chavez MD Dictated Date: 04/06/2025 6:09:12 PM Prelim Date: 04/06/2025 6:10:36 PM Sign Date: 04/06/2025 6:32:28 PM Ordering Provider: CHRISTIAN GONZALEZ Interpreted by: Radha Chavez MD Preliminary Report By: Clive Flores Electronically signed By Radha Chavez MD Dictated Date: 04/06/2025 6:09:12 PM Prelim Date: 04/06/2025 6:10:36 PM Sign Date: 04/06/2025 6:32:28 PM Ordering Provider: CHRISTIAN GONZALEZ [facility]06-29-2025 Note* Exam Date Time Procedure Performing Provider Status 04/06/25 5:24 PM XR Chest 1 View MATTHEW ADAMS DO; Au th (Verified) [id number] ORIGINAL EXAMINATION: ONE XRAY VIEW OF THE CHEST 04/06/2025 5:24 pm COMPARISON: None. HISTORY: ORDERING SYSTEM PROVIDED HISTORY: Reason for Exam: chest pain FINDINGS: Cardiomediastinal contour is normal. Low lung volumes with hypoventilatory changes. No focal consolidation or pulmonary edema. No pneumothorax or pleural effusion. No acute osseous abnormality. IMPRESSION: Hypoventilatory changes. No acute radiographic abnormality. I have personally reviewed the images of this examination and agree with the resident's findings and interpretation. Interpreted by: Matthew Adams DO Preliminary Report By: Clive Flores Electronically signed By Matthew Adams DO Dictated Date: 04/06/2025 5:31:53 PM Prelim Date: 04/06/2025 5:32:35 PM Sign Date: 04/06/2025 6:00:14 PM Ordering Provider: CHRISTIAN GONZALEZ Interpreted by: Matthew Adams DO Preliminary Report By: Clive Flores Electronically signed By Matthew Adams DO Dictated Date: 04/06/2025 5:31:53 PM Prelim Date: 04/06/2025 5:32:35 PM Sign Date: 04/06/2025 6:00:14 PM Ordering Provider: CHRISTIAN GONZALEZ [facility]06-29-2025 Note* Exam Date Time Procedure Performing Provider Status 04/06/25 5:04 PM EKG [ED AOH] - CV CHRISTIAN GONZALEZ MD; Auth (Verified) ECG Final Report Sinus rhythm Baseline wander in lead(s) V3,V4 SEE DICTATION Electronic Signature: CHRISTIAN GONZALEZ MD 04/06/2025 17:38:27 [facility] MIKE FIGUEROA HERBARIUM WORKER-CAROUSEL ATTENDANT: PERFORM, SIGN, VERIFY Event Display: Anesthesiology Consultation Authored Date: Patient: CHARLES RUSSELL Age: 54 years Sex: Male : 1970 Associated Diagnoses: None Author: MIKE FIGUEROA HERBARIUM WORKER-CAROUSEL ATTENDANT Assessment Postanesthesia assessment Vitals: Vital signs from flowsheet : Vital Signs 04/08/2025 11:30 EDT Heart Rate Monitored 79 bpm bpm Respiratory Rate - Anes 9 br/min br/min Systolic Blood Pressure Non-Invasive 125 mmHg mmHg Diastolic Blood Pressure Non-Invasive 77 mmHg mmHg 04/08/2025 11:25 EDT Heart Rate Monitored 76 bpm bpm Respiratory Rate - Anes 11 br/min br/min Systolic Blood Pressure Non-Invasive 107 mmHg mmHg Diastolic Blood Pressure Non-Invasive 74 mmHg mmHg 04/08/2025 11:20 EDT Heart Rate Monitored 72 bpm bpm Respiratory Rate - Anes 9 br/min br/min Systolic Blood Pressure Non-Invasive 130 mmHg mmHg Diastolic Blood Pressure Non-Invasive 78 mmHg mmHg 04/08/2025 11:15 EDT Heart Rate Monitored 68 bpm bpm Respiratory Rate - Anes 14 br/min br/min Systolic Blood Pressure Non-Invasive 142 mmHg mmHg Diastolic Blood Pressure Non-Invasive 88 mmHg mmHg 04/08/2025 10:22 EDT Temperature Oral 36.5 DegC Heart Rate Monitored 63 bpm Respiratory Rate 14 br/min Systolic Blood Pressure Non-Invasive 157 mmHg HI Diastolic Blood Pressure Non-Invasive 94 mmHg HI 04/08/2025 8:00 EDT Temperature Oral 36.6 DegC Heart Rate Monitored 72 bpm Respiratory Rate 16 br/min Systolic Blood Pressure Non-Invasive 169 mmHg HI Diastolic Blood Pressure Non-Invasive 94 mmHg HI Reason For Taking VItal Signs Routine 04/08/2025 4:02 EDT Systolic Blood Pressure Non-Invasive 163 mmHg HI Diastolic Blood Pressure Non-Invasive 88 mmHg 04/08/2025 3:05 EDT Temperature Oral 36.7 DegC Heart Rate Monitored 76 bpm Respiratory Rate 16 br/min Systolic Blood Pressure Non-Invasive 171 mmHg HI Diastolic Blood Pressure Non-Invasive 86 mmHg Reason For Taking VItal Signs Routine 04/07/2025 23:23 EDT Temperature Oral 37 DegC Heart Rate Monitored 60 bpm Respiratory Rate 16 br/min Systolic Blood Pressure Non-Invasive 162 mmHg HI Diastolic Blood Pressure Non-Invasive 80 mmHg Reason For Taking VItal Signs Routine 04/07/2025 19:15 EDT Temperature Oral 36.9 DegC Heart Rate Monitored 70 bpm Respiratory Rate 16 br/min Systolic Blood Pressure Non-Invasive 167 mmHg HI Diastolic Blood Pressure Non-Invasive 92 mmHg HI Reason For Taking VItal Signs Routine 04/07/2025 18:09 EDT Systolic Blood Pressure Non-Invasive 168 mmHg HI Diastolic Blood Pressure Non-Invasive 77 mmHg 04/07/2025 15:35 EDT Temperature Oral 36.5 DegC Heart Rate Monitored 53 bpm LOW Respiratory Rate 16 br/min Systolic Blood Pressure Non-Invasive 180 mmHg HI Diastolic Blood Pressure Non-Invasive 89 mmHg Reason For Taking VItal Signs Routine 04/07/2025 13:53 EDT Systolic Blood Pressure Non-Invasive 165 mmHg HI Diastolic Blood Pressure Non-Invasive 79 mmHg 04/07/2025 13:42 EDT Temperature Oral 36.5 DegC Heart Rate Monitored 64 bpm Respiratory Rate 16 br/min Systolic Blood Pressure Non-Invasive 195 mmHg HI Diastolic Blood Pressure Non-Invasive 84 mmHg Reason For Taking VItal Signs Routine 04/07/2025 6:25 EDT Temperature Oral 36.4 DegC Heart Rate Monitored 46 bpm LOW Respiratory Rate 16 br/min Systolic Blood Pressure Non-Invasive 187 mmHg HI Diastolic Blood Pressure Non-Invasive 88 mmHg Reason For Taking VItal Signs Routine 04/07/2025 2:49 EDT Temperature Oral 36.8 DegC Heart Rate Monitored 49 bpm LOW Respiratory Rate 16 br/min Systolic Blood Pressure Non-Invasive 162 mmHg HI Diastolic Blood Pressure Non-Invasive 90 mmHg HI Reason For Taking VItal Signs Routine 04/07/2025 0:31 EDT Temperature Oral 36.5 DegC Peripheral Pulse Rate 42 bpm <LLOW Respiratory Rate 16 br/min Systolic Blood Pressure Non-Invasive 149 mmHg HI Diastolic Blood Pressure Non-Invasive 74 mmHg Reason For Taking VItal Signs Routine 04/07/2025 0:21 EDT Temperature Oral 36.8 DegC Heart Rate Monitored 48 bpm LOW Respiratory Rate 16 br/min Systolic Blood Pressure Non-Invasive 138 mmHg Diastolic Blood Pressure Non-Invasive 92 mmHg HI Reason For Taking VItal Signs Routine , Measurements from flowsheet . Mental status: alert & oriented x 4. Respiratory function: respirations are non-labored. Respiratory support: none. CV function: Normal rate. Cardiovascular support: none. Pain. Nausea status: see nursing documentation of medications. Postoperative hydration status: within normal limits. Digitally Signed by MIKE FIGUEROA on 04/08/2025 11:40 AM * MIKE FIGUEROA: PERFORM, SIGN, VERIFY Event Display: Anesthesiology Consultation Authored Date: Patient: CHARLES RUSSELL Age: 54 years Sex: Male : 1970 Associated Diagnoses: None Author: MIKE FIGUEROA Preoperative Information Time of last food or liquid consumption: 04/08/2025 00:00:00 Anesthesia history Patient's history: negative. Family's history: negative. Health Status Allergies: Allergic Reactions (Selected) NKA, Allergies (1) ActiveSeverityReaction NKANone Documented Current medications: (Selected) Inpatient Medications Ordered DuoNeb: 3 mL, Inhalation, q4hRT, PRN: Shortness of breath or wheezing NS 1,000 mL: 75 mL/hr, Intravenous Protonix: 40 mg, IV Push, qDay Tylenol: 650 mg, 2 tab(s), Oral, q4h, PRN: Pain, scale 1-3 Tylenol: 650 mg, 2 tab(s), Oral, q4h, PRN: TEMP greater than 38.6 degrees Celsius Zofran: 4 mg, 2 mL, IV Push, q4h, PRN: Nausea/Vomiting aspirin: 300 mg, 1 supp, Rectal, qDay hydrALAZINE: 10 mg, 0.5 mL, IV Push, q4h, PRN: Systolic BP: See order comments melatonin: 6 mg, 2 tab(s), Oral, qHS, PRN: Sleep Suspended heparin 5000 units/mL injection: 5,000 unit(s), 1 mL, Subcutaneous, q12h, Medications (9) Active Scheduled: (2) aspirin 300 mg Suppository 300 mg 1 supp, Rectal, qDay pantoprazole 40 mg VIAL 40 mg, IV Push, qDay Continuous: (1) NS (0.9% nacl) 1,000 mL 1,000 mL, Intravenous, 75 mL/hr PRN: (6) acetaminophen 325 mg Tablet 650 mg 2 tab(s), Oral, q4h acetaminophen 325 mg Tablet 650 mg 2 tab(s), Oral, q4h albuterol - ipratropium 2.5 mg-0.5 mg/3 mL Inhal Rupal UD 3 mL, Inhalation, q4hRT hydralazine 20 mg/mL (1mL) vial 10 mg 0.5 mL, IV Push, q4h melatonin 3 mg tablet 6 mg 2 tab(s), Oral, qHS ondansetron 2 mg/ 1 mL 2 mL INJ 4 mg 2 mL, IV Push, q4h Problem list: No qualifying data available Histories Past Medical History: No active or resolved past medical history items have been selected or recorded. Family History: No family history items have been selected or recorded. Procedure history: No active procedure history items have been selected or recorded. Social History: Social & Psychosocial Habits Alcohol 04/06/2025 Use: Never Substance Abuse 04/06/2025 Use: Never Tobacco 04/06/2025 Tobacco Use: Never (less than 100 in l Physical Examination Vital Signs 04/08/2025 10:22 EDT Temperature Oral 36.5 DegC Heart Rate Monitored 63 bpm Respiratory Rate 14 br/min Systolic Blood Pressure Non-Invasive 157 mmHg HI Diastolic Blood Pressure Non-Invasive 94 mmHg HI 04/08/2025 8:00 EDT Temperature Oral 36.6 DegC Heart Rate Monitored 72 bpm Respiratory Rate 16 br/min Systolic Blood Pressure Non-Invasive 169 mmHg HI Diastolic Blood Pressure Non-Invasive 94 mmHg HI Reason For Taking VItal Signs Routine 04/08/2025 4:02 EDT Systolic Blood Pressure Non-Invasive 163 mmHg HI Diastolic Blood Pressure Non-Invasive 88 mmHg 04/08/2025 3:05 EDT Temperature Oral 36.7 DegC Heart Rate Monitored 76 bpm Respiratory Rate 16 br/min Systolic Blood Pressure Non-Invasive 171 mmHg HI Diastolic Blood Pressure Non-Invasive 86 mmHg Reason For Taking VItal Signs Routine 04/07/2025 23:23 EDT Temperature Oral 37 DegC Heart Rate Monitored 60 bpm Respiratory Rate 16 br/min Systolic Blood Pressure Non-Invasive 162 mmHg HI Diastolic Blood Pressure Non-Invasive 80 mmHg Reason For Taking VItal Signs Routine 04/07/2025 19:15 EDT Temperature Oral 36.9 DegC Heart Rate Monitored 70 bpm Respiratory Rate 16 br/min Systolic Blood Pressure Non-Invasive 167 mmHg HI Diastolic Blood Pressure Non-Invasive 92 mmHg HI Reason For Taking VItal Signs Routine 04/07/2025 18:09 EDT Systolic Blood Pressure Non-Invasive 168 mmHg HI Diastolic Blood Pressure Non-Invasive 77 mmHg 04/07/2025 15:35 EDT Temperature Oral 36.5 DegC Heart Rate Monitored 53 bpm LOW Respiratory Rate 16 br/min Systolic Blood Pressure Non-Invasive 180 mmHg HI Diastolic Blood Pressure Non-Invasive 89 mmHg Reason For Taking VItal Signs Routine 04/07/2025 13:53 EDT Systolic Blood Pressure Non-Invasive 165 mmHg HI Diastolic Blood Pressure Non-Invasive 79 mmHg 04/07/2025 13:42 EDT Temperature Oral 36.5 DegC Heart Rate Monitored 64 bpm Respiratory Rate 16 br/min Systolic Blood Pressure Non-Invasive 195 mmHg HI Diastolic Blood Pressure Non-Invasive 84 mmHg Reason For Taking VItal Signs Routine 04/07/2025 6:25 EDT Temperature Oral 36.4 DegC Heart Rate Monitored 46 bpm LOW Respiratory Rate 16 br/min Systolic Blood Pressure Non-Invasive 187 mmHg HI Diastolic Blood Pressure Non-Invasive 88 mmHg Reason For Taking VItal Signs Routine 04/07/2025 2:49 EDT Temperature Oral 36.8 DegC Heart Rate Monitored 49 bpm LOW Respiratory Rate 16 br/min Systolic Blood Pressure Non-Invasive 162 mmHg HI Diastolic Blood Pressure Non-Invasive 90 mmHg HI Reason For Taking VItal Signs Routine 04/07/2025 0:31 EDT Temperature Oral 36.5 DegC Peripheral Pulse Rate 42 bpm <LLOW Respiratory Rate 16 br/min Systolic Blood Pressure Non-Invasive 149 mmHg HI Diastolic Blood Pressure Non-Invasive 74 mmHg Reason For Taking VItal Signs Routine 04/07/2025 0:21 EDT Temperature Oral 36.8 DegC Heart Rate Monitored 48 bpm LOW Respiratory Rate 16 br/min Systolic Blood Pressure Non-Invasive 138 mmHg Diastolic Blood Pressure Non-Invasive 92 mmHg AL Reason For Taking VItal Signs Routine Vital Signs (last 24 hrs) Last Charted Temp Oral36.5 DegC (APR 08:) Heart Rate [id number] bpm (APR 08 10:) SBPH 157 mmHg (APR 08 10:) DBPH 94 mmHg (APR 08:) Measurements from flowsheet : Measurements 04/08/2025 10:22 EDT Height 152.4 cm Height in inches 60 inch(es) Admission Weight 95.45 kg Weight Lbs 210 lb [place] Body Weight 50.00 kg Admission Body Mass Index 41.1 m2 04/07/2025 17:48 EDT [place] Body Weight 75 kg Pain assessment: Pain Assessment 04/08/2025 10:22 EDT Primary Pain Intensity 0 Pain Scale Type 0-10 Pain scale 04/08/2025 8:00 EDT Primary Pain Intensity 0 Pain Scale Type 0-10 Pain scale 04/07/2025 20:15 EDT Primary Pain Intensity 0 Pain Scale Type 0-10 Pain scale 04/07/2025 8:20 EDT Primary Pain Intensity 0 Pain Scale Type 0-10 Pain scale 04/07/2025 3:45 EDT Primary Pain Intensity 0 Pain Scale Type 0-10 Pain scale 04/07/2025 0:31 EDT Primary Pain Intensity 0 Pain Scale Type 0-10 Pain scale . General: Alert and oriented. Airway: Normal temporomandibular joint mobility, Normal mouth, Normal neck range of motion. Mallampati classification: III (soft palate, base of uvula visible). Dentition Evaluation: Denies loose/chipped teeth. Respiratory: Respirations are non-labored. Cardiovascular: Normal rate. Neurologic: Alert, Oriented. Review / Management Results review: Labs (Last four charted values) WBC 9.7(APR 08)8.6(APR 07)8.2(APR 06) Hgb 15.3(APR 08)15.9(APR 07)16.7(APR 06) Hct 45.0(APR 08)46.6(APR 07)48.4(APR 06) Plt 278(APR 08)290(APR 07)284(APR 06) Na 140(APR 08)141(APR 06) K 4.3(APR 08)4.0(APR 06) CO2 27(APR 08)H 30(APR 06) Cl 106(APR 08)105(APR 06) Cr 0.79(APR 08)0.88(APR 06) BUN 15(APR 08)12(APR 06) Glucose 102(APR 08)H 145(APR 06) Mg 1.8(APR 08)1.9(APR 07)2.1(APR 06) Ca 8.7(APR 08)9.3(APR 06) , Lab results 04/08/2025 11:19 EDT SN - CTm - Surgery Start 04/08/2025 11:19 04/08/2025 11:19 EDT SN - Proc - Anesthesia Type MAC SN - Proc - Actual Procedure PERCUTANEOUS ENDOSCOPIC GASTROSTOMY INSERTION 04/08/2025 11:19 EDT SN - SP - Prep Agents Chloraprep SN - SP - HR - Method Clipped in OR 04/08/2025 11:18 EDT SN - PP - Body Position Supine Standard Intra-op 04/08/2025 11:17 EDT SN - Assess - LOC Alert, Awake SN - Assess - Orientation Oriented X 3 SN - Assess - Post-op Skin Integrity Intact/Dry 04/08/2025 11:17 EDT SN - GCD - ASA Class 3 SN - GCD - Post-operative Diagnosis CEREBRAL VASCULAR ACCIDENT SN - GCD - Case Level Flat-Fee 04/08/2025 11:16 EDT SN - CAt - Case Attendee SN - CAt - Case Attendee SN - CAt - Case Attendee SN - CAt - Case Attendee SN - CAt - Case Attendee SN - CAt - Case Attendee SN - CAt - Case Attendee SN - CAt - Case Attendee SN - CAt - Role Performed CAROUSEL ATTENDANT SN - CAt - Role Performed Auditor Appraiser 1 SN - CAt - Role Performed Scrub 1 SN - CAt - Role Performed Advisor Consultant 04/08/2025 11:15 EDT SN - CAt - Case Attendee SN - CAt - Case Attendee SN - CAt - Role Performed Primary Surgeon 04/08/2025 11:01 EDT SN - Preop - CTm Pt in SDS Room 04/08/2025 10:22 SN - Preop - CTm Pt Ready for OR/Proced 04/08/2025 10:25 04/08/2025 10:59 EDT glycopyrrolate 0.2 mg mg 04/08/2025 10:48 EDT dexmedeTOMIDine 8 mcg mcg 04/08/2025 10:24 EDT Antecubital Right 18 gauge Peripheral IV Activity: Assessed Peripheral IV Site Condition: No complications 04/08/2025 10:22 EDT Height 152.4 cm Height in inches 60 inch(es) Admission Weight 95.45 kg Weight Lbs 210 lb [place] Body Weight 50.00 kg Admission Body Mass Index 41.1 m2 Temperature Oral 36.5 DegC Heart Rate Monitored 63 bpm Respiratory Rate 14 br/min Systolic Blood Pressure Non-Invasive 157 mmHg HI Diastolic Blood Pressure Non-Invasive 94 mmHg HI Primary Pain Intensity 0 Pain Scale Type 0-10 Pain scale Respirations Unlabored Respiratory Pattern Regular Breath Sounds Auscultated Anterior only All Lobes Breath Sounds Diminished Oxygen Therapy Room air Oxygen Saturation 93 % Abdomen Description Non-distended, Symmetric, Soft Skin Description Normal for ethnicity Skin Temperature Warm Skin Integrity Intact Mucous Membrane Color [place] Mucous Membrane Description Moist Neurological Language Able to speak clearly Neurological Symptoms Numbness Characteristics of Communication Appropriate Characteristics of Speech Clear Level of Consciousness Alert NIMISHA Yes Affect/Behavior Appropriate, Calm, Cooperative Orientation Oriented x 4 Erendira Motor (2) Moves 4 extremities voluntarily or on command Erendira Respirations (2) Spontaneous respiration without support, RR > 10 Erendira Blood Pressure (2) BP 20% above or below preanesthetic level Erendira Pulse (2) Pulse 20% above or below preanesthetic level Erendira Oxygen Saturation (2) 94% or more Erendira Level of Consciousness (2) Fully awake Erendira III Score 12 Activity Status ADL Awake Standard Safety Precautions maintained Demonstrates Correct Call Light Use Yes 04/08/2025 10:20 EDT Accompanied By Staff Nurse Out of Room Went to Current Location Surgery Transport via Bed 04/08/2025 9:52 EDT Mechanical VTE Prophylaxis Education Not done this session Sequential Compression Device bilateral knee high removed/off Sequential Compression Device Form Sequential Compression Device Form 04/08/2025 9:43 EDT Sodium Chloride 0.9% Begin Bag 1,000 mL mL 04/08/2025 9:00 EDT aspirin Not Done: Physician Order (Not Done) 04/08/2025 8:30 EDT Urinary Elimination Voiding, no difficulties IV Present Present Allergies No Consent Form Signed Yes Patient Dressed In Hospital gown Pre-op Preparation Preop linens changed CHG Preoperative Wash/Wipe Day of procedure, Site specific wipe History & Physical Update On Chart Yes History & Physical On Chart Yes NPO Status Maintained Patient ID Band on and Verified Yes 04/08/2025 8:13 EDT Level of Consciousness NIH Stroke Scale Alert Response Month/Age NIH Stroke Scale Answers both correctly Open/Close Eyes NIH Stroke Scale Obeys both correctly Best Gaze NIH Stroke Scale Normal Visual Field Testing NIH Stroke Scale No visual field loss Facial Paresis NIH Stroke Scale Minor paralysis Motor Function Left Arm NIH Stroke Scale Normal Motor Function Rt Arm NIH Stroke Scale Normal Motor Function Left Leg NIH Stroke Scale Normal Motor Function Rt Leg NIH Stroke Scale Normal Limb Ataxia NIH Stroke Scale No ataxia Sensory NIH Stroke Scale Mild to moderate decrease in sensation Best Language NIH Stroke Scale No aphasia Dysarthria NIH Stroke Scale Mild to moderate slurring of words Extinction/Inattention NIH Stroke Scale Normal NIH Stroke Score 3 NIH Stroke Scale Form NIH Stroke Scale Form 04/08/2025 8:00 EDT Temperature Oral 36.6 DegC Heart Rate Monitored 72 bpm Respiratory Rate 16 br/min Systolic Blood Pressure Non-Invasive 169 mmHg HI Diastolic Blood Pressure Non-Invasive 94 mmHg HI Reason For Taking VItal Signs Routine Primary Pain Intensity 0 Pain Scale Type 0-10 Pain scale Nail Bed Color [place] Capillary Refill < 2 seconds Radial Pulse, Left 2+ Normal Radial Pulse, Right 2+ Normal Respirations Unlabored Respiratory Pattern Regular Breath Sounds Auscultated Anterior only All Lobes Breath Sounds Diminished Suction Method Oral Cough Occasional Suction Device Yankauer Oxygen Therapy Room air Oxygen Saturation 94 % Abdomen Description Non-distended, Soft Abdomen Palpation Non-Tender, Soft Bowel Sounds All Quadrants Present Urinary Elimination Voiding, no difficulties Skin Description Normal for ethnicity, Dry Skin Temperature Warm All Extremity Description Normal for ethnicity Temperature All Extremities Warm Mucous Membrane Color [place] Mucous Membrane Description Moist Sensory Perception Felipe Slightly limited Moisture Felipe Rarely moist Activity Felipe Walks occasionally Mobility Felipe Slightly limited Nutrition Felipe Probably inadequate Friction and Shear Felipe No apparent problem Felipe Score 18 Hospital Acquired Pressure Injury Risk Low risk (score 15-18) Antecubital Right 18 gauge Peripheral IV Activity: Assessed Peripheral IV Dressing Condition: Clean, Dry, Intact Peripheral IV Dressing Activity: Transparent dressing Peripheral IV Line Status/Patency: Continuous infusion Peripheral IV Line Care: Secured with tape Peripheral IV Site Condition: No complications Peripheral IV Equipment: IV Pump Neurological Language Able to speak clearly Neurological Symptoms Numbness, Tingling, Weakness Gait Unable to assess Extremity Movement Unequal Swallowing Difficulty Liquids, thin, Saliva Characteristics of Communication Appropriate Characteristics of Speech Clear Level of Consciousness Alert Strength All Extremities Moderate Tone All Extremities Normal Sensation All Extremities Intact Left Upper Extremity Sensation Intact Right Upper Extremity Sensation Intact Left Lower Extremity Sensation Intact Right Lower Extremity Sensation Intact Baptiste Screen Daily History of Fall in Last 3 Months Baptiste Yes Presence of Secondary Diagnosis Baptiste Yes Use of Ambulatory Aid Baptiste Crutches, cane, walker IV/PRN Adapter Fall Risk Baptiste Yes Gait Weak or Impaired Fall Risk Baptiste Weak Mental Status Fall Risk Baptiste Oriented to own ability Baptiste Fall Risk Score 85 HI Violence Risk Confused No Violence Risk Irritable No Violence Risk Boisterous No Violence Risk Verbal Threats No Violence Risk Physical Threats No Violence Risk Attacking Objects No Violence Risk Predictor Score 0 Violence Risk Intervention None Violence Risk Current Interventions None Affect/Behavior Appropriate, Calm, Cooperative Orientation Oriented x 4 Orientation Assessment Oriented x 4 Activity Status ADL Awake Standard Safety ID band on, Call device within reach, Bed in low position, Wheels locked, Upper/Half-Length side-rails up, Phone within reach, personal items within reach, Assistive devices within reach, Visitor at bedside, Non-Slip footwear High Risk Safety Identified as high risk, Fall ID band on, Bed alert on, Door open, Non-Slip footwear, Room check performed Appetite Poor Eating Difficulties Swallowing 04/08/2025 7:00 EDT Cardiac Rhythm Sinus rhythm Monitoring Lead II GA Interval 0.17 second(s) QRS Duration 0.10 second(s) QT Interval 0.41 second(s) QTc Interval 0.45 second(s) Alarms On and Functional Yes Heart Rate Alarm Set At - Low 50 Heart Rate Alarm Set At - High 120 04/08/2025 6:10 EDT Oxygen Therapy Room air Oxygen Activity Room air Oxygen Flow Rate 0 L/min 04/08/2025 5:59 EDT Positioning Repositions self Activity Status ADL Sleeps intermittently Nurse Safety Checks q2hrs Performed 7pm-7am Standard Safety Safety level maintained High Risk Safety Room check performed 04/08/2025 5:26 EDT WBC 9.7 10^3/mcL RBC 5.16 10^6/mcL Hgb 15.3 G/dL Hct 45.0 % MCV 87.2 fL MCH 29.8 pg MCHC 34.1 G/dL RDW 13.3 % Platelet 278 10^3/mcL MPV 6.6 fL Neutrophil % 78.8 % HI Lymphocyte % 14.6 % LOW Monocyte % 6.2 % Eosinophil % 0.1 % Basophil % 0.3 % Neutrophil, Absolute 7.6 10^3/mcL Lymphocyte, Absolute 1.4 10^3/mcL Monocyte, Absolute 0.6 10^3/mcL Eosinophil, Absolute 0.0 10^3/mcL Basophil, Absolute 0.0 10^3/mcL Glucose Level 102 mg/dL Sodium Level 140 mmol/L Potassium Level 4.3 mmol/L Chloride 106 mmol/L CO2 27 mmol/L Electrolyte Balance 7.0 mEq/L BUN 15 mg/dL Creatinine Lvl (s) 0.79 mg/dL Estimated Glomerular Filtration Rate 105 ml/min/1.73sqm NA BUN/Creatinine Ratio 19 ratio Calcium Lvl 8.7 mg/dL Magnesium Lvl 1.8 mg/dL Total Protein 6.9 G/dL Albumin Level 3.4 G/dL LOW Globulin 3.5 G/dL A/G Ratio 1.0 ratio LOW Bili Total 0.8 mg/dL Alk Phos 50 U/L AST/SGOT 15 U/L ALT/SGPT 22 U/L Creatinine Clearance Calc 112.08 mL/min 04/08/2025 5:07 EDT Mechanical VTE Prophylaxis Education Not Done: Task Duplication (Not Done) Mechanical VTE Prophylaxis Education Not Done: Task Duplication (Not Done) Sequential Compression Device Not Done: Task Duplication (Not Done) Sequential Compression Device Not Done: Task Duplication (Not Done) Sequential Compression Device Form Not Done (Not Done) Sequential Compression Device Form Not Done (Not Done) 04/08/2025 4:02 EDT Systolic Blood Pressure Non-Invasive 163 mmHg HI Diastolic Blood Pressure Non-Invasive 88 mmHg 04/08/2025 3:30 EDT Cardiac Rhythm Sinus rhythm Monitoring Lead II GA Interval 0.15 second(s) QRS Duration 0.10 second(s) QT Interval 0.42 second(s) QTc Interval 0.42 second(s) Alarms On and Functional Yes Heart Rate Alarm Set At - Low 50 Heart Rate Alarm Set At - High 120 04/08/2025 3:05 EDT Temperature Oral 36.7 DegC Heart Rate Monitored 76 bpm Respiratory Rate 16 br/min Systolic Blood Pressure Non-Invasive 171 mmHg HI Diastolic Blood Pressure Non-Invasive 86 mmHg Reason For Taking VItal Signs Routine Oxygen Therapy Room air Oxygen Saturation 92 % LOW 04/08/2025 1:54 EDT Reason for PRN medication Nausea and/or vomiting PRN Med for Nausea/Vomiting Effective Yes PRN Medication Effectiveness Evaluation PRN Medication Effectiveness Evaluation 04/08/2025 1:25 EDT pantoprazole 40 mg mg 04/08/2025 1:24 EDT LORazepam 0.5 mg mg ondansetron 4 mg mg 04/07/2025 23:23 EDT Temperature Oral 37 DegC Heart Rate Monitored 60 bpm Respiratory Rate 16 br/min Systolic Blood Pressure Non-Invasive 162 mmHg HI Diastolic Blood Pressure Non-Invasive 80 mmHg Reason For Taking VItal Signs Routine Oxygen Therapy Room air Oxygen Saturation 95 % 04/07/2025 23:00 EDT Cardiac Rhythm Sinus rhythm Monitoring Lead II GA Interval 0.16 second(s) QRS Duration 0.10 second(s) QT Interval 0.40 second(s) QTc Interval 0.41 second(s) Alarms On and Functional Yes Heart Rate Alarm Set At - Low 50 Heart Rate Alarm Set At - High 120 Urine Count 1 EA Urine Voided 300 mL 04/07/2025 22:11 EDT Sodium Chloride 0.9% Begin Bag 1,000 mL mL 04/07/2025 22:03 EDT Mechanical VTE Prophylaxis Education Not Done: Task Duplication (Not Done) Sequential Compression Device Not Done: Task Duplication (Not Done) NIH Stroke Scale Form Not Done (Not Done) Sequential Compression Device Form Not Done (Not Done) 04/07/2025 20:39 EDT Ed-Disease Process Done Ed-Unit Activities and Visiting Hours Done 04/07/2025 20:38 EDT O-Remains Free From Injury Progressing towards goal 04/07/2025 20:36 EDT Individuals Taught Patient Learning Readiness Willing to learn Barriers to Learning None evident Teaching Method Explanation Preferred Spoken Language Sinhala Disease Process General Education Signs/Symptoms to report Patient Care Education Activity limitations/expectations, Plan of care Teaching Evaluation Verbalizes/Nonverbally indicates understanding 04/07/2025 20:15 EDT Primary Pain Intensity 0 Pain Scale Type 0-10 Pain scale Nail Bed Color [place] Capillary Refill < 2 seconds Dorsalis Pedis Pulse, Left 2+ Normal Dorsalis Pedis Pulse, Right 2+ Normal Level of Consciousness NIH Stroke Scale Alert Response Month/Age NIH Stroke Scale Answers both correctly Open/Close Eyes NIH Stroke Scale Obeys both correctly Best Gaze NIH Stroke Scale Normal Visual Field Testing NIH Stroke Scale No visual field loss Facial Paresis NIH Stroke Scale Minor paralysis Motor Function Left Arm NIH Stroke Scale Normal Motor Function Rt Arm NIH Stroke Scale Normal Motor Function Left Leg NIH Stroke Scale Normal Motor Function Rt Leg NIH Stroke Scale Normal Limb Ataxia NIH Stroke Scale No ataxia Sensory NIH Stroke Scale Mild to moderate decrease in sensation Best Language NIH Stroke Scale No aphasia Dysarthria NIH Stroke Scale Mild to moderate slurring of words (Modified) Extinction/Inattention NIH Stroke Scale Normal NIH Stroke Score 3 (Modified) Respirations Unlabored Respiratory Pattern Regular Breath Sounds Auscultated Anterior and posterior All Lobes Breath Sounds Coarse crackles Suction Method Oral Cough Productive Suction Device Yankauer Sputum Color Clear Oxygen Therapy Room air Abdomen Description Non-distended Abdomen Palpation Non-Tender Bowel Sounds All Quadrants Present Urinary Elimination Voiding, no difficulties Skin Description Normal for ethnicity Skin Temperature Warm Skin Integrity Intact Skin Turgor Elastic All Extremity Description Normal for ethnicity Temperature All Extremities Warm Mucous Membrane Color [place] Mucous Membrane Description Moist Antecubital Right 18 gauge Peripheral IV Activity: Assessed Peripheral IV Dressing Condition: Clean, Dry, Intact Peripheral IV Dressing Activity: Transparent dressing Peripheral IV Line Status/Patency: Continuous infusion Peripheral IV Line Care: Secured with tape Peripheral IV Site Condition: No complications Peripheral IV Equipment: IV Pump Neurological Language Able to speak clearly Neurological Symptoms Numbness, Weakness Gait Unable to assess Extremity Movement Equal Swallowing Difficulty Liquids, thick, Liquids, thin, Pills, Saliva, Solids Characteristics of Communication Appropriate Characteristics of Speech Clear Level of Consciousness Alert Strength All Extremities Moderate Tone All Extremities Normal Sensation All Extremities Intact Affect/Behavior Appropriate Orientation Oriented x 4 04/07/2025 19:15 EDT Temperature Oral 36.9 DegC Heart Rate Monitored 70 bpm Respiratory Rate 16 br/min Systolic Blood Pressure Non-Invasive 167 mmHg HI Diastolic Blood Pressure Non-Invasive 92 mmHg HI Reason For Taking VItal Signs Routine Oxygen Therapy Room air Oxygen Saturation 94 % 04/07/2025 19:00 EDT Cardiac Rhythm Sinus rhythm Monitoring Lead II GA Interval 0.14 second(s) QRS Duration 0.08 second(s) QT Interval 0.41 second(s) QTc Interval 0.41 second(s) Alarms On and Functional Yes Heart Rate Alarm Set At - Low 50 Heart Rate Alarm Set At - High 120 04/07/2025 18:13 EDT Activity Status ADL Awake Nurse Safety Checks q2hrs Performed 7am-7pm Standard Safety Safety level maintained High Risk Safety Room check performed 04/07/2025 18:11 EDT Individuals Taught Patient Learning Readiness Willing to learn Barriers to Learning None evident Teaching Method Demonstration, Explanation Mechanical VTE Prophylaxis Education Purpose of Mechanical VTE Prophylaxis, Wear device at all times when in bed/chair, Always call for assistance to get out of bed, Explain the higher risk for falling, Call for assistance to re-apply device Teaching Evaluation Verbalizes/Nonverbally indicates understanding Sequential Compression Device bilateral knee high applied/on Sequential Compression Device Form Sequential Compression Device Form 04/07/2025 18:09 EDT Systolic Blood Pressure Non-Invasive 168 mmHg HI Diastolic Blood Pressure Non-Invasive 77 mmHg 04/07/2025 17:48 EDT [place] Body Weight 75 kg Nausea 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, 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, 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 Appetite Unable to obtain Percentage [place] Weight 125 Enteral Feeding Comments Enteral Feeding Comments Nutrition Plan of Care Dietitian follow up/monitor, Participate in team conference Maintenance Service Supervisor Recommendations Tube feeding, Other: recommend Jevity 1.2 TF 7 cans/day bolus via PEG (70mL/hr goal rate if continuous rate desired) Nutrition Follow-Up Needed Yes Days until Maintenance Service Supervisor Follow Up Two days Adult Nutrition Initial Asmt/Plan Form Adult Nutrition Initial Asmt/Plan Form Adult Nutrition Initial Assessment/Plan Adult Nutrition Assessment/Plan 04/07/2025 16:57 EDT Surgical Consultation Consult Note 04/07/2025 16:54 EDT Sodium Chloride 0.9% Begin Bag 1,000 mL mL (Modified) 04/07/2025 16:38 EDT Notify date/time 04/07/2025 16:38 Provider Notified ASHUTOSH TATE MD Notification Method Face to face conversation Information Communicated Consult 04/07/2025 16:17 EDT OT Visual Perception OT Visual Perception Muscle Tone Intact Coordination Impaired Proprioception Intact Sensation Within Normal Limits Impaired OT Toilet Transfers Min A Current History Current History Past Medical History Past Medical History Worker's Comp Patient No OT Education Grid OT Education Grid OT Supine to Sit IND OT Sit to Supine IND OT Sit to Stand Mod I OT Stand to Sit Mod I OT Bed to/from Chair Min A Put On Take Off Upper Body Clothing None (4) Put On Take Off Lower Body Clothing A Little (3) Bathing? A Little (3) Toileting? A Little (3) Take Care Of Personal Grooming None (4) Eating Meals Total (1) Current OT Discharge Recommendation Inpatient Rehabilitation Facility OT Therapy Recommended after Discharge Yes (see Discharge Recommendation) OT Frequency Daily OT Duration Two weeks OT Intensity BID OT Initiate/Continue Treatment Yes OT Tx Plan/Goals Established w Patient Yes Static Sitting Independent Dynamic Sitting Supervised Static Standing Mod I Dynamic Standing Min A OT Evaluation Charge Moderate complexity Occupational Therapy Initial Eval Form Occupational Therapy Initial Eval Form Occupational Therapy Progress Note OT Initial Evaluation 04/07/2025 15:59 EDT Sensory Perception Felipe Slightly limited Moisture Felipe Rarely moist Activity Felipe Walks occasionally Mobility Felipe Slightly limited Nutrition Felipe Probably inadequate Friction and Shear Felipe No apparent problem Felipe Score 18 Hospital Acquired Pressure Injury Risk Low risk (score 15-18) Baptiste Screen Daily History of Fall in Last 3 Months Baptiste Yes Presence of Secondary Diagnosis Baptiste Yes Use of Ambulatory Aid Baptiste Crutches, cane, walker IV/PRN Adapter Fall Risk Baptiste Yes Gait Weak or Impaired Fall Risk Baptiste Weak Mental Status Fall Risk Baptiste Oriented to own ability Baptiste Fall Risk Score 85 HI 04/07/2025 15:35 EDT Temperature Oral 36.5 DegC Heart Rate Monitored 53 bpm LOW Respiratory Rate 16 br/min Systolic Blood Pressure Non-Invasive 180 mmHg HI Diastolic Blood Pressure Non-Invasive 89 mmHg Reason For Taking VItal Signs Routine Oxygen Therapy Room air Oxygen Saturation 94 % 04/07/2025 15:00 EDT Cardiac Rhythm Sinus bradycardia Monitoring Lead II GA Interval 0.15 second(s) QRS Duration 0.11 second(s) QT Interval 0.46 second(s) QTc Interval 0.41 second(s) Alarms On and Functional Yes Heart Rate Alarm Set At - Low 50 Heart Rate Alarm Set At - High 120 04/07/2025 14:52 EDT Antecubital Right 18 gauge Peripheral IV Activity: Assessed Peripheral IV Dressing Condition: Clean, Dry, Intact Peripheral IV Dressing Activity: Transparent dressing Peripheral IV Line Status/Patency: Continuous infusion Peripheral IV Line Care: Secured with tape Peripheral IV Site Condition: No complications Peripheral IV Equipment: IV Pump 04/07/2025 14:45 EDT Bed Mobility Supine to Sit Supervised Bed Mobility Sit to Supine Supervised Transfer Sit to Stand Min A Transfer Stand to Sit Min A Ambulation Distance 2 20 ft Ambulation Distance 3 52 ft Ambulation Level Min A Ambulation Distance 32 ft Ambulation Quality Ambulation Quality Precautions to Rehabilitation Treatment Precautions to Rehabilitation Treatment PT Education Grid PT Education Grid Current PT Discharge Recommendation Inpatient Rehabilitation Facility PT Initiate/Continue Treatment Yes Physical Therapy Daily Notes Form Physical Therapy Daily Notes Form Physical Therapy Progress Note Physical Therapy Daily Notes 04/07/2025 14:35 EDT [place] History and Physical History and Physical 04/07/2025 13:53 EDT Systolic Blood Pressure Non-Invasive 165 mmHg HI Diastolic Blood Pressure Non-Invasive 79 mmHg 04/07/2025 13:42 EDT Temperature Oral 36.5 DegC Heart Rate Monitored 64 bpm Respiratory Rate 16 br/min Systolic Blood Pressure Non-Invasive 195 mmHg HI Diastolic Blood Pressure Non-Invasive 84 mmHg Reason For Taking VItal Signs Routine Oxygen Therapy Room air Oxygen Saturation 95 % 04/07/2025 13:15 EDT Level of Consciousness Alert Affect/Behavior Calm, Cooperative Past Medical History unremarkable Consult to Dietitian Yes Reason for Nutrition Consult Other: NPO. pt appears needs group home means of nutrition basesd on MRIresults involving the [place] Dentition Own teeth Labial Function Within functional limits Labial Structure Within normal limits Lingual Function Within functional limits Lingual Structure Within normal limits Mandible Function Within functional limits Mandible Structure Within normal limits Sitting Head Control Upright centered position Sitting Trunk Control Upright centered position Swallow Patient Position Upright 90 degrees Dysphagia Evaluation Charge Yes Speech Swallow Goals Grid Speech Swallow Goals Grid Speech Swallow Evaluation Form Speech Swallow Evaluation Form Speech Therapy Progress Note Speech Swallow Evaluation 04/07/2025 13:09 EDT Stroke Phase Hospital phase Stroke Disease Process Education Understanding Stroke book given, NIH Stroke Scale Stroke Teaching Evaluation Verbalizes/Nonverbally indicates understanding 04/07/2025 13:03 EDT Mechanical VTE Prophylaxis Education Not Done: Not Appropriate at this Time (Not Done) Sequential Compression Device Not Done: Not Appropriate at this Time (Not Done) Sequential Compression Device Form Not Done (Not Done) 04/07/2025 12:34 EDT Lives In Multilevel home Living Situation Home independently, Lives with spouse 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, 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, 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, Housework, Laundry, Mealpreparation, Personal ADL, Shopping, Work Advanced Directives Unable to obtain Discharge To, Anticipated Home independently Anticipated Discharge Date 04/08/2025 Transition Planning Note Transition Planning Initial Assessment 04/07/2025 12:33 EDT [facility] Current Living Situation I have a steady place to live [facility] Current Issues Living Environment None [facility] Worried Food Running Out P12M Never true [facility] Food Gone, No Money To Buy P12M Never true [facility] No Transport Med/Appt/Work P12M No [facility] Utilities Threaten Shut Off P12M No [facility] Anyone Physically Hurt You Never (1) C Anyone Insult Or Talk Down To You Never (1) C Anyone Threaten You With Harm Never (1) C Anyone Scream Or Curse At You Never (1) [facility] Safety Total Score 4 04/07/2025 10:47 EDT VL Carotid US/Doppler Complete - CV Signed 04/07/2025 10:41 EDT NIH Stroke Scale Form Not Done (Not Done) 04/07/2025 10:25 EDT Antecubital Right 18 gauge Peripheral IV Activity: Assessed Peripheral IV Dressing Condition: Clean, Dry, Intact Peripheral IV Dressing Activity: Transparent dressing Peripheral IV Line Status/Patency: Continuous infusion Peripheral IV Line Care: Secured with tape Peripheral IV Site Condition: No complications Peripheral IV Equipment: IV Pump Individuals Taught Patient Learning Readiness Willing to learn Barriers to Learning None evident Teaching Method Demonstration, Explanation Preferred Spoken Language Sinhala Preferred Written Language Sinhala Anticoag. Med Educated Heparin Reason/Purpose of Anticoagulant DVT prophylaxis Anticoagulation Medication Generic/Brand name, purpose, action, Dose / Route / Schedule, Side effects Demonstrates Self Injection N/A Anticoag Med(s) Teaching Evaluation Verbalizes/Nonverbally indicates understanding aspirin 300 mg mg heparin 5,000 unit(s) unit(s) Sodium Chloride 0.9% Begin Bag 1,000 mL mL 04/07/2025 10:12 EDT Echocardiogram, Adult with Bubble Study-CV Signed 04/07/2025 9:30 EDT Basic Command Following Intact Coordination Impaired Strength-LLE Within functional limits Strength-RLE Within functional limits Left Hip Flexion Strength 5 Left Knee Flexion Strength 5 Left Knee Extension Strength 5 Left Ankle Dorsiflexion Strength 5 Left Ankle Plantarflexion Strength 5 Right Hip Flexion Strength 5 Right Knee Flexion Strength 5 Right Knee Extension Strength 5 Right Ankle Dorsiflexion Strength 5 Right Ankle Plantarflexion Strength 5 Left Lower Extremity Range of Motion Within functional limits Right Lower Extremity Range of Motion Within functional limits PT Other Neurological Information PT Other Neurological Information Number of Stairs-Outside Stairs ramp Location Bed 1st floor Location Main Bathroom 1st floor Bed Mobility Supine to Sit Supervised Bed Mobility Sit to Supine Supervised Transfer Sit to Stand Min A Transfer Stand to Sit Min A Ambulation Level Min A Ambulation Distance 5 ft Ambulation Quality Ambulation Quality Information Obtained From Patient Precautions to Rehabilitation Treatment Precautions to Rehabilitation Treatment Current History Current History Past Medical History Past Medical History Falls In Last 6 Months 1 fall Vestibular Assessment Yes PT Education Grid PT Education Grid PT Problem List Ambulation deficits, Balance deficits, Bed mobility deficits, Coordination/Proprioception deficits, Decreased activity tolerance, Dizziness/Vertigo, Stair negotiation deficits, Transfer deficits PT Sensation Impaired Turning Over In Bed None (4) Sit Down/Stand Up From Chair with Arms A Little (3) Move From Back To Sit On Bedside A Little (3) Moving To And From Bed To Chair A Little (3) Need To Walk In Hospital Room A Lot (2) Climbing 3-5 Steps With A Railing Total (1) Current PT Discharge Recommendation Inpatient Rehabilitation Facility PT Therapy Recommended after Discharge Yes (see Discharge Recommendation) PT Duration One week PT Anticipated Treatments Balance training, Bed mobility training, Caregiver training, Gait training, Neuromuscular reeducation, Safety education, Therapeutic exercises, Transfer training PT Initiate/Continue Treatment Yes PT Plan/Goals Established w Pt/Caregiver Yes PT Patient/Caregiver Goal Pt goal is to return to PLOF. PT Bed Mobility Goal Independent PT Bed Mobility Goal Time Frame 7 day(s) PT Transfer Goal Mod I PT Transfer Device Goal Front wheeled walker PT Transfer Goal Time Frame 7 day(s) PT Ambulation Goal Mod I PT Ambulation Device Goal Front wheeled walker Gait 1 Distance for Goal 200 PT Ambulation Goal Time Frame 7 day(s) Therapy Pain Intensity 0 Static Sitting Independent Static Standing Min A Dynamic Standing Min A Basic Mobility Raw Score 16 PT Evaluation Charge Moderate complexity Physical Therapy Progress Note Physical Therapy Inpatient Initial Examination 04/07/2025 9:29 EDT MRI Brain w/o Contrast MRI BRAIN W/O CONTRAST 04/07/2025 9:16 EDT [facility] Length of Stay 2 days [facility] Acute Admission Inpatient [facility] ED Visits 1 [facility] CoMorbidity Score 0 LACE Score 6 Readmission Risk Screening Note Readmission Risk Screening 04/07/2025 9:10 EDT Mechanical VTE Prophylaxis Education Not done this session Sequential Compression Device bilateral knee high removed/off Reason SCD Removed/Off Pt not in room Sequential Compression Device Form Sequential Compression Device Form 04/07/2025 8:20 EDT Primary Pain Intensity 0 Pain Scale Type 0-10 Pain scale Nail Bed Color [place] Capillary Refill < 2 seconds Dorsalis Pedis Pulse, Left 1+ Thready Dorsalis Pedis Pulse, Right 1+ Thready Radial Pulse, Left 2+ Normal Radial Pulse, Right 2+ Normal Level of Consciousness NIH Stroke Scale Alert Response Month/Age NIH Stroke Scale Answers both correctly Open/Close Eyes NIH Stroke Scale Obeys both correctly Best Gaze NIH Stroke Scale Normal Visual Field Testing NIH Stroke Scale No visual field loss Facial Paresis NIH Stroke Scale Minor paralysis Motor Function Left Arm NIH Stroke Scale Normal Motor Function Rt Arm NIH Stroke Scale Normal Motor Function Left Leg NIH Stroke Scale Normal Motor Function Rt Leg NIH Stroke Scale Drift (Modified) Limb Ataxia NIH Stroke Scale No ataxia Sensory NIH Stroke Scale Mild to moderate decrease in sensation Best Language NIH Stroke Scale No aphasia Dysarthria NIH Stroke Scale Mild to moderate slurring of words Extinction/Inattention NIH Stroke Scale Normal NIH Stroke Score 4 (Modified) Respirations Unlabored Respiratory Pattern Regular Breath Sounds Auscultated Anterior only All Lobes Breath Sounds Clear, Diminished Cough Occasional Oxygen Therapy Room air Abdomen Description Non-distended, Soft Abdomen Palpation Non-Tender, Soft Passing Flatus No Bowel Movement Last Date 04/05/2025 Swallowing Disorder Complaints of difficulty or pain with swallowing, Coughs or chokes during mealsor when swallowing medications Bowel Sounds All Quadrants Present Urinary Elimination Voiding, no difficulties Skin Description Normal for ethnicity, Dry Skin Temperature Warm All Extremity Description Normal for ethnicity Temperature All Extremities Warm Mucous Membrane Color [place] Mucous Membrane Description Moist Sensory Perception Felipe Slightly limited Moisture Felipe Rarely moist Activity Felipe Bedfast Mobility Felipe Slightly limited Nutrition Felipe Adequate Friction and Shear Felipe No apparent problem Felipe Score 17 Hospital Acquired Pressure Injury Risk Low risk (score 15-18) Antecubital Right 18 gauge Peripheral IV Activity: Assessed Peripheral IV Dressing Condition: Clean, Dry, Intact Peripheral IV Dressing Activity: Transparent dressing Peripheral IV Line Status/Patency: Continuous infusion Peripheral IV Line Care: Secured with tape Peripheral IV Site Condition: No complications Peripheral IV Equipment: IV Pump Neurological Language Able to speak clearly, Mild to moderate slurring of words Neurological Symptoms Numbness, Tingling, Weakness Gait Unable to assess Extremity Movement Unequal Swallowing Difficulty Liquids, thin Characteristics of Communication Appropriate Characteristics of Speech Clear Level of Consciousness Alert Strength All Extremities Moderate Left Upper Extremity Sensation Intact Right Upper Extremity Sensation Intact Left Lower Extremity Sensation Intact Right Lower Extremity Sensation Intact Baptiste Screen Daily History of Fall in Last 3 Months Baptiste Yes Presence of Secondary Diagnosis Baptiste Yes Use of Ambulatory Aid Baptiste None, bedrest, wheelchair, nurse IV/PRN Adapter Fall Risk Baptiste Yes Gait Weak or Impaired Fall Risk Baptiste Weak Mental Status Fall Risk Baptiste Oriented to own ability Baptiste Fall Risk Score 70 HI Violence Risk Confused No Violence Risk Irritable No Violence Risk Boisterous No Violence Risk Verbal Threats No Violence Risk Physical Threats No Violence Risk Attacking Objects No Violence Risk Predictor Score 0 Violence Risk Intervention None Violence Risk Current Interventions None Affect/Behavior Appropriate, Calm, Cooperative Orientation Oriented x 4 Orientation Assessment Oriented x 4 Activity Status ADL Awake Standard Safety ID band on, Call device within reach, Bed in low position, Wheels locked, Upper/Half-Length side-rails up, Phone within reach, personal items within reach, Visitor at bedside, Non-Slip footwear High Risk Safety Identified as high risk, Fall ID band on, Bed alert on, Door open, Non-Slip footwear, Room check performed Appetite Poor Eating Difficulties Swallowing 04/07/2025 7:49 EDT Mechanical VTE Prophylaxis Education Not Done: Not Appropriate at this Time (NotDone) Sequential Compression Device Not Done: Not Appropriate at this Time (Not Done) Sequential Compression Device Form Not Done (Not Done) 04/07/2025 7:10 EDT Cardiac Rhythm Sinus bradycardia Monitoring Lead II GA Interval 0.18 second(s) QRS Duration 0.07 second(s) QT Interval 0.43 second(s) QTc Interval 0.41 second(s) Alarms On and Functional Yes Heart Rate Alarm Set At - Low 50 Heart Rate Alarm Set At - High 120 04/07/2025 7:00 EDT Urine Count 1 EA Urine Voided 300 mL 04/07/2025 6:59 EDT Sodium Chloride 0.9% 75 mL mL 04/07/2025 6:25 EDT Temperature Oral 36.4 DegC Heart Rate Monitored 46 bpm LOW Respiratory Rate 16 br/min Systolic Blood Pressure Non-Invasive 187 mmHg HI Diastolic Blood Pressure Non-Invasive 88 mmHg Reason For Taking VItal Signs Routine Oxygen Therapy Room air Oxygen Saturation 96 % 04/07/2025 6:11 EDT Oxygen Therapy Room air Oxygen Activity Room air Oxygen Flow Rate 0 L/min 04/07/2025 5:59 EDT Sodium Chloride 0.9% 75 mL mL 04/07/2025 5:22 EDT WBC 8.6 10^3/mcL RBC 5.32 10^6/mcL Hgb 15.9 G/dL Hct 46.6 % MCV 87.6 fL MCH 30.0 pg MCHC 34.2 G/dL RDW 13.5 % Platelet 290 10^3/mcL MPV 6.7 fL Neutrophil % 68.6 % Lymphocyte % 22.2 % Monocyte % 7.4 % Eosinophil % 1.2 % Basophil % 0.6 % Neutrophil, Absolute 5.9 10^3/mcL Lymphocyte, Absolute 1.9 10^3/mcL Monocyte, Absolute 0.6 10^3/mcL Eosinophil, Absolute 0.1 10^3/mcL Basophil, Absolute 0.1 10^3/mcL Magnesium Lvl 1.9 mg/dL Hgb A1c 5.7 % Est Avg Glucose 117 mg/dL NA Cholesterol 174 mg/dL Triglycerides 143 mg/dL HDL Cholesterol 34 mg/dL LOW LDL Cholesterol 111 mg/dL TSH 3.03 mcIU/mL Free T4 0.84 ng/dL 04/07/2025 4:59 EDT Sodium Chloride 0.9% 75 mL mL 04/07/2025 4:33 EDT Antecubital Right 18 gauge Peripheral IV Activity: Assessed Peripheral IV Dressing Condition: Clean, Dry, Intact Peripheral IV Dressing Activity: Transparent dressing Peripheral IV Site Condition: No complications Peripheral IV Equipment: IV Pump 04/07/2025 3:59 EDT Sodium Chloride 0.9% 75 mL mL 04/07/2025 3:45 EDT Primary Pain Intensity 0 Pain Scale Type 0-10 Pain scale Cardiac Rhythm Sinus bradycardia Monitoring Lead II, V1/MCL1 GA Interval 0.18 second(s) QRS Duration 0.10 second(s) QT Interval 0.48 second(s) QTc Interval 0.40 second(s) Alarms On and Functional Yes Heart Rate Alarm Set At - Low 40 Heart Rate Alarm Set At - High 120 Respirations Unlabored Respiratory Pattern Regular Breath Sounds Auscultated Anterior and posterior All Lobes Breath Sounds Clear, Diminished Oxygen Therapy Room air Neurological Language Able to speak clearly Neurological Symptoms Numbness Characteristics of Communication Appropriate Characteristics of Speech Clear Level of Consciousness Arousable with minimal stimulation Strength All Extremities Moderate Affect/Behavior Appropriate, Cooperative Orientation Oriented x 4 Standard Safety ID band on, Call device within reach, Bed in low position, Wheels locked, Upper/Half-Length side-rails up, Visitor at bedside, Safety level maintained 04/07/2025 2:59 EDT Sodium Chloride 0.9% 75 mL mL 04/07/2025 2:49 EDT Temperature Oral 36.8 DegC Heart Rate Monitored 49 bpm LOW Respiratory Rate 16 br/min Systolic Blood Pressure Non-Invasive 162 mmHg HI Diastolic Blood Pressure Non-Invasive 90 mmHg HI Reason For Taking VItal Signs Routine Oxygen Therapy Room air Oxygen Saturation 94 % 04/07/2025 1:59 EDT Sodium Chloride 0.9% 75 mL mL 04/07/2025 1:34 EDT Wearing Snapless Gown Yes Dentures Removed N/A Hearing Aids Removed N/A Jewelry Removed, if possible N/A Body Piercings Removed N/A Pulse Ox Removed N/A IV Adapted Yes 15 Foot Extension Tubing Added N/A Electrode Patches Removed N/A Monitors Removed N/A EKG Patches Removed N/A Pain Pumps Removed N/A Insulin Pump Removed N/A 04/07/2025 1:33 EDT MRI - Pacemaker Present No MRI - 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 No MRI - Patient is Claustrophobic No MRI - Surgical [place] Present No MRI - Any Implant Present No MRI - Surgery in Area to be Scanned No Able To Sign Consents Order Detail Yes Metal in Body Order Detail Yes Metal in Eyes Order Detail No Pre MRI Evaluation Checklist Form Pre MRI Evaluation Checklist Form 04/07/2025 1:32 EDT Mechanical VTE Prophylaxis Education Not Done: See ICU flow (Not Done) Sequential Compression Device Not Done: See ICU flow (Not Done) Standard Safety ID band on, Call device within reach, Bed in low position, Wheels locked, Upper/Half-Length side-rails up, Safety level maintained Sequential Compression Device Form Not Done (Not Done) 04/07/2025 1:31 EDT ED Valuables and Belongings Form Not Done (Not Done) ED Valuables and Belongings Form Not Done (Not Done) 04/07/2025 1:23 EDT Individuals Taught Not Done: See ICU flow (Not Done) Learning Readiness Not Done: See ICU flow (Not Done) Barriers to Learning Not Done: See ICU flow (Not Done) Preferred Spoken Language Not Done: See ICU flow (Not Done) Preferred Written Language Not Done: See ICU flow (Not Done) Patient Education Form Not Done (Not Done) 04/07/2025 1:22 EDT Mechanical VTE Prophylaxis Education Not Done: See ICU flow (Not Done) Sequential Compression Device Not Done: See ICU flow (Not Done) Sequential Compression Device Form Not Done (Not Done) 04/07/2025 0:59 EDT Sodium Chloride 0.9% 75 mL mL 04/07/2025 0:31 EDT Temperature Oral 36.5 DegC Peripheral Pulse Rate 42 bpm <LLOW Respiratory Rate 16 br/min Systolic Blood Pressure Non-Invasive 149 mmHg HI Diastolic Blood Pressure Non-Invasive 74 mmHg Reason For Taking VItal Signs Routine Primary Pain Intensity 0 Pain Scale Type 0-10 Pain scale Heart Sounds ICU S1S2 Heart Rhythm Regular Respirations Unlabored Respiratory Pattern Regular Breath Sounds Auscultated Anterior and posterior All Lobes Breath Sounds Clear, Diminished Oxygen Therapy Room air Oxygen Saturation 94 % Neurological Language Able to speak clearly Neurological Symptoms Numbness Characteristics of Communication Appropriate Characteristics of Speech Clear Level of Consciousness Arousable with minimal stimulation NIMISHA No Pupil Size, Left 2 mm Pupil Size, Right 3 mm Strength All Extremities Moderate Affect/Behavior Appropriate Orientation Oriented x 4 Standard Safety ID band on, Call device within reach, Bed in low position, Wheels locked, Upper/Half-Length side-rails up, Visitor at bedside, Safety level maintained 04/07/2025 0:21 EDT Temperature Oral 36.8 DegC Heart Rate Monitored 48 bpm LOW Respiratory Rate 16 br/min Systolic Blood Pressure Non-Invasive 138 mmHg Diastolic Blood Pressure Non-Invasive 92 mmHg HI Reason For Taking VItal Signs Routine Oxygen Therapy Room air Oxygen Saturation 94 % 04/07/2025 0:01 EDT Individuals Taught Patient, Spouse Learning Readiness Willing to learn Barriers to Learning None evident Teaching Method Explanation Mechanical VTE Prophylaxis Education Purpose of Mechanical VTE Prophylaxis, Wear device at all times when in bed/chair, Always call for assistance to get out of bed, Explain the higher risk for falling, Call for assistance to re-apply device Teaching Evaluation Needs reinforcement, Verbalizes/Nonverbally indicates understanding Positioning Repositions self Sequential Compression Device bilateral knee high applied/on Sequential Compression Device Form Sequential Compression Device Form . Assessment and Plan [place] [employer] (ASA) physical status classification: Class III. Anesthetic Preoperative Plan Anesthetic technique: MAC. Informed consent: signed by patient. Digitally Signed by MIKE FIGUEROA on 04/08/2025 11:22 AM [facility] Hospital course Narrative No data available for this section [facility] Hospital Discharge instructionsAdditional Instructions 1. I do not know why you had a stroke. Actually you had multiple little strokes on the right side of the brain. when there are multiple little strokes this is very suspicious for embolic strokes. This means you may have had multiple small blood clots go to the brain. One of the causes of embolic strokes is atrial fibrillation which is a problem with the rhythm of the heart. I have given you some literature to read on atrial fibrillation(also called AFIB). We are going to put in an order for an event monitor to monitor your heart rate continuously for a month. You will get it in the mail and it will have directions on how to apply it. If you have any problems getting it to work bring it to rehab and we will put it on. 2. I think you have sleep apnea. Sleep apnea can cause AFIB. You are going to have a sleep study to test you for this and then you will follow up with the pulmonary department to be treated IF you have sleep apnea. 3. Risk factors for strokes and heart attacks include, being a man, having high blood pressure, having high cholesterol, being diabetic, smoking. When you have had a stroke or a heart attack there are goals we set so that we can help prevent more strokes or heart attacks. The blood pressure should be less than 130/80. The LDL (bad cholesterol) should be less than or equal to 70. Your LDL was 111 when you had the stroke. The HGBA1C (this is for diabetics ) should be 7 or less. Your HGBA1C was 5.7.........just a tad higher than normal. You are at risk for developing diabetes. Watch you carbohydrate intake and don't gain any weight. You are taking a medication for cholesterol now. the medication is called Atorvastatin. You are taking 40 mg at bedtime. Your PCP will want to check your cholesterol and a lover panel in 4-6 weeks to make sure the LDL is 70 or less. Get a BP cuff and start taking your BP a couple times a day at different times and keep a record. Take the record to your doctor appts. You are taking Lisinopril 5 mg a day for BP. Your BP is looking pretty good right now. 4. We checked your prostate test (called a PSA) and it is normal. 5. I talked with the sleep lab. They have you scheduled for 05/05 for a sleep study but, they may be able to get you in sooner. They will call you. 6. 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 This needs to be further investigated. I have spoken with Dr. Baires (he is the buhr mill operator at the hospital) and he would like to see you next week. He will also be the one to remove the PEG tube. 7. WE talked some about ED while you were on rehab. there are many medications now that are used to treat this. Before trying these medications you should have some additional lab done......such as a testosterone level. Your PCP can order this. 8. The dizziness if currently under control with Meclizine twice a day. In 2 weeks or so if you have had no dizziness you could try stopping the Meclizine........if the dizziness comes back you should restart the meclizine Twice a day. I think the dizzy episodes you were having off and on prior to the stroke were due to BPPV (benign paroxysmal positional vertigo). This is due to a problem with the inner ear which helps to control balance. 9. We have put in an order for a heart monitor. They should be mailing it to you........IF you do not get it by next please call me and I will look into it. 10. If you or Mary have any questions after you leave rehab please do not hesitate to call me. OFFICE: [phone] CELL: [phone] NURSES [facility] REHAB: [phone] [facility]: [facility] Reason for referral (narrative)No reason for referral information availableWSt. Charles Hospital Work Phone: Chief Complaint and Reason for Visit Chief Complaint Admit Date CVA April 09, 2025 4:24p m Cerebrovascular accident April 10, 2025 12:12pm Cerebrovascular accident April 11, 2025 10:43am Cerebrovascular accident April 14, 2025 9:26am Cerebrovascular accident April 16, 2025 9:34am Cerebrovascular accident April 17, 2025 10:25am Reason for Visit Admit Date CVA (cerebral vascular accident) April 4:24pm Debility April 09, 2025 4:24p m Dysarthria April 09, 2025 4:24p m Dysphagia due to recent cerebral infarct ion April 09, 2025 4:24pm Erosive esophagitis April 09, 2025 4:24p m Loud snoring April 09, 2025 4:24p m Tobacco dependence in remission April 4:24pm Dyslipidemia April 09, 2025 4:24p m Hypertension April 09, 2025 4:24p m Overweight (BMI 25.0-29.9) April 09 4:24pm Sleep-disordered breathing April 09 4:24pm Nausea & vomiting April 09, 2025 4:24p m Chief Complaint Admit Date CVA April 09, 2025 4:24p m Cerebrovascular accident April 10, 2025 12:12pm Cerebrovascular accident April 11, 2025 10:43am Cerebrovascular accident April 14, 2025 9:26am Cerebrovascular accident April 16, 2025 9:34am Cerebrovascular accident April 17, 2025 10:25am Cerebrovascular accident April 18, 2025 6:29pm SLEEP APNEA UNSPECIFIED April 24, 2025 8:21pm Reason for Visit Admit Date Debility April 09, 2025 4:24p m Erosive esophagitis April 09, 2025 4:24p m Loud snoring April 09, 2025 4:24p m Hypertension April 09, 2025 4:24p m Sleep-disordered breathing April 09 4:24pm Nausea & vomiting April 09, 2025 4:24p m CVA (cerebral vascular accident) April 4:24pm Dysarthria April 09, 2025 4:24p m Dyslipidemia April 09, 2025 4:24p m Dysphagia due to recent cerebral infarct ion April 09, 2025 4:24pm Overweight (BMI 25.0-29.9) April 09 4:24pm Tobacco dependence in remission April 4:24pm Chief Complaint Admit Date CVA April 09, 2025 4:24p m Cerebrovascular accident April 10, 2025 12:12pm Cerebrovascular accident April 11, 2025 10:43am Cerebrovascular accident April 14, 2025 9:26am Cerebrovascular accident April 16, 2025 9:34am Cerebrovascular accident April 17, 2025 10:25am Cerebrovascular accident April 18, 2025 6:29pm SLEEP APNEA UNSPECIFIED April 24, 2025 8:21pm Hospital May 01, 2025 8:56 am Reason for Visit Admit Date Debility April 09, 2025 4:24p m Dysphagia due to recent cerebral infarct ion April 09, 2025 4:24pm Erosive esophagitis April 09, 2025 4:24p m Loud snoring April 09, 2025 4:24p m Hypertension April 09, 2025 4:24p m Sleep-disordered breathing April 09 4:24pm Nausea & vomiting April 09, 2025 4:24p m CVA (cerebral vascular accident) April 4:24pm Dysarthria April 09, 2025 4:24p m Dyslipidemia April 09, 2025 4:24p m Overweight (BMI 25.0-29.9) April 09 4:24pm Tobacco dependence in remission April 4:24pm Chief Complaint Admit Date CVA April 09, 2025 4:24p m Cerebrovascular accident April 10, 2025 12:12pm Cerebrovascular accident April 11, 2025 10:43am Cerebrovascular accident April 14, 2025 9:26am Cerebrovascular accident April 16, 2025 9:34am Cerebrovascular accident April 17, 2025 10:25am Cerebrovascular accident April 18, 2025 6:29pm SLEEP APNEA UNSPECIFIED April 24, 2025 8:21pm Hospital May 01, 2025 8:56 am CVA. RX HERE May 05, 2025 10:5 4am Sleep problems May 13, 2025 1:4 9pm Reason for Visit Admit Date Debility April 09, 2025 4:24p m Dysphagia due to recent cerebral infarct ion April 09, 2025 4:24pm Erosive esophagitis April 09, 2025 4:24p m Loud snoring April 09, 2025 4:24p m Hypertension April 09, 2025 4:24p m Sleep-disordered breathing April 09 4:24pm Nausea & vomiting April 09, 2025 4:24p m CVA (cerebral vascular accident) April d2024 4:24pm Dysarthria April 09, 2025 4:24p m Dyslipidemia April 09, 2025 4:24p m Overweight (BMI 25.0-29.9) April 09 4:24pm Tobacco dependence in remission April 4:24pm Dysphagia due to recent cerebral infarct ion May 01, 2025 8:56am Erosive esophagitis May 01, 2025 8:56 am Chief Complaint Admit Date CVA April 09, 2025 4:24p m Cerebrovascular accident April 10, 2025 12:12pm Cerebrovascular accident April 11, 2025 10:43am Cerebrovascular accident April 14, 2025 9:26am Cerebrovascular accident April 16, 2025 9:34am Cerebrovascular accident April 17, 2025 10:25am Cerebrovascular accident April 18, 2025 6:29pm SLEEP APNEA UNSPECIFIED April 24, 2025 8:21pm Hospital FU May 01, 2025 8:56 am Sleep problems May 13, 2025 1:4 9pm CVA. RX HERE May 19, 2025 11 :00am Reason for Visit Admit Date Debility April 09, 2025 4:24p m Dysphagia due to recent cerebral infarct ion April 09, 2025 4:24pm Erosive esophagitis April 09, 2025 4:24p m Loud snoring April 09, 2025 4:24p m Hypertension April 09, 2025 4:24p m Sleep-disordered breathing April 09 4:24pm Nausea & vomiting April 09, 2025 4:24p m CVA (cerebral vascular accident) April 4:24pm Dysarthria April 09, 2025 4:24p m Dyslipidemia April 09, 2025 4:24p m Overweight (BMI 25.0-29.9) April 09 4:24pm Tobacco dependence in remission April 4:24pm Dysphagia due to recent cerebral infarct ion May 01, 2025 8:56am Erosive esophagitis May 01, 2025 8:56 am Obstructive sleep apnea May 13, 2025 1:49pm Advance Directives No Advanced Directives Records Found Advance Directive Response Recorded Date/ Time Do you have a Healthcare Power of Superintendent [employer]? No April 15, 2025 6:21pm Summary Purpose Family History No Family History Records Found Additional Source Comments Patient Care team informatio n (unrecognized section and content) Team Status: Active Member Role/Relationship Status Dates No Primary Care Physician Primary Care Provider Active Team Status: Inactive Member Role/Relationship Status Dates No Primary Care Physician Primary Care Provider Active Start: April 09, 2025 End: April 19, 2025 Dr. Sheri De León , DO Admit Provider Active Start: April 09, 2025 End: April 19, 2025 Dr. Sheri De León , DO Attending Provider Act jameson Start: April 09, 2025 End: April 19, 2025 Dr. Sheri De León , DO Referring Provider Act jameson Start: April 09, 2025 End: April 19, 2025 Team Status: Active Member Role/Relationship Status Dates No Primary Care Physician Primary Care Provider Active Start: April 10, 2025 Dr. Sheri De León , DO Admit Provider Active Start: April 10, 2025 Dr. Sheri De León , DO Attending Provider Act jameson Start: April 10, 2025 Dr. Sheri De León , DO Other Provider Active Start: April 10, 2025 Team Status: Active Member Role/Relationship Status Dates No Primary Care Physician Primary Care Provider Active Start: April 11, 2025 Dr. Sheri De León , DO Admit Provider Active Start: April 11, 2025 Dr. Sheri De León , DO Attending Provider Act jameson Start: April 11, 2025 Dr. Sheri De León , DO Other Provider Active Start: April 11, 2025 Team Status: Active Member Role/Relationship Status Dates No Primary Care Physician Primary Care Provider Active Start: April 14, 2025 Dr. Sheri De León , DO Admit Provider Active Start: April 14, 2025 Dr. Sheri De León , DO Attending Provider Act jameson Start: April 14, 2025 Dr. Sheri De León , DO Referring Provider Act jameson Start: April 14, 2025 Dr. Sheri De León , DO Other Provider Active Start: April 14, 2025 Team Status: Active Member Role/Relationship Status Dates No Primary Care Physician Primary Care Provider Active Start: April 16, 2025 Dr. Sheri De León , DO Admit Provider Active Start: April 16, 2025 Dr. Sheri De León , DO Attending Provider Act jameson Start: April 16, 2025 Dr. Sheri De León , DO Referring Provider Act jameson Start: April 16, 2025 Dr. Sheri De León , DO Other Provider Active Start: April 16, 2025 Team Status: Active Member Role/Relationship Status Dates No Primary Care Physician Primary Care Provider Active Start: April 17, 2025 Dr. Sheri De León , DO Admit Provider Active Start: April 17, 2025 Dr. Sheri De León , DO Attending Provider Act jameson Start: April 17, 2025 Dr. Sheri De León , DO Referring Provider Act jameson Start: April 17, 2025 Dr. Sheri De León , DO Other Provider Active Start: April 17, 2025 Team Status: Active Member Role/Relationship Status Dates Lakeshia Finch MEDICAL OFFICE SECRETARY, MEDICAL OFFICE SECRETARY-C Primary Care Provider Activ e Team Status: Active Member Role/Relationship Status Dates No Primary Care Physician Primary Care Provider Active Start: April 14, 2025 Dr. Sheri De León , DO Admit Provider Active Start: April 14, 2025 Dr. Sheri De León , DO Attending Provider Act jameson Start: April 14, 2025 Dr. Sheri De León , DO Other Provider Active Start: April 14, 2025 Team Status: Active Member Role/Relationship Status Dates No Primary Care Physician Primary Care Provider Active Start: April 16, 2025 Dr. Sheri De León , DO Admit Provider Active Start: April 16, 2025 Dr. Sheri De León , DO Attending Provider Act jameson Start: April 16, 2025 Dr. Sheri De León , DO Other Provider Active Start: April 16, 2025 Team Status: Active Member Role/Relationship Status Dates No Primary Care Physician Primary Care Provider Active Start: April 17, 2025 Dr. Sheri De León , DO Admit Provider Active Start: April 17, 2025 Dr. Sheri De León , DO Attending Provider Act jameson Start: April 17, 2025 Dr. Sheri De León , DO Other Provider Active Start: April 17, 2025 Team Status: Active Member Role/Relationship Status Dates No Primary Care Physician Primary Care Provider Active Start: April 18, 2025 Dr. Sheri De León , DO Admit Provider Active Start: April 18, 2025 Dr. Sheri De León , DO Attending Provider Act jameson Start: April 18, 2025 Dr. Sheri De León , DO Other Provider Active Start: April 18, 2025 Team Status: Inactive Member Role/Relationship Status Dates No Primary Care Physician Primary Care Provider Active Start: April 24, 2025 End: April 24, 2025 Dr. Sheri De León , DO Attending Provider Act jameson Start: April 24, 2025 End: April 24, 2025 Dr. Sheri De León DO Referring Provider Act jameson Start: April 24, 2025 End: April 24, 2025 Team Status: Inactive Member Role/Relationship Status Dates No Primary Care Physician Referring Provider Active Start: May 01, 2025 End: May 01, 2025 BURKE Chen Attending Provider Active Start: May 01, 2025 End: May 01, 2025 Lakeshia Finch MEDICAL OFFICE SECRETARY, MEDICAL OFFICE SECRETARY-C Primary Care Provider Activ e Start: May 01, 2025 End: May 01, 2025 Team Status: Active Member Role/Relationship Status Dates Dr. Sheri De León DO Attending Provider Act jameson Start: May 05, 2025 Dr. Sheri De León DO Referring Provider Act jameson Start: May 05, 2025 Lakeshia Finch MEDICAL OFFICE SECRETARY, MEDICAL OFFICE SECRETARY-C Primary Care Provider Activ e Start: May 05, 2025 Team Status: Inactive Member Role/Relationship Status Dates No Primary Care Physician Referring Provider Active Start: May 13, 2025 End: May 13, 2025 Ct Elder NP-C Attending Provider Active Start: May 13, 2025 End: May 13, 2025 Lakeshia Finch NP, MEDICAL OFFICE SECRETARY-C Primary Care Provider Activ e Start: May 13, 2025 End: May 13, 2025 Team Status: Inactive Member Role/Relationship Status Dates No Primary Care Physician Referring Provider Active Start: May 13, 2025 End: May 13, 2025 Ct Elder NP-C Attending Provider Active Start: May 13, 2025 End: May 13, 2025 Lakeshia Finch MEDICAL OFFICE SECRETARY, MEDICAL OFFICE SECRETARY-C Primary Care Provider Activ e Start: May 13, 2025 End: May 13, 2025 Team Status: Inactive Member Role/Relationship Status Dates Dr. Sheri De León DO Attending Provider Act jameson Start: May 19, 2025 End: May 19, 2025 Dr. Sheri De León , Referring Provider Act jameson Start: May 19, 2025 End: May 19, 2025 Lakeshia Finch MEDICAL OFFICE SECRETARY, MEDICAL OFFICE SECRETARY-C Primary Care Provider Activ e Start: May 19, 2025 End: May 19, 2025 (unrecognized sect ion and content) No Status Records FoundNo Status Records Found INFORMATION SOURCE (unrecogn ized section and content) DATE CREATED AUTHOR 04/26/2025 [facility] DATE CREATED AUTHOR AUTHOR'S ORGANIZ ATION 06/14/2025 [facility] FOR RECORDS PERTAINING TO PATIENTS WHO ARE OR HAVE BEEN ENROLLED IN A CHEMICAL DEPENDENCY/SUBSTANCEABUSE PROGRAM, SOME INFORMATION MAY BE OMITTED. This clinical summary was aggregated from multiple sources. Caution should be exercised in using it in the provision of clinical care. This summary normalizes information from multiple sources, and as a consequence, information in this document may materially change the coding, format and clinical context of patient data. In addition, data may be omitted in some cases. CLINICAL DECISIONS SHOULD BE BASED ON THE PRIMARY CLINICAL RECORDS. [employer] provides no warranty or guarantee of the accuracy or completeness of information in this document.
[2025-06-16] MEDS: Lactated Ringers 1,000 ML 15 ML IV (06:47)
--- NOTE | 2025-06-16 07:20 | PRE.ANES_ITS ---
ASA Classification* ASA Classification ASA Classification: 3 Assessment & Plan Anesthesia* Anesthesia Assessment Anesthesia Assessment: Discussed sedation and/or anesthesia options, risks, benefits, and alternatives with patient/parents/legal guardian/POA. Questions invited. The patient/parents/legal guardian/POA seems to understand and agrees to proceed with anesthesia plan. Reviewed the physical assessment, medical history, allergy history and patient home medications list prior to surgery/procedure/anesthetic and documented any changes. Performed airway and anesthesia risk assessments. Anesthesia Type Anesthesia Type: MAC History Source History Obtained from:: Patient and Chart Anesthesia Focused Assessment* Temperature: 97.9 F Pulse Rate: 54 Blood Pressure: 137/87 Respiratory Rate: 16 Pulse Ox: 99 Oxygen Delivery Method: Room Air Airway Assessment Mouth opens: >3 cm Mallampati Score: II Teeth Condition: Chipped/Broken Neck Range of motion (ROM): Full ROM Labs Anesthesia Preop lab: CBC WBC 7.1 K/mm3 (4.4-11.0) 04/11/25 05:58 04/11/25 RBC 5.32 M/mm3 (4.6-6.2) 04/11/25 05:58 04/11/25 Hgb 16.0 g/dL (13.0-16.5) 04/11/25 05:58 04/11/25 Hct 45.5 % (40-54) 04/11/25 05:58 04/11/25 Plt Count 274 K/mm3 (150-450) 04/11/25 05:58 04/11/25 CHEMISTRY Potassium 4.3 mmol/L (3.3-5.1) 04/11/25 05:58 04/11/25 Sodium 139 mmol/L (133-145) 04/11/25 05:58 04/11/25 Magnesium 2.3 mg/dL (1.5-2.2) H 04/11/25 05:58 04/11/25 Phosphorus 3.6 mg/dL (2.7-4.5) 04/11/25 05:58 04/11/25 BUN 15 mg/dL (4-19) 04/11/25 05:58 04/11/25 Creatinine 0.79 mg/dL (0.70-1.20) 04/11/25 05:58 04/11/25 Glucose 133 mg/dL (70-99) H 04/11/25 05:58 04/11/25 COAG Pre-Assessment Diagnosis/Proposed Procedure Planned Operative Procedure(s): EGD, PEG TUB REMOVAL Anesthesia History 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 When Was Last Pacemaker Check QUESTION #4 FULL TEXT: You/Your Family Experience fever (hyperthermia) with Anesthesia Last Oral Intake Last Oral intake: Last Oral Intake NPO since 05:30 06/16/25 06:38 Meds taken in AM with sips of water? 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 Has anyone observed you stop breathing during sleep? STOP Results Positive 06/12/25 11:18 QUESTION #5 FULL TEXT : Do you snore loudly (louder than talking or can be heard through closed doors)? 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 Specify any problems Hx of Preganancy in last 3 N/A 06/12/25 11:18 Months Nurse Filling Out Transfusion EVELIA 06/12/25 11:18 & Questions: Date: 06/12/25 06/12/25 11:18 Time: 11:20 06/12/25 11:18 Patient unable to answer at this time (ie. 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 teacher: /Reproductive Hx- 6th grade teacher Hx Now No 06/12/25 11:18 Gestational Age (in weeks): EDC: Hx Hx Para Hx Section SAB No 06/12/25 11:18 Active Medications Active Medications: Current Medications Generic Name Dose Route Start Last Admin Trade Name Freq PRN Reason Stop Dose Admin Lactated Ringer's 1,000 mls @ 15 mls/hr 06/16/25 06:45 06/16/25 06:47 IV 15 mls/hr .Q48H RUSSELL Administration PFSH Medical History CPAP (continuous positive airway pressure) dependence Sleep apnea Non-smoker Loud snoring Dysarthria Tobacco dependence in remission Dysphagia due to recent cerebral infarction Overweight (BMI 25.0-29.9) Dyslipidemia Erosive esophagitis CVA (cerebral vascular accident) Hypertension Home Medications ?Medication ?Instructions ?Recorded ?Last Taken ?Type aspirin 81 mg chewable tablet 81 mg PO BREAKFAST #1 TA B 04/18/25 06/13/25 Rx atorvastatin 40 mg tablet 40 mg PO QHS #30 tabs Unknown Rx lisinopril 5 mg tablet 5 mg PO DAILY #30 tabs 04/1806/16/25 Rx pantoprazole 40 mg tablet,delayed 40 mg PO BID #60 tab s 04/18/25 06/16/25 Rx release Allergy/AdvReac Type Severity Reaction Status Date / Time No Known Allergies Allergy Verified 06/16/25 06:37 Social History household members: spouse and family housing: house Smoking Status: Former smoker Review of Systems (Anesthesia) ROS Narrative System reviewed and no additional complaints, except as documented.
--- NOTE | 2025-06-16 07:38 | OP.PROVAT_ITS ---
06/16/2025 Lakeshia Joseph Mathematical Physicist, Mathematical Physicist-c Re : Upper GI endoscopy procedure for David Rico Reneer Jake This procedure was performed on Monday, June 16, 2025. My impressions and recommendations are as follows: Impressions : - No gross lesions in the entire esophagus. - Intact gastrostomy with a patent G-tube present characterized by healthy appearing mucosa. - A large amount of food (residue) in the stomach. - No gross lesions in the entire examined duodenum. - The PEG was removed percutaneously because it was no longer necessary. - No specimens collected. Recommendations : - Discharge patient to home. - Clear liquid diet today. - Continue present medications. My findings are described in the full procedure note, which is enclosed. If I can be of further assistance, please feel free to contact me at . Sincerely, Santana Baires, 06/16/2025 7:38:17 AM This report has been signed electronically.
--- NOTE | 2025-06-16 07:38 | OP.EGD_ITS ---
Patient Name: David Rico Procedure Date: 06/16/2025 7:20 AM Date of : 1970 Age: 54 Procedure: Upper GI endoscopy Indications: Dysphagia, Remove PEG tube (no longer needed) Providers: Santana Baires DO Referring MD: Lakeshia Joseph Golf Club Head Inspector, Golf Club Head Inspector-c Medicines: Monitored Anesthesia Care Patient Profile: This is a 54 year old male. Refer to note in patient chart for documentation of history and physical. Patient has symptoms of chronic dysphagia. Complications: No immediate complications. Procedure: Pre-Anesthesia Assessment: - Prior to the procedure, a History and Physical was performed, and patient medications and allergies were reviewed. The patient is competent. The risks and benefits of the procedure and the sedation options and risks were discussed with the patient. All questions were answered and informed consent was obtained. Patient identification and proposed procedure were verified by the physician in the pre-procedure area. Mental Status Examination: alert and oriented. Airway Examination: normal oropharyngeal airway and neck mobility. Respiratory Examination: clear to auscultation. CV Examination: normal. Prophylactic Antibiotics: The patient does not require prophylactic antibiotics. Prior Anticoagulants: The patient has taken no anticoagulant or antiplatelet agents. ASA Grade Assessment: II - A patient with mild systemic disease. After reviewing the risks and benefits, the patient was deemed in satisfactory condition to undergo the procedure. The anesthesia plan was to use monitored anesthesia care (MAC). Immediately prior to administration of medications, the patient was re-assessed for adequacy to receive sedatives. The heart rate, respiratory rate, oxygen saturations, blood pressure, adequacy of pulmonary ventilation, and response to care were monitored throughout the procedure. The physical status of the patient was re-assessed after the procedure. After obtaining informed consent, the endoscope was passed under direct vision. Throughout the procedure, the patient's blood pressure, pulse, and oxygen saturations were monitored continuously. The Endoscope was introduced through the mouth, and advanced to the second part of duodenum. The upper GI endoscopy was accomplished without difficulty. The patient tolerated the procedure well. Scope In: 7:28:03 AM Scope Out: 7:32:33 AM Total Procedure Duration Time 0 hours 4 minutes 30 seconds Findings: No gross lesions were noted in the entire esophagus. There was evidence of an intact gastrostomy with a patent G-tube present in the gastric body. This was characterized by healthy appearing mucosa. The PEG required removal because it was no longer necessary. The PEG was removed percutaneously. Removal was easily accomplished. A large amount of food (residue) was found in the entire examined stomach. No gross lesions were noted in the entire examined duodenum. Impression: - No gross lesions in the entire esophagus. - Intact gastrostomy with a patent G-tube present characterized by healthy appearing mucosa. - A large amount of food (residue) in the stomach. - No gross lesions in the entire examined duodenum. - The PEG was removed percutaneously because it was no longer necessary. - No specimens collected. Recommendation: - Discharge patient to home. - Clear liquid diet today. - Continue present medications. Procedure Code(s): --- Professional --- 12085, Esophagogastroduodenoscopy, flexible, transoral; diagnostic, including collection of specimen(s) by brushing or washing, when performed (separate procedure) CPT copyright 2021 [employer]. All rights reserved. The codes documented in this report are preliminary and upon insurance coder review may be revised to meet current compliance requirements. Santana Baires DO 06/16/2025 7:38:17 AM This report has been signed electronically. Number of Addenda: 0 Note Initiated On: 06/16/2025 7:20 AM
--- NOTE | 2025-06-16 07:48 | PCM.POST.ANE ---
Anesthesia: Postop Eval I Current Vital Signs Temperature: 97.3 F Pulse Rate: 71 Blood Pressure: 144/92 Respiratory Rate: 16 Pulse Ox: 96 Oxygen Delivery Method: Room Air Assessment Airway patent: Yes Spontaneous unlabored respirations: Yes Mental status: Awake and Calm nausea: No Vomiting: Yes Anesthesia Complication: Yes Anesthesia Complication Comment:: pt emesis upon removal of scope, suctioned, lungs CTA, brief drop in O2 sat d/t coughing Fluid Hydration Crystalloid volume administer (ml): 400 Total IV fluid infused: 400 Progress Note Anesthesia document: Postop Eval 1 completed: Yes
--- NOTE | 2025-06-16 09:37 | PCM.POSTANE2 ---
Anesthesia Postop Eval I Sum Postop Eval Completion status Anesthesia document: Postop Eval 1 completed: Yes Anesthesia Postop Eval I Summary Anesthesia Postop Eval I Summary: Anesthesia Postop Eval I: Assessment Summary Airway patent Yes 06/16/25 07:49 [email or web address] Spontaneous unlabored Yes 06/16/25 07:49 [email or web address] respirations Mental status Awake,Calm 06/16/25 07:49 [email or web address] nausea No 06/16/25 07:49 [email or web address] Vomiting Yes 06/16/25 07:49 [email or web address] Anesthesia Postop Eval I: Fluid Summary Crystalloid volume administer 400 06/16/25 07:49 [email or web address] (ml) Colloids volume administered ( ml) Blood Product volume administered (ml) Total IV fluid infused 400 06/16/25 07:49 [email or web address] Anesthesia Postop Eval I: Summary Notes Anesthesia Complication Yes 06/16/25 07:49 [email or web address] Anesthesia Complication pt emesis upon 06/16/25 07:49 [email or web address] Comment: removal of scope, suctioned, lungs CTA, brief drop in O2 sat d/t coughing Post-operative progress note Anesthesia: Postop Eval II Evaluation Mental status: Awake and Calm Pain Level: 1 nausea: No Vomiting: No Complications Anesthesia Complication: No
== END 2025-06-16 08:16 | disposition home or self-care (01) ==
LOC: EN 06:24 → AC 06:26
PROVIDERS: PCP Nurse Practitioner Family; Referring Provider Nurse Practitioner Family; Visit Provider Internal Medicine Gastroenterology
PROC: 0DJ08ZZ Inspection of Upper Intestinal Tract, Via Natural or Artificial Opening Endoscopic (ICD-10-PCS; CPT 43235; principal; 2025-06-16 06:55)
DX: Z43.1 Encounter for attention to gastrostomy (principal); E78.5 Hyperlipidemia, unspecified; I10 Essential (primary) hypertension; Z79.899 Other long term (current) drug therapy; Z87.891 Personal history of nicotine dependence; Z79.82 Long term (current) use of aspirin; I69.391 Dysphagia following cerebral infarction
CPT/HCPCS: 43235; J2405

== ENCOUNTER → 2025-09-16 | Outpatient (CLI) | payer OTHER, SELFPAY | END | disposition home or self-care (01) | LOC: SL 08:05 | PROVIDERS: PCP Nurse Practitioner Family; Referring Provider Nurse Practitioner Family; Visit Provider Nurse Practitioner Family | DX: G47.33 Obstructive sleep apnea (adult) (pediatric) (principal) | CPT/HCPCS: 98960; G0463 ==